=== PATIENT | female | born 1955 | race Caucasian/White ===

== ENCOUNTER 2017-06-25 09:00 | Outpatient (CLI) | payer BC | END 2017-06-25 09:01 | disposition home or self-care (01) | LOC: BICMAMMO 09:00 | PROVIDERS: ATTEND Family Medicine | DX: N63.20 Unspecified lump in the left breast, unspecified quadrant (principal); Z80.3 Family history of malignant neoplasm of breast | CPT/HCPCS: 77066; G0279 ==

== ENCOUNTER 2018-08-31 07:56 | Outpatient (CLI) | payer BC ==
--- NOTE | 2018-08-31 08:41 | MMO ---
Bilateral MAMMO Bilat Screen [facility]. CLINICAL HISTORY: Patient is 63 years old and is seen for screening. The patient has the following family history of breast cancer: maternal aunt and paternal grandmother. The patient has no personal history of cancer. VIEWS: The views performed were: bilateral craniocaudal with tomosynthesis and bilateral mediolateral oblique with tomosynthesis. FILMS COMPARED: The present examination has been compared to prior imaging studies performed at [facility] on 10/14/2010, at [facility] on 02/17/2013, 05/29/2014, 06/24/2016 and 06/25/2017, and at [facility] on 06/27/2007. MAMMOGRAM FINDINGS: The breasts are almost entirely fat. There are stable oval masses seen in both breasts. There are no suspicious masses, suspicious calcifications, or new areas of architectural distortion. IMPRESSION: THERE IS NO MAMMOGRAPHIC EVIDENCE OF MALIGNANCY. A ROUTINE FOLLOW-UP MAMMOGRAM IN 1 YEAR IS RECOMMENDED. THE RESULTS OF THIS EXAM WERE SENT TO THE PATIENT. ACR BI-RADS Category 2 - Benign finding MAMMOGRAPHY NOTE: 1. A negative mammogram report should not delay a biopsy if a dominant of clinically suspicious mass is present. 2. Approximately 10% to 15% of breast cancers are not detected by mammography. 3. Adenosis and dense breasts may obscure an underlying neoplasm.
--- NOTE | 2018-08-31 14:17 | BD ---
DEXA SCAN: INDICATION: Osteoporosis screening. COMPARISON: None. FINDINGS: Lumbar Spine: BMD (g/cm2) L1 1.126 T-Score: 1.2 Z-Score: 2.6 L2 1.158 T-Score: 1.2 Z-Score: 2.7 L3 1.187 T-Score: 0.9 Z-Score: 2.5 L4 1.228 T-Score: 1.5 Z-Score: 3.2 L1-L4 1.179 T-Score: 1.2 Z-Score: 2.8 Femoral Neck: 0.901 T-Score: 0.5 Z-Score: 1.8 Total Femur: 1.104 T-Score: 1.3 Z-Score: 2.4 Impression: Based on WHO criteria, the patient's bone mineral density is considered normal. The patient has a lo w risk for fracture. POS: [facility]
== END 2018-08-31 07:57 | disposition home or self-care (01) ==
LOC: BICMAMMO 07:56
PROVIDERS: ATTEND Family Medicine
DX: Z12.31 Encounter for screening mammogram for malignant neoplasm of breast (principal); Z13.820 Encounter for screening for osteoporosis; E89.2 Postprocedural hypoparathyroidism; Z80.3 Family history of malignant neoplasm of breast
CPT/HCPCS: 77063; 77067; 77080

== ENCOUNTER 2019-10-04 12:05 | Outpatient (CLI) | payer BC ==
--- NOTE | 2019-10-04 13:02 | MMO ---
Bilateral MAMMO Bilat Screen [facility]. CLINICAL HISTORY: Patient is 64 years old and is seen for screening. The patient has the following family history of breast cancer: maternal aunt and paternal grandmother. The patient has no personal history of cancer. VIEWS: The views performed were: bilateral craniocaudal with tomosynthesis and bilateral mediolateral oblique with tomosynthesis. FILMS COMPARED: The present examination has been compared to prior imaging studies performed at [facility] on 06/24/2016, 06/25/2017 and 08/31/2018. This study has been interpreted with the assistance of computer-aided detection. MAMMOGRAM FINDINGS: There are scattered fibroglandular densities. There is a stable oval mass with circumscribed margins seen in the right breast. There are no suspicious masses, suspicious calcifications, or new areas of architectural distortion. IMPRESSION: THERE IS NO MAMMOGRAPHIC EVIDENCE OF MALIGNANCY. A ROUTINE FOLLOW-UP MAMMOGRAM IN 1 YEAR IS RECOMMENDED. THE RESULTS OF THIS EXAM WERE SENT TO THE PATIENT. ACR BI-RADS Category 2 - Benign finding MAMMOGRAPHY NOTE: 1. A negative mammogram report should not delay a biopsy if a dominant of clinically suspicious mass is present. 2. Approximately 10% to 15% of breast cancers are not detected by mammography. 3. Adenosis and dense breasts may obscure an underlying neoplasm. Reported by: LELO TREVIÑO MD Electonically Signed: [id number]
== END 2019-10-04 12:06 | disposition home or self-care (01) ==
LOC: BICMAMMO 12:05
PROVIDERS: ATTEND Family Medicine
DX: Z12.31 Encounter for screening mammogram for malignant neoplasm of breast (principal); Z80.3 Family history of malignant neoplasm of breast
CPT/HCPCS: 77063; 77067

== ENCOUNTER 2020-05-02 06:57 | Outpatient (CLI) | payer BC ==
[2020-05-02 18:02] LABS: #Eosinphils 0.1 10x3/uL (0.0-0.5); #Monocytes 0.6 10x3/uL (0.0-1.1); #Neutrophils 3.5 10x3/uL (1.5-8.4); %Basophils 0.4 % (0.0-2.0); %Eosinophils 1.4 % (0.0-6.0); %Lymphocytes 39.2 % (18.0-47.0); %Monocytes 8.9 % (0.0-10.0); %Neutrophils 49.8 % (40.0-75.0); Hemoglobin 12.8 g/dL (12.0-16.0); Mean Corpuscular HGB CONC 33.2 G/DL (32.0-36.0); Mean Corpuscular Hemoglobin 31.1 PG (27.0-33.0); Mean Corpuscular Volume 93.4 fl (80.0-100.0); Mean Platelet Volume 9.8 fl (7.4-10.4); Platelet Count 291 10x3/uL (130-400); RBC Distribution Width 12.9 % (11.5-14.5); Red Blood Cell (RBC) Count 4.12 10x6/uL (3.90-5.20)
[2020-05-02 18:36] LABS: ALT (SGPT) 35 U/L (8-55); AST (SGOT) 29 U/L (5-34); Albumin 4.5 g/dL (3.4-4.8); Alkaline Phosphatase 135 U/L (40-110); Anion Gap 16 mmol/L (10-20); BUN (Urea Nitrogen) 15 mg/dL (9.8-20.1); Bilirubin, Total 0.3 mg/dL (0.2-1.2); Calc. Creatinine Clearance 0 mL/min (70-130); Calcium 6.7 mg/dL (7.8-10.44); Carbon Dioxide 29 mmol/L (23-31); Chloride 100 mmol/L (98-107); Globulin 3.1 g/dL (2.4-3.5); Glucose 88 mg/dL (80-115); Potassium 4.2 mmol/L (3.5-5.1); Protein, Total 7.6 g/dL (6.0-8.3); Sodium 141 mmol/L (136-145)
[2020-05-02 21:22] LABS: Hemoglobin A1c 5.6 % (4.0-6.0)
[2020-05-03 03:15] LABS: SARS-CoV-2 MS2 Positive; SARS-CoV-2 N Gene Negative; SARS-CoV-2 S Gene Negative; SARS-CoV-2 by NAA Not Detected (NotDetected); SARS-CoV-2 orf1ab Negative
== END 2020-05-02 06:58 | disposition home or self-care (01) ==
LOC: LABBT 06:57
PROVIDERS: ATTEND Specialist
DX: Z01.818 Encounter for other preprocedural examination (principal); K57.30 Diverticulosis of large intestine without perforation or abscess without bleeding; R10.32 Left lower quadrant pain; N32.1 Vesicointestinal fistula; Z20.828 Contact with and (suspected) exposure to other viral communicable diseases
CPT/HCPCS: 80053; 83036; 85025; 87635; 93005; 93010; U0003

== ENCOUNTER 2020-05-02 15:30 | Inpatient (IN) | payer BC ==
[2020-05-06 11:37] VITALS: BMI 27.3
--- NOTE | 2020-05-06 13:34 | HP ---
HISTORY OF PRESENT ILLNESS: Martina Mullins is a 64-year-old female, presents with chronic lower abdominal pain, left lower quadrant suprapubic. This has been going on for several months. She has been treated with oral antibiotics as an outpatient for diverticulitis in the past, but this pain persists. She has seen Dr. Pro in 2016, having had a cystoscopy. He recently saw her 4 days off antibiotics. Urine culture was negative by her report. The patient was told she may have a bladder tumor, he did not know, and she is concerned about this. The patient saw Dr. Lala, had 02/29/2020 CT scan showing diffuse diverticulosis, tiny air bubble in anterior bladder, sigmoid colon associated with the bladder without definitive fistula findings. The patient denies pneumaturia or fecal material in her urine. The patient has been treated with Augmentin and dicyclomine. In 2010, in [place], she had a pelvic sling for incontinence, which did not help her much. She has seen Dr. Lala and colonoscopy performed, revealed diverticulosis and benign polyps removed, colonoscopy 08/12/2018 PAST MEDICAL HISTORY: 1. GERD. 2. Arthritis. 3. Diverticulosis. 4. History of diverticulitis. MEDICATIONS: 1. Calcium. 2. Estradiol. 3. Levothyroxine. 4. Probiotic. ALLERGIES: CODEINE, GI UPSET, NO RASH. SULFA PAST SURGICAL HISTORY: Appendectomy, colonoscopy , colonoscopy prior to that 2009, tonsillectomy, septoplasty, cholecystectomy, hysterectomy, mesh sling bladder for incontinence without relief, thyroidectomy, benign disease, multiple nodules. REVIEW OF SYSTEMS: Noncontributory. FAMILY HISTORY: Noncontributory. 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 Dr. Lala is her cyber crime investigator. PHYSICAL EXAMINATION: VITAL SIGNS: Weight 167 pounds, height 65 inches, 27 BMI, blood pressure 131/78, heart rate 97, temperature 97.2 degrees. HEAD, EYES, EARS, NOSE, AND THROAT: Unremarkable. LUNGS: Clear to auscultation. CARDIAC: Regular rate and rhythm. No murmur or gallop. ABDOMEN: Soft. No hernias. Mild tenderness, left lower quadrant suprapubic. No peritoneal signs. EXTREMITIES: No ankle edema. Palpable pulses. No lymphadenopathy in neck, axilla, or groins. ASSESSMENT AND PLAN: Diverticulitis with suspected fistula. We would recommend bowel prep, general anesthesia, TAP block, laparoscopic sigmoid colon resection, probably discharged home with a Ley, with followup cystogram prior to removal. Risks of infection, bleeding, visceral injury, ureteral injury discussed. Questions answered. We will plan this at a time when the patient is able to take off work. She will be hospitalized 1 to 3 days postoperatively. Job ID: [id number]
[2020-05-07] MEDS ORDERED: Gabapentin 300 MG CAP ONE (08:51)
[2020-05-07] MEDS ORDERED: Acetaminophen 500 MG TAB ONE ×2 (08:51→18:13)
[2020-05-07] MEDS ORDERED: Ketorolac Tromethamine 30 MG/ML VIAL ONE ×3 (08:51→23:10)
[2020-05-07] MEDS ORDERED: Meropenem 2 GM, Admixture Fee 1 EACH in Sodium Chloride 0.9% 100 ML IVPB SCH (09:15)
[2020-05-07] MEDS ORDERED: Fentanyl 100 MCG/2 ML VIAL ONE ×3 (09:34→18:26)
[2020-05-07] MEDS ORDERED: Midazolam HCl 2 mg/2 ml Vial ONE (09:34)
[2020-05-07] MEDS ORDERED: PHENYLEPHRINE-NS 100 MCG/ML 10 ML SYRINGE ONE (10:49)
[2020-05-07] MEDS ORDERED: PROPOFOL 200 MG/20 ML VIAL ONE (10:49)
[2020-05-07] MEDS ORDERED: Ondansetron PF 4 MG/2 ML Vial ONE (10:49)
[2020-05-07] MEDS ORDERED: Dexamethasone 20 MG/5 ML VIAL ONE (10:49)
[2020-05-07] MEDS ORDERED: Rocuronium Bromide 10 MG/ML (10ML VIAL) ONE (10:49)
[2020-05-07] MEDS ORDERED: Lidocaine 1% PF 5 ML VIAL ONE (10:49)
[2020-05-07] MEDS ORDERED: Glycopyrrolate 0.2 MG/ML 5 ML SYRINGE ONE (10:49)
[2020-05-07] MEDS ORDERED: Bupivacaine HCl 0.5%/Epinephrine 1:200,000/PF 30 ml Vial ONE (10:49)
[2020-05-07] MEDS ORDERED: Fentanyl 250 MCG/5 ML VIAL ONE (13:11)
[2020-05-07] MEDS ORDERED: Lidocaine 1% w/Epinephrine 1:100K 20 ML VIAL ONE (13:13)
[2020-05-07] MEDS ORDERED: Bupivacaine 0.25% HCL 30 ML VIAL ONE (13:13)
[2020-05-07] MEDS ORDERED: hydrALAZINE 20 MG/ML VIAL SLOW IVP PRN (17:02)
[2020-05-07] MEDS ORDERED: Morphine 4 MG/ML VIAL SLOW IVP PRN (17:02)
[2020-05-07] MEDS ORDERED: Morphine 2 MG/ML VIAL SLOW IVP PRN (17:02)
[2020-05-07] MEDS ORDERED: Acetaminophen 500 MG TAB PO PRN (17:05)
[2020-05-07] MEDS ORDERED: traMADol HCl 50 MG TAB PO PRN (17:06)
[2020-05-07] MEDS ORDERED: Acetaminophen 500 MG TAB PO SCH (17:15)
--- NOTE | 2020-05-07 17:40 | OP ---
DATE OF PROCEDURE: 05/07/2020 PREOPERATIVE DIAGNOSES: Colovesical fistula, sigmoid diverticulitis. POSTOPERATIVE DIAGNOSES: Sigmoid diverticulitis. No evidence of fistula. Sigmoid colon was not adherent to the bladder. PROCEDURES PERFORMED: Laparoscopic mobilization of splenic flexure, laparoscopic sigmoidectomy with 33 mm EEA stapler, checked under water, no leak. ESTIMATED BLOOD LOSS: 123 mL. ANESTHESIA: General anesthesia, TAP block. DESCRIPTION OF PROCEDURE: The patient was taken to the operating room, where under general anesthesia in the dorsal lithotomy position, Ley catheter was placed and abdomen was prepared with ChloraPrep and draped in routine fashion. Buttocks, perineum, and vaginal area prepared with Betadine and draped in the routine fashion. Infraumbilical incision made, pneumoperitoneum to 15 mmHg obtained with a Veress needle, replaced with a 5 port. Right upper quadrant, left upper quadrant, and left lower quadrant incisions made and 5 ports placed. Right lower quadrant incision made and a 12 port placed. Splenic flexure, distal transverse colon mobilized, taken down the gastrocolic ligament adjacent to the transverse colon, splenic flexure mobilized. Left colon mobilized. Mediolateral dissection carried out for the sigmoid colon resection, identifying the FLORENCIA and the left ureter, keeping it free of harm, dividing the FLORENCIA with two white load fires. Once this was cleared and the left ureter kept free of harm, the mesentery dissected free down to the sacral hollow, identifying the rectosigmoid, dissected free up to the peritoneal reflection, which was mobilized. The rectosigmoid mobilized, dividing adjacent fatty tissue with the LigaSure. Rectosigmoid identified and then a blue load stapler x2 fired at the lower sigmoid colon. As noted above, there was no evidence of a colovesical fistula and the sigmoid colon was not adherent to the bladder. The colon was then measured and marked where it would reach into the pelvis. I then made incision suprapubic vertical through the midline fascia after placing a 5 port, grasping the colon to ines it, where planned division for the colorectal anastomosis. This was brought out through an David wound protector, protecting the wound, dividing the colon, palpating the indurated area, indicative of past diverticulitis. Colon divided and a pursestring suture of 2-0 Prolene placed and a 33 mm EEA anvil lubricated, placed within and pursestring suture tied around the post. It was then dropped back into the abdominal cavity. Our gloves and gowns were changed and David wound protector clamped and pneumoperitoneum re-established. It was noted that the anvil would reach into the rectum without tension. The rectum was probed with the dilators to a 33 mm EEA dilator and then a 33 mm stapler placed and advanced into the rectal stump, advancing the post through the stapler out the staple line and then mating the stapler and in torque fire range, the stapler was approximated and anastomosis fired, loosened, intact donuts removed, anastomosis checked under water with air insufflation in the rectum and there was no leak. There seemed to be a slight amount of tension. Thus, mesentery taken down under laparoscopic visualization, freeing a few more centimeters of colon, noting a tension-free anastomosis. Good hemostasis noted. Irrigant and pneumoperitoneum evacuated. All instruments removed and the suprapubic fascia approximated with #1 PDS. All wounds irrigated and all skin incisions were approximated with 4-0 Monocryl and [place] glue applied. The patient tolerated the procedure well. Job ID: [id number]
[2020-05-07] MEDS: Ketorolac Tromethamine 30 MG/ML VIAL IVP SCH ×2 (18:05→23:14)
[2020-05-07] MEDS: Lactated Ringer's 1,000 ML IV SCH (18:05)
[2020-05-07] MEDS ORDERED: Promethazine HCl 25 MG/ML VIAL ONE (18:13)
[2020-05-07] MEDS: Famotidine/PF 20 mg/2ml Vial SLOW IVP SCH (21:14)
[2020-05-07] MEDS: Enoxaparin Sodium 40 MG/0.4 ML SYRINGE SC SCH (21:14)
[2020-05-07] MEDS: Famotidine 20 MG TAB PO SCH (21:59)
[2020-05-07] MEDS ORDERED: Morphine 4 MG/ML VIAL ONE (22:02)
[2020-05-08] MEDS ORDERED: Morphine 4 MG/ML VIAL ONE (01:07)
[2020-05-08] MEDS: Ketorolac Tromethamine 30 MG/ML VIAL IVP SCH (05:50)
[2020-05-08] MEDS: Levothyroxine Sodium 112 MCG TAB PO SCH (05:53)
[2020-05-08] MEDS: Famotidine 20 MG TAB PO SCH ×2 (07:55→21:17)
[2020-05-08] MEDS: Lactinex Tablet PO SCH (07:56)
[2020-05-08] MEDS ORDERED: Ibuprofen 600 MG TAB PO PRN (08:50)
[2020-05-08] MEDS ORDERED: Ketorolac Tromethamine 30 MG/ML VIAL IVP PRN (08:50)
[2020-05-08] MEDS: Famotidine/PF 20 mg/2ml Vial SLOW IVP SCH (08:50)
[2020-05-08] MEDS ORDERED: Calcium Carbonate 600 MG + Vit D TAB PO SCH ×2 (09:00→19:00)
[2020-05-08 10:47] LABS: #Basophils 0.1 thou/uL (0.0-0.2); #Lymphocytes 1.1 thou/uL (1.20-3.40); #Monocytes 0.6 thou/uL (0.11-0.59); #Neutrophils 10.8 thou/uL (1.40-6.50); %Basophils 0.4 % (0.0-1.0); %Eosinophils 0.1 % (0.0-10.0); %Lymphocytes 8.5 % (21.0-51.0); %Monocytes 5.1 % (0.0-10.0); %Neutrophils 85.9 % (42.0-75.0); Hemoglobin 10.9 g/dL (12.0-16.0); Mean Corpuscular Hemoglobin 31.7 pg (27.0-31.0); Mean Corpuscular Volume 93.1 fL (78.0-98.0); Platelet Count 233 thou/uL (130-400); RBC Distribution Width 11.5 % (11.5-14.5); Red Blood Cell (RBC) Count 3.43 mill/uL (4.20-5.40); White Blood Cell (WBC) Count 12.6 thou/uL (4.8-10.8)
[2020-05-08 11:06] LABS: Anion Gap 15 mmol/L (10-20); BUN (Urea Nitrogen) 11 mg/dL (9.8-20.1); Calc. Creatinine Clearance 81 mL/min (70-130); Carbon Dioxide 25 mmol/L (23-31); Chloride 103 mmol/L (98-107); Glucose 175 mg/dL (80-115); Potassium 3.9 mmol/L (3.5-5.1); Sodium 139 mmol/L (136-145)
[2020-05-08 11:20] LABS: Calcium 5.6 mg/dL (7.8-10.44)
[2020-05-08] MEDS ORDERED: Calcium Gluc 4.6 MEQ/10 ML (100 MG/ML) SLOW IVP SCH (12:15)
[2020-05-08] MEDS: Lactated Ringer's 1,000 ML IV SCH (12:21)
[2020-05-08] MEDS: traMADol HCl 50 MG TAB PO PRN ×2 (15:04→21:21)
--- NOTE | 2020-05-08 18:45 | PRG ---
DATE OF SERVICE: 05/08/2020 SUBJECTIVE: Ms. Mullins is doing well today. She has spent the night in PACU due to bed unavailability. She has been moved to the pediatric floor today. She is grateful for that. The patient states she is having minimal pain, controlled with oral analgesics, Ultram. OBJECTIVE: VITAL SIGNS: Temperature 99 degrees, pulse 87, blood pressure 125/59. She is tolerating her diet. LUNGS: Clear to auscultation. CARDIAC: Regular rate and rhythm without murmur or gallop. ABDOMEN: Soft, nontender. Bowel sounds present. She has passed flatus. She has passed liquid stool. LABORATORY DATA: White count 12, hemoglobin 10.9. Basic metabolic profile normal. Calcium 5.6. Pathology pending. ASSESSMENT AND PLAN: 1. The patient is doing well all together. She has been saline locked. She is voiding spontaneously. She is ambulating. Her pain is well controlled. The patient will be discharged home in the morning. Diet and activity as tolerated. No lifting over 30 pounds for 6 weeks. The patient did not have a colovesical fistula as thought preoperatively, there was no communication of the colon to the bladder. At this point, she still has some burning pain from her lower abdominal incision. Hopefully, her preoperative pain will be resolved. Overall, she is doing well. 2. Chronic hypocalcemia secondary to hypoparathyroidism. This is a chronic problem. She has been evaluated by Endocrinology. She takes calcium supplements for this and we will continue that. Job ID: [id number]
[2020-05-08] MEDS: Enoxaparin Sodium 40 MG/0.4 ML SYRINGE SC SCH (21:16)
[2020-05-08] MEDS: Calcium Carbonate 600 MG + Vit D TAB PO SCH (21:16)
[2020-05-09] MEDS: traMADol HCl 50 MG TAB PO PRN (00:10)
[2020-05-09] MEDS: Ondansetron PF 4 MG/2 ML Vial IVP PRN ×2 (01:07→09:44)
[2020-05-09] MEDS: Levothyroxine Sodium 112 MCG TAB PO SCH (05:28)
[2020-05-09 08:01] VITALS: BP 118/56; TEMP 97.8
[2020-05-09] MEDS: Lactinex Tablet PO SCH (09:39)
[2020-05-09] MEDS: Famotidine 20 MG TAB PO SCH (09:39)
[2020-05-09] MEDS: Calcium Carbonate 600 MG + Vit D TAB PO SCH (09:39)
[2020-05-09] MEDS ORDERED: Sodium Chloride 0.9% 10 ML ONE (09:42)
--- NOTE | 2020-05-09 11:57 | DIS ---
DATE OF ADMISSION: 05/07/2020 DATE OF DISCHARGE: 05/09/2020 DISCHARGE DIAGNOSES: Diverticulitis, suspect colovesical fistula (CAT scan revealed a small air bubble) and the patient had some dysuria and burning pain in pelvis with multiple treatments for diverticulitis. CAT scan revealing inflammatory changes, although intraoperatively during the colon resection, no connection to the bladder noted and fistula not present, but changes of diverticulitis noted. PROCEDURES IN THIS HOSPITALIZATION: Laparoscopic sigmoid colon resection, splenic flexure mobilization, and anastomosis. HISTORY AND HOSPITAL COURSE: A 64-year-old female presenting to my office with history of diverticulitis and possible colovesical fistula, had been seen by Dr. Pro, had a cystoscopy about 3 to 4 years prior. We tried to arrange a preoperative cystoscopy, but that was not possible with the patient and it was not felt to be absolutely necessary. The patient had constant burning pain in her pelvis and refractory to medical therapy. She underwent a bowel prep, undergoing laparoscopic sigmoid colon resection, splenic flexure mobilization, and postoperatively she did well and she tolerated her diet. She has been discharged home at this time with Tylenol, Advil [id number], and Ultram as needed. She will resume her home medications; calcium, estradiol, levothyroxine, and probiotics. No lifting over 30 pounds for 6 weeks. Diet as tolerated. Shower and bathe as needed. Follow up in my office in 3 to 4 weeks. Job ID: [id number]
== END 2020-05-09 10:30 | disposition home or self-care (01) | DRG 330 ==
LOC: SURG A 05-07 08:40 → 3SE 05-08 08:47
PROVIDERS: ADMIT Specialist; ATTEND Specialist
PROC: 0DBN4ZZ Excision of Sigmoid Colon, Percutaneous Endoscopic Approach (ICD-10-PCS; principal; 2020-05-07)
DX: K57.32 Diverticulitis of large intestine without perforation or abscess without bleeding (principal); N32.1 Vesicointestinal fistula; F32.9 Major depressive disorder, single episode, unspecified; K21.9 Gastro-esophageal reflux disease without esophagitis; M19.90 Unspecified osteoarthritis, unspecified site; E03.9 Hypothyroidism, unspecified; E83.51 Hypocalcemia; Z88.5 Allergy status to narcotic agent; Z88.2 Allergy status to sulfonamides; Z79.899 Other long term (current) drug therapy; Z90.49 Acquired absence of other specified parts of digestive tract; Z90.710 Acquired absence of both cervix and uterus
CPT/HCPCS: 36415; 36416; 80048; 85025; 88307; J1100; J1650; J1885; J2001; J2250; J2270; J2405; J2550; J2704; J3010; S0020; S0028

== ENCOUNTER 2020-05-10 16:48 | Inpatient (IN) | payer BC ==
[~2020-05-10 16:48] MED LIST: Dexamethasone 20 MG/5 ML VIAL ONE; PHENYLEPHRINE-NS 100 MCG/ML 10 ML SYRINGE ONE; PROPOFOL 200 MG/20 ML VIAL ONE; Rocuronium Bromide 10 MG/ML (10ML VIAL) ONE; Succinylcholine 200 MG/10 ml SYRINGE FS ONE
[2020-05-10] MEDS ORDERED: Piperacillin/Tazobactam 4.5 GM VIAL ONE (17:02)
[2020-05-10] MEDS ORDERED: Acetaminophen 500 MG TAB ONE (17:02)
[2020-05-10] MEDS ORDERED: Ondansetron PF 4 MG/2 ML Vial ONE (17:08)
[2020-05-10] MEDS ORDERED: Morphine 4 MG/ML VIAL ONE (17:09)
[2020-05-10 17:17] LABS: Hemoglobin 12.9 g/dL (12.0-16.0); Mean Corpuscular HGB CONC 32.8 g/dL (32.0-36.0); Mean Corpuscular Hemoglobin 30.7 pg (27.0-31.0); Mean Corpuscular Volume 93.7 fL (78.0-98.0); Mean Platelet Volume 7.3 fL (7.4-10.4); Platelet Count 278 thou/uL (130-400); RBC Distribution Width 11.8 % (11.5-14.5); Red Blood Cell (RBC) Count 4.19 mill/uL (4.20-5.40); White Blood Cell (WBC) Count 9.5 thou/uL (4.8-10.8)
[2020-05-10 17:22] LABS: INR-International Normal Ratio 1.3; PTT 29.1 sec (22.9-36.1); Prothrombin Time 16.3 sec (12.0-14.7)
[2020-05-10] MEDS ORDERED: Vancomycin 1 GM/200 ML BAG ONE (17:25)
--- NOTE | 2020-05-10 17:30 | RAD ---
EXAM: CHEST ONE VIEW HISTORY: History of surgery 3 days ago. COMPARISON: None FINDINGS: A large amount of intraperitoneal free gas is seen beneath the hemidiaphragms which is more than expe cted for postoperative findings. There is also subcutaneous emphysema lateral right abdomen which extends along the right chest and is seen in the right axillary region. This exam is obtained in a sh allow depth inspiration which accentuates the cardiac silhouette and bronchovascular markings. There is increased density seen in the retrocardiac region left lung base which may represent either atelectasis or pneumonia or possibly aspiration pneumonitis. Mild volume loss is seen at the right lung base. The osseous structures are intact. IMPRESSION: 1. Large amount of free intraperitoneal gas beneath the hemidiaphragms which is more than expected fo r normal postoperative findings. 2. Subcutaneous emphysema along the right chest and lateral right abdomen. 3. Parenchymal opacity retrocardiac region medial left lung base which could be related to atelectasi s, pneumonia, or aspiration pneumonitis. 4. Above findings discussed Dr. Chan in the emergency department on 05/10/2020 at 1727 hours.
[2020-05-10 17:37] LABS: ALT (SGPT) 40 U/L (8-55); AST (SGOT) 46 U/L (5-34); Albumin 3.6 g/dL (3.4-4.8); Alkaline Phosphatase 131 U/L (40-110); Anion Gap 15 mmol/L (10-20); BUN (Urea Nitrogen) 5 mg/dL (9.8-20.1); Bilirubin, Total 1.4 mg/dL (0.2-1.2); Calc. Creatinine Clearance 0 mL/min (70-130); Calcium 6.5 mg/dL (7.8-10.44); Carbon Dioxide 30 mmol/L (23-31); Chloride 95 mmol/L (98-107); Globulin 3.7 g/dL (2.4-3.5); Glucose 138 mg/dL (80-115); Lipase 26 U/L (8-78); Potassium 3.1 mmol/L (3.5-5.1); Protein, Total 7.3 g/dL (6.0-8.3); Sodium 137 mmol/L (136-145)
[2020-05-10 17:42] LABS: Band 23 % (5-11); Eosinophils 1 % (0-10); Lymphocytes 10 % (21-51); MDiff Complete? YES; Monocytes 3 % (0-10); Neutrophil 62 % (42-75); Platelet Morphology Comment Appears Adequate; RBC Morphology Normal
[2020-05-10] MEDS ORDERED: Fentanyl 100 MCG/2 ML VIAL ONE ×2 (18:40→19:12)
--- NOTE | 2020-05-10 18:42 | CT ---
CT ABDOMEN AND PELVIS WITH IV CONTRAST 05/10/2020 CLINICAL INFORMATION: Lower abdominal cramping. History of recent colon surgery. COMPARISON: 04/12/2020 Technique: Multiple contiguous axial CT images are obtained through the abdomen and pelvis with IV contrast. Cor onal reformatted images are provided. FINDINGS: Lower Chest: There has been interval development of small bilateral pleural effusions. Bibasilar area s of consolidation are seen which is likely related to passive atelectasis as opposed to pneumonia; although, pneumonia would be difficult to entirely exclude. Vessels: Abdominal aorta is normal in caliber. Abdomen: Portal vein:Patent Gallbladder: Surgically absent Liver: within normal limits. Spleen: within normal limits. Pancreas: within normal limits. Adrenals: within normal limits. Kidneys: Left renal cyst again seen. Right kidney has a normal CT appearance aside from punctate subc entimeter too small to characterize hypodense lesion. Bowel: Postoperative changes are seen in the region of the rectosigmoid junction. There is colonic wa ll thickening within the colon just proximal to the area of the anastomosis. There is contrast seen adjacent to the anastomosis with inflammatory stranding as well as a large amount of free intraperito abiel gas in the abdomen and small amount of free fluid compatible with a a leak at the anastomotic site. There is mild wall thickening involving loops of small bowel in the left aspect of the abdomen which could be reactive in origin and related to enteritis. Appendix: Not visualized. Surgical clips are seen in the right lower quadrant which may be related to prior appendectomy. Peritoneum: Free fluid within the abdomen as well as large amount of free intraperitoneal gas as stat ed above. There are inflammatory changes seen in the lower pelvis with associated fluid and contrast. Mesentery and Retroperitoneum: No enlarged mesenteric or retroperitoneal lymph nodes. Abdominal Wall: Subcutaneous emphysema about the abdomen greater on the right and extending into the visualized chest and right breast subcutaneous soft tissues. Pelvis: Reproductive Organs: Evidence of hysterectomy. Bladder: Focus of gas is seen in the urinary bladder. This could be related to instrumentation. Fistu lous communication with the bowel cannot be excluded. Bones: No suspicious lytic or sclerotic osseous lesions. IMPRESSION: 1. Findings suggestive of an anastomotic leak involving the rectosigmoid junction with large amount f ree peritoneal gas, free fluid as well as contrast extravasation. 2. Thickening involving the colon just proximal to the level of the anastomosis which could be relate d to inflammatory changes and possibly reactive. There are also thick-walled loops of small bowel in the left aspect of the abdomen with adjacent fluid and stranding. This may also be reactive and re lated to enteritis. 3. Focus of gas in urinary bladder. This may be related to recent instrumentation, but fistulous comm unication with bowel cannot be excluded. 4. Small bilateral pleural effusions with bibasilar consolidation. Consolidation is felt to most like ly be related to passive atelectasis; although, developing pneumonia would be difficult to exclude in either lung base. 5. Small amount of pneumomediastinum in the posterior lower mediastinum likely due to free intraperit [place] gas in the abdomen dissecting into the mediastinum. 6. Additional findings as above. 7. Above findings discussed with Dr. Chan in the emergency department 05/10/2020 at 1831 hours
[2020-05-10] MEDS ORDERED: Midazolam HCl 2 mg/2 ml Vial ONE (19:17)
[2020-05-10] MEDS ORDERED: Ketamine 50 MG/ML (10ML VIAL) ONE (19:18)
[2020-05-10 19:19] LABS: SARS-CoV-2 NAA Rapid Test Not Detected (NotDetected)
[2020-05-10] MEDS ORDERED: Dextrose 5% in Water 1,000 ML IV PRN (19:46)
[2020-05-10] MEDS ORDERED: Dextrose 50% Abboject 50 ML SYRINGE SLOW IVP PRN (19:46)
--- NOTE | 2020-05-10 19:46 | HP ---
HISTORY: Ms. Mullins is a 64-year-old woman who is postoperative day #3 status post laparoscopic mobilization of splenic flexure, laparoscopic sigmoidectomy with 33 mm end-to-end colorectal anastomosis. The patient was discharged on postoperative day #2 and returned to the emergency department today with insidious onset, now severe 10/10 generalized abdominal pain. She admits to some nausea, but no emesis. She reports some malaise, anorexia, and fever associated with chills. She endorses scant urinary output today. PAST MEDICAL HISTORY: Pertinent for chronic diverticulosis coli and diverticulitis. She also has a past history of gastroesophageal reflux disease, surgical hypothyroidism, and degenerative arthritic disease. PAST SURGICAL HISTORY: Pertinent for multiple colonoscopies, cystoscopy, cholecystectomy, appendectomy, pelvic mesh sling for bladder incontinence as well as total thyroidectomy. 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 She denies any cigarette smoking, ethanol, or illicit drug abuse. FAMILY HISTORY: Noncontributory for this patient's age. PREHOSPITALIZATION MEDICATIONS: Includes; 1. Tramadol 50 mg p.o. q.6 hours p.r.n. 2. Levothyroxine 112 mcg p.o. daily. 3. Acetaminophen 1000 mg p.o. q.6 hours p.r.n. pain, alternated with ibuprofen 600 mg p.o. q.6 hours p.r.n. pain. 4. She also takes calcium carbonate/vitamin D3 at 1500 mg/400 units p.o. b.i.d. ALLERGIES: TO SULFA DRUGS AND CODEINE. REVIEW OF SYSTEMS: Ten-point review of systems essentially unremarkable except as stated in past medical history and chief complaint. PHYSICAL EXAMINATION: GENERAL: This reveals a 64-year-old, normally developed woman, who is otherwise coherent and interactive and appears stated age. The patient is alert and oriented x3. She appears to be in acute distress secondary to severe abdominal pain. INITIAL VITAL SIGNS: Included blood pressure 139/86, pulse was 133, respiratory rate 26, temperature 103.1 degrees Fahrenheit, oxygen saturation 90% on room air. HEENT: Reveals normocephalic and atraumatic. Pupils are equal, round, reactive to light and accommodation. Extraocular muscles are intact bilaterally. She has no scleral icterus present. She has no jugular venous distention noted. HEART: Reveals regular rate with sinus tachycardia. No murmurs or gallops auscultated. LUNGS: Reveal scattered rhonchi. Breathing regular and nonlabored. ABDOMEN: Soft, moderately distended and severely tender to palpation in all 4 quadrants. Has positive rebound. Otherwise incisions remain intact and well approximated. NEUROLOGIC: Reveals no focal deficits present. LABORATORY FINDINGS: Today include a CBC with 9500 white blood cells, hemoglobin and hematocrit are 12.9 and 39.3 respectively. Platelet count is 278,000. Differential counts as follows; 62% segmented neutrophils, 23 bands, 10 lymphocytes, 3 monocytes, 1 eosinophil and 1 basophil. PTT and INR normal at 29.1 seconds and 1.3 respectively. Metabolic profile; sodium 137, potassium is 3.1, chloride is 95, bicarb is 30, BUN is 5, creatinine is 0.84, glucose is 138, lactic acid is 2.9, total bilirubin is 1.4, AST and ALT are 46 and 40 respectively. Serum lipase is 26. Troponin I is 0.015. BNP is 92.0. I have personally reviewed the radiographic studies including a chest CT scan, which is remarkable for large free air under both hemidiaphragms. No significant intrathoracic pathology is evident of acute nature. CT scan of the abdomen and pelvis is remarkable for extensive pneumoperitoneum as well as contrast extravasation at the colorectal anastomosis to suggest anastomotic disruption. IMPRESSION: 1. Postop day #3 status post laparoscopic sigmoidectomy with primary colorectal anastomosis. 2. Acute peritonitis secondary to colorectal anastomotic disruption. 3. Acute septic shock. 4. Lactic acidosis secondary to acute septic shock. PLAN: 1. Broad-spectrum antibiotic therapy and fluid resuscitation. 2. The patient will be taken to the operating room urgently for exploratory laparotomy and possible end-colostomy. Above findings and plan discussed with the patient in the presence of her nurse. I have advised the patient of the risks and benefits of the proposed surgery to include, but not limited to bleeding, infection, injury to bowel or surrounding structures. The patient indicates understanding of information provided. I have answered her questions. She has granted consent for this admission and surgical intervention. Job ID: [id number]
[2020-05-10] MEDS ORDERED: diphenhydrAMINE 25 MG CAP PO PRN (19:51)
[2020-05-10] MEDS ORDERED: diphenhydrAMINE 50 MG/ML VIAL IM PRN (19:51)
[2020-05-10] MEDS ORDERED: Promethazine HCl 25 MG/ML VIAL IM PRN (19:51)
[2020-05-10] MEDS ORDERED: diphenhydrAMINE 50 MG/ML VIAL IVP PRN (19:51)
[2020-05-10] MEDS ORDERED: HYDROmorphone 10 mg/100 ml CADD IVPB PRN (19:51)
[2020-05-10] MEDS ORDERED: Naloxone HCl 0.4 mg/ml Vial IV PRN (19:51)
[2020-05-10] MEDS ORDERED: Communication Order-Pharmacy FS SCH (20:00)
[2020-05-10] MEDS ORDERED: Fentanyl 250 MCG/5 ML VIAL ONE (20:58)
[2020-05-10 22:52] LABS: Actual Bicarbonate (HCO3a) 22.8 mEq/L (22-28); Base Excess (BEa) -3.4 mEq/L (-2.0 to +3.0); CO2 Tension 45.5 mmHg (35.0-45.0); Calcium, Ionized (arterial) 0.76 mmol/L (1.12-1.30); Carboxyhemoglobin (COHb) 0.6 gm% (0.0-3.0); Hemoglobin (Hb) 12.8 g/dL (12.0-16.0); O2 Tension (PaO2), arterial 112.7 mmHg (> 80.0); Potassium - ABG Lab 3.34 mmol/L (3.70-5.30); pH, Arterial 7.32 (7.35-7.45)
[2020-05-10 22:56] LABS: ALV-art Gradient 186.925 mmHg (0-20); Puncture Site Arterial Line
[2020-05-10] MEDS ORDERED: Propofol 1,000 MG/100 ML VIAL IV PRN (23:00)
[2020-05-10] MEDS ORDERED: Lorazepam 2 MG/ML VIAL SLOW IVP PRN (23:00)
[2020-05-10] MEDS ORDERED: fentaNYL Citrate/PF 2,000 MCG in Sodium Chloride 0.9% 60 ML IV SCH (23:00)
[2020-05-10] MEDS ORDERED: Propofol BOLUS 1,000 MG/100 ML VIAL IV PRN (23:00)
[2020-05-10] MEDS ORDERED: Fentanyl BOLUS 250 ML IVPB PRN (23:00)
[2020-05-10] MEDS ORDERED: DISCONTINUE PREVIOUS NARCOTIC PAIN MEDICATIONS AND BENZODIAZEPINES FS SCH (23:00)
[2020-05-10] MEDS ORDERED: Morphine 2 MG/ML VIAL SLOW IVP PRN (23:00)
[2020-05-10] MEDS: Sodium Chloride 0.9% 1,000 ML IV SCH (23:11)
[2020-05-10] MEDS: NS 0.9% w/ 20 MEQ KCL 1,000 ML IV SCH ×2 (23:12→23:38)
[2020-05-10] MEDS: Famotidine/PF 20 mg/2ml Vial SLOW IVP SCH (23:33)
[2020-05-10] MEDS: Ketorolac Tromethamine 30 MG/ML VIAL IVP SCH (23:33)
[2020-05-10] MEDS: Piperacillin/Tazobactam 3.375 GM in Sodium Chloride 0.9% 100 ML IVPB SCH (23:34)
--- NOTE | 2020-05-10 23:47 | RAD ---
EXAM: CHEST ONE VIEW HISTORY: Intubated. Dobbhoff feeding tube placement. COMPARISON: 04/30/2020 FINDINGS: Endotracheal tube is now noted in place with tip overlying the T3 vertebral body. Nasogastric tube an d Dobbhoff feeding tubes are noted in place. Tip of these tubes are not imaged. Subcutaneous emphysema is again seen overlying the right chest. There is bibasilar atelectasis with blunting of ea ch lateral costophrenic angle suggesting associated small bilateral pleural effusions. No other interval change. IMPRESSION: 1. Endotracheal tube, nasogastric tube, and Dobbhoff feeding tubes in place. 2. Small bilateral pleural effusions and associated atelectasis. 3. Previously seen large amount of free intraperitoneal gas beneath the hemidiaphragms is not percept ible on this exam. 4. Subcutaneous emphysema overlying right chest.
--- NOTE | 2020-05-11 00:07 | RAD ---
EXAM: XR Abdomen 1 View/KUB PROVIDED CLINICAL HISTORY: Evaluate positioning of Dobbhoff feeding tube. COMPARISON: None FINDINGS: Dobbhoff feeding tube is noted in place. Tip of the Dobbhoff feeding tube overlies the left upper charline drant and likely overlies the region of the ligament of Treitz. Nasogastric tube is noted in place with tip overlying the expected location of the body of the stomach. Midline skin clips are seen. Byron gical clips are seen scattered within the upper abdomen and pelvis. Residual contrast is seen within the descending colon. Subcutaneous emphysema seen overlying the right lateral abdomen. Drainag e catheter overlies the pelvis. IMPRESSION: Postoperative changes of the abdomen. Dobbhoff feeding tube is noted in place with tip overlying the expected location of ligament of Treitz. Nasogastric tube is noted in place with tip overlying the expected location of the body of the stomach.
[2020-05-11] MEDS ORDERED: Sodium Chloride 0.9% 500 ML IV SCH ×2 (01:45→06:30)
[2020-05-11] MEDS: NS 0.9% w/ 20 MEQ KCL 1,000 ML IV SCH ×3 (02:34→11:16)
--- NOTE | 2020-05-11 03:09 | OP ---
DATE OF PROCEDURE: 05/10/2020 PREOPERATIVE DIAGNOSES: 1. Postoperative day #3, status post laparoscopic sigmoidectomy with primary colorectal anastomosis. 2. Anastomotic leak with peritonitis. POSTOPERATIVE DIAGNOSES: 1. Postoperative day #3, status post laparoscopic sigmoidectomy with primary colorectal anastomosis. 2. Anastomotic leak with peritonitis. 3. Near complete disruption of the colorectal anastomosis with extensive fecal peritonitis. OPERATIONS PERFORMED: 1. Exploratory laparotomy. 2. Segmental colectomy with end colostomy. 3. Abdominal washout. 4. Placement of feeding nasojejunal tube. ANESTHESIA: General endotracheal. ESTIMATED BLOOD LOSS: 100 mL. FLUIDS GIVEN: 2000 mL crystalloids. SPONGE AND INSTRUMENT COUNTS: Verified as correct x2. COMPLICATIONS: None apparent at time of operation. INDICATIONS FOR OPERATION: A 64-year-old woman postop day #3, status post laparoscopic sigmoidectomy with end-to-end colorectal anastomosis. The patient was discharged home yesterday and returned to the emergency department today with 10/10 generalized abdominal pain associated with fever, temperature 103, and profound leukocytosis as well as sepsis syndrome. Clinical and radiographic examinations were consistent with large pneumoperitoneum with extensive amount of free fluid in addition to contrast extravasation at the level of the colorectal anastomosis. The patient was brought to the operating room for exploration. Findings are consistent with markedly inflamed thick-walled distal colon and near complete anastomotic disruption. Decision was made therefore to resect the anastomosis and place end colostomy. DESCRIPTION OF OPERATION: Informed consent was obtained from the patient. She was brought to operating room and placed in supine position. Following general anesthesia, Ley catheter was inserted and placed to bedside drain. Nasogastric tube inserted and placed to wall suction. The abdomen was sterilely prepped and draped in usual fashion. A midline incision was made using 10 scalpel. Incision was carried through subcutaneous tissues, maintaining hemostasis using cautery. Fascia was incised in the midline along the line of the incision exposing the peritoneum beneath, which was grasped x2 with hemostats. Peritoneal cavity was sharply entered using Metzenbaum scissors. Incision was then extended superiorly and inferiorly. Peritoneal cavity was entered. Large amount of liquid stool was evacuated from the peritoneal cavity. Abdomen was irrigated in all 4 quadrants. Small bowel was run from ligament of Treitz down to terminal ileum. No pathology identified. The large intestine was then inspected from the cecum through the ascending, transverse, descending colon down to the level of the colorectal anastomosis. The anastomosis was near completely disrupted and markedly thick walled and decision was made to resect this and proceed with an end colostomy. To achieve this, Contour stapler was introduced and I created a rent through the mesentery of the descending colon approximately 6 inches from the anastomosis. The stapler was fired here. The specimen was passed off the operative field for formal transmission to Pathology. Abdominal cavity was then copiously irrigated in all 4 quadrants until it was clear. I placed a #19 Uziel drain in the deep pelvis and allowing this to exit the abdominal cavity through a separate stab incision. The drain was secured to anterior abdominal wall using 2-0 silk suture. At this juncture, a feeding nasojejunal tube was inserted by Anesthesia, tip of which was palpated by myself within the gastric lumen. Manipulated tip of this catheter into proximal small bowel without resistance. A core incision was then made in the left lower quadrant in area chosen for placement of the colostomy. A transverse incision was made at the fascia and a tonsil clamp was introduced here into the peritoneal cavity through this defect, which was dilated to 3 fingerbreadths. [place] forceps introduced into the peritoneal cavity, grasping the staple line of the descending colon which was pulled through and secured within the peritoneal cavity using 3-0 silk suture at 3 points. At this juncture, all sponges and instruments were reported as correct x2. I placed a sheet of Seprafilm in the deep pelvis and then returned the small bowel to normal anatomic location. A 2nd sheet of Seprafilm placed over the small bowel. Omentum was drawn over remainder of the viscera. Fascia was then approximated in the midline using a running stitch of #1 single stranded PDS. Subcutaneous tissues were pulse lavaged with 3 L of sterile saline. Deep subcutaneous tissues were approximated using interrupted sutures of 3-0 Vicryl. Skin incision was then closed using dede. Sterile dressings were applied. To complete the colostomy, the staple line was excised and colostomy is perfected with interrupted sutures of 3-0 Vicryl. Colostomy appliance was placed. The patient tolerated the operation without any apparent complication and was returned to the intensive care unit in critical, but stable condition. Job ID: [id number] [facility]
[2020-05-11 04:28] LABS: #Monocytes 0.3 thou/uL (0.11-0.59); #Neutrophils 9.4 thou/uL (1.40-6.50); %Basophils 0.1 % (0.0-1.0); %Eosinophils 0.1 % (0.0-10.0); %Lymphocytes 9.6 % (21.0-51.0); %Monocytes 2.6 % (0.0-10.0); %Neutrophils 87.7 % (42.0-75.0); Hemoglobin 10.8 g/dL (12.0-16.0); Mean Corpuscular Hemoglobin 32.3 pg (27.0-31.0); Mean Platelet Volume 7.6 fL (7.4-10.4); Platelet Count 236 thou/uL (130-400); RBC Distribution Width 11.7 % (11.5-14.5); Red Blood Cell (RBC) Count 3.34 mill/uL (4.20-5.40); White Blood Cell (WBC) Count 10.7 thou/uL (4.8-10.8)
[2020-05-11] MEDS ORDERED: Hydrocortisone Sod Succ/PF 100 mg/2 ml Vial IVP SCH (04:45)
[2020-05-11 04:50] LABS: Phosphorus 3.5 mg/dL (2.3-4.7)
[2020-05-11] MEDS: Piperacillin/Tazobactam 3.375 GM in Sodium Chloride 0.9% 100 ML IVPB SCH ×4 (05:00→23:09)
[2020-05-11 05:01] LABS: ALT (SGPT) 25 U/L (8-55); AST (SGOT) 28 U/L (5-34); Albumin 2.2 g/dL (3.4-4.8); Alkaline Phosphatase 77 U/L (40-110); Anion Gap 12 mmol/L (10-20); BUN (Urea Nitrogen) 5 mg/dL (9.8-20.1); Calc. Creatinine Clearance 120 mL/min (70-130); Calcium 4.9 mg/dL (7.8-10.44); Carbon Dioxide 23 mmol/L (23-31); Chloride 103 mmol/L (98-107); Globulin 2.6 g/dL (2.4-3.5); Glucose 155 mg/dL (80-115); Magnesium 1.4 mg/dL (1.6-2.6); Potassium 3.1 mmol/L (3.5-5.1); Protein, Total 4.8 g/dL (6.0-8.3); Sodium 135 mmol/L (136-145)
[2020-05-11] MEDS: Ketorolac Tromethamine 30 MG/ML VIAL IVP SCH ×4 (05:02→23:08)
[2020-05-11] MEDS: Ondansetron PF 4 MG/2 ML Vial IVP PRN ×3 (05:18→23:56)
[2020-05-11] MEDS: Sodium Chloride 0.9% 1,000 ML IV SCH ×3 (05:23→23:08)
[2020-05-11] MEDS ORDERED: Potassium Phosphate 30 MMOL in Sodium Chloride 0.9% 250 ML 250 ML IVPB SCH (06:30)
[2020-05-11] MEDS ORDERED: Potassium Phosphate 30 MMOL, Magnesium Sulfate 4 GM in Sodium Chloride 0.9% 250 ML 250 ML IVPB SCH (07:15)
[2020-05-11] MEDS: Enoxaparin Sodium 40 MG/0.4 ML SYRINGE SC SCH (10:01)
[2020-05-11] MEDS: Famotidine/PF 20 mg/2ml Vial SLOW IVP SCH ×2 (10:01→21:45)
--- NOTE | 2020-05-11 16:26 | PRG ---
DATE OF SERVICE: 05/11/2020 SUBJECTIVE: The patient was seen this morning during rounds. She is intubated with mild sedation. She arouses easily and follows commands. She is asking for the tube to be removed. On re-evaluation by Dr. Fuentes this morning, she was extubated. She was clear, awake, and alert with no signs of acute distress. OBJECTIVE: VITAL SIGNS: Temperature 98.2, pulse 75, respirations 14, oxygen saturation 100% on the ventilator, and blood pressure 121/70. GENERAL: Well-appearing elderly female, sitting up in bed, intubated and sedated with no signs of acute distress. PULMONARY: Equal chest rise and fall. Clear breath sounds bilaterally. No signs of acute respiratory distress. CARDIAC: Regular rate and rhythm. GI: Abdomen is soft, nontender, nondistended. Colostomy with no output. Tissue was well perfused. EXTREMITIES: 2+ pulses in all extremities. Gross motor and sensation are intact. No significant swelling noted. NEURO: GCS is 11t. LABORATORY FINDINGS: White count 10.7, hemoglobin 10.8, hematocrit 31.8, and platelets 236. Sodium 134, potassium 3.1, chloride 105, bicarb 23, BUN 5, creatinine 0.6, glucose 155. Lactic acid 1.0, magnesium 1.4, cortisol 26.7, ionized calcium is 0.76. DIAGNOSTIC FINDINGS: There are no new diagnostic findings to discuss. ASSESSMENT: 1. Postop day #1, status post exploratory laparotomy, segmental colectomy with end colostomy, abdominal washout, and NJ-tube placement, due to peritonitis and anastomotic leak, status post sigmoidectomy by Dr. Hancock on May 07. 2. History of diverticulosis. 3. Acute hypomagnesemia, hypocalcemia, and hypokalemia. PLAN: The patient was intubated today. We will keep her n.p.o. NG-tube to suction. Trickle Dobbhoff feeds, do not advance. The patient can have ice chips. Discontinue fentanyl and propofol drips. 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 Continue Zosyn. Continue Ley. Up out of bed and working with Physical Therapy. This patient was seen and evaluated by Dr. Fuentes and myself this morning during rounds. Job ID: [id number]
--- NOTE | 2020-05-12 02:09 | PRG ---
DATE OF SERVICE: 05/11/2020 SUBJECTIVE: The patient remains in the critical care unit, resting comfortably. The patient was extubated today. The patient has had some mildly low urinary output all day and was given a 500 mL bolus earlier today. The patient is on a Dilaudid PLASTER TENDER pump which is controlling her pain. The patient was placed on Lovenox for VTE prophylaxis today. Vital signs are stable and the patient is afebrile. PLAN: Continue supportive care and pain regimen with PLASTER TENDER Dilaudid pump. Continue trickle tube feeds. Continue to monitor urinary output. We will give the patient a normal saline 500 mL bolus as her blood pressure is mildly soft and output is on the low end. We will repeat labs in the morning. Physical and occupational therapy. Job ID: [id number]
[2020-05-12] MEDS ORDERED: Sodium Chloride 0.9% 500 ML IV SCH (02:15)
[2020-05-12 04:46] LABS: Anion Gap 14 mmol/L (10-20); BUN (Urea Nitrogen) 10 mg/dL (9.8-20.1); Calc. Creatinine Clearance 113 mL/min (70-130); Calcium 5.8 mg/dL (7.8-10.44); Carbon Dioxide 20 mmol/L (23-31); Chloride 109 mmol/L (98-107); Glucose 133 mg/dL (80-115); Magnesium 2.4 mg/dL (1.6-2.6); Phosphorus 3.3 mg/dL (2.3-4.7); Potassium 3.5 mmol/L (3.5-5.1); Sodium 139 mmol/L (136-145)
[2020-05-12 05:52] LABS: #Monocytes 0.4 thou/uL (0.11-0.59); #Neutrophils 8.8 thou/uL (1.40-6.50); %Eosinophils 0.3 % (0.0-10.0); %Lymphocytes 9.8 % (21.0-51.0); %Neutrophils 85.9 % (42.0-75.0); Hemoglobin 9.6 g/dL (12.0-16.0); Mean Corpuscular HGB CONC 33.4 g/dL (32.0-36.0); Mean Corpuscular Hemoglobin 32.4 pg (27.0-31.0); Mean Corpuscular Volume 97.1 fL (78.0-98.0); Mean Platelet Volume 7.6 fL (7.4-10.4); Platelet Count 235 thou/uL (130-400); RBC Distribution Width 11.9 % (11.5-14.5); Red Blood Cell (RBC) Count 2.96 mill/uL (4.20-5.40); White Blood Cell (WBC) Count 10.2 thou/uL (4.8-10.8)
[2020-05-12] MEDS: Ketorolac Tromethamine 30 MG/ML VIAL IVP SCH ×4 (06:08→23:53)
[2020-05-12] MEDS: Piperacillin/Tazobactam 3.375 GM in Sodium Chloride 0.9% 100 ML IVPB SCH ×4 (06:11→23:54)
[2020-05-12] MEDS: Ondansetron PF 4 MG/2 ML Vial IVP PRN (06:11)
[2020-05-12] MEDS: Sodium Chloride 0.9% 1,000 ML IV SCH ×3 (06:12→23:53)
[2020-05-12] MEDS ORDERED: Calcium Chloride 1 GM/10 ML Abboject SYRINGE IVP SCH (06:30)
[2020-05-12] MEDS ORDERED: Potassium Phosphate 15 MMOL in Sodium Chloride 0.9% 250 ML 250 ML IVPB SCH (07:30)
[2020-05-12] MEDS: Famotidine/PF 20 mg/2ml Vial SLOW IVP SCH ×2 (08:34→20:14)
[2020-05-12] MEDS: Enoxaparin Sodium 40 MG/0.4 ML SYRINGE SC SCH (08:34)
[2020-05-12] MEDS ORDERED: traMADol HCl 50 MG TAB PO PRN (10:36)
[2020-05-12] MEDS ORDERED: traMADol HCl 50 MG TAB PO SCH (10:45)
[2020-05-12] MEDS ORDERED: Lactated Ringer's 500 ML IV SCH (12:45)
--- NOTE | 2020-05-12 14:41 | PRG ---
DATE OF SERVICE: SUBJECTIVE: Ms. Mullins is a 64-year-old woman, who is postoperative day #1, status post exploratory laparotomy and resection of disrupted colorectal anastomosis, abdominal washout for fecal peritonitis, and end colostomy. The patient is awake and alert, this morning reporting adequate pain control. 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 Otherwise, she reports adequate pain control. Urinary output is adequate for this patient's age and weight. OBJECTIVE: VITAL SIGNS: This morning include blood pressure 115/70, pulse is 80, respiratory rate is 14. Maximum temperature last 24 hours is 98.5 degrees Fahrenheit, oxygen saturation is 96% on 2 L by nasal cannula oxygen. HEENT: Pupils equal, round, reactive to light and accommodation. NECK: She has no jugular venous distention noted. HEART: Reveals regular rate and rhythm. LUNGS: Clear to auscultation bilaterally. Her breathing is regular and nonlabored. ABDOMEN: Soft and nondistended. Incision is intact, clean, dry. Nolan-Wong drain returned 60 mL since yesterday. Colostomy is viable with no output of stool or gas at the moment. NEUROLOGIC: Reveals no focal deficits present. LABORATORY FINDINGS: Include a CBC with 10,200 white blood cells, hemoglobin and hematocrit 9.6 and 28.7 respectively. Platelet count is 235,000. Metabolic profile; sodium 139, potassium 3.5, chloride is 109, bicarb is 20, BUN is 10, creatinine 0.64, glucose 133, magnesium is 2.4, phosphorus is 3.3. IMPRESSION: 1. Postoperative day #1 status post exploratory laparotomy, resection of disrupted colorectal anastomosis, abdominal washout, and end-colostomy. 2. Acute hypokalemia. PLAN: 1. Correct abnormal electrolytes. 2. We will discontinue the Dilaudid HYDRAULIC JACK OPERATOR and try tramadol and monitor the patient for resolution of the nausea. 3. Increase activity per Physical and Occupational therapy. 4. The patient is certainly hemodynamically stable for transfer to general surgical floor. Job ID: [id number]
[2020-05-12] MEDS: traMADol HCl 50 MG TAB PO SCH ×2 (14:56→20:14)
--- NOTE | 2020-05-13 01:39 | PRG ---
DATE OF SERVICE: 05/12/2020 SUBJECTIVE: Patient was seen during evening rounds, awake, alert, in no distress. Patient is postop day #1 status post exploratory laparotomy and resection of disrupted colorectal anastomosis and abdominal washout with end-colostomy. Patient reported to the nurse that it felt like her bandage was tight. Patient denies any nausea or vomiting. She is tolerating ice chips at this time. Patient is also tolerating tube feeds at 20 mL an hour. Patient continues to receive maintenance IV fluids at 120 an hour. Patient's pain is controlled and only reporting some soreness in her abdomen. Patient's NG tube was irrigated and working appropriately. Patient's abdomen is soft, nondistended, mild tenderness with palpation, no peritoneal signs. Bandage is clean, dry, and intact. LALITO drain in place with serosanguineous output. Colostomy is viable with no output of stool or gas at this time. PLAN: Continue supportive care and pain regimen. We will discontinue Dilaudid BAGGING SALVAGER and try tramadol. Increase activity per Physical and Occupational Therapy. Job ID: [id number]
[2020-05-13] MEDS: traMADol HCl 50 MG TAB PO SCH ×6 (03:34→21:13)
[2020-05-13] MEDS ORDERED: Lactated Ringer's 500 ML IV SCH ×2 (04:30→05:15)
[2020-05-13] MEDS: Lactated Ringer's 1,000 ML IV SCH ×3 (04:38→21:13)
[2020-05-13] MEDS: Piperacillin/Tazobactam 3.375 GM in Sodium Chloride 0.9% 100 ML IVPB SCH ×2 (05:22→12:40)
[2020-05-13 05:29] LABS: #Basophils 0.1 thou/uL (0.0-0.2); #Eosinphils 0.4 thou/uL (0.0-0.7); #Lymphocytes 1.9 thou/uL (1.20-3.40); #Monocytes 0.5 thou/uL (0.11-0.59); #Neutrophils 6.1 thou/uL (1.40-6.50); %Monocytes 5.6 % (0.0-10.0); %Neutrophils 67.4 % (42.0-75.0); Hemoglobin 8.4 g/dL (12.0-16.0); Mean Corpuscular HGB CONC 33.7 g/dL (32.0-36.0); Mean Corpuscular Hemoglobin 31.8 pg (27.0-31.0); Mean Corpuscular Volume 94.3 fL (78.0-98.0); Mean Platelet Volume 7.7 fL (7.4-10.4); Platelet Count 298 thou/uL (130-400); RBC Distribution Width 11.9 % (11.5-14.5); Red Blood Cell (RBC) Count 2.63 mill/uL (4.20-5.40)
[2020-05-13 05:39] LABS: Anion Gap 14 mmol/L (10-20); BUN (Urea Nitrogen) 12 mg/dL (9.8-20.1); Calc. Creatinine Clearance 108 mL/min (70-130); Carbon Dioxide 21 mmol/L (23-31); Chloride 112 mmol/L (98-107); Glucose 91 mg/dL (80-115); Magnesium 1.8 mg/dL (1.6-2.6); Phosphorus 2.7 mg/dL (2.3-4.7); Potassium 3.6 mmol/L (3.5-5.1); Sodium 143 mmol/L (136-145)
[2020-05-13 05:50] LABS: Calcium 5.9 mg/dL (7.8-10.44)
[2020-05-13] MEDS ORDERED: Calcium Gluconate 4.6 MEQ in Sodium Chloride 0.9% 100 ML IVPB SCH (06:44)
[2020-05-13] MEDS ORDERED: Potassium Phosphate 15 MMOL in Sodium Chloride 0.9% 250 ML 250 ML IVPB SCH (06:45)
[2020-05-13] MEDS ORDERED: Magnesium 2 GM/50 ML 2 GM in Premix Bag 1 BAG IVPB SCH (07:00)
[2020-05-13] MEDS ORDERED: Fentanyl 100 MCG/2 ML VIAL SLOW IVP SCH (07:15)
[2020-05-13] MEDS ORDERED: Potassium Phosphate 15 MMOL, Magnesium Sulfate 2 GM in Sodium Chloride 0.9% 250 ML 250 ML IVPB SCH (08:00)
[2020-05-13] MEDS: Famotidine/PF 20 mg/2ml Vial SLOW IVP SCH ×2 (08:36→21:13)
[2020-05-13] MEDS: Enoxaparin Sodium 40 MG/0.4 ML SYRINGE SC SCH (08:37)
[2020-05-13] MEDS ORDERED: Morphine 4 MG/ML VIAL SLOW IVP PRN ×2 (08:55→11:17)
[2020-05-13] MEDS ORDERED: Calcium Chloride 13.6 MEQ in Sodium Chloride 0.9% 100 ML IVPB SCH (09:00)
--- NOTE | 2020-05-13 12:19 | PRG ---
DATE OF SERVICE: 05/13/2020 Ms. Mullins underwent laparoscopic sigmoid colon resection and 33 mm EEA anastomosis, 05/07/2020. She was discharged home, 05/09/2020, tolerated diet, having liquid bowel movements. She presented to the emergency room on 05/10/2020 with abdominal pain and increased pneumoperitoneum more than expected at this stage. She was tachycardic. Abdomen and pelvis CAT scan was obtained revealing pneumoperitoneum, more abundant than expected in this postoperative state, and rectal contrast reveals colorectal anastomotic leak. The patient was given intravenous fluids and antibiotics and taken to the operating room with findings of significant leak requiring closure of rectal pouch and colostomy, abdominal washout, placement of duodenal tube. A Uziel drain was placed. The rectal stump was closed with a Contour stapler. The patient complains of upper abdominal pain this morning. She states she feels full, though not nauseated. Her colostomy has started to put out copious amounts of stool and flatus. Gastric drainage in last 24 hours was 570 mL. Right lower quadrant LALITO drain 230 mL. Urine output 635 mL. The patient has not been up, out of bed since her surgery. White count is 9, hemoglobin 8.4. Differential unremarkable. Sodium 143, potassium 3.6, chloride 112, carbon dioxide 21, BUN and creatinine 12 and 0.67, calcium 5.9. ASSESSMENT AND PLAN: 1. Colorectal anastomotic leak, status post Carter pouch and colostomy. Her drain remains in place. She has an NG tube. We will hold her duodenal tube feedings because of her upper abdominal fullness. Hopefully, the fact that her colostomy has begun functioning, putting out stool and flatus will release some of her upper abdominal discomfort. Her vital signs are normal. White count is normalized. We would continue intravenous antibiotics. For some reason she has been thought to be on bedrest over the weekend, although there are no orders for such. Physical Therapy, however, has been getting her up and out of bed when they visit once a day. We will get her up in a chair and get her out of bed more than once a day, have Physical Therapy work with her. She has Telfa thomas in her midline wound. Colostomy appears to be healthy. 2. Hypocalcemia. This is chronic. This is from iatrogenic surgical in the past. She takes calcium supplements for this. We will begin to treat her parenterally until she takes oral calcium which she does at home. Job ID: [id number]
[2020-05-13] MEDS: Ketorolac Tromethamine 30 MG/ML VIAL IVP SCH ×2 (12:40→17:21)
[2020-05-13] MEDS: Calcium Gluc 4.6 MEQ/10 ML (100 MG/ML) SLOW IVP SCH ×2 (12:52→17:21)
[2020-05-13] MEDS: Ondansetron PF 4 MG/2 ML Vial IVP PRN (15:22)
[2020-05-13] MEDS: Piperacillin/Tazobactam 4.5 GM in Sodium Chloride 0.9% 100 ML IVPB SCH (17:22)
[2020-05-13 19:08] LABS: Hemoglobin 11.4 g/dL (12.0-16.0); Mean Corpuscular HGB CONC 33.9 g/dL (32.0-36.0); Mean Corpuscular Hemoglobin 31.8 pg (27.0-31.0); Mean Corpuscular Volume 93.9 fL (78.0-98.0); Mean Platelet Volume 6.8 fL (7.4-10.4); Platelet Count 348 thou/uL (130-400); RBC Distribution Width 11.9 % (11.5-14.5); Red Blood Cell (RBC) Count 3.58 mill/uL (4.20-5.40); White Blood Cell (WBC) Count 3.8 thou/uL (4.8-10.8)
[2020-05-14] MEDS: Ketorolac Tromethamine 30 MG/ML VIAL IVP SCH ×5 (00:07→23:57)
[2020-05-14] MEDS: Piperacillin/Tazobactam 4.5 GM in Sodium Chloride 0.9% 100 ML IVPB SCH ×5 (00:07→23:57)
[2020-05-14] MEDS: Calcium Gluc 4.6 MEQ/10 ML (100 MG/ML) SLOW IVP SCH ×2 (00:08→05:36)
[2020-05-14 01:55] LABS: Bacteria/HPF None Seen HPF (None Seen); Bilirubin 1+ (Negative); Blood, Urine Trace (Negative); Clarity Clear (Clear); Glucose, Urine (Dipstick) Normal (Negative); Ketone, Urine 80 mg/dL (Negative); Leukocyte Negative Leu/uL (Negative); Nitrite Negative (Negative); Protein, Urine (Dipstick) 70 mg/dL (Neg-Trace); RBC/HPF 0-3 HPF (0-3); Specific Gravity, Urine 1.041 (1.002-1.036); Squamous Epithelial None Seen HPF (0-3); Urobilinogen Normal mg/dL (Less than 2)
[2020-05-14 02:00] LABS: Urine Culture Reflex Yes Yes
[2020-05-14] MEDS: traMADol HCl 50 MG TAB PO SCH ×4 (03:59→21:23)
[2020-05-14 05:41] LABS: Phosphorus 4.5 mg/dL (2.3-4.7)
[2020-05-14 05:42] LABS: ALT (SGPT) 18 U/L (8-55); AST (SGOT) 19 U/L (5-34); Albumin 2.1 g/dL (3.4-4.8); Alkaline Phosphatase 85 U/L (40-110); Anion Gap 12 mmol/L (10-20); BUN (Urea Nitrogen) 9 mg/dL (9.8-20.1); Bilirubin, Total 1.4 mg/dL (0.2-1.2); Calc. Creatinine Clearance 122 mL/min (70-130); Calcium 7.1 mg/dL (7.8-10.44); Carbon Dioxide 22 mmol/L (23-31); Chloride 107 mmol/L (98-107); Globulin 2.4 g/dL (2.4-3.5); Glucose 75 mg/dL (80-115); Magnesium 1.8 mg/dL (1.6-2.6); Potassium 3.4 mmol/L (3.5-5.1); Protein, Total 4.5 g/dL (6.0-8.3); Sodium 138 mmol/L (136-145)
[2020-05-14] MEDS: Lactated Ringer's 1,000 ML IV SCH (06:37)
[2020-05-14 07:21] LABS: Hemoglobin 11.1 g/dL (12.0-16.0); Mean Corpuscular HGB CONC 32.6 g/dL (32.0-36.0); Mean Corpuscular Hemoglobin 30.7 pg (27.0-31.0); Mean Corpuscular Volume 94.2 fL (78.0-98.0); Mean Platelet Volume 6.7 fL (7.4-10.4); Platelet Count 352 thou/uL (130-400); RBC Distribution Width 11.9 % (11.5-14.5); Red Blood Cell (RBC) Count 3.61 mill/uL (4.20-5.40); White Blood Cell (WBC) Count 8.9 thou/uL (4.8-10.8)
[2020-05-14 07:53] LABS: Band 58 % (5-11); Lymphocytes 13 % (21-51); MDiff Complete? YES; Metamyelocyte 17 % (0-0); Monocytes 3 % (0-10); Neutrophil 9 % (42-75); Platelet Morphology Comment Appears Adequate; Polychromasia SLIGHT = 2-3 cells (100X) (0-2/hpf); Vacuoles SLIGHT
[2020-05-14] MEDS ORDERED: Potassium Phosphate 30 MMOL, Magnesium Sulfate 3 GM in Sodium Chloride 0.9% 250 ML 250 ML IVPB SCH (09:00)
[2020-05-14] MEDS ORDERED: traMADol HCl 50 MG TAB PO PRN (09:04)
[2020-05-14] MEDS ORDERED: Lactated Ringer's 1,000 ML IV SCH (09:04)
--- NOTE | 2020-05-14 09:18 | RAD ---
CHEST 1 VIEW: Date: 05/14/2200 HISTORY: Postop tachycardia. COMPARISON: 05/10/2020. FINDINGS: Endotracheal tube has been removed. NG tube and Dobbhoff tubes remain in place. Poor inspiration with bilateral pleural effusions. No evidence for significant residual free air in the abdomen. IMPRESSION: Poor inspiration with bilateral pleural effusions. Continue short-term follow-up. No evidence for pne umothorax or significant residual free intraperitoneal air. POS: RRE
[2020-05-14] MEDS: Calcium Carbonate 600 MG + Vit D TAB PO SCH ×2 (10:26→20:43)
[2020-05-14] MEDS: Famotidine/PF 20 mg/2ml Vial SLOW IVP SCH (10:27)
[2020-05-14] MEDS: Enoxaparin Sodium 40 MG/0.4 ML SYRINGE SC SCH (10:27)
--- NOTE | 2020-05-14 12:50 | PRG ---
DATE OF SERVICE: 05/14/2020 SUBJECTIVE: Ms. Mullins is doing better today. Her heart rate has been in the 120s. EKG reveals sinus tachycardia. Her heart rate is improved to the low 100s to the 90s. Temperature 97.3 degrees, blood pressure 133/83. This morning, her hemoglobin is 11.1, white count 8.9. Potassium 3.4, sodium 138, BUN and creatinine 9 and 0.59. Her calcium is better at 7.1, up from 5.9 yesterday. NG tube output is 330 over 24 hours. Urine output has been 1575 for 24 hours. The drain is putting out 230 mL of brownish fluid. The patient's colostomy has stool and gas output. The patient is not experiencing nausea or vomiting. She has an NG tube and a Dobbhoff in place. OBJECTIVE: LUNGS: Clear to auscultation. CARDIAC: Regular rate and rhythm without murmur or gallop. ABDOMEN: Soft. Bowel sounds present. Colostomy healthy with stool and flatus output. LABORATORY DATA: Mild edema. Drain character as noted. ASSESSMENT AND PLAN: Status post colorectal anastomotic leak. Her sepsis is resolving. We have increased her Zosyn from 3.375 to 4.5 g IV q.6 hours. Her renal function remains normal. I have removed her NG tube and Dobbhoff and will slowly advance her diet. We will diminish her IV fluids to allow her to mobilize fluids. Her Ley catheter has been removed early this morning. She is voiding without problems. Overall, the patient is doing well. Her mobility is improving, in fact when I walked in the room, she is standing in the bathroom of her own accord, mobilizing to urinate. Continue DVT prophylaxis. We will KVO her IV fluids. We will initiate oral analgesics. Telfa thomas in place in her wound. We will remove those in the morning. We will begin discharge planning for home health help her with colostomy care. Job ID: [id number]
[2020-05-14] MEDS: Acetaminophen 500 MG TAB PO PRN (14:17)
[2020-05-14] MEDS: Ondansetron PF 4 MG/2 ML Vial IVP PRN (18:08)
--- NOTE | 2020-05-14 18:49 | EKG ---
Test Reason : Blood Pressure : / mmHG Vent. Rate : 105 BPM Atrial Rate : 105 BPM P-R Int : 116 ms QRS Dur : 082 ms QT Int : 350 ms P-R-T Axes : 027 -18 160 degrees QTc Int : 462 ms Sinus tachycardia Low voltage QRS Nonspecific T wave abnormality Abnormal ECG When compared with ECG of 10-MAY-2020 17:01, (Unconfirmed) T wave inversion now evident in Anterior leads Confirmed by KASHMIR PATEL, . SMeeta ([id number]) on 05/14/2020 6:49:31 PM Referred By: ANNALISA Confirmed By:DR. Vaishali MARLOW MD
[2020-05-15] MEDS: traMADol HCl 50 MG TAB PO SCH ×4 (04:34→21:21)
[2020-05-15] MEDS: Piperacillin/Tazobactam 4.5 GM in Sodium Chloride 0.9% 100 ML IVPB SCH ×4 (05:23→23:08)
[2020-05-15] MEDS: Levothyroxine Sodium 112 MCG TAB PO SCH (05:23)
[2020-05-15] MEDS: Ketorolac Tromethamine 30 MG/ML VIAL IVP SCH ×2 (05:24→12:07)
[2020-05-15 06:38] LABS: Hemoglobin 11.5 g/dL (12.0-16.0); Mean Corpuscular HGB CONC 32.9 g/dL (32.0-36.0); Mean Corpuscular Hemoglobin 31.8 pg (27.0-31.0); Mean Corpuscular Volume 96.6 fL (78.0-98.0); Mean Platelet Volume 7.7 fL (7.4-10.4); Platelet Count 339 thou/uL (130-400); RBC Distribution Width 12.3 % (11.5-14.5); Red Blood Cell (RBC) Count 3.61 mill/uL (4.20-5.40); White Blood Cell (WBC) Count 7.8 thou/uL (4.8-10.8)
[2020-05-15 06:54] LABS: MDiff Complete? YES
[2020-05-15 06:55] LABS: Band 65 % (5-11); Eosinophils 1 % (0-10); Lymphocytes 16 % (21-51); Metamyelocyte 1 % (0-0); Monocytes 5 % (0-10); Neutrophil 12 % (42-75)
[2020-05-15 07:15] LABS: BUN (Urea Nitrogen) 16 mg/dL (9.8-20.1); Calc. Creatinine Clearance 87 mL/min (70-130); Calcium 7.4 mg/dL (7.8-10.44); Carbon Dioxide 19 mmol/L (23-31); Chloride 106 mmol/L (98-107); Glucose 103 mg/dL (80-115); Potassium 4.2 mmol/L (3.5-5.1); Sodium 139 mmol/L (136-145)
[2020-05-15 07:49] LABS: Anion Gap 18 mmol/L (10-20)
[2020-05-15] MEDS: Enoxaparin Sodium 40 MG/0.4 ML SYRINGE SC SCH (08:21)
[2020-05-15] MEDS: Calcium Carbonate 600 MG + Vit D TAB PO SCH ×2 (08:21→20:33)
[2020-05-15] MEDS: Ondansetron PF 4 MG/2 ML Vial IVP PRN (09:35)
[2020-05-15] MEDS ORDERED: Ketorolac Tromethamine 30 MG/ML VIAL IVP PRN (15:13)
--- NOTE | 2020-05-15 15:24 | PRG ---
DATE OF SERVICE: 05/15/2020 SUBJECTIVE: Ms. Mullins is doing well today. She is complaining of some nausea when she gets up. Her colostomy is putting out some stool and flatus, although not copious amounts. OBJECTIVE: VITAL SIGNS: 98 degrees, 91, and 118/79. LUNGS: Clear to auscultation. CARDIAC: Regular rate and rhythm without murmur or gallop. ABDOMEN: Soft. Telfa thomas removed between dede. New dressing applied. Colostomy is healthy. Drainage from her LALITO drain right lower quadrant is 365 over the last 24 hours and more serous. LABORATORY DATA: White count of 7.8, hemoglobin 11.5. Basic metabolic profile is normal. Calcium today is 7.4. ASSESSMENT AND PLAN: The patient is doing well. We would plan to advance her diet to regular tomorrow. Hopefully, she will feel better and be ready for discharge to rehab. If she is feeling well, we could convert her to oral antibiotics. Her pain is becoming less. The patient has hypocalcemia secondary to thyroid surgery and is on calcium carbonate replacement and her calcium levels look good today. Job ID: [id number]
[2020-05-16] MEDS: traMADol HCl 50 MG TAB PO SCH ×4 (04:24→21:03)
[2020-05-16] MEDS: Ondansetron PF 4 MG/2 ML Vial IVP PRN (05:15)
[2020-05-16] MEDS: Piperacillin/Tazobactam 4.5 GM in Sodium Chloride 0.9% 100 ML IVPB SCH ×4 (05:15→23:09)
[2020-05-16] MEDS: Levothyroxine Sodium 112 MCG TAB PO SCH (05:15)
[2020-05-16] MEDS: Calcium Carbonate 600 MG + Vit D TAB PO SCH ×2 (07:58→21:02)
[2020-05-16] MEDS: Enoxaparin Sodium 40 MG/0.4 ML SYRINGE SC SCH (07:58)
--- NOTE | 2020-05-16 12:29 | PRG ---
DATE OF SERVICE: 05/16/2020 SUBJECTIVE: Mel Mullins today is doing well. She has still an emesis basin at her side. She states she gets nauseated when she walks around and gets up out of bed. Her colostomy has had some flatus, but not much stool. She currently is not nauseated and her pain is well controlled. OBJECTIVE: LUNGS: Clear to auscultation. CARDIAC: Regular rate and rhythm without murmur or gallop. ABDOMEN: Relatively flat and not perceivably distended. No significant tympany. Colostomy is healthy. Midline wound looks healthy. Telfa thomas removed yesterday. VITAL SIGNS: Temperature 97.6 degrees, pulse 99, blood pressure 128/78. EXTREMITIES: Unremarkable. LABORATORY DATA: White count 7 and hemoglobin 11.5 yesterday. Basic metabolic profile normal yesterday. No labs today. ASSESSMENT AND PLAN: 1. Colorectal anastomotic leak, status post takedown of anastomosis and colostomy and Carter's pouch. Her Nolan-Wong drain output is decreasing. I stripped the tubing. It is more dilute, clears, slightly brownish fluid. It appears to be clearing up. I will leave the drain in today, probably we will be able to remove it in the next day or two. The patient has an ileus and not yet tolerating her diet, although full liquids are ordered. She is not consuming much. Continue to monitor at this time. We would not send her to rehab at this time until her gastrointestinal function is better. 2. Iatrogenic hypocalcemia, chronic. Calcium yesterday was normal. Continue calcium replacement orally or parenterally later if needed. We will recheck her labs in the morning. 3. Deconditioning. She has a rehab bed available. We will hold rehab transfer until better gastrointestinal function and diet tolerance. Continue Zosyn IV. Job ID: [id number]
[2020-05-17] MEDS: traMADol HCl 50 MG TAB PO SCH ×4 (03:50→22:37)
[2020-05-17] MEDS: Levothyroxine Sodium 112 MCG TAB PO SCH (05:25)
[2020-05-17] MEDS: Piperacillin/Tazobactam 4.5 GM in Sodium Chloride 0.9% 100 ML IVPB SCH ×3 (05:25→17:04)
[2020-05-17 06:13] LABS: Anion Gap 19 mmol/L (10-20); BUN (Urea Nitrogen) 31 mg/dL (9.8-20.1); Calc. Creatinine Clearance 25 mL/min (70-130); Calcium 7.1 mg/dL (7.8-10.44); Carbon Dioxide 20 mmol/L (23-31); Chloride 101 mmol/L (98-107); Glucose 96 mg/dL (80-115); Potassium 3.6 mmol/L (3.5-5.1); Sodium 136 mmol/L (136-145)
[2020-05-17] MEDS: Enoxaparin Sodium 40 MG/0.4 ML SYRINGE SC SCH (09:41)
[2020-05-17] MEDS: Calcium Carbonate 600 MG + Vit D TAB PO SCH (09:41)
[2020-05-17] MEDS: Ondansetron PF 4 MG/2 ML Vial IVP PRN ×3 (09:41→23:10)
[2020-05-17] MEDS ORDERED: Sodium Chloride 0.45% 1,000 ML IV SCH (15:00)
[2020-05-17] MEDS ORDERED: Dextrose 5% in Water 1,000 ML IV PRN (15:38)
[2020-05-17] MEDS ORDERED: Dextrose 50% Abboject 50 ML SYRINGE SLOW IVP PRN (15:38)
--- NOTE | 2020-05-17 15:51 | PRG ---
DATE OF SERVICE: 05/17/2020 SUBJECTIVE: Mel Mullins still feels nauseated when she gets up. She still has not had any significant colostomy output. She is not eating much. OBJECTIVE: VITAL SIGNS: Temperature 97.5, pulse 98, 138/74. LUNGS: Clear to auscultation. CARDIAC: Regular rate and rhythm without murmur or gallop. ABDOMEN: Soft, slightly tympanitic, slightly distended. Colostomy healthy, not much in the bag. EXTREMITIES: Unremarkable. LALITO drain output is minimal. LABORATORY DATA: This morning, her white count is 7, hemoglobin 11.5. Her sodium is 136, potassium 3.6, CO2 of 20, BUN 31, creatinine 2.83 which is a marked increase. ASSESSMENT/PLAN: 1. Acute kidney injury, dehydration. IV fluid bolus, IV fluid rehydration. 2. Malnutrition. Start TPN. 3. Ileus. Check abdominal x-rays, give her sips and chips and liquids as tolerated. Initiate TPN. Check magnesium and phosphorus. 4. Iatrogenic chronic hypocalcemia secondary to past thyroid surgery. Continue calcium replacement. Job ID: [id number]
--- NOTE | 2020-05-17 16:44 | RAD ---
RADIOGRAPH CHEST 1 VIEW: DATE: 05/17/2020 TIME: 4:25 PM HISTORY: 64-year-old female status post central line placement COMPARISON: 05/14/2020 FINDINGS: Doppler feeding tube and esophagogastric tube have both been removed. There is a new left subclavian central venous catheter with distal tip overlying right atrium. No pne umothorax identified. By basilar consolidations probably representing atelectasis, with bilateral pleural effusions. Improv ed aeration of left lower lobe compared to prior. No pulmonary edema.. IMPRESSION: Left subclavian central venous catheter placement without evidence of pneumothorax.
--- NOTE | 2020-05-17 16:46 | RAD ---
Radiograph abdomen 2 views: 05/17/2020 4:31 PM HISTORY: 64-year-old female with postoperative ileus. COMPARISON: 05/10/2020 FINDINGS: Dobbhoff feeding tube and esophagogastric tube have both been removed. Left paramedian vertical array of skin dede remain. Left-sided colostomy is now visualized. No excessive gastric distention. Air-fluid level in moderately filled stomach. No differential air-fluid levels. Difficult to evaluate small intestine because lack of small bowel gas. Small amount of gas in nondilated colon. IMPRESSION: Nonspecific bowel gas pattern. Small bowel difficult to evaluate because of lack of small bowel gas.
[2020-05-17] MEDS: Sodium Chloride 0.45% 1,000 ML IV SCH (16:48)
[2020-05-17] MEDS ORDERED: POTASSIUM ACETATE IV SCH (22:00)
[2020-05-17] MEDS ORDERED: FAT EMULSION IV SCH (22:00)
[2020-05-17] MEDS ORDERED: CALCIUM GLUCONATE IV SCH (22:00)
[2020-05-17] MEDS ORDERED: [UNRECOGNIZED DRUG - OTHER] IV SCH (22:00)
[2020-05-17] MEDS ORDERED: Promethazine HCl 25 MG/ML VIAL SLOW IVP PRN (22:12)
[2020-05-17] MEDS: CALCIUM GLUCONATE IV SCH (23:02)
[2020-05-17] MEDS: POTASSIUM ACETATE IV SCH (23:02)
[2020-05-17] MEDS: FAT EMULSION IV SCH (23:02)
[2020-05-17] MEDS: [UNRECOGNIZED DRUG - OTHER] IV SCH (23:02)
[2020-05-17] MEDS: Promethazine HCl 12.5 MG in Sodium Chloride 0.9% 50 ML IVPB PRN (23:30)
[2020-05-18] MEDS: Piperacillin/Tazobactam 4.5 GM in Sodium Chloride 0.9% 100 ML IVPB SCH ×3 (01:44→13:16)
[2020-05-18] MEDS: Sodium Chloride 0.45% 1,000 ML IV SCH ×2 (02:08→10:23)
[2020-05-18 05:56] LABS: Phosphorus 5.5 mg/dL (2.3-4.7)
[2020-05-18] MEDS: traMADol HCl 50 MG TAB PO SCH ×4 (06:24→21:26)
[2020-05-18] MEDS: Levothyroxine Sodium 112 MCG TAB PO SCH (06:25)
[2020-05-18] MEDS: Ondansetron PF 4 MG/2 ML Vial IVP PRN ×2 (06:32→23:18)
[2020-05-18 06:51] LABS: Anion Gap 22 mmol/L (10-20); BUN (Urea Nitrogen) 40 mg/dL (9.8-20.1); Calc. Creatinine Clearance 19 mL/min (70-130); Calcium 7.9 mg/dL (7.8-10.44); Carbon Dioxide 17 mmol/L (23-31); Chloride 101 mmol/L (98-107); Glucose 114 mg/dL (80-115); Magnesium 2.8 mg/dL (1.6-2.6); Potassium 3.8 mmol/L (3.5-5.1); Sodium 136 mmol/L (136-145)
[2020-05-18] MEDS: Promethazine HCl 12.5 MG in Sodium Chloride 0.9% 50 ML IVPB PRN (07:31)
[2020-05-18 08:34] LABS: Hemoglobin 10.7 g/dL (12.0-16.0); Mean Corpuscular HGB CONC 29.6 g/dL (32.0-36.0); Mean Corpuscular Hemoglobin 28.3 pg (27.0-31.0); Mean Corpuscular Volume 95.5 fL (78.0-98.0); RBC Distribution Width 12.7 % (11.5-14.5); Red Blood Cell (RBC) Count 3.78 mill/uL (4.20-5.40)
[2020-05-18 09:10] LABS: Band 34 % (5-11); Eosinophils 1 % (0-10); Lymphocytes 13 % (21-51); MDiff Complete? YES; Mean Platelet Volume 7.2 fL (7.4-10.4); Metamyelocyte 2 % (0-0); Monocytes 22 % (0-10); Neutrophil 26 % (42-75); Platelet Count 297 thou/uL (130-400); Platelet Morphology Comment Appears Increased; Polychromasia SLIGHT = 2-3 cells (100X) (0-2/hpf); Reactive Lymphocytes 2 % (0-10); Vacuoles SLIGHT; White Blood Cell (WBC) Count 11.1 thou/uL (4.8-10.8)
[2020-05-18] MEDS: Enoxaparin Sodium 40 MG/0.4 ML SYRINGE SC SCH (10:13)
[2020-05-18] MEDS ORDERED: Sodium Bicarbonate 150 MEQ in Dextrose 5% in Water 1,000 ML IV SCH ×2 (13:00→19:21)
[2020-05-18] MEDS ORDERED: Piperacillin/Tazobactam 3.375 GM in Sodium Chloride 0.9% 100 ML IVPB SCH ×2 (13:15→18:00)
[2020-05-18] MEDS ORDERED: Iopamidol 370 76% 50 ML VIAL FS ONE (13:39)
--- NOTE | 2020-05-18 13:58 | CT ---
CT OF THE ABDOMEN AND PELVIS WITHOUT IV CONTRAST INDICATION: Severe abdominal pain status post partial colon resection with exploratory laparotomy and washout COMPARISON: Prior exam dated May 10, 2020 FINDINGS: The lack of IV contrast limits evaluation of the solid organs of the abdomen and pelvis. ABDOMEN: Lung bases: There are moderate bilateral pleural effusions with bibasilar airspace opacities suspicio us for atelectasis. Liver: No focal lesion. Gallbladder: Surgically absent Pancreas: Normal. Adrenal glands: Normal. Spleen: Normal. Kidneys and ureters: There is a 4.3 cm cyst involving the superior pole of the left kidney. The right kidney is unremarkable appearing. No hydronephrosis is evident. Vasculature: Normal. Lymph nodes:No lymphadenopathy. Free fluid in abdomen:There is scattered free fluid and free air within the abdomen that appears less pronounced than on the prior exam. PELVIS: Small and large bowel: There is been interval establishment of the left lower quadrant and colostomy. There is a long Bray's pouch. Appendix:Not definitely seen Bladder: Normal. Rectal and perirectal soft tissues:Normal. Reproductive structures: Surgically absent Free fluid in pelvis: There is scattered free fluid within the lower pelvis and abdomen. Lymphadenopathy pelvis: No lymphadenopathy is evident. Osseous structures: No acute osseous abnormality. No destructive osteolytic or osteoblastic lesion i s identified. There is scattered degenerative and osteoarthritic changes. Soft tissues:There is anasarca with soft tissue gas involving the body wall. The extent of the subcut aneous emphysema appears slightly improved from the prior exam. Anasarca has worsened. IMPRESSION: 1. Improvement in the extent of free air in the abdomen. There is scattered free fluid and locules of free air still present within the abdomen that still may be postsurgical in nature from the patient's exploratory laparotomy and left lower quadrant colostomy. 2. Worsening anasarca and bilateral pleural effusions with bibasilar atelectasis. Slightly less promi nent subcutaneous emphysema of the body wall 3. Left renal cyst
[2020-05-18 15:13] LABS: Bilirubin Negative (Negative); Blood, Urine 3+ (Negative); Clarity Turbid (Clear); Glucose, Urine (Dipstick) 70 mg/dL (Negative); Ketone, Urine Trace mg/dL (Negative); Leukocyte Negative Leu/uL (Negative); Nitrite Negative (Negative); Protein, Urine (Dipstick) 100 mg/dL (Neg-Trace); Urobilinogen Normal mg/dL (Less than 2)
[2020-05-18 15:22] LABS: Bacteria/HPF 1+ HPF (None Seen); RBC/HPF 21-50 HPF (0-3)
[2020-05-18 15:24] LABS: Urine Culture Reflex No No
[2020-05-18 15:27] LABS: Creatinine, Urine 49.31 mg/dL (47-110)
--- NOTE | 2020-05-18 19:29 | PRG ---
DATE OF SERVICE: 05/18/2020 SUBJECTIVE: Ms. Mullins is postoperative day #8 from exploratory laparotomy, Carter procedure, and abdominal washout for leaking anastomosis following prior sigmoid colectomy. Her sigmoid colectomy had been performed on May 07, she is therefore postoperative day #11 following that. Yesterday, a central line was placed and TPN was initiated. She has been slow to resume bowel function. Today, early in the day, I noticed that her creatinine had gone up from 2.8 yesterday to 3.8 today. She had been given additional IV fluid yesterday with a liter of LR and increased IV fluid rate. Her renal function deteriorated despite this. She also vomited some last night, but has not vomited since. Nurse tells me that her ostomy has been functioning, but it has been relatively low volume. Ms. Mullins denies any significant discomfort. Her nurse tells me that subjectively she looks much worse than she did 3 or 4 days ago. This is my first time to see Ms. Mullins. She has been draining a large volume of serous fluid from her midline abdominal wound. I ordered a CT scan this morning and obtain a Nephrology consult. Dr. Muse has seen the patient, although a consult has not been dictated. The CT scan showed significant bilateral pleural effusion. There is also free fluid within the abdomen. There was air within the subcutaneous tissue along the right side of her abdominal wall, but this was present at the time of her surgery 8 days ago. The patient's primary findings were that she has worsening anasarca and bilateral pleural effusions and atelectasis. There was no evidence of hydronephrosis to account for her renal failure. OBJECTIVE: VITAL SIGNS: Temperature is 98.2, pulse 93, blood pressure 178/78. GENERAL: She is resting in bed, appears comfortable. I am told that she is not getting out of bed very much and apparently refused physical therapy today. LUNGS: Clear to auscultation anteriorly. CARDIAC: Regular rate and rhythm. ABDOMEN: Nontender. Her midline incision appears to be healing appropriately, although there is a large volume of serous fluid draining from the incision. Bowel sounds are present, but hypoactive. EXTREMITIES: She has obvious edema involving all 4 extremities. LABORATORY DATA: As mentioned, her creatinine is elevated at 3.8. Sodium, potassium, chloride are all normal. Her CO2 is low at 17 and it has gone down from yesterday when it was 20. Her CBC shows a white blood cell count has gone up from 7.8 on May 15 to 11.1 today. She had 65% bandemia on the . She has 34% bandemia today. ASSESSMENT: The patient is not doing well following her 2 recent surgeries. She has new onset renal failure. It is noted that she was on Toradol for a period of time, although this has been discontinued. I await the input of Nephrology in regard to her renal function, which is certainly related to her anasarca. For now, she has been made n.p.o. except for ice chips. Her TPN will be continued. She remains on IV antibiotics with Zosyn. I anticipate she will need some diuresis in spite of her worsening renal function. Job ID: [id number]
--- NOTE | 2020-05-18 20:20 | CON ---
DATE OF CONSULTATION: 05/18/2020 SERVICE: Nephrology. REASON FOR CONSULTATION: Acute renal failure. REQUESTING PHYSICIAN: Dr. Peña. HISTORY OF PRESENT ILLNESS: A 64-year-old female with known history of diverticulosis and recurrent diverticulitis, who recently had laparoscopic sigmoidectomy with end-to-end colorectal anastomosis on May 07, was re-admitted on May 10 due to worsening abdominal pain. Further evaluation revealed features of anastomosis breakdown and peritonitis and was subsequently taken to OR for exploratory laparotomy and end colostomy creation. Postoperatively, the patient has been doing well but was found to have post obstructive ileus as well as abdominal pain requiring analgesic. Renal function has been stable since admission up until May 15 with creatinine of 0.83. However, on May 17, the patient was found to have creatinine of 2.83. The patient has had poor oral intake as well as nausea, vomiting. She also was started on Ketoralac on May 13, and this was continued up to May 15 when it was stopped. There is no history of fever or shortness of breath or hematemesis or hematochezia. Nephrology consult was requested due to worsening renal function as creatinine earlier today was 3.86. The patient also reported generalized swelling. It was also reported that urine output has been decreasing in the last 2-3 days. PAST MEDICAL HISTORY: 1. Diverticulosis. 2. Recurrent diverticulitis. 3. Gastroesophageal reflux disease. 4. Hypothyroidism. 5. Degenerative joint disease. PAST SURGICAL HISTORY: 1. Colonoscopies. 2. Cholecystectomy. 3. Appendectomy. 4. Pelvic mesh sling for bladder incontinence. 5. Total thyroidectomy. 6. Prior cystoscopy. FAMILY HISTORY: Reviewed, but noncontributory. SOCIAL HISTORY: The patient lives with family. Denied smoking, alcohol, or recreational drug use. MEDICATIONS: Prior to hospital, medications are as follows; 1. Tramadol 50 mg p.r.n. for pain. 2. Levothyroxine 112 mcg p.o. daily. 3. Acetaminophen p.r.n. 4. Calcium carbonate with vitamin D daily. ALLERGIES: SULFA DRUGS AND CODEINE. REVIEW OF SYSTEMS: 12-point review of system performed was negative other than pertinent positives and negatives included in the history of present illness. PHYSICAL EXAMINATION: VITAL SIGNS: Temperature 97.7, pulse 92, respiratory rate 18, SpO2 of 94% on room air, blood pressure is 171/83. GENERAL: Obese female, in no obvious distress. Acutely ill looking. Afebrile and anicteric. HEENT: Normocephalic, atraumatic. Oral mucosa is moist. NECK: Supple with no JVD. CARDIOVASCULAR: Regular rhythm and rate with normal heart sounds 1 and 2. RESPIRATORY: Fair air entry bilaterally with few transmitted breath sounds. No obvious crackle or rhonchi or use of accessory muscles. GI: Full, soft with diffuse tenderness. Left lower quadrant colostomy noted. Bowel sound is hypoactive. EXTREMITIES: Moderate edema of the extremities noted. SKIN: Grossly normal looking with no obvious rash or erythema. [employer]: Conscious and alert and oriented x3 with appropriate mental status. Cranial nerves 2 through 12 are grossly intact. The patient moves all extremities but weakly. DIAGNOSTIC DATA: CBC earlier today showed WBC count of 11.1, hemoglobin of 10.7, platelet of 297. Review of medical records showed the patient had hemoglobin of 12.9 on presentation and has dropped down to a angella of 8.4 before trending up to 10.7 earlier today. Chemistry earlier today showed sodium 136, potassium 3.8, chloride 101, CO2 17, BUN 40, creatinine 3.86, glucose 114, calcium 7.9, magnesium 2.8. Review of medical record showed that on presentation, the patient had CO2 of 30 and has gone down to angella of 17 earlier today. Creatinine on presentation also was 0.84 and has trended down to a angella of 0.59 on May 14 before going up to 2.83 on May 17 and to a peak of 3.86 earlier today. Chest x-ray performed on May 17 showed nonspecific bowel gas pattern with small bowel difficult to evaluate because of lack of small bowel gas. Air-fluid level and moderately-filled stomach also noted. ASSESSMENT: 1. Acute renal failure: Most likely due to hemodynamic factors related to volume depletion due to poor oral intake as well as NSAID use. 2. Metabolic acidosis. 3. Anasarca: Most likely due to hypoalbuminemia. 4. Anemia of acute illness. 5. Peritonitis, on antibiotics. 6. Hypertension: Control is suboptimal. PLAN: 1. We will substitute normal saline with sodium bicarbonate infusion, given metabolic acidosis. 2. We will also start the patient on albumin with a view to expanding intravascular space. Due to anasarca, we will also start the patient on diuretic therapy. We will also get a Ley catheter inserted for strict and accurate intake and output. The patient also is on TPN. We will also get repeat renal function test as well as urinalysis and urine electrolytes. We will avoid all nephrotoxic agents. 3. All medications should be renally dosed given significantly dropped renal function. 4. We will start amlodipine due to hypertension. 5. Further treatment to follow depending on hospital course. Many thanks for involving us in the care of this patient. We will follow along with you. Job ID: [id number]
[2020-05-18 21:13] LABS: Albumin Less than 1.0 g/dL (3.4-4.8); Anion Gap 15 mmol/L (10-20); BUN (Urea Nitrogen) 49 mg/dL (9.8-20.1); BUN/Creatinine Ratio 11.78; Calc. Creatinine Clearance 17 mL/min (70-130); Calcium 6.9 mg/dL (7.8-10.44); Carbon Dioxide 22 mmol/L (23-31); Chloride 104 mmol/L (98-107); Glucose 150 mg/dL (80-115); Phosphorus 5.8 mg/dL (2.3-4.7); Potassium 4.1 mmol/L (3.5-5.1); Sodium 137 mmol/L (136-145)
[2020-05-18] MEDS: Albumin 25% 25 GM/100 ML BOT IVPB SCH ×2 (21:25→22:24)
[2020-05-18] MEDS: Furosemide 100 MG/10 ML VIAL SLOW IVP SCH ×2 (21:25→22:24)
[2020-05-18] MEDS: Piperacillin/Tazobactam 2.25 GM in Sodium Chloride 0.9% 100 ML IVPB SCH ×2 (21:26→22:25)
[2020-05-18 22:05] LABS: Actual Bicarbonate (HCO3a) 20.4 mEq/L (22-28); Base Excess (BEa) -4.1 mEq/L (-2.0 to +3.0); CO2 Tension 35.1 mmHg (35.0-45.0); Carboxyhemoglobin (COHb) 0.5 gm% (0.0-3.0); Hemoglobin (Hb) 11.4 g/dL (12.0-16.0); Potassium - ABG Lab 3.38 mmol/L (3.70-5.30); pH, Arterial 7.38 (7.35-7.45)
[2020-05-18 22:11] LABS: ALV-art Gradient 142.805 mmHg (0-20); Puncture Site LRA
[2020-05-18] MEDS ORDERED: Amlodipine 5 MG TAB PO SCH (22:30)
[2020-05-18] MEDS: FAT EMULSION IV SCH (22:33)
[2020-05-18] MEDS: [UNRECOGNIZED DRUG - OTHER] IV SCH (22:33)
[2020-05-18] MEDS: POTASSIUM ACETATE IV SCH (22:33)
[2020-05-18] MEDS: CALCIUM GLUCONATE IV SCH (22:33)
[2020-05-18 22:38] LABS: Hemoglobin 12.4 g/dL (12.0-16.0); Mean Corpuscular HGB CONC 33.1 g/dL (32.0-36.0); Mean Corpuscular Hemoglobin 31.3 pg (27.0-31.0); Mean Corpuscular Volume 94.6 fL (78.0-98.0); Mean Platelet Volume 7.4 fL (7.4-10.4); Platelet Count 287 thou/uL (130-400); RBC Distribution Width 12.7 % (11.5-14.5); Red Blood Cell (RBC) Count 3.97 mill/uL (4.20-5.40); White Blood Cell (WBC) Count 12.3 thou/uL (4.8-10.8)
[2020-05-18 22:40] LABS: INR-International Normal Ratio 1.2; PTT 32.1 sec (22.9-36.1); Prothrombin Time 15.3 sec (12.0-14.7)
[2020-05-18 22:50] LABS: Anion Gap 19 mmol/L (10-20); BUN (Urea Nitrogen) 52 mg/dL (9.8-20.1); Calc. Creatinine Clearance 17 mL/min (70-130); Calcium 9.8 mg/dL (7.8-10.44); Carbon Dioxide 23 mmol/L (23-31); Chloride 97 mmol/L (98-107); Glucose 133 mg/dL (80-115); Potassium 3.5 mmol/L (3.5-5.1); Sodium 135 mmol/L (136-145)
[2020-05-18 22:51] LABS: Band 27 % (5-11); Lymphocytes 8 % (21-51); MDiff Complete? YES; Metamyelocyte 1 % (0-0); Monocytes 28 % (0-10); Neutrophil 36 % (42-75); Platelet Morphology Comment Appears Adequate; RBC Morphology Normal
--- NOTE | 2020-05-18 23:22 | CT ---
CT BRAIN NONCONTRAST: DATE: 05/18/2020 11:10 PM HISTORY: 64-year-old female with altered mental status. COMPARISON: None FINDINGS: There are multiple, faint, patchy, moderately low attenuation lesions in the bilateral occipital lobe s of small and moderate sizes, involving cortical gupta matter and subcortical and deep white matter. There is no evidence of acute intra-axial or extra-axial hemorrhage. There is no midline shif t or any other mass effect. There is no extra-axial fluid collection. There is no evidence of obstructive hydrocephalus. Calvarium is intact. IMPRESSION: Multiple patchy regions of moderate sized bilateral occipital lobe brain parenchymal edema: These are probably subacute or acute infarctions in the bilateral posterior cerebral artery territories. The other possibility is PRES (posterior reversible edema syndrome).
[2020-05-18] MEDS ORDERED: Pantoprazole 40 MG VIAL IVP SCH (23:30)
[2020-05-18] MEDS ORDERED: Sodium Chloride 0.9% (PF) 10 ML VIAL FS PRN (23:30)
[2020-05-19 00:02] LABS: Band 61 % (5-11); Hypochromia SLIGHT = 6-15 cells (100X) (0-5/hpf); Lymphocytes 17 % (21-51); MDiff Complete? YES; Mean Corpuscular HGB CONC 32.8 g/dL (32.0-36.0); Mean Corpuscular Hemoglobin 30.9 pg (27.0-31.0); Mean Corpuscular Volume 94.2 fL (78.0-98.0); Metamyelocyte 4 % (0-0); Monocytes 8 % (0-10); Neutrophil 10 % (42-75); Platelet Count 353 thou/uL (130-400); Platelet Morphology Comment Appears Adequate; RBC Distribution Width 12.5 % (11.5-14.5); Red Blood Cell (RBC) Count 3.25 mill/uL (4.20-5.40); White Blood Cell (WBC) Count 17.6 thou/uL (4.8-10.8)
[2020-05-19 00:04] LABS: ALT (SGPT) 14 U/L (8-55); AST (SGOT) 32 U/L (5-34); Albumin 2.1 g/dL (3.4-4.8); Alkaline Phosphatase 131 U/L (40-110); Anion Gap 18 mmol/L (10-20); BUN (Urea Nitrogen) 51 mg/dL (9.8-20.1); Bilirubin, Total 0.5 mg/dL (0.2-1.2); Calc. Creatinine Clearance 16 mL/min (70-130); Calcium 10.8 mg/dL (7.8-10.44); Carbon Dioxide 23 mmol/L (23-31); Chloride 97 mmol/L (98-107); Globulin 3.5 g/dL (2.4-3.5); Glucose 146 mg/dL (80-115); Potassium 3.4 mmol/L (3.5-5.1); Protein, Total 5.6 g/dL (6.0-8.3); Sodium 135 mmol/L (136-145)
--- NOTE | 2020-05-19 00:18 | PDOC.HHP ---
Hospitalist HPI - History of Present Illness Consult for seizure and medical management History of Present Illness: Ms. Mel Mullins is a 64-year-old female patient with a history of chronic diverticular disease, GERD, hypothyroidism and degenerative arthritic disease who was readmitted on 05/10/2020 on account of severe abdominal pain. She was first admitted on 05/07/2020 and discharged on 05/09/2020 when she was managed for diverticulitis by laparoscopic sigmoid colon resection and splenic flexure mobilization with anastomosis. A day after discharge she returned complaining of worsening abdominal pain leading to a diagnosis of acute peritonitis secondary to colorectal anastomotic disruption with septic shock. She was sent back to the operating room and had exploratory laparotomy, segmenta l colectomy with end colostomy with abdominal washout. Today is postop day 9. She is covered on antibiotics of Zosyn During her admission she developed AMANDA for which nephrology was consulted. She otherwise seemed to have been doing generally well until this evening when she had a spell of altered mental status with right-sided eye deviation concerning for seizure or stroke. She was transferred to CCU for close monitoring and hospitalist team was consulted. At the time of my evaluation Patient was in bed in the ICU. She looks uncomfortable however she denies any chest pain shortness of breath abdominal pain extremity pain. She also denies any headache. She seems confused and slow to answering questions. She notes that she is unable to see. While she has been on admission, a central line was placed yesterday to initiate TPN on account of malnutrition. Surgery notes note that her mental status worsened earlier in the day. CT scan of the head at the time was concerning for press however no action appears to have been taken. She is currently on TPN running at 96 and normal saline at 50/h. CT scan today showed bilateral pleural effusion with free abdominal fluid. She received Lasix prior to my evaluation. At the time of my evaluation her BP was 186 however had reduced to systolic of 160s on subsequent repeat. Pulse was ranging between 97 and 103, saturation 100% on 2 L nasal cannula. She was afebrile with temperature of 98.2 and respiratory rate was 11. Labs showed sodium of 135, creatinine 4.255 GFR of 11. WBC was 12.3, hemoglobin 12.4, platelets 287. Hospitalist ROS - Review of Systems ROS unobtainable: due to mental status - Medication Medications: Active Medications Generic Name Dose Route Start Last Admin Trade Name Freq PRN Reason Stop Dose Admin Acetaminophen 1,000 mg 05/14/20 09:04 05/14/20 14:17 Acetaminophen 500 Mg Tab PO 1,000 mg Q6H PRN Administration Moderate to Severe Pain (6-10) Albumin Human 25 gm 05/18/20 22:00 05/18/20 22:24 Albumin 25% 25 Gm/100 Ml Bot IVPB 05/19/20 22:01 25 gm Q8HR ALEKSANDER Administration Furosemide 80 mg 05/18/20 21:00 05/18/20 22:24 Furosemide 100 Mg/10 Ml Vial SLOW IVP 80 mg BID ALEKSANDER Administration Calcium Chloride 13.6 meq/ 60 mls @ 240 mls/hr 05/17/20 21:00 05/18/20 22:24 Sodium Chloride IVPB 60 mls TID ALEKSANDER Administration Fat Emulsion Intravenous 250 2,314.4321 mls @ 96.435 mls/hr 05/17/20 22:00 05/18/20 22:33 ml/ Potassium Acetate 40 meq/ IV 05/19/20 13:59 2,314.4321 mls Calcium Gluconate 10 meq/ INF ALEKSANDER Administration Magnesium Sulfate 10 meq/ Multivitamins 10 ml/ Insulin Human Regular 23 units/ Chromium/Copper/Manganese/Zinc 10 ml/ Amino Acids/ Electrolytes Promethazine HCl 12.5 mg/ 50.5 mls @ 202 mls/hr 05/17/20 23:20 05/18/20 07:31 Sodium Chloride IVPB 50.5 mls Q3H PRN Administration Nausea/Vomiting Piperacillin Sod/Tazobactam 100 mls @ 200 mls/hr 05/18/20 22:00 05/18/20 22:25 Sod 2.25 gm/ Sodium Chloride IVPB 100 mls Q8HR ALEKSANDER Administration Levothyroxine Sodium 112 mcg 05/15/20 06:00 05/18/20 06:25 Levothyroxine Sodium 112 Mcg Tab PO Not Given 0600 ALEKSANDER Morphine Sulfate 4 mg 05/13/20 11:17 05/13/20 21:13 Morphine 4 Mg/Ml Vial SLOW IVP 4 mg Q2H PRN Administration Breakthrough Pain Ondansetron HCl 4 mg 05/10/20 19:46 05/18/20 23:18 Ondansetron Pf 4 Mg/2 Ml Vial IVP 4 mg Q6H PRN Administration Nausea Tramadol HCl 100 mg 05/13/20 10:00 05/18/20 21:26 Tramadol Hcl 50 Mg Tab PO Not Given 0400,1000,1600,2200 [facility] Hospitalist History - Past Medical History Other Medical History: GERD, hypothyroidism, degenerative arthritic disease. - Past Surgical History Other Surgical History: Cholecystectomy, appendectomy, pelvic mesh sling for bladder incontinence, thyroidectomy. - Family History Family History: reports: no pertinent history - Social History Smoking Status: Never smoker Drugs: reports: none Living Situation: With Family - Exam General - other findings: Awake, slightly confused. Mild distress ENT: normocephalic atraumatic, no oropharyngeal lesions Heart: RRR, no murmur, no gallops, no rubs Respiratory: CTAB, no wheezes, no rales, no ronchi Gastrointestinal: soft, non-tender, non-distended, normal bowel sounds Gastrointestinal - other findings: Colostomy bag in place. No sign of infection obstruction Extremities: no cyanosis, no clubbing, no edema Neurological - other findings: Unable to see, no facial droop, slightly dysarthric, Psychiatric: A&O x 3 (She is otherwise generally slow to respond.) Hospitalist Results - Labs Result Diagrams: 05/19/20 02:02 05/18/20 23:34 Lab results: WBC 17.6 thou/uL (4.8-10.8) H 05/18/20 23:34 Hgb 10.0 g/dL (12.0-16.0) L 05/18/20 23:34 Hct 30.6 % (36.0-47.0) L 05/18/20 23:34 MCV 94.2 fL (78.0-98.0) 05/18/20 23:34 Plt Count 353 thou/uL (130-400) 05/18/20 23:34 Neutrophils % 67.4 % (42.0-75.0) 05/13/20 05:02 Band Neuts % (Manual) 61 % (5-11) H 05/18/20 23:34 ABG pH 7.38 (7.35-7.45) 05/18/20 22:03 ABG pCO2 35.1 mmHg (35.0-45.0) 05/18/20 22:03 ABG pO2 70.0 mmHg (> 80.0) 05/18/20 22:03 Sodium 135 mmol/L (136-145) L 05/18/20 21:44 Potassium 3.5 mmol/L (3.5-5.1) 05/18/20 21:44 Chloride 97 mmol/L (98-107) L 05/18/20 21:44 Carbon Dioxide 23 mmol/L (23-31) 05/18/20 21:44 BUN 52 mg/dL (9.8-20.1) H 05/18/20 21:44 Creatinine 4.25 mg/dL (0.6-1.1) H 05/18/20 21:44 Glucose 133 mg/dL (80-115) H 05/18/20 21:44 Lactic Acid 1.0 mmol/L (0.5-2.2) 05/10/20 23:24 Calcium 9.8 mg/dL (7.8-10.44) 05/18/20 21:44 Total Bilirubin 1.4 mg/dL (0.2-1.2) H 05/14/20 05:11 AST 19 U/L (5-34) 05/14/20 05:11 ALT 18 U/L (8-55) 05/14/20 05:11 Alkaline Phosphatase 85 U/L (40-110) 05/14/20 05:11 Troponin I 0.015 ng/mL (< 0.028) 05/10/20 17:06 B-Natriuretic Peptide 92.0 pg/mL (0-100) 05/10/20 17:06 Serum Total Protein 4.5 g/dL (6.0-8.3) L 05/14/20 05:11 Albumin Less than 1.0 g/dL (3.4-4.8) L 05/18/20 20:52 Lipase 26 U/L (8-78) 05/10/20 17:04 Urine Ketones Trace mg/dL (Negative) A 05/18/20 14:45 Urine Blood 3+ (Negative) A 05/18/20 14:45 Urine Nitrite Negative (Negative) 05/18/20 14:45 Ur Leukocyte Esterase Negative Chika/uL (Negative) 05/18/20 14:45 Urine RBC 21-50 HPF (0-3) A 05/18/20 14:45 Urine WBC 4-6 HPF (0-3) A 05/18/20 14:45 Ur Squamous Epith Cells 11-20 HPF (0-3) A 05/18/20 14:45 Urine Bacteria 1+ HPF (None Seen) A 05/18/20 14:45 Hospitalist H&P A/P - Plan Plan: This is a 64-year-old female patient with a history of hypothyroidism, chronic diverticular disease and GERD who was readmitted on account of complications of diverticulitis status post resection. She subsequently had peritoneal explorati on and colostomy and has been on antibiotic coverage with Zosyn. She developed altered mental status this evening concerning for seizures/stroke/press syndrome and subsequently started having upper GI bleed. Acute encephalopathy Concerns for stroke/seizures/breast Also pressure was noted earlier in the day on CT Repeat CT head ordered without contrast. Blood pressures in the 150s 160s status post monitor closely. Patient is actively having upper GI bleedwe will hold aspirin We will continue monitoring and CCU. Pres syndrome Noted on earlier CT Also concerns for seizurewe will start levetiracetam at renal dosing Appreciate neuro input in a.m. Upper GI bleeding When patient was sent down for CT scan she had one episode of emesis which was coffee-ground We will DC Lovenox, hold aspirin H&H every 4 Dr. Peña was contactedasked to put in NG tube Start IV Protonix Monitor BP and pulse. S/p colectomy and anastomosis Currently stable Surgery following. Peritonitis secondary to diverticulitis Currently covered on Zosynwe will continue. Hypothyroidism Continue home levothyroxine Pelvic mesh sling for bladder incontinence CODE STATUSto discuss with family. VT prophylaxisSCD
--- NOTE | 2020-05-19 01:26 | PDOC.BPN ---
- Brief Progress Note Encounter Date: 05/19/20 After placement of NG tubeit drained 700 mils of coffee-ground fluid
[2020-05-19 02:14] LABS: Hemoglobin 8.6 g/dL (12.0-16.0)
[2020-05-19] MEDS: traMADol HCl 50 MG TAB PO SCH ×4 (04:10→21:35)
[2020-05-19 04:23] LABS: Hemoglobin 8.2 g/dL (12.0-16.0); Mean Corpuscular HGB CONC 32.9 g/dL (32.0-36.0); Mean Corpuscular Volume 94.2 fL (78.0-98.0); Mean Platelet Volume 7.2 fL (7.4-10.4); Platelet Count 252 thou/uL (130-400); RBC Distribution Width 12.7 % (11.5-14.5); Red Blood Cell (RBC) Count 2.64 mill/uL (4.20-5.40); White Blood Cell (WBC) Count 14.4 thou/uL (4.8-10.8)
[2020-05-19 04:36] LABS: ALT (SGPT) 11 U/L (8-55); AST (SGOT) 22 U/L (5-34); Albumin 2.1 g/dL (3.4-4.8); Alkaline Phosphatase 91 U/L (40-110); Anion Gap 17 mmol/L (10-20); BUN (Urea Nitrogen) 57 mg/dL (9.8-20.1); Bilirubin, Total 0.6 mg/dL (0.2-1.2); Calc. Creatinine Clearance 17 mL/min (70-130); Calcium 9.9 mg/dL (7.8-10.44); Carbon Dioxide 24 mmol/L (23-31); Chloride 98 mmol/L (98-107); Globulin 2.7 g/dL (2.4-3.5); Glucose 141 mg/dL (80-115); Magnesium 3.1 mg/dL (1.6-2.6); Potassium 3.8 mmol/L (3.5-5.1); Protein, Total 4.8 g/dL (6.0-8.3); Sodium 135 mmol/L (136-145)
[2020-05-19] MEDS: Piperacillin/Tazobactam 2.25 GM in Sodium Chloride 0.9% 100 ML IVPB SCH ×2 (05:03→13:54)
[2020-05-19] MEDS: Levothyroxine Sodium 112 MCG TAB PO SCH (05:03)
[2020-05-19] MEDS: Albumin 25% 25 GM/100 ML BOT IVPB SCH ×3 (05:03→21:54)
[2020-05-19 05:07] LABS: Band 74 % (5-11); Hypochromia SLIGHT = 6-15 cells (100X) (0-5/hpf); Lymphocytes 9 % (21-51); MDiff Complete? YES; Metamyelocyte 2 % (0-0); Monocytes 4 % (0-10); Neutrophil 9 % (42-75); Platelet Morphology Comment Appears Adequate; Reactive Lymphocytes 2 % (0-10)
[2020-05-19] MEDS: Pantoprazole 40 MG VIAL IVP SCH ×2 (08:08→20:38)
[2020-05-19] MEDS: Furosemide 100 MG/10 ML VIAL SLOW IVP SCH (08:08)
[2020-05-19 08:51] LABS: Hemoglobin 8.3 g/dL (12.0-16.0)
[2020-05-19] MEDS ORDERED: Enoxaparin Sodium 30 MG/0.3 ML SYRINGE SC SCH (09:00)
[2020-05-19] MEDS: Ondansetron PF 4 MG/2 ML Vial IVP PRN (09:55)
[2020-05-19] MEDS: Morphine 2 MG/ML VIAL SLOW IVP PRN ×3 (10:00→20:30)
--- NOTE | 2020-05-19 11:09 | MRI ---
Exam: Brain MRI without contrast HISTORY: Altered mental status. Evaluate for stroke. COMPARISON: None FINDINGS: Limited evaluation due to motion degradation on multiple sequences. Calvarial marrow signal intensity: Appropriate T1 signal Gradient echo sequence: There is signal loss involving the left frontal sulci suggesting small compon ent of subarachnoid blood. Brain parenchyma: Multifocal cortical and subcortical white matter T2 and FLAIR hyperintensity. Assoc iated sulcal effacement involving bilateral occipital lobes. No significant sulcal effacement involving the left and right frontal and parietal lobes. Restricted diffusion: Central arterial flow voids are maintained. Absent restricted diffusion Sinuses: Adequate aeration of the paranasal sinuses and mastoid air cells. IMPRESSION: 1. Multifocal cortical and subcortical T2 and FLAIR hyperintensities without associated restricted di ffusion. There is mild sulcal effacement involving the left and right occipital lobes. Postcontrast imaging would be beneficial for further characterization. Based on images provided, differential cons iderations includes PRES, ADEM, encephalitis or possible hypoglycemia. 2. Small focus of subarachnoid hemorrhage in the left frontal sulci, near the vertex. 3. Limited evaluation due to motion degradation.
[2020-05-19] MEDS ORDERED: Dexamethasone 4 mg/ml Vial SLOW IVP SCH (13:00)
--- NOTE | 2020-05-19 13:00 | PDOC.NEPPN ---
- Subjective Encounter Date: 05/19/20 Subjective: Seen in follow up for AMANDA. Developed seizure and mental status change and was admitted to the ICU. Now has decreased vision in addition to confusion. Also now has GI bleeding. - Objective Vital Signs & Weight: Vital Signs (12 hours) Temp 05/19/20 12:00 98.3 F 05/19/20 08:00 98.1 F 05/19/20 04:00 97.8 F Weight Admit Weight 174 lb 13.225 oz Weight 174 lb 13.225 oz Most Recent Monitor Data Heart Rate from ECG 93 NIBP 151/76 NIBP BP-Mean 101 Respiration from ECG 13 SpO2 99 I&O: 05/18/20 05/19/20 05/20/20 06:59 06:59 06:59 Intake Total 3900 3898 240 Output Total 80 1715 460 Balance 3820 2183 -220 Result Diagrams: 05/19/20 08:37 05/19/20 04:00 Additional Labs: Accuchecks 05/19/20 05/18/20 05/18/20 09:32 21:39 18:00 POC Glucose 140 H 126 H 159 H Nephrology ROS - Medication Medications: Active Medications Generic Name Dose Route Start Last Admin Trade Name Freq PRN Reason Stop Dose Admin Acetaminophen 1,000 mg 05/14/20 09:04 05/14/20 14:17 Acetaminophen 500 Mg Tab PO 1,000 mg Q6H PRN Administration Moderate to Severe Pain (6-10) Albumin Human 25 gm 05/18/20 22:00 05/19/20 05:03 Albumin 25% 25 Gm/100 Ml Bot IVPB 05/19/20 22:01 25 gm Q8HR ALEKSANDER Administration Furosemide 80 mg 05/18/20 21:00 05/19/20 08:08 Furosemide 100 Mg/10 Ml Vial SLOW IVP 80 mg BID ALEKSANDER Administration Calcium Chloride 13.6 meq/ 60 mls @ 240 mls/hr 05/17/20 21:00 05/19/20 11:48 Sodium Chloride IVPB 60 mls TID ALEKSANDER Administration Fat Emulsion Intravenous 250 2,314.4321 mls @ 96.435 mls/hr 05/17/20 22:00 05/18/20 22:33 ml/ Potassium Acetate 40 meq/ IV 05/19/20 13:59 2,314.4321 mls Calcium Gluconate 10 meq/ INF ALEKSANDER Administration Magnesium Sulfate 10 meq/ Multivitamins 10 ml/ Insulin Human Regular 23 units/ Chromium/Copper/Manganese/Zinc 10 ml/ Amino Acids/ Electrolytes Promethazine HCl 12.5 mg/ 50.5 mls @ 202 mls/hr 05/17/20 23:20 05/18/20 07:31 Sodium Chloride IVPB 50.5 mls Q3H PRN Administration Nausea/Vomiting Piperacillin Sod/Tazobactam 100 mls @ 200 mls/hr 05/18/20 22:00 05/19/20 05:03 Sod 2.25 gm/ Sodium Chloride IVPB 100 mls Q8HR ALEKSANDER Administration Sodium Bicarbonate 150 meq/ 1,150 mls @ 50 mls/hr 05/18/20 19:21 05/19/20 12:01 Dextrose/Water IV 1,150 mls INF ALEKSANDER Administration Levothyroxine Sodium 112 mcg 05/15/20 06:00 05/19/20 05:03 Levothyroxine Sodium 112 Mcg Tab PO Not Given 0600 [facility] Morphine Sulfate 4 mg 05/13/20 11:17 05/13/20 21:13 Morphine 4 Mg/Ml Vial SLOW IVP 4 mg Q2H PRN Administration Breakthrough Pain Morphine Sulfate 2 mg 05/17/20 15:57 05/19/20 10:00 Morphine 2 Mg/Ml Vial SLOW IVP 2 mg Q2H PRN Administration Pain Ondansetron HCl 4 mg 05/10/20 19:46 05/19/20 09:55 Ondansetron Pf 4 Mg/2 Ml Vial IVP 4 mg Q6H PRN Administration Nausea Pantoprazole Sodium 40 mg 05/19/20 09:00 05/19/20 08:08 Pantoprazole 40 Mg Vial IVP 40 mg Q12HR ALEKSANDER Administration Tramadol HCl 100 mg 05/13/20 10:00 05/19/20 11:52 Tramadol Hcl 50 Mg Tab PO Not Given 0400,1000,1600,2200 [facility] - Exam General - other findings: sleepy. fatigued Eye: anicteric sclera ENT: normocephalic atraumatic ENT - other findings: NG tube noted Neck: symmetric, no JVD Respiratory - other findings: fair air entry with some ttransmitted sound Cardiovascular: RRR Gastrointestinal: non-distended Gastrointestinal - other findings: surgical wound and colostomy noted Extremities - other findings: edema of the extremities noted Neurological: vision deficit Neurological - other findings: sleepy. obeying simple command. some receptive aphasia. moves all limbs. PSYCH: oriented to person Nephrology Results - Labs Result Diagrams: 05/19/20 08:37 05/19/20 04:00 Lab results: WBC 14.4 thou/uL (4.8-10.8) H 05/19/20 04:00 Hgb 8.3 g/dL (12.0-16.0) L 05/19/20 08:37 Hct 24.6 % (36.0-47.0) L 05/19/20 08:37 MCV 94.2 fL (78.0-98.0) 05/19/20 04:00 Plt Count 252 thou/uL (130-400) 05/19/20 04:00 Neutrophils % 67.4 % (42.0-75.0) 05/13/20 05:02 Band Neuts % (Manual) 74 % (5-11) H 05/19/20 04:00 ABG pH 7.38 (7.35-7.45) 05/18/20 22:03 ABG pCO2 35.1 mmHg (35.0-45.0) 05/18/20 22:03 ABG pO2 70.0 mmHg (> 80.0) 05/18/20 22:03 Sodium 135 mmol/L (136-145) L 05/19/20 04:00 Potassium 3.8 mmol/L (3.5-5.1) 05/19/20 04:00 Chloride 98 mmol/L (98-107) 05/19/20 04:00 Carbon Dioxide 24 mmol/L (23-31) 05/19/20 04:00 BUN 57 mg/dL (9.8-20.1) H 05/19/20 04:00 Creatinine 4.36 mg/dL (0.6-1.1) H 05/19/20 04:00 Glucose 141 mg/dL (80-115) H 05/19/20 04:00 Lactic Acid 1.0 mmol/L (0.5-2.2) 05/10/20 23:24 Calcium 9.9 mg/dL (7.8-10.44) 05/19/20 04:00 Total Bilirubin 0.6 mg/dL (0.2-1.2) 05/19/20 04:00 AST 22 U/L (5-34) 05/19/20 04:00 ALT 11 U/L (8-55) 05/19/20 04:00 Alkaline Phosphatase 91 U/L (40-110) 05/19/20 04:00 Troponin I 0.015 ng/mL (< 0.028) 05/10/20 17:06 B-Natriuretic Peptide 92.0 pg/mL (0-100) 05/10/20 17:06 Serum Total Protein 4.8 g/dL (6.0-8.3) L 05/19/20 04:00 Albumin 2.1 g/dL (3.4-4.8) L 05/19/20 04:00 Lipase 26 U/L (8-78) 05/10/20 17:04 Urine Ketones Trace mg/dL (Negative) A 05/18/20 14:45 Urine Blood 3+ (Negative) A 05/18/20 14:45 Urine Nitrite Negative (Negative) 05/18/20 14:45 Ur Leukocyte Esterase Negative Chika/uL (Negative) 05/18/20 14:45 Urine RBC 21-50 HPF (0-3) A 05/18/20 14:45 Urine WBC 4-6 HPF (0-3) A 05/18/20 14:45 Ur Squamous Epith Cells 11-20 HPF (0-3) A 05/18/20 14:45 Urine Bacteria 1+ HPF (None Seen) A 05/18/20 14:45 Sodium 135 mmol/L (136-145) L 05/19/20 04:00 Potassium 3.8 mmol/L (3.5-5.1) 05/19/20 04:00 Chloride 98 mmol/L (98-107) 05/19/20 04:00 Carbon Dioxide 24 mmol/L (23-31) 05/19/20 04:00 Anion Gap 17 mmol/L (10-20) 05/19/20 04:00 BUN 57 mg/dL (9.8-20.1) H 05/19/20 04:00 Creatinine 4.36 mg/dL (0.6-1.1) H 05/19/20 04:00 Glucose 141 mg/dL (80-115) H 05/19/20 04:00 Calcium 9.9 mg/dL (7.8-10.44) 05/19/20 04:00 Phosphorus 6.0 mg/dL (2.3-4.7) H 05/19/20 04:00 Magnesium 3.1 mg/dL (1.6-2.6) H 05/19/20 04:00 Albumin 2.1 g/dL (3.4-4.8) L 05/19/20 04:00 Nephrology AP PN - Plan ASSESSMENT: Acute renal failure: Most likely due to hemodynamic factors related to volume depletion due to poor oral intake as well as NSAID use. Metabolic acidosis. Anasarca: Most likely due to hypoalbuminemia. Severe hypoalbuminemia PCM Anemia of acute blood loss: Upper GI bleeding. ? NSAID induced gastritis. Peritonitis, on antibiotics. Hypertension: Control is suboptimal. Acute encephalopathy: Most likely due to PRES. Acute CVA is a concern. Seizure: cause or effect of PRES Presumed PRES. Multifactorial in etiology. HTN, AMANDA, Severe hypoalbuminemia Acute visual loss. PLAN Start IV labetalol to get BP less than 140 Continue albumin. DC diuretiic due to NG decompression andlikely volume contraction Continue alkali therapy Monitor intake and output as well as renal function Will get repeat CBC and CMP. GI bleeding management as per primary attending. Renally dose all medication. Avoid nephrotoxic agents.
[2020-05-19] MEDS ORDERED: [UNRECOGNIZED DRUG - OTHER] IV SCH (14:00)
[2020-05-19] MEDS ORDERED: SODIUM CHLORIDE IV SCH (14:00)
[2020-05-19] MEDS ORDERED: FAT EMULSION IV SCH (14:00)
[2020-05-19] MEDS ORDERED: SODIUM ACETATE IV SCH (14:00)
--- NOTE | 2020-05-19 14:09 | OP ---
DATE OF PROCEDURE: 05/17/2020 PREOPERATIVE DIAGNOSES: Ileus post anastomotic colorectal leak with Carter's procedure performed, acute kidney injury in need of IV access and TPN, and malnutrition. POSTOPERATIVE DIAGNOSES: Ileus post anastomotic colorectal leak with Carter's procedure performed, acute kidney injury in need of IV access and TPN, and malnutrition. PROCEDURE PERFORMED: Left subclavian vein triple-lumen catheter. ANESTHESIA: 1% Xylocaine. DESCRIPTION OF PROCEDURE: With the patient at bedside, left paraclavicular area was prepared with ChloraPrep and draped in routine fashion. Infraclavicular approach used to cannulate the left subclavian vein, threading the J-wire, removing the trocar catheter. Seldinger technique used to place a triple-lumen catheter, secured with 3-0 silk suture. Each port aspirated blood, flushed with saline solution after J-wire removed. The patient tolerated the procedure well. Job ID: [id number]
--- NOTE | 2020-05-19 15:38 | PRG ---
DATE OF SERVICE: 05/19/2020 SUBJECTIVE: Ms. Mullins is seen in the intensive care unit. She is resting comfortably, but has a nasogastric tube in place. She had vomited yesterday and a nasogastric tube was placed. There was blood per vomitus. At that time, pantoprazole was ordered as apparently she was not on acid suppression at that time. She had been moved to the ICU following a Code Green called yesterday shortly after I had seen the patient. She had an episode where her vision was fixed and her eyes were nonreactive and she was unable to communicate at all. This slowly seemed to improve, but she still seemed altered even after it improved and she is clearly still altered at this time. She is unable to really communicate in a meaningful fashion. She does not seem to have the ability to fixate her gaze on items around her willingly. She denies any pain. Her renal failure was addressed by Dr. Muse yesterday. Her creatinine had dropped from a high of 4.42 yesterday down to 4.36 today. She does have reasonable urine output here in the ICU currently. She is currently receiving TPN. She has also been started on fluconazole, linezolid, and meropenem by Dr. Freeman. The piperacillin she was on previously has been discontinued. PHYSICAL EXAMINATION: VITAL SIGNS: She remains afebrile with temperature of 98.3. Her heart rate is in the mid 90s and regular. Blood pressure is 151/76. Oxygen saturation on room air is 99%. LUNGS: Clear to auscultation. ABDOMEN: Soft with normoactive bowel sounds. Dressing is intact over midline. She has good ostomy output. Her urine is clear. LABORATORY DATA: Her CBC shows a white blood cell count of 14.4, down from 17.6 last night after her code event. Her hemoglobin is 8.2, down from 10 at the time of her incident. Chemistry reveals essentially normal electrolytes. BUN is 57 and creatinine is 4.36. Blood sugars remain appropriately controlled at about 140. Phosphorus and magnesium are both elevated. Her albumin is low at 2.1. Her prealbumin is less than 5.0. Her TSH is 7.8. ASSESSMENT: The patient who is status post surgery for feculent peritonitis following anastomotic breakdown after a sigmoid colectomy. She is postoperative day #12 from her sigmoid colectomy and #9 from her laparotomy and washout with Carter's procedure. Her two primary problems currently appear to be her renal failure which is stable and her neurologic dysfunction which is significantly changed from the only time that I saw her previously yesterday afternoon. MRI of the brain was performed, which showed nothing specific. It is possible that she had a seizure event or stroke or that she has some form of ongoing encephalopathy. For right now, the care appears to primarily be supportive with use of TPN, IV antibiotics, and continued support. Job ID: [id number]
--- NOTE | 2020-05-19 15:50 | PDOC.HOSPP ---
- Subjective Encounter Date: 05/19/20 Encounter Time: 10:30 Subjective: pt up in bed confused - Objective Vital Signs & Weight: Vital Signs (12 hours) Temp Pulse Ox 05/19/20 12:00 98.3 F 05/19/20 08:00 98.1 F 97 05/19/20 04:00 97.8 F Weight Admit Weight 174 lb 13.225 oz Weight 174 lb 13.225 oz Most Recent Monitor Data Heart Rate from ECG 97 NIBP 166/91 NIBP BP-Mean 116 Respiration from ECG 16 SpO2 95 I&O: 05/18/20 05/19/20 05/20/20 06:59 06:59 06:59 Intake Total 3900 3898 340 Output Total 80 0275 620 Balance 3820 2183 280 Result Diagrams: 05/19/20 08:37 05/19/20 04:00 Additional Labs: Accuchecks 05/19/20 05/18/20 05/18/20 09:32 21:39 18:00 POC Glucose 140 H 126 H 159 H Hospitalist ROS - Review of Systems Other: pt unable to obtain - Medication Medications: Active Medications Generic Name Dose Route Start Last Admin Trade Name Freq PRN Reason Stop Dose Admin Acetaminophen 1,000 mg 05/14/20 09:04 05/14/20 14:17 Acetaminophen 500 Mg Tab PO 1,000 mg Q6H PRN Administration Moderate to Severe Pain (6-10) Albumin Human 25 gm 05/18/20 22:00 05/19/20 13:56 Albumin 25% 25 Gm/100 Ml Bot IVPB 05/19/20 22:01 25 gm Q8HR ALEKSANDER Administration Furosemide 80 mg 05/18/20 21:00 05/19/20 08:08 Furosemide 100 Mg/10 Ml Vial SLOW IVP 80 mg BID ALEKSANDER Administration Calcium Chloride 13.6 meq/ 60 mls @ 240 mls/hr 05/17/20 21:00 05/19/20 11:48 Sodium Chloride IVPB 60 mls TID ALEKSANDER Administration Promethazine HCl 12.5 mg/ 50.5 mls @ 202 mls/hr 05/17/20 23:20 05/18/20 07:31 Sodium Chloride IVPB 50.5 mls Q3H PRN Administration Nausea/Vomiting Sodium Bicarbonate 150 meq/ 1,150 mls @ 50 mls/hr 05/18/20 19:21 05/19/20 1 2:01 Dextrose/Water IV 1,150 mls INF ALEKSANDER Administration Fat Emulsion Intravenous 250 2,380.3087 mls @ 99.18 mls/hr 05/19/20 14:00 05/19/20 13:56 ml/ Sodium Acetate 50 meq/ IV 2,380.3087 mls Sodium Chloride 50 meq/ INF ALEKSANDER Administration Potassium Acetate 40 meq/ Potassium Chloride 40 meq/ Calcium Gluconate 15 meq/ Chromium/Copper/Manganese/Zinc 10 ml/ Multivitamins 10 ml/ Insulin Human Regular 20 units / Amino Acids/Dextrose Levothyroxine Sodium 112 mcg 05/15/20 06:00 05/19/20 05:03 Levothyroxine Sodium 112 Mcg Tab PO Not Given 0600 [facility] Morphine Sulfate 4 mg 05/13/20 11:17 05/13/20 21:13 Morphine 4 Mg/Ml Vial SLOW IVP 4 mg Q2H PRN Administration Breakthrough Pain Morphine Sulfate 2 mg 05/17/20 15:57 05/19/20 10:00 Morphine 2 Mg/Ml Vial SLOW IVP 2 mg Q2H PRN Administration Pain Ondansetron HCl 4 mg 05/10/20 19:46 05/19/20 09:55 Ondansetron Pf 4 Mg/2 Ml Vial IVP 4 mg Q6H PRN Administration Nausea Pantoprazole Sodium 40 mg 05/19/20 09:00 05/19/20 08:08 Pantoprazole 40 Mg Vial IVP 40 mg Q12HR ALEKSANDER Administration Tramadol HCl 100 mg 05/13/20 10:00 05/19/20 11:52 Tramadol Hcl 50 Mg Tab PO Not Given 0400,1000,1600,2200 [facility] - Exam Heart: negative: RRR, no murmur, no gallops, no rubs, normal peripheral pulses, irregular, diminshed peripheral pulses, murmur present, II/IV, III/IV Respiratory: negative: CTAB, no wheezes, no rales, no ronchi, normal chest expan rand, no tachypnea, normal percussion, rales, rhonchi, tachypneic, wheezes Gastrointestinal: negative: soft, non-tender, non-distended, normal bowel sounds, no palpable masses, no hepatomegaly, no splenomegaly, no bruit, no guarding, no rigidity, tender to palpation, distended, diminished bowl sounds, voluntary guarding Gastrointestinal - other findings: colostomy Extremities: negative: no cyanosis, no clubbing, no edema, 1+ LE edema, 2+ LE edema, clubbing Neurological - other findings: pt unable to track, upper and lower ext weakness Hosp A/P (1) Acute metabolic encephalopathy Code(s): G93.41 - METABOLIC ENCEPHALOPATHY Status: Acute (2) Seizure Code(s): R56.9 - UNSPECIFIED CONVULSIONS Status: Acute (3) PRES (posterior reversible encephalopathy syndrome) Code(s): I67.83 - POSTERIOR REVERSIBLE ENCEPHALOPATHY SYNDROME Status: Acute (4) AMANDA (acute kidney injury) Code(s): N17.9 - ACUTE KIDNEY FAILURE, UNSPECIFIED Status: Acute (5) Malnourished Code(s): E46 - UNSPECIFIED PROTEIN-CALORIE MALNUTRITION Status: Acute - Plan will increase keppra to 500mg daily per her renal clearance. We will get MRI brain. Neurology called case was discussed. We will also consult infectious disease possible infectious etiology. Patient currently on TPN. We will also consult GI Castillo NG output appears dark. PPI started. We will get a gastric occult. SCDs for DVT prophylaxis.
--- NOTE | 2020-05-19 15:59 | CON ---
DATE OF CONSULTATION: 05/19/2020 CONSULTING PHYSICIAN: Hospitalist Services. IMPRESSION: 1. 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 2. Acute renal failure. 3. Gastrointestinal bleed. 4. Secondary seizure reported. 5. Recent admission for septic shock. PLAN: 1. Continue supportive measures of the cardiovascular status as necessary. Note the patient is not a candidate for aspirin or other anticoagulation given her GI bleed. 2. Small subarachnoid hemorrhages of little clinical consequence. HISTORY OF PRESENT ILLNESS: Ms. Mullins is a 64-year-old woman with a history of recurrent problems with abdominal pain and diverticulitis. She developed acute peritonitis secondary to colorectal anastomosis disruption, which resulted in secondary septic shock. She has been taken to the operating room for exploratory laparotomy and segmental colectomy. Today, she is postop around 11 days at this point. She is on broad spectrum antibiotics. She apparently had a change that was suspicious for a seizure with eye deviation. She has since been started on a low dose of Keppra. CT of the brain showed bilateral hypointensities in the occipital lobes. MRI of the brain showed more diffuse white matter changes in both occipital, parietal, and some frontal lobe regions and tiny area of subarachnoid hemorrhage noted anteriorly. The patient is without complaints of pain at this point. The nurses report that she is only limitedly oriented at best and follows commands to some degree, albeit quite slowly. PAST MEDICAL HISTORY: Otherwise, negative. SOCIAL HISTORY: Unremarkable. FAMILY HISTORY: Noncontributory. ALLERGIES: SULFA AND CODEINE. REVIEW OF SYSTEMS: Not obtainable due to her current cognitive state. PHYSICAL EXAMINATION: VITAL SIGNS: Pulse 92, respirations of 14, saturation is 99%, and blood pressure 163/83. HEENT: Pupils are equal. Conjunctivae clear. Oropharynx clear. NECK: Supple. ABDOMEN: Soft, nontender to palpation. EXTREMITIES: There is some peripheral edema in both feet. SKIN: Clear. NEUROLOGIC: She is awake and would follow some simple commands. Her speech seems to be clear and fluent. There is no facial asymmetry. She had difficulty counting fingers in front of her. She had equal tailor's aide strength. No abnormal movements were seen. Sensation was grossly intact. Plantar responses were upgoing bilaterally. SUMMARY: This elderly lady who has had some neurologic change with evidence of bilateral areas of what appeared to be a watershed pattern of ischemia that may have occurred a few days ago. She has had a secondary seizure and is covered with Keppra. She is not a candidate for antiplatelet therapy or anticoagulation due to her GI bleed, seems to be continue supportive measures. Job ID: [id number]
--- NOTE | 2020-05-19 16:19 | CON ---
DATE OF CONSULTATION: 05/19/2020 HISTORY OF PRESENT ILLNESS: Ms. Mullins is a 64-year-old female, who underwent a laparoscopic sigmoidectomy on May 07, 2020, and then was subsequently readmitted on May 10, 2020 for severe abdominal pain and was discovered to have an anastomotic disruption with extensive acute fecal peritonitis. This required her to be taken back to the operating room for an exploratory laparoscopy, washout, and revision. She has remained admitted to the hospital following her emergent operation and is 9 days into her hospital stay. Per report, last night she began to have altered mental status and rightward deviation of her eyes. The patient's nurse informed me that she is currently oriented to self, location, and year; however, at times she is unable to state the correct year when asked. She is reported to be somewhat confused but follows commands and is able to move all extremities. She is reported to have pupils that are equal, round, and reactive to light, though sluggish. She demonstrates decreased visual acuity and is unable to follow a finger for evaluation of extraocular movements. A noncontrast CT of the brain was completed yesterday, which demonstrated multifocal bilateral occipital hypodensities. An MRI of the brain without contrast was completed today, which demonstrates T2 and FLAIR hyperintensities in the bilateral occipital lobes. MRI with contrast was unable to be performed given the patient's impaired renal function. Case was discussed and imaging was reviewed with Dr. Cantor. The patient's imaging of the brain is consistent with posterior reversible encephalopathy syndrome (PRES). This is reversible and her neurologic status should improve with time. Treatment involves supportive care with antiepileptics for seizure management and Decadron for treatment of vasogenic edema. The patient has already been started on Keppra, and a Neurology consult has been placed. I have started the patient on Decadron 4 mg q.6 hours. She is already on Protonix twice daily. No surgical intervention is necessary from a neurosurgical standpoint. Again, our team is optimistic that her mental status and vision changes will improve with time as her PRES resolves. Please call for any questions or concerns. Job ID: [id number] [id number]
--- NOTE | 2020-05-19 16:23 | CON ---
DATE OF CONSULTATION: 05/19/2020 REASON FOR CONSULTATION: Peritonitis, seizures, and altered mental state. HISTORY OF PRESENT ILLNESS: A 64-year-old who has a history of diverticulosis and had an elective resection of diseased sigmoid with reanastomosis on May 07. The surgical report was reviewed and this was a laparoscopic procedure using a stapler without leak noted when checked under water. Unfortunately, just the next or the day after she was discharged, developed worsening pain, had to be readmitted in an emergency basis. Dr. Fuentes performed exploratory laparotomy and segmental colectomy with end-colostomy, abdominal washout, and placement of a nasojejunal tube. The patient had been transferred to the floor, and then on May 18, she had to be transferred to the ICU. She developed ileus and some abdominal pain and worsening renal function with a creatinine up to 2.83. She had some nausea, vomiting, and was given ketorolac on May 13, and then on the evening of the transfer to the ICU, she developed altered mental state and seizure activity. She denied any headaches. She appeared confused and had vision impairment. Triple-lumen catheter was placed in the left subclavian location to initiate TPN. A CT of the head was concerning for posterior reversible encephalopathy syndrome. The patient had a repeat abdomen and pelvis CT on May 18 and this was a noncontrast study. Lung bases with bilateral pleural effusions and some airspace opacities. Liver was okay. Gallbladder was absent. Pancreas normal. Spleen normal. Right kidney did not have any hydronephrosis. There was scattered free fluid and free air in the abdomen, less pronounced than previously. The colostomy was noted and a long Carter pouch. Bladder normal. So, overall, there was improvement in the findings compared with the previous CT. Currently, Ms. Mullins is not intubated. She has an NG tube though, and she is awake. Her daughter is by the bedside. Ms. Mullins is, I would say, drowsy and obtunded. She opened her eyes and was able to count fingers and she recognized her daughter, could not tell me what hospital she was in. Denied any headaches. No nausea or chest pain. No abdominal pain. She has a Ley catheter, which was inserted over the past 24 hours. PAST MEDICAL HISTORY: Includes hypothyroidism, DJD, diverticulosis, appendectomy, cholecystectomy, hysterectomy, previous segmental resection with reanastomosis just a few weeks ago. SOCIAL HISTORY: She lives in [place] by herself. Never smoker. Retired. ALLERGIES: CODEINE, SULFA DRUGS. FAMILY HISTORY: Noncontributory. CURRENT MEDICATIONS: 1. TPN. 2. Decadron. 3. Zosyn. PRN MEDICATIONS: 1. Keppra. 2. Furosemide. 3. Insulin. 4. Promethazine. 5. Tramadol. VITAL SIGNS: VITAL SIGNS: She has been afebrile for the past many days. The patient has been quite hypertensive previously intermittently. She was hypotensive at times as well. O2 saturations have been consistently above 96% with nasal cannula recently started at 3 L/minute rate. SKIN: Shows the left-sided subclavian triple-lumen catheter and she has a colostomy and she has a Ley catheter. The patient has no lymphadenopathy. No other skin lesions. The extremities are well perfused. HEENT: The pupils are reactive about 2 mm and briskly reactive. The eye movements are a little bit sluggish, but appear to be conjugate. No nystagmus noted. She was able to count fingers. She is a bit slow in following commands, as she opened her mouth kind of penitentiary, mouth was somewhat dry with a little bit of exudate over her tongue. Numerous teeth in place with moderate decay. NECK: Supple. No jugular vein distention. LUNGS: Symmetric air entry without wheezing. HEART: S1, S2. Regular rate without murmurs. ABDOMEN: Moderately distended. Bowel sounds are decreased. Colostomy is full of liquid brown stool. The ostomy itself appears healthy and pink. Bladder is not full. EXTREMITIES: She is able to move extremities. Plantar responses are upgoing, I think mostly from withdrawal, not truly a Babinski reaction. Pulses 1+ in dorsalis pedis. She is obtunded or drowsy and ability to interact is kind of waxes and wanes. LABORATORY AND DIAGNOSTIC DATA: The latest labs show white cell count 14.4, hemoglobin 8.2 with a marked bandemia 74%. Creatinine was normal, now is up to 4.36. Urinalysis was 21 to 50 two days ago. SARS-CoV-2 was negative PCR. The brain CT was done on the and it showed patchy regions of moderate-sized occipital lobe brain parenchymal edema. An MRI was completed as well on the , which showed motion degradation in multiple sequences, multifocal cortical/subcortical T2 and FLAIR hyperintensities without restricted diffusion. ASSESSMENT: 1. Diverticulosis with elective resection of disease segment and primary anastomosis. 2. Postop leak with diffuse peritonitis. 3. Further resection through exploratory laparotomy and then colostomy establishment. 4. Postop acute renal failure, hypertensive event, and then what appears to be posterior reversible encephalopathy syndrome with seizures, altered mental state, and vision impairment, and typical findings on MRI. 5. Severe bandemia. DISCUSSION: The patient will have her broad-spectrum coverage even further widened to include Claritza species and MRSA in addition to switching her to meropenem for better ESBL coverage. The patients with PRES are usually able to recover most of the function loss during the episode, although some will remain with some residual deficit. The pathophysiology usually involves oscillations in blood pressure, usually with hypertensive events, alternating with hypotension associated with sepsis and other factors. In her case that is the more likely scenario. The differential diagnosis would include venous sinus thrombosis, subarachnoidal hemorrhage, and encephalitis. Those are less likely. Apparently, there is no firm evidence to support the use of corticosteroids in this syndrome. Job ID: [id number] [facility]
[2020-05-19 16:54] LABS: Actual Bicarbonate (HCO3a) 24.6 mEq/L (22-28); Base Excess (BEa) -0.2 mEq/L (-2.0 to +3.0); CO2 Tension 40.9 mmHg (35.0-45.0); Calcium, Ionized (arterial) 1.44 mmol/L (1.12-1.30); Carboxyhemoglobin (COHb) 0.1 gm% (0.0-3.0); Hemoglobin (Hb) 9.2 g/dL (12.0-16.0); O2 Tension (PaO2), arterial 62.1 mmHg (> 80.0); Potassium - ABG Lab 3.59 mmol/L (3.70-5.30)
[2020-05-19 17:35] LABS: Hemoglobin 8.4 g/dL (12.0-16.0); Mean Corpuscular HGB CONC 33.5 g/dL (32.0-36.0); Mean Corpuscular Hemoglobin 31.1 pg (27.0-31.0); Mean Corpuscular Volume 92.8 fL (78.0-98.0); Mean Platelet Volume 7.7 fL (7.4-10.4); Platelet Count 234 thou/uL (130-400); RBC Distribution Width 12.6 % (11.5-14.5); Red Blood Cell (RBC) Count 2.71 mill/uL (4.20-5.40); White Blood Cell (WBC) Count 20.2 thou/uL (4.8-10.8)
[2020-05-19 17:40] LABS: Puncture Site RRA
[2020-05-19] MEDS: Dexamethasone 4 mg/ml Vial SLOW IVP SCH ×2 (17:52→23:01)
[2020-05-19] MEDS: Labetalol HCl 100 MG/20 ML VIAL SLOW IVP PRN (17:52)
[2020-05-19 17:57] LABS: ALT (SGPT) 10 U/L (8-55); AST (SGOT) 23 U/L (5-34); Alkaline Phosphatase 92 U/L (40-110); Anion Gap 19 mmol/L (10-20); BUN (Urea Nitrogen) 64 mg/dL (9.8-20.1); Bilirubin, Total 0.7 mg/dL (0.2-1.2); Calc. Creatinine Clearance 15 mL/min (70-130); Calcium 10.9 mg/dL (7.8-10.44); Carbon Dioxide 24 mmol/L (23-31); Chloride 97 mmol/L (98-107); Globulin 2.6 g/dL (2.4-3.5); Glucose 178 mg/dL (80-115); Potassium 3.9 mmol/L (3.5-5.1); Protein, Total 5.6 g/dL (6.0-8.3); Sodium 136 mmol/L (136-145)
--- NOTE | 2020-05-19 18:40 | CON ---
DATE OF CONSULTATION: 05/19/2020 HISTORY OF PRESENT ILLNESS: Ms. Mullins is a 64-year-old female who had elective surgery for a colovesicular fistula related to diverticular disease on the of this month and then returned with peritonitis and suspected leak on the and had repeat surgery on the with segmental colectomy, abdominal washout, NG tube placement, and ostomy creation for fecal peritonitis. She was started on TPN on the through the . Yesterday, she had a repeat CAT scan of her abdomen and pelvis which showed anasarca and bilateral pleural effusions. Creatinine had been decreasing. Last night, she had seizure-like activity and Internal Medicine was consulted. She had right-sided eye deviation and change in mental status. She was transferred to the ICU, had a CAT scan. She had an episode of coffee-ground emesis. An NG tube was placed with about 600 mL of coffee-ground material. She was started on IV Protonix q.12 hours at that time. Her Lovenox was held. Her aspirin was held. She had also been receiving Toradol before that for several days and that was held. I have been asked to see her today for the GI bleed. MRI was just completed at 8 this morning. This shows a small focus of subarachnoid hemorrhage in the left frontal sulci near the vertex. The study was very limited secondary to mobility. Talking to the patient, she is not really responsive, although her eyes were open. On talking to the nurse, she has kind of been this way since she came to the ICU. She apparently has had no transfusion. She has had a drop in hemoglobin from 10 to 11 on admission to 8.3 today, it was 10 yesterday. PAST MEDICAL HISTORY: As per review of the chart, hypothyroidism, reflux, degenerative arthritic disease. PAST SURGICAL HISTORY: Cholecystectomy, appendectomy, pelvic mesh sling for bladder incontinence, thyroidectomy, recent surgery for a colovesicular fistula, recent repeat surgery for leak and washout. FAMILY HISTORY: Unobtainable. SOCIAL HISTORY: Record reports she is not a smoker or drinker. She lives with family. REVIEW OF SYSTEMS: Unable to be obtained. MEDICATIONS: 1. Tylenol. 2. Albumin. 3. Calcium. 4. TPN. 5. Lasix 80 b.i.d. 6. Insulin sliding scale. 7. Levetiracetam started. 8. Synthroid. 9. P.r.n. morphine. 10. Protonix 40 IV q.12. 11. Zosyn. 12. Promethazine p.r.n. 13. Bicarb p.r.n. 14. Ultram. Recent medications include: 1. Toradol, which has been held. 2. Lovenox and aspirin, which have been held. PHYSICAL EXAMINATION: GENERAL: She is in the ICU bed. She is stable, but is not really talkative or responsive. VITAL SIGNS: Temperature is 98, pulse 94, blood pressure 151/71. NG tube had a coffee-ground return about 600 mL. Colostomy 220 mL of brown liquid, Ley 450. She has NG tube in place. There is a dark coffee-ground material in the NG tube suction canister. LUNGS: Clear. HEART: Regular rate and rhythm without clicks or murmurs. ABDOMEN: Soft and nontender. Colostomy bag with brown pendleton stool. EXTREMITIES: Reveal no clubbing, cyanosis, edema. LABORATORY STUDIES: White count 14.4, down from 17 yesterday; hemoglobin 8.6 this morning, 10 yesterday; 74% bands, 9% neutrophils. INR is 1.2 on the . PH 7.3 on the . Sodium 135, potassium 3.8, BUN and creatinine 57 and 4.36. Creatinine has been worsening since the , glucose 141, calcium 9.9, phosphorus 6, , albumin 2.1. Prealbumin less than 5. TSH 7.3. Cortisol was 26 on the . ASSESSMENT: A 64-year-old female who had a complicated diverticulitis with colovesicular fistula repaired on the , subsequent anastomotic leak with diverting colostomy washout, starting antibiotics. 1. Course complicated by development of renal failure, which may be have been related to infections, antibiotics and IV NSAID pain medicines, all which have stopped. 2. Now, patient has had seizure-like activity and altered mental status, had an MRI with possible subarachnoid bleeding. 3. Patient, when she was brought to the ICU yesterday and was being worked up for her altered mental status, had an episode of coffee-ground emesis. NG tube reveals coffee-grounds in the stomach, although she has brown stool in her ostomy bag. There has been a drop in hemoglobin, but no hemodynamic instability. Baseline hemoglobin earlier today she was 13 or 14. After her surgery on 05/08, it was 10.9, it has been between 10 and 11 until yesterday when it was 8.6 and today it is 8.3. RECOMMENDATIONS: 1. IV PPI q.12. Hold NSAIDs. I agree with albumin and TPN. 2. If the patient shows overt signs of hemorrhage causing hemorrhagic shock, would intervene endoscopically otherwise with acute neurologic changes at this time and no signs of acute hemorrhage, will hold off. Job ID: [id number]
[2020-05-19] MEDS ORDERED: niCARdipine 25 MG in Sodium Chloride 0.9% 250 ML 240 ML IVPB SCH (20:00)
[2020-05-19] MEDS ORDERED: niCARdipine 40MG In NaCl 40 MG/200 ML BAG IVPB SCH (20:30)
[2020-05-19] MEDS ORDERED: niCARdipine 50 MG in Sodium Chloride 0.9% 250 ML 230 ML IV SCH (20:30)
[2020-05-19 20:36] LABS: Actual Bicarbonate (HCO3a) 22.8 mEq/L (22-28); Base Excess (BEa) -3.4 mEq/L (-2.0 to +3.0); CO2 Tension 46.8 mmHg (35.0-45.0); Calcium, Ionized (arterial) 1.43 mmol/L (1.12-1.30); Carboxyhemoglobin (COHb) 0.3 gm% (0.0-3.0); Hemoglobin (Hb) 9.5 g/dL (12.0-16.0); Potassium - ABG Lab 4.09 mmol/L (3.70-5.30); pH, Arterial 7.31 (7.35-7.45)
[2020-05-19 20:48] LABS: O2 Tension (PaO2), arterial 54.2 mmHg (> 80.0); Puncture Site LRA
[2020-05-19] MEDS: Linezolid 600 MG in Premix Bag 1 BAG IVPB SCH (20:48)
--- NOTE | 2020-05-19 20:55 | CON ---
DATE OF CONSULTATION: 05/19/2020 HISTORY OF PRESENT ILLNESS: Susanna is a 64-year-old female, who has been in the hospital since 05/10. She had surgery for colovesical fistula due to diverticular disease on the and then presented with peritonitis secondary to a suspected leak three days later on the . On the , she had a segmental colectomy, abdominal washout, and ostomy creation. She has been started on TPN. Repeat CT scanning is showing bilateral effusions as expected. Apparently, because of some seizure-like activity, she was moved to the critical care unit. She also had some emesis. She had CT and MRI showing a small focus subarachnoid hemorrhage. I was consulted to assist because of her presence in the Critical Care Unit, although she is certainly having no respiratory issues at this time. PAST MEDICAL HISTORY: Remarkable for hypothyroidism, reflux, degenerative arthritis, cholecystectomy, appendectomy, bladder suspension in the past, thyroidectomy. FAMILY HISTORY: Unknown. REVIEW OF SYSTEMS: Not accurately obtainable. PHYSICAL EXAMINATION: GENERAL: She is in no distress. She knew she is in the hospital. NECK: Supple. LUNGS: Clear. HEART: Regular rhythm. S1, S2 are normal. ABDOMEN: Soft and nontender. EXTREMITIES: Without clubbing, cyanosis, or edema. She has been moderately hypertensive throughout the day. LABORATORY DATA: White count 20.2, hemoglobin 8.4, platelets 234. Sodium 136, potassium 3.9, chloride 97, bicarb 24, BUN 64, creatinine 4.79, which is an increase from 4.42 yesterday. IMPRESSION: 1. Peritonitis, status post washout. 2. Acute on chronic kidney disease. 3. Hypertension. 4. Neurological changes with MRI imaging suggestive of posterior reversible encephalopathy. 5. Small subarachnoid hemorrhage. PLAN: Continue supportive care with blood pressure control. Cardene will be added with a goal to keep her blood pressure in the 150 to 160 range. We will follow the other physicians caring for her. Critical care time 35 min excluding procedure. Job ID: [id number] MTDD
--- NOTE | 2020-05-19 21:02 | RAD ---
RADIOGRAPH CHEST 1 VIEW: DATE: 05/19/2020 TIME: 8:49 PM HISTORY: 64-year-old female with dyspnea COMPARISON: 05/17/2020 FINDINGS: New esophageal catheter coursing inferior to the left hemidiaphragm, with side port in expected locat ion of gastric cardia. Bilateral pleural effusions and dense opacification of bilateral lung bases. These appear worse . New finding of diffuse haziness radiating outward from the perihilar regions. Left subclavian central venous catheter remains. No pneumothorax. IMPRESSION: 1) interval placement of esophagogastric tube into the stomach. 2) interval development of what may represent pulmonary interstitial edema. 3) bilateral pleural effusions and underlying dense opacification of the lung bases, appear worse
[2020-05-19] MEDS ORDERED: Propofol 1,000 MG/100 ML VIAL IV ONE (21:16)
[2020-05-19] MEDS: Propofol 1,000 MG/100 ML VIAL IV PRN (21:20)
[2020-05-19] MEDS ORDERED: DISCONTINUE PREVIOUS NARCOTIC PAIN MEDICATIONS AND BENZODIAZEPINES FS SCH (21:45)
[2020-05-19] MEDS ORDERED: Benzocaine 20% Spray 60 ML CAN PO SCH (21:45)
[2020-05-19] MEDS ORDERED: Lorazepam 2 MG/ML VIAL SLOW IVP PRN (21:45)
[2020-05-19] MEDS ORDERED: Fentanyl BOLUS 250 ML IVPB PRN (21:45)
[2020-05-19] MEDS ORDERED: Propofol BOLUS 1,000 MG/100 ML VIAL IV PRN (21:45)
[2020-05-19 22:21] LABS: Actual Bicarbonate (HCO3a) 23.5 mEq/L (22-28); Base Excess (BEa) 0.2 mEq/L (-2.0 to +3.0); Calcium, Ionized (arterial) 1.31 mmol/L (1.12-1.30); Carboxyhemoglobin (COHb) 0.3 gm% (0.0-3.0); Hemoglobin (Hb) 7.5 g/dL (12.0-16.0); O2 Tension (PaO2), arterial 62.7 mmHg (> 80.0); Potassium - ABG Lab 3.77 mmol/L (3.70-5.30); pH, Arterial 7.48 (7.35-7.45)
[2020-05-19 22:24] LABS: Puncture Site LRA
--- NOTE | 2020-05-19 22:37 | RAD ---
RADIOGRAPH CHEST 1 VIEW: DATE: 05/19/2020 TIME: 9:33 PM HISTORY: 64-year-old female status post intubation for respiratory failure COMPARISON: 05/19/2020 8:49 PM FINDINGS: New endotracheal tube at mid thoracic trachea. Esophagogastric tube and left subclavian central venous catheter remain. No interval change in significant bilateral pleural effusions, dense opacification of bilateral lower lung zones, and diffuse interstitial infiltrates throughout the rest of the lungs. No pneumothorax. IMPRESSION: Status post intubation with endotracheal tube into the mid thoracic trachea.
[2020-05-19] MEDS: Meropenem 500 MG in Sodium Chloride 0.9% 100 ML IVPB SCH (22:46)
[2020-05-20] MEDS: traMADol HCl 50 MG TAB PO SCH ×4 (01:28→22:04)
[2020-05-20] MEDS: Levothyroxine Sodium 112 MCG TAB PO SCH (01:29)
[2020-05-20 05:33] LABS: Anion Gap 17 mmol/L (10-20); BUN (Urea Nitrogen) 70 mg/dL (9.8-20.1); Calc. Creatinine Clearance 14 mL/min (70-130); Calcium 10.1 mg/dL (7.8-10.44); Carbon Dioxide 24 mmol/L (23-31); Chloride 96 mmol/L (98-107); Glucose 128 mg/dL (80-115); Potassium 4.4 mmol/L (3.5-5.1); Sodium 133 mmol/L (136-145)
[2020-05-20 06:00] LABS: Band 47 % (5-11); Hemoglobin 7.5 g/dL (12.0-16.0); Lymphocytes 13 % (21-51); MDiff Complete? YES; Mean Corpuscular HGB CONC 33.7 g/dL (32.0-36.0); Mean Corpuscular Hemoglobin 31.2 pg (27.0-31.0); Mean Corpuscular Volume 92.6 fL (78.0-98.0); Metamyelocyte 1 % (0-0); Monocytes 5 % (0-10); Neutrophil 34 % (42-75); Platelet Count 226 thou/uL (130-400); Platelet Morphology Comment Appears Adequate; RBC Distribution Width 12.6 % (11.5-14.5); Red Blood Cell (RBC) Count 2.41 mill/uL (4.20-5.40); White Blood Cell (WBC) Count 17.9 thou/uL (4.8-10.8)
[2020-05-20] MEDS: Dexamethasone 4 mg/ml Vial SLOW IVP SCH ×3 (06:15→18:12)
--- NOTE | 2020-05-20 07:01 | OP ---
DATE OF PROCEDURE: 05/19/2020 Contacted for ongoing confusion and respiratory distress. Chest radiograph showed finding suggestive of very large bilateral effusions, which were most likely reactive to the peritonitis. She also has radiographic evidence of pulmonary edema. Blood gas showed decreasing ability to compensate with a rise in her CO2 and a decrease in her pH. Her blood gas showed a pH of 7.31, CO2 of 46, and pO2 of 54 on 50%. I recommended intubation. Bronchoscope was brought to the bedside. Bronchoscope was introduced through her mouth with a bite block, passed down through her cords to a point above the main ariel. The endotracheal tube was advanced and secured at 24 cm. Ambu bag ventilation was begun. She was sedated with propofol. She was on a Cardene drip for hypertension, this was discontinued as the propofol will likely control her blood pressure. She was reexamined. Has equal breath sounds. Heart, regular rhythm. Abdomen is showing serous drainage out through her incision that is soaking her bed clothes. I do not feel she will tolerate any more aggressive volume resuscitation. Her TPN will be held for now and glucoses will be checked frequently tonight. Her IV fluids will be decreased to TKO. In my opinion it is highly likely she will develop renal failure with this. Decisions regarding TPN can be addressed in the morning. Her bicarb drip will be held as well for now. Job ID: [id number]
[2020-05-20] MEDS ORDERED: Sodium Bicarbonate 75 MEQ in Sodium Chloride 0.45% 1,000 ML IV SCH (08:00)
--- NOTE | 2020-05-20 08:08 | RAD ---
XR Chest 1 View Portable History: Ventilated patient Comparison: Radiograph prior day Findings: Endotracheal tube tip at the clavicular level. Left subclavian approach central venous cath eter tip projects over the right atrium. Large effusions. Extensive scattered lung opacities. No acute osseous abnormality. Right distal clavicular osteolysis. Enteric tube tip below diaphragm although out of field of view. Impression: Similar examination of the chest.
[2020-05-20] MEDS: levETIRAcetam in NS 500 MG in Premix Bag 1 BAG IVPB SCH (08:40)
[2020-05-20] MEDS: Linezolid 600 MG in Premix Bag 1 BAG IVPB SCH ×2 (08:41→22:04)
[2020-05-20] MEDS: Pantoprazole 40 MG VIAL IVP SCH ×2 (08:41→23:01)
[2020-05-20] MEDS: fentaNYL Citrate/PF 2,000 MCG in Sodium Chloride 0.9% 60 ML IV SCH (08:53)
[2020-05-20 09:04] LABS: Actual Bicarbonate (HCO3a) 23.6 mEq/L (22-28); Base Excess (BEa) 0.2 mEq/L (-2.0 to +3.0); CO2 Tension 33.3 mmHg (35.0-45.0); Carboxyhemoglobin (COHb) 0.2 gm% (0.0-3.0); Hemoglobin (Hb) 8.5 g/dL (12.0-16.0); O2 Tension (PaO2), arterial 76.6 mmHg (> 80.0); Potassium - ABG Lab 4.28 mmol/L (3.70-5.30); pH, Arterial 7.47 (7.35-7.45)
[2020-05-20 09:05] LABS: ALV-art Gradient 309.575 mmHg (0-20); Puncture Site LRA
[2020-05-20] MEDS ORDERED: Heparin 10,000 UNITS/ 10 ML VIAL ONE (09:20)
[2020-05-20] MEDS: Meropenem 500 MG in Sodium Chloride 0.9% 100 ML IVPB SCH ×2 (10:13→23:06)
[2020-05-20] MEDS: Fluconazole In NaCl,Iso-Osm 200 MG in Premix Bag 1 BAG IVPB SCH (10:40)
--- NOTE | 2020-05-20 11:08 | PRG ---
DATE OF SERVICE: 05/20/2020 SUBJECTIVE: Ms. Mullins is intubated now. She was intubated for fluid overload, respiratory failure last night. Her NG tube has had minimal coffee-ground output to none, and she has had brown output through her ostomy yesterday 2623 and 1317, gastric output 240, urine output 1057. MEDICATIONS: Reviewed. OBJECTIVE: VITAL SIGNS: Temperature is 98, respirations 16, heart rate 74, blood pressure 130/82. ABDOMEN: She grimaces when palpating the abdomen. Ostomy bag has brown-pendleton stool. Bowel sounds are quiescent. LABORATORY: White count 17,000, hemoglobin 7.5, platelet count 226, 47% bands, 74% yesterday, 61% the day before that, platelets 226. INR was 1.2 on the . PH 7.47 today, pO2 of 76, bicarb 23. Sodium 133, potassium 4.4, BUN and creatinine are 70 and 5, glucose 128. ASSESSMENT: 1. Fecal peritonitis with persistent bandemia, and rigid abdomen, and we will defer to General Surgery on their plans to washout. 2. Renal failure. 3. Fluid overload. 4. Patient when she was admitted to the ICU yesterday had coffee-grounds in her NG tube 600 mL. She has had minimal output since then. She was not on any ulcer prophylaxis prior to admission to ICU, had been on some NSAIDs for pain control, those have been stopped. I see no evidence of acute bleeding at this time. 5. Neurologic changes 24 hours ago on the floor with MRI imaging suggestive of posterior reversible encephalopathy. RECOMMENDATIONS: Continue IV PPI q.12 hours. At this time, we will sign off. If there are signs of acute GI bleeding, please do not hesitate to re-consult. Job ID: [id number]
--- NOTE | 2020-05-20 12:42 | PRG ---
DATE OF SERVICE: 05/20/2020 Mel Mullins is sedated for mechanical ventilation ,blood pressure 120/64, respiratory rates in the teens. Lungs are clear anteriorly. Heart regular rhythm. Abdomen is soft. She is still oozing serous fluid from her incision. LABORATORY DATA: White count is 17.9, hemoglobin is 7.5, platelets 226. BUN 70, creatinine 5. pH 7.47, CO2 33, PO2 76. IMPRESSION: Respiratory failure associated with volume overload after peritonitis. Intake and outputs positive 1306. Urine output is down to 5 to 10 mL/h. It seems likely that she will require dialysis sooner rather than later. Critical care time 30 min. Job ID: [id number] MTDD
[2020-05-20] MEDS: Propofol 1,000 MG/100 ML VIAL IV PRN (12:56)
--- NOTE | 2020-05-20 14:31 | PRG ---
DATE OF SERVICE: 05/20/2020 SUBJECTIVE: Ms. Mullins is in ICU. She is on the ventilator. 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 Over the weekend, developed acute renal failure secondary to seizure activity, seen by Dr. Ramirez, Dr. Cantor, and CALLIE Levi. GI saw her for hematemesis. Dr. Hare has seen her from Critical Care. Dr. Muse has seen her from Nephrology standpoint. Her creatinine markedly increased. She had a CAT scan of the abdomen and pelvis without IV contrast revealing absence of hydronephrosis or ureteral problems. It is felt that she has hemodynamically-mediated acute renal failure. Dr. Muse has asked me to place a hemodialysis catheter temporarily today. The patient's daughter is present and consents and we will plan that. She is on the ventilator. Ventilator initiated yesterday morning, 05/19. She is on Keppra for seizure prophylaxis. The patient is currently sedated. OBJECTIVE: VITAL SIGNS: Heart rate 64, blood pressure 117/67, respiratory rate 16. Her colostomy is healthy with some stool output in the bag. Her ALLITO drain has been removed. Urine output today is good 1057 over 24 hours last. LUNGS: Clear. CARDIAC: Regular rate and rhythm. ABDOMEN: Soft. Colostomy healthy. Stool in the bag. SKIN: Overall, skin is edematous. Anasarca. DIAGNOSTIC STUDIES: X-ray, pleural effusions. ASSESSMENT AND PLAN: 1. Acute renal failure, dialysis intervention by Dr. Muse, Nephrology consult. 2. Malnutrition. Continue total parenteral nutrition. 3. Respiratory failure. 4. Status post colostomy leakage with colostomy. She is afebrile. There is no evidence of ongoing infection, although white count yesterday was 20, today is 17.9. She did have a bandemia. Dr. Freeman has seen her and she is on meropenem. 5. Neurological event with seizure disorder per Neurology. Job ID: [id number]
--- NOTE | 2020-05-20 15:17 | EKG ---
Test Reason : STAT Blood Pressure : / mmHG Vent. Rate : 114 BPM Atrial Rate : 114 BPM P-R Int : 104 ms QRS Dur : 082 ms QT Int : 472 ms P-R-T Axes : 000 -05 033 degrees QTc Int : 650 ms Sinus tachycardia with short DC Low voltage QRS Inferior infarct , age undetermined Prolonged QT Abnormal ECG When compared with ECG of 14-MAY-2020 08:50, No significant change was found Confirmed by KASHMIR PATEL, . SMeeta ([id number]) on 05/20/2020 3:16:59 PM Referred By: JHOAN Confirmed By:DR. Vaishali MARLOW MD
--- NOTE | 2020-05-20 15:23 | PDOC.NEPPN ---
- Subjective Encounter Date: 05/20/20 Subjective: Developed worsening hypoxia and was intubated last night. Still grossly edematous. Urine output is down . - Objective Vital Signs & Weight: Vital Signs (12 hours) Temp Pulse Resp BP Pulse Ox 05/20/20 14:47 61 123/67 05/20/20 14:00 16 05/20/20 12:00 97.8 F 16 05/20/20 11:34 65 120/64 05/20/20 10:00 16 05/20/20 08:53 74 147/87 H 05/20/20 08:00 98.2 F 16 98 05/20/20 06:00 16 05/20/20 04:00 16 96 Weight Admit Weight 174 lb 13.225 oz Weight 174 lb 13.225 oz Most Recent Monitor Data Heart Rate from ECG 62 NIBP 119/65 NIBP BP-Mean 83 Respiration from ECG 16 SpO2 97 I&O: 05/19/20 05/20/20 05/21/20 06:59 06:59 06:59 Intake Total 3898 2623.4 600 Output Total 1715 1317 142 Balance 2183 1306.4 458 Result Diagrams: 05/20/20 15:25 05/20/20 04:15 Additional Labs: Accuchecks 05/20/20 05/20/20 05/20/20 13:11 08:39 00:20 POC Glucose 150 H 110 H 116 H 05/19/20 19:29 POC Glucose 162 H Nephrology ROS - Medication Medications: Active Medications Generic Name Dose Route Start Last Admin Trade Name Freq PRN Reason Stop Dose Admin Acetaminophen 1,000 mg 05/14/20 09:04 05/14/20 14:17 Acetaminophen 500 Mg Tab PO 1,000 mg Q6H PRN Administration Moderate to Severe Pain (6-10) Dexamethasone 4 mg 05/19/20 18:00 05/20/20 12:56 Dexamethasone 4 Mg/Ml Vial SLOW IVP 4 mg Q6HR ALEKSANDER Administration Promethazine HCl 12.5 mg/ 50.5 mls @ 202 mls/hr 05/17/20 23:20 05/18/20 07:31 Sodium Chloride IVPB 50.5 mls Q3H PRN Administration Nausea/Vomiting Levetiracetam 500 mg/ Device 100 mls @ 200 mls/hr 05/20/20 09:00 05/20/20 08:40 IVPB 100 mls DAILY ALEKSANDER Administration Meropenem 500 mg/ Sodium 100 mls @ 200 mls/hr 05/19/20 21:00 05/20/20 10:13 Chloride IVPB 100 mls Q12HR ALEKSANDER Administration Fluconazole/Sodium Chloride 100 mls @ 100 mls/hr 05/20/20 09:00 05/20/20 10:40 200 mg/ Device IVPB 100 mls DAILY ALEKSANDER Administration Linezolid 600 mg/ Device 300 mls @ 150 mls/hr 05/19/20 21:00 05/20/20 08:41 IVPB 300 mls Q12HR ALEKSANDER Administration Fentanyl Citrate 2,000 mcg/ 100 mls @ 0 mls/hr 05/19/20 21:45 05/20/20 08:53 Sodium Chloride IV 06/18/20 21:45 100 mls INF ALEKSANDER Administration Protocol Per Protocol Labetalol HCl 10 mg 05/19/20 17:02 05/19/20 17:52 Labetalol Hcl 100 Mg/20 Ml Vial SLOW IVP 10 mg Q4H PRN Administration Blood Pressure. SBP above 140 Levothyroxine Sodium 112 mcg 05/15/20 06:00 05/20/20 01:29 Levothyroxine Sodium 112 Mcg Tab PO Not Given 06 ALEKSANDER Lorazepam 2 mg 05/19/20 21:45 05/20/20 00:45 Lorazepam 2 Mg/Ml Vial SLOW IVP 06/18/20 21:45 2 mg Q1H PRN Administration Breakthrough agitation Morphine Sulfate 4 mg 05/13/20 11:17 05/13/20 21:13 Morphine 4 Mg/Ml Vial SLOW IVP 4 mg Q2H PRN Administration Breakthrough Pain Morphine Sulfate 2 mg 05/17/20 15:57 05/19/20 20:30 Morphine 2 Mg/Ml Vial SLOW IVP 2 mg Q2H PRN Administration Pain Ondansetron HCl 4 mg 05/10/20 19:46 05/19/20 09:55 Ondansetron Pf 4 Mg/2 Ml Vial IVP 4 mg Q6H PRN Administration Nausea Pantoprazole Sodium 40 mg 05/19/20 09:00 05/20/20 08:41 Pantoprazole 40 Mg Vial IVP 40 mg Q12HR ALEKSANDER Administration Propofol 1,000 mg 05/19/20 21:45 05/20/20 12:56 Propofol 1,000 Mg/100 Ml Vial IV 06/18/20 21:45 1,000 mg INF PRN Administration TO ACHIEVE GOAL RASS Protocol Tramadol HCl 100 mg 05/13/20 10:00 05/20/20 10:50 Tramadol Hcl 50 Mg Tab PO Not Given 0400,1000,1600,2200 ALEKSANDER - Exam General - other findings: sedated Eye: anicteric sclera ENT: normocephalic atraumatic ENT - other findings: ET tube in place Neck: symmetric Respiratory - other findings: ventilator transmitted sound noted Cardiovascular: RRR Gastrointestinal - other findings: full. Left lower quadrant colostomy noted Extremities - other findings: generalised edema of the trunk and extremities noted Neurological - other findings: sedated. Nephrology Results - Labs Result Diagrams: 05/20/20 15:25 05/20/20 04:15 Lab results: WBC 17.9 thou/uL (4.8-10.8) H 05/20/20 04:15 Hgb 7.5 g/dL (12.0-16.0) L 05/20/20 04:15 Hct 22.3 % (36.0-47.0) L 05/20/20 04:15 MCV 92.6 fL (78.0-98.0) 05/20/20 04:15 Plt Count 226 thou/uL (130-400) 05/20/20 04:15 Neutrophils % 67.4 % (42.0-75.0) 05/13/20 05:02 Band Neuts % (Manual) 47 % (5-11) H 05/20/20 04:15 ABG pH 7.47 (7.35-7.45) H 05/20/20 09:02 ABG pCO2 33.3 mmHg (35.0-45.0) L 05/20/20 09:02 ABG pO2 76.6 mmHg (> 80.0) 05/20/20 09:02 Sodium 133 mmol/L (136-145) L 05/20/20 04:15 Potassium 4.4 mmol/L (3.5-5.1) 05/20/20 04:15 Chloride 96 mmol/L (98-107) L 05/20/20 04:15 Carbon Dioxide 24 mmol/L (23-31) 05/20/20 04:15 BUN 70 mg/dL (9.8-20.1) H 05/20/20 04:15 Creatinine 5.00 mg/dL (0.6-1.1) H 05/20/20 04:15 Glucose 128 mg/dL (80-115) H 05/20/20 04:15 Lactic Acid 1.0 mmol/L (0.5-2.2) 05/10/20 23:24 Calcium 10.1 mg/dL (7.8-10.44) 05/20/20 04:15 Total Bilirubin 0.7 mg/dL (0.2-1.2) 05/19/20 17:19 AST 23 U/L (5-34) 05/19/20 17:19 ALT 10 U/L (8-55) 05/19/20 17:19 Alkaline Phosphatase 92 U/L (40-110) 05/19/20 17:19 Troponin I 0.015 ng/mL (< 0.028) 05/10/20 17:06 B-Natriuretic Peptide 92.0 pg/mL (0-100) 05/10/20 17:06 Serum Total Protein 5.6 g/dL (6.0-8.3) L 05/19/20 17:19 Albumin 2.8 g/dL (3.4-4.8) L 05/20/20 04:15 Lipase 26 U/L (8-78) 05/10/20 17:04 Urine Ketones Trace mg/dL (Negative) A 05/18/20 14:45 Urine Blood 3+ (Negative) A 05/18/20 14:45 Urine Nitrite Negative (Negative) 05/18/20 14:45 Ur Leukocyte Esterase Negative [place]/uL (Negative) 05/18/20 14:45 Urine RBC 21-50 HPF (0-3) A 05/18/20 14:45 Urine WBC 4-6 HPF (0-3) A 05/18/20 14:45 Ur Squamous Epith Cells 11-20 HPF (0-3) A 05/18/20 14:45 Urine Bacteria 1+ HPF (None Seen) A 05/18/20 14:45 Sodium 133 mmol/L (136-145) L 05/20/20 04:15 Potassium 4.4 mmol/L (3.5-5.1) 05/20/20 04:15 Chloride 96 mmol/L (98-107) L 05/20/20 04:15 Carbon Dioxide 24 mmol/L (23-31) 05/20/20 04:15 Anion Gap 17 mmol/L (10-20) 05/20/20 04:15 BUN 70 mg/dL (9.8-20.1) H 05/20/20 04:15 Creatinine 5.00 mg/dL (0.6-1.1) H 05/20/20 04:15 Glucose 128 mg/dL (80-115) H 05/20/20 04:15 Calcium 10.1 mg/dL (7.8-10.44) 05/20/20 04:15 Phosphorus 6.0 mg/dL (2.3-4.7) H 05/19/20 04:00 Magnesium 3.1 mg/dL (1.6-2.6) H 05/19/20 04:00 Albumin 2.8 g/dL (3.4-4.8) L 05/20/20 04:15 Nephrology AP PN - Plan ASSESSMENT: Acute renal failure: Most likely due to hemodynamic factors related to volume depletion due to poor oral intake as well as NSAID use. Metabolic acidosis. Anasarca: Most likely due to hypoalbuminemia. Severe hypoalbuminemia PCM Anemia of acute blood loss: Upper GI bleeding. ? NSAID induced gastritis. Peritonitis, on antibiotics. Hypertension: Control is suboptimal. Acute encephalopathy: Most likely due to PRES. Acute CVA is a concern. Seizure: cause or effect of PRES Presumed PRES. Multifactorial in etiology. HTN, AMANDA, Severe hypoalbuminemia Acute visual loss. PLAN Will Get temporaray dialysis catheter and proceed with initiating dialysis to effectively manage fluid overload. BUN/creat are trending up with diuretic with no sisgnificant change in edema Continue cardene infusion to get adequate BP control. Monitor intake and output as well as renal function Will get repeat CBC and CMP. Renally dose all medication. Avoid nephrotoxic agents. Care plan discussed with patient's daughter rene also signed consent for dialysis.
[2020-05-20 15:43] LABS: Hemoglobin 7.3 g/dL (12.0-16.0); Mean Corpuscular HGB CONC 34.4 g/dL (32.0-36.0); Mean Corpuscular Hemoglobin 31.4 pg (27.0-31.0); Mean Corpuscular Volume 91.2 fL (78.0-98.0); Mean Platelet Volume 7.8 fL (7.4-10.4); Platelet Count 207 thou/uL (130-400); RBC Distribution Width 12.6 % (11.5-14.5); Red Blood Cell (RBC) Count 2.33 mill/uL (4.20-5.40); White Blood Cell (WBC) Count 18.5 thou/uL (4.8-10.8)
[2020-05-20 16:11] LABS: Band 27 % (5-11); Lymphocytes 14 % (21-51); MDiff Complete? YES; Metamyelocyte 4 % (0-0); Monocytes 2 % (0-10); Neutrophil 53 % (42-75); Platelet Morphology Comment Appears Adequate; Polychromasia SLIGHT = 2-3 cells (100X) (0-2/hpf)
[2020-05-20 16:22] LABS: HBSAg Index 0.77 S/CO (0-0.99); Hep B Surf Ag Non-Reactive S/CO (NonReactive)
--- NOTE | 2020-05-20 18:06 | PRG ---
DATE OF SERVICE: 05/20/2020 SUBJECTIVE: Susanna was intubated. She has been dialyzed. Now, she has a catheter in the right groin. OBJECTIVE: VITAL SIGNS: Afebrile. BP 111/63, heart rate 64, respiratory rate 16, O2 saturation 98. HEENT: Orotracheal intubation. Her pupils are constricted. LUNGS: With symmetric breath sounds at left base. HEART: S1 and S2, regular rate. ABDOMEN: Diminished bowel sounds. She has a colostomy. LABORATORY DATA: Sodium 133, creatinine peaked at 5, and potassium 4.4. Albumin 2.8. Liver profile normal. White cell count at 18.5, hemoglobin 7.3. Bands are down from 74% to 27%. Two sets of blood cultures, no growth at 5 days. Chest x-ray, endotracheal tube with tip at clavicular level, large effusions, extensive scattered lung opacities. ASSESSMENT: 1. Diverticulosis. Elective resection, primary anastomosis. 2. Postop leak with diffuse peritonitis. Exploratory laparotomy with colostomy establishment. 3. Postop acute renal failure, hypertensive event, and then what appears to be posterior reversible encephalopathy syndrome with seizures, altered mental state, vision impairment, typical findings on MRI. 4. Severe bandemia. PLAN: The patient on broad coverage, to be continued supportive measures. She had coffee-grounds in her NG tube, but that has stopped, on PPI for that. Job ID: [id number]
[2020-05-20] MEDS ORDERED: SODIUM ACETATE IV SCH (22:00)
[2020-05-20] MEDS ORDERED: CALCIUM GLUCONATE IV SCH (22:00)
[2020-05-20] MEDS ORDERED: [UNRECOGNIZED DRUG - OTHER] IV SCH (22:00)
[2020-05-20] MEDS ORDERED: SODIUM CHLORIDE IV SCH (22:00)
[2020-05-20] MEDS: SODIUM CHLORIDE IV SCH ×2 (23:07→23:38)
[2020-05-20] MEDS: CALCIUM GLUCONATE IV SCH ×2 (23:07→23:38)
[2020-05-20] MEDS: SODIUM ACETATE IV SCH ×2 (23:07→23:38)
[2020-05-20] MEDS: [UNRECOGNIZED DRUG - OTHER] IV SCH ×2 (23:07→23:38)
[2020-05-21] MEDS: Dexamethasone 4 mg/ml Vial SLOW IVP SCH ×5 (01:49→23:28)
[2020-05-21] MEDS: HumaLOG 300 UNITS/3 ML VIAL SC PRN ×4 (02:04→21:32)
[2020-05-21] MEDS: Propofol 1,000 MG/100 ML VIAL IV PRN ×3 (04:38→21:04)
[2020-05-21 05:23] LABS: Band 25 % (5-11); Hemoglobin 7.5 g/dL (12.0-16.0); Hypochromia SLIGHT = 6-15 cells (100X) (0-5/hpf); Lymphocytes 17 % (21-51); MDiff Complete? YES; Mean Corpuscular HGB CONC 33.9 g/dL (32.0-36.0); Mean Corpuscular Hemoglobin 30.8 pg (27.0-31.0); Mean Corpuscular Volume 90.9 fL (78.0-98.0); Mean Platelet Volume 8.4 fL (7.4-10.4); Metamyelocyte 1 % (0-0); Monocytes 8 % (0-10); Neutrophil 49 % (42-75); Platelet Count 213 thou/uL (130-400); Platelet Morphology Comment Appears Adequate; RBC Distribution Width 12.5 % (11.5-14.5); Red Blood Cell (RBC) Count 2.43 mill/uL (4.20-5.40); White Blood Cell (WBC) Count 16.9 thou/uL (4.8-10.8)
[2020-05-21 05:39] LABS: Phosphorus 5.1 mg/dL (2.3-4.7)
[2020-05-21] MEDS: Levothyroxine Sodium 112 MCG TAB PO SCH (05:47)
[2020-05-21 05:50] LABS: Anion Gap 20 mmol/L (10-20); BUN (Urea Nitrogen) 66 mg/dL (9.8-20.1); Calc. Creatinine Clearance 16 mL/min (70-130); Calcium 8.5 mg/dL (7.8-10.44); Carbon Dioxide 23 mmol/L (23-31); Chloride 94 mmol/L (98-107); Glucose 278 mg/dL (80-115); Magnesium 2.8 mg/dL (1.6-2.6); Potassium 3.9 mmol/L (3.5-5.1); Sodium 133 mmol/L (136-145)
[2020-05-21] MEDS ORDERED: Albumin 25% 25 GM/100 ML BOT IVPB SCH (06:30)
--- NOTE | 2020-05-21 07:45 | OP ---
DATE OF PROCEDURE: 05/20/2020 PREOPERATIVE DIAGNOSES: Acute renal failure, in need of dialysis. POSTOPERATIVE DIAGNOSIS: Acute renal failure, in need of dialysis. PROCEDURE PERFORMED: Right femoral vein Trialysis catheter. ANESTHESIA: 1% Xylocaine. DESCRIPTION OF PROCEDURE: With the patient at bedside with her on the ventilator, right groin was clipped of hair, prepared with ChloraPrep and draped in routine fashion. Local anesthetic was infiltrated in the skin and subcutaneous tissue about the operative site. Femoral vein cannulated with a trocar catheter, threading the J-wire, removing the trocar catheter. Placed a medium smaller dilator over the J-wire into the femoral vein, removed distal port of the Trialysis catheter placed with J-wire in the femoral vein. Catheter was secured with 2 sutures of 3-0 silk. J-wire was removed. Each port was filled with blood, flushed with heparinized saline solution. The patient tolerated the procedure well. Job ID: [id number]
--- NOTE | 2020-05-21 08:00 | RAD ---
XR Chest 1 View Portable History: Ventilated patient Comparison: Radiograph prior day Findings: Endotracheal tube tip at the clavicular level. Enteric tube tip below diaphragm although ou t of field of view. Left subclavian approach central venous catheter tip projects over the right atrium. Large pleural effusions and compressive atelectasis. Pulmonary venous congestion and mild edema. Impression: Similar examination of the chest without improved lung aeration.
[2020-05-21 08:36] LABS: Actual Bicarbonate (HCO3a) 22.4 mEq/L (22-28); Base Excess (BEa) -0.5 mEq/L (-2.0 to +3.0); CO2 Tension 29.4 mmHg (35.0-45.0); Calcium, Ionized (arterial) 1.13 mmol/L (1.12-1.30); Carboxyhemoglobin (COHb) 0.3 gm% (0.0-3.0); Hemoglobin (Hb) 7.3 g/dL (12.0-16.0); O2 Tension (PaO2), arterial 122.8 mmHg (> 80.0); Potassium - ABG Lab 3.63 mmol/L (3.70-5.30)
[2020-05-21 08:38] LABS: Puncture Site LRA
[2020-05-21] MEDS ORDERED: Heparin 10,000 UNITS/ 10 ML VIAL ONE (09:19)
[2020-05-21] MEDS: Linezolid 600 MG in Premix Bag 1 BAG IVPB SCH ×2 (09:32→20:57)
[2020-05-21] MEDS: Pantoprazole 40 MG VIAL IVP SCH ×2 (09:32→21:01)
[2020-05-21] MEDS: Meropenem 500 MG in Sodium Chloride 0.9% 100 ML IVPB SCH ×2 (09:32→21:00)
[2020-05-21] MEDS: Fluconazole In NaCl,Iso-Osm 200 MG in Premix Bag 1 BAG IVPB SCH (09:32)
[2020-05-21] MEDS: levETIRAcetam in NS 500 MG in Premix Bag 1 BAG IVPB SCH (09:53)
[2020-05-21 11:10] LABS: Analyzer IN Cardio OR; Base Excess (BEa) -3.4 mEq/L (-2.0 to +3.0); CO2 Tension 26.4 mmHg (35.0-45.0); Calcium, Ionized (arterial) 0.77 mmol/L (1.12-1.30); Carboxyhemoglobin (COHb) 0.3 gm% (0.0-3.0); Hemoglobin (Hb) 11.7 g/dL (12.0-16.0); O2 Tension (PaO2), arterial 108.6 mmHg (> 80.0); Potassium - ABG Lab 2.94 mmol/L (3.70-5.30); pH, Arterial 7.47 (7.35-7.45)
--- NOTE | 2020-05-21 11:51 | PDOC.NEPPN ---
- Subjective Encounter Date: 05/21/20 Subjective: Seen for ARF and anasarca. intubated and ventilated. - Objective Vital Signs & Weight: Vital Signs (12 hours) Temp Pulse Resp BP Pulse Ox 05/21/20 10:28 56 L 112/63 05/21/20 09:59 12 05/21/20 08:24 54 L 112/62 05/21/20 08:00 97.8 F 16 98 05/21/20 06:00 16 05/21/20 05:00 98.0 F 05/21/20 03:58 16 05/21/20 02:47 81 121/66 05/21/20 02:00 16 05/21/20 00:00 16 05/20/20 23:55 58 L 122/62 Weight Admit Weight 174 lb 13.225 oz Weight 174 lb 13.225 oz Most Recent Monitor Data Heart Rate from ECG 55 NIBP 109/64 NIBP BP-Mean 79 Respiration from ECG 12 SpO2 100 I&O: 05/20/20 05/21/20 05/22/20 06:59 06:59 06:59 Intake Total 2623.4 1839.7 600 Output Total 1317 271 134 Balance 1306.4 1568.7 466 Result Diagrams: 05/21/20 04:51 05/21/20 04:51 Additional Labs: Accuchecks 05/21/20 05/21/20 05/21/20 09:12 04:44 01:46 POC Glucose 219 H 273 H 194 H 05/20/20 05/20/20 05/20/20 22:35 16:11 13:11 POC Glucose 136 H 148 H 150 H Nephrology ROS - Medication Medications: Active Medications Generic Name Dose Route Start Last Admin Trade Name Freq PRN Reason Stop Dose Admin Acetaminophen 1,000 mg 05/14/20 09:04 05/14/20 14:17 Acetaminophen 500 Mg Tab PO 1,000 mg Q6H PRN Administration Moderate to Severe Pain (6-10) Dexamethasone 4 mg 05/19/20 18:00 05/21/20 05:47 Dexamethasone 4 Mg/Ml Vial SLOW IVP 4 mg Q6HR ALEKSANDER Administration Promethazine HCl 12.5 mg/ 50.5 mls @ 202 mls/hr 05/17/20 23:20 05/18/20 07:31 Sodium Chloride IVPB 50.5 mls Q3H PRN Administration Nausea/Vomiting Levetiracetam 500 mg/ Device 100 mls @ 200 mls/hr 05/20/20 09:00 05/21/20 09:53 IVPB 100 mls DAILY ALEKSANDER Administration Meropenem 500 mg/ Sodium 100 mls @ 200 mls/hr 05/19/20 21:00 05/21/20 09:32 Chloride IVPB 100 mls Q12HR ALEKSANDER Administration Fluconazole/Sodium Chloride 100 mls @ 100 mls/hr 05/20/20 09:00 05/21/20 09:32 200 mg/ Device IVPB 100 mls DAILY ALEKSANDER Administration Linezolid 600 mg/ Device 300 mls @ 150 mls/hr 05/19/20 21:00 05/21/20 09:32 IVPB 300 mls Q12HR ALEKSANDER Administration Fentanyl Citrate 2,000 mcg/ 100 mls @ 0 mls/hr 05/19/20 21:45 05/20/20 08:53 Sodium Chloride IV 06/18/20 21:45 100 mls INF ALEKSANDER Administration Protocol Per Protocol Sodium Acetate 90 meq/ Sodium 2,110.9121 mls @ 87.996 mls/hr 05/20/20 22:00 05/20/20 23:38 Chloride 90 meq/ Calcium IV 2,110.9121 mls Gluconate 10 meq/ Magnesium 2200 ALEKSANDER Administration Sulfate 10 meq/ Multivitamins 10 ml/ Chromium/Copper/ Manganese/Zinc 9 ml/ Insulin Human Regular 21 units/ Amino Acids/Dextrose Insulin Human Lispro 0 units 05/17/20 15:38 05/21/20 05:15 Humalog 300 Units/3 Ml Vial SC 4 unit .MILD SLIDING SCALE PRN Administration Mild Correctional Scale Labetalol HCl 10 mg 05/19/20 17:02 05/19/20 17:52 Labetalol Hcl 100 Mg/20 Ml Vial SLOW IVP 10 mg Q4H PRN Administration Blood Pressure. SBP above 140 Levothyroxine Sodium 112 mcg 05/15/20 06:00 05/21/20 05:47 Levothyroxine Sodium 112 Mcg Tab PO 112 mcg 0600 ALEKSANDER Administration Lorazepam 2 mg 05/19/20 21:45 05/20/20 00:45 Lorazepam 2 Mg/Ml Vial SLOW IVP 06/18/20 21:45 2 mg Q1H PRN Administration Breakthrough agitation Ondansetron HCl 4 mg 05/10/20 19:46 05/19/20 09:55 Ondansetron Pf 4 Mg/2 Ml Vial IVP 4 mg Q6H PRN Administration Nausea Pantoprazole Sodium 40 mg 05/19/20 09:00 05/21/20 09:32 Pantoprazole 40 Mg Vial IVP 40 mg Q12HR ALEKSANDER Administration Propofol 1,000 mg 05/19/20 21:45 05/21/20 04:38 Propofol 1,000 Mg/100 Ml Vial IV 06/18/20 21:45 1,000 mg INF PRN Administration TO ACHIEVE GOAL RASS Protocol - Exam General - other findings: sedated ENT: normocephalic atraumatic ENT - other findings: Et tube in place Respiratory - other findings: ventilator transmitted sound noted Cardiovascular: RRR Gastrointestinal: soft, non-distended Gastrointestinal - other findings: Colostomy noted Extremities - other findings: edema of the extremities noted Neurological - other findings: sedated Nephrology Results - Labs Result Diagrams: 05/21/20 04:51 05/21/20 04:51 Lab results: WBC 16.9 thou/uL (4.8-10.8) H 05/21/20 04:51 Hgb 7.5 g/dL (12.0-16.0) L 05/21/20 04:51 Hct 22.1 % (36.0-47.0) L 05/21/20 04:51 MCV 90.9 fL (78.0-98.0) 05/21/20 04:51 Plt Count 213 thou/uL (130-400) 05/21/20 04:51 Neutrophils % 67.4 % (42.0-75.0) 05/13/20 05:02 Band Neuts % (Manual) 25 % (5-11) H 05/21/20 04:51 ABG pH 7.50 (7.35-7.45) H 05/21/20 08:30 ABG pCO2 29.4 mmHg (35.0-45.0) L 05/21/20 08:30 ABG pO2 122.8 mmHg (> 80.0) H 05/21/20 08:30 Sodium 133 mmol/L (136-145) L 05/21/20 04:51 Potassium 3.9 mmol/L (3.5-5.1) 05/21/20 04:51 Chloride 94 mmol/L (98-107) L 05/21/20 04:51 Carbon Dioxide 23 mmol/L (23-31) 05/21/20 04:51 BUN 66 mg/dL (9.8-20.1) H 05/21/20 04:51 Creatinine 4.41 mg/dL (0.6-1.1) H 05/21/20 04:51 Glucose 278 mg/dL (80-115) H 05/21/20 04:51 Lactic Acid 1.0 mmol/L (0.5-2.2) 05/10/20 23:24 Calcium 8.5 mg/dL (7.8-10.44) 05/21/20 04:51 Total Bilirubin 0.7 mg/dL (0.2-1.2) 05/19/20 17:19 AST 23 U/L (5-34) 05/19/20 17:19 ALT 10 U/L (8-55) 05/19/20 17:19 Alkaline Phosphatase 92 U/L (40-110) 05/19/20 17:19 Troponin I 0.015 ng/mL (< 0.028) 05/10/20 17:06 B-Natriuretic Peptide 92.0 pg/mL (0-100) 05/10/20 17:06 Serum Total Protein 5.6 g/dL (6.0-8.3) L 05/19/20 17:19 Albumin 2.8 g/dL (3.4-4.8) L 05/20/20 04:15 Lipase 26 U/L (8-78) 05/10/20 17:04 Urine Ketones Trace mg/dL (Negative) A 05/18/20 14:45 Urine Blood 3+ (Negative) A 05/18/20 14:45 Urine Nitrite Negative (Negative) 05/18/20 14:45 Ur Leukocyte Esterase Negative Chika/uL (Negative) 05/18/20 14:45 Urine RBC 21-50 HPF (0-3) A 05/18/20 14:45 Urine WBC 4-6 HPF (0-3) A 05/18/20 14:45 Ur Squamous Epith Cells 11-20 HPF (0-3) A 05/18/20 14:45 Urine Bacteria 1+ HPF (None Seen) A 05/18/20 14:45 Sodium 133 mmol/L (136-145) L 05/21/20 04:51 Potassium 3.9 mmol/L (3.5-5.1) 05/21/20 04:51 Chloride 94 mmol/L (98-107) L 05/21/20 04:51 Carbon Dioxide 23 mmol/L (23-31) 05/21/20 04:51 Anion Gap 20 mmol/L (10-20) 05/21/20 04:51 BUN 66 mg/dL (9.8-20.1) H 05/21/20 04:51 Creatinine 4.41 mg/dL (0.6-1.1) H 05/21/20 04:51 Glucose 278 mg/dL (80-115) H 05/21/20 04:51 Calcium 8.5 mg/dL (7.8-10.44) 05/21/20 04:51 Phosphorus 5.1 mg/dL (2.3-4.7) H 05/21/20 04:51 Magnesium 2.8 mg/dL (1.6-2.6) H 05/21/20 04:51 Albumin 2.8 g/dL (3.4-4.8) L 05/20/20 04:15 Nephrology AP PN - Plan ASSESSMENT: Acute renal failure: Most likely due to hemodynamic factors related to volume depletion due to poor oral intake as well as NSAID use. Now on HD Metabolic acidosis. Anasarca: Most likely due to hypoalbuminemia. Severe hypoalbuminemia PCM Anemia of acute blood loss: Upper GI bleeding. ? NSAID induced gastritis. Peritonitis, on antibiotics. Hypertension: Acute encephalopathy: Most likely due to PRES. Acute CVA is a concern. Seizure: cause or effect of PRES Presumed PRES. Multifactorial in etiology. HTN, AMANDA, Severe hypoalbuminemia Acute visual loss. PLAN Will give 50 grams of albumin to facilitate UF during HD. Will dilayze patient for 3 hours today. See EMR for order Monitor intake and output as well as renal function Renally dose all medication. Avoid nephrotoxic agents.
[2020-05-21 12:14] LABS: Puncture Site Arterial Line
[2020-05-21] MEDS: fentaNYL Citrate/PF 2,000 MCG in Sodium Chloride 0.9% 60 ML IV SCH (14:40)
--- NOTE | 2020-05-21 16:37 | PDOC.HOSPP ---
- Subjective Encounter Date: 05/21/20 Encounter Time: 13:00 Subjective: is getting HD, on mild sedation and vent - Objective Vital Signs & Weight: Vital Signs (12 hours) Temp Pulse Resp BP Pulse Ox 05/21/20 16:00 97.8 F 12 05/21/20 14:48 58 L 104/64 05/21/20 14:00 12 05/21/20 12:00 97.5 F L 12 05/21/20 10:28 56 L 112/63 05/21/20 09:59 12 05/21/20 08:24 54 L 112/62 05/21/20 08:00 97.8 F 16 98 05/21/20 06:00 16 05/21/20 05:00 98.0 F Weight Admit Weight 174 lb 13.225 oz Weight 174 lb 13.225 oz Most Recent Monitor Data Heart Rate from ECG 63 NIBP 113/59 NIBP BP-Mean 77 Respiration from ECG 6 SpO2 100 I&O: 05/20/20 05/21/20 05/22/20 06:59 06:59 06:59 Intake Total 2623.4 1839.7 600 Output Total 1317 271 161 Balance 1306.4 1568.7 439 Result Diagrams: 05/21/20 04:51 05/21/20 04:51 Additional Labs: Accuchecks 05/21/20 05/21/20 05/21/20 16:08 11:58 09:12 POC Glucose 194 H 161 H 219 H 05/21/20 05/21/20 05/20/20 04:44 01:46 22:35 POC Glucose 273 H 194 H 136 H Hospitalist ROS - Medication Medications: Active Medications Generic Name Dose Route Start Last Admin Trade Name Freq PRN Reason Stop Dose Admin Acetaminophen 1,000 mg 05/14/20 09:04 05/14/20 14:17 Acetaminophen 500 Mg Tab PO 1,000 mg Q6H PRN Administration Moderate to Severe Pain (6-10) Dexamethasone 4 mg 05/19/20 18:00 05/21/20 12:31 Dexamethasone 4 Mg/Ml Vial SLOW IVP 4 mg Q6HR ALEKSANDER Administration Promethazine HCl 12.5 mg/ 50.5 mls @ 202 mls/hr 05/17/20 23:20 05/18/20 07:31 Sodium Chloride IVPB 50.5 mls Q3H PRN Administration Nausea/Vomiting Levetiracetam 500 mg/ Device 100 mls @ 200 mls/hr 05/20/20 09:00 05/21/20 09:53 IVPB 100 mls DAILY ALEKSANDER Administration Meropenem 500 mg/ Sodium 100 mls @ 200 mls/hr 05/19/20 21:00 05/21/20 09:32 Chloride IVPB 100 mls Q12HR ALEKSANDER Administration Fluconazole/Sodium Chloride 100 mls @ 100 mls/hr 05/20/20 09:00 05/21/20 09:32 200 mg/ Device IVPB 100 mls DAILY ALEKSANDER Administration Linezolid 600 mg/ Device 300 mls @ 150 mls/hr 05/19/20 21:00 05/21/20 09:32 IVPB 300 mls Q12HR ALEKSANDER Administration Fentanyl Citrate 2,000 mcg/ 100 mls @ 0 mls/hr 05/19/20 21:45 05/21/20 14:40 Sodium Chloride IV 06/18/20 21:45 100 mls INF ALEKSANDER Administration Protocol Per Protocol Sodium Acetate 90 meq/ Sodium 2,110.9121 mls @ 87.996 mls/hr 05/20/20 22:00 05/20/20 23:38 Chloride 90 meq/ Calcium IV 2,110.9121 mls Gluconate 10 meq/ Magnesium 2200 ALEKSANDER Administration Sulfate 10 meq/ Multivitamins 10 ml/ Chromium/Copper/ Manganese/Zinc 9 ml/ Insulin Human Regular 21 units/ Amino Acids/Dextrose Insulin Human Lispro 0 units 05/17/20 15:38 05/21/20 16:20 Humalog 300 Units/3 Ml Vial SC 2 unit .MILD SLIDING SCALE PRN Administration Mild Correctional Scale Labetalol HCl 10 mg 05/19/20 17:02 05/19/20 17:52 Labetalol Hcl 100 Mg/20 Ml Vial SLOW IVP 10 mg Q4H PRN Administration Blood Pressure. SBP above 140 Levothyroxine Sodium 112 mcg 05/15/20 06:00 05/21/20 05:47 Levothyroxine Sodium 112 Mcg Tab PO 112 mcg 0600 ALEKSANDER Administration Lorazepam 2 mg 05/19/20 21:45 05/20/20 00:45 Lorazepam 2 Mg/Ml Vial SLOW IVP 06/18/20 21:45 2 mg Q1H PRN Administration Breakthrough agitation Ondansetron HCl 4 mg 05/10/20 19:46 05/19/20 09:55 Ondansetron Pf 4 Mg/2 Ml Vial IVP 4 mg Q6H PRN Administration Nausea Pantoprazole Sodium 40 mg 05/19/20 09:00 05/21/20 09:32 Pantoprazole 40 Mg Vial IVP 40 mg Q12HR ALEKSANDER Administration Propofol 1,000 mg 05/19/20 21:45 05/21/20 12:31 Propofol 1,000 Mg/100 Ml Vial IV 06/18/20 21:45 1,000 mg INF PRN Administration TO ACHIEVE GOAL RASS Protocol - Exam General Appearance: ill appearing Eye: PERRL, anicteric sclera ENT: no oropharyngeal lesions, moist mucosa Neck: supple, JVD Heart: RRR, no murmur Respiratory: no wheezes, rales, rhonchi Gastrointestinal: soft, normal bowel sounds Gastrointestinal - other findings: colostomy has brown liq stool Extremities: no cyanosis, 2+ LE edema Neurological: cranial nerve grossly intact, no focal deficits Hosp A/P (1) Acute respiratory failure with hypoxia Code(s): J96.01 - ACUTE RESPIRATORY FAILURE WITH HYPOXIA Status: Acute (2) Peritonitis (acute) generalized Code(s): K65.0 - GENERALIZED (ACUTE) PERITONITIS Status: Acute (3) AMANDA (acute kidney injury) Code(s): N17.9 - ACUTE KIDNEY FAILURE, UNSPECIFIED Status: Acute (4) S/P colectomy Status: Acute (5) Anasarca Code(s): R60.1 - GENERALIZED EDEMA Status: Acute (6) Severe protein-calorie malnutrition Code(s): E43 - UNSPECIFIED SEVERE PROTEIN-CALORIE MALNUTRITION Status: Acute (7) On total parenteral nutrition (TPN) Code(s): Z78.9 - OTHER SPECIFIED HEALTH STATUS Status: Acute (8) Hypothyroidism Code(s): E03.9 - HYPOTHYROIDISM, UNSPECIFIED Status: Chronic Qualifiers: Hypothyroidism type: acquired Qualified Code(s): E03.9 - Hypothyroidism, unspecified (9) Postoperative anemia due to acute blood loss Code(s): D62 - ACUTE POSTHEMORRHAGIC ANEMIA Status: Acute (10) Acute metabolic encephalopathy Code(s): G93.41 - METABOLIC ENCEPHALOPATHY Status: Acute (11) PRES (posterior reversible encephalopathy syndrome) Code(s): I67.83 - POSTERIOR REVERSIBLE ENCEPHALOPATHY SYNDROME Status: Suspected (12) Seizure Code(s): R56.9 - UNSPECIFIED CONVULSIONS Status: Acute - Plan is on zyvox, merrem, diflucan, keppra, synthroid, decadron, TPN has been initiated on HD anasarca/vol overload and low alb, will need fluid removal as tolerated with HD is s/p sigmoid colectomy with colorectal anastamosis done on 05/07, subsequently developed peritonitis due to anastomotic leak and had segmental colectomy with end colostomy/wash out done on 05/10. got intubated on 05/19 prognosis guarded
--- NOTE | 2020-05-21 18:02 | PRG ---
DATE OF SERVICE: 05/21/2020 SUBJECTIVE: Martina Mullins remains mechanically ventilated. She is dialyzed again today. OBJECTIVE: VITAL SIGNS: She is afebrile. Respiratory rate is 12, FiO2 is 45%, blood pressure 113/59. LUNGS: Clear anteriorly. HEART: Regular rate and rhythm. ABDOMEN: Soft. DIAGNOSTIC DATA: Chest x-ray is unchanged. Intake and output; positive 1568, not counting fluid taken off during dialysis, which was 800 mL yesterday, 2500 mL today. Weight is still being reported as 174 pounds. White count 16.9, hemoglobin 7.5, and platelets 213. Electrolytes are unchanged. BUN 66, creatinine 4.4. She is essentially anuric now. IMPRESSION: Renal failure associated with peritonitis. PLAN: Continue ventilatory support, daily dialysis. CRITICAL CARE TIME: 30 minutes. Job ID: [id number]
[2020-05-21] MEDS: Albumin 25% 25 GM/100 ML BOT IVPB SCH ×2 (18:24→23:28)
[2020-05-21] MEDS: SODIUM CHLORIDE IV SCH (22:36)
[2020-05-21] MEDS: SODIUM ACETATE IV SCH (22:36)
[2020-05-21] MEDS: CALCIUM GLUCONATE IV SCH (22:36)
[2020-05-21] MEDS: [UNRECOGNIZED DRUG - OTHER] IV SCH (22:36)
[2020-05-22] MEDS: HumaLOG 300 UNITS/3 ML VIAL SC PRN ×4 (02:30→17:12)
[2020-05-22] MEDS: Propofol 1,000 MG/100 ML VIAL IV PRN ×4 (02:35→22:10)
[2020-05-22 05:39] LABS: Anion Gap 15 mmol/L (10-20); BUN (Urea Nitrogen) 60 mg/dL (9.8-20.1); Calc. Creatinine Clearance 22 mL/min (70-130); Calcium 7.5 mg/dL (7.8-10.44); Carbon Dioxide 25 mmol/L (23-31); Chloride 95 mmol/L (98-107); Glucose 226 mg/dL (80-115); Magnesium 2.3 mg/dL (1.6-2.6); Phosphorus 3.8 mg/dL (2.3-4.7); Potassium 3.9 mmol/L (3.5-5.1); Sodium 131 mmol/L (136-145)
--- NOTE | 2020-05-22 05:48 | PRG ---
DATE OF SERVICE: 05/21/2020 SUBJECTIVE: Mel Mullins is on the ventilator, ICU. She does bite on her tube . She does have spontaneous movement of her extremities per nurse. She is sedated on the ventilator. OBJECTIVE: VITAL SIGNS: Blood pressure 127/64, , heart rate 60. Urine output has decreased to just over 200 for 24 hours. Colostomy stool output minimal. Gastric drainage 10 mL for 24 hours. LUNGS: Clear to auscultation. Congestion on her chest x-ray. CARDIAC: Regular rate and rhythm. ABDOMEN: Soft. Midline wound looks good. Old LALITO site right lower quadrant has some purulent drainage. EXTREMITIES: Edematous. ASSESSMENT/PLAN: 1. Acute renal failure. Continue dialysis through a temporary catheter. 2. Malnutrition. Continue TPN and hopefully can change her to tube feeding soon. 3. Respiratory failure. Continue ventilator. 4. Neurological compromise with PRES syndrome, posterior reversible encephalopathy syndrome. Antiepileptics for seizure activity. Job ID: [id number]
[2020-05-22 06:11] LABS: Band 35 % (5-11); Hemoglobin 7.2 g/dL (12.0-16.0); Lymphocytes 4 % (21-51); MDiff Complete? YES; Mean Corpuscular HGB CONC 33.6 g/dL (32.0-36.0); Mean Corpuscular Hemoglobin 31.1 pg (27.0-31.0); Mean Corpuscular Volume 92.6 fL (78.0-98.0); Mean Platelet Volume 8.6 fL (7.4-10.4); Metamyelocyte 5 % (0-0); Monocytes 7 % (0-10); Neutrophil 49 % (42-75); Platelet Count 201 thou/uL (130-400); Platelet Morphology Comment Appears Adequate; RBC Distribution Width 12.6 % (11.5-14.5); White Blood Cell (WBC) Count 13.2 thou/uL (4.8-10.8)
[2020-05-22] MEDS: Levothyroxine Sodium 112 MCG TAB PO SCH (06:26)
[2020-05-22] MEDS: Dexamethasone 4 mg/ml Vial SLOW IVP SCH ×4 (06:26→23:52)
[2020-05-22 07:54] LABS: Actual Bicarbonate (HCO3a) 24.3 mEq/L (22-28); Base Excess (BEa) -0.7 mEq/L (-2.0 to +3.0); CO2 Tension 41.6 mmHg (35.0-45.0); Calcium, Ionized (arterial) 1.08 mmol/L (1.12-1.30); Carboxyhemoglobin (COHb) 0.2 gm% (0.0-3.0); Hemoglobin (Hb) 8.7 g/dL (12.0-16.0); O2 Tension (PaO2), arterial 84.4 mmHg (> 80.0); Potassium - ABG Lab 3.78 mmol/L (3.70-5.30); pH, Arterial 7.38 (7.35-7.45)
[2020-05-22 08:05] LABS: Puncture Site LRA
[2020-05-22] MEDS: Pantoprazole 40 MG VIAL IVP SCH ×2 (08:06→20:04)
[2020-05-22] MEDS: levETIRAcetam in NS 500 MG in Premix Bag 1 BAG IVPB SCH (08:06)
[2020-05-22] MEDS: Linezolid 600 MG in Premix Bag 1 BAG IVPB SCH ×2 (08:06→20:03)
[2020-05-22] MEDS: Fluconazole In NaCl,Iso-Osm 200 MG in Premix Bag 1 BAG IVPB SCH (08:42)
[2020-05-22] MEDS: Meropenem 500 MG in Sodium Chloride 0.9% 100 ML IVPB SCH ×2 (08:42→20:04)
[2020-05-22] MEDS: fentaNYL Citrate/PF 2,000 MCG in Sodium Chloride 0.9% 60 ML IV SCH (09:01)
--- NOTE | 2020-05-22 09:27 | PDOC.NEPPN ---
- Subjective Encounter Date: 05/22/20 Subjective: Still intubated. Still grossly edematous. - Objective Vital Signs & Weight: Vital Signs (12 hours) Temp Pulse Resp BP 05/22/20 07:30 65 121/69 05/22/20 07:00 97.6 F 05/22/20 06:00 94.3 F L 12 05/22/20 04:00 94.3 F L 12 05/22/20 02:00 12 05/22/20 00:00 97.6 F 12 05/21/20 22:00 13 Weight Admit Weight 174 lb 13.225 oz Weight 174 lb 13.225 oz Most Recent Monitor Data Heart Rate from ECG 93 NIBP 175/91 NIBP BP-Mean 119 Respiration from ECG 12 SpO2 99 I&O: 05/21/20 05/22/20 05/23/20 06:59 06:59 06:59 Intake Total 1839.7 3917.7 Output Total 271 276 40 Balance 1568.7 3641.7 -40 Result Diagrams: 05/22/20 04:50 05/22/20 04:50 Additional Labs: Accuchecks 05/22/20 05/22/20 05/21/20 04:54 00:40 21:30 POC Glucose 209 H 244 H 210 H 05/21/20 05/21/20 16:08 11:58 POC Glucose 194 H 161 H Nephrology ROS - Medication Medications: Active Medications Generic Name Dose Route Start Last Admin Trade Name Freq PRN Reason Stop Dose Admin Acetaminophen 1,000 mg 05/14/20 09:04 05/14/20 14:17 Acetaminophen 500 Mg Tab PO 1,000 mg Q6H PRN Administration Moderate to Severe Pain (6-10) Dexamethasone 4 mg 05/19/20 18:00 05/22/20 06:26 Dexamethasone 4 Mg/Ml Vial SLOW IVP 4 mg Q6HR ALEKSANDER Administration Promethazine HCl 12.5 mg/ 50.5 mls @ 202 mls/hr 05/17/20 23:20 05/18/20 07:31 Sodium Chloride IVPB 50.5 mls Q3H PRN Administration Nausea/Vomiting Levetiracetam 500 mg/ Device 100 mls @ 200 mls/hr 05/20/20 09:00 05/22/20 08:06 IVPB 100 mls DAILY ALEKSANDER Administration Meropenem 500 mg/ Sodium 100 mls @ 200 mls/hr 05/19/20 21:00 05/22/20 08:42 Chloride IVPB 100 mls Q12HR ALEKSANDER Administration Fluconazole/Sodium Chloride 100 mls @ 100 mls/hr 05/20/20 09:00 05/22/20 08:42 200 mg/ Device IVPB 100 mls DAILY ALEKSANDER Administration Linezolid 600 mg/ Device 300 mls @ 150 mls/hr 05/19/20 21:00 05/22/20 08:06 IVPB 300 mls Q12HR ALEKSANDER Administration Fentanyl Citrate 2,000 mcg/ 100 mls @ 0 mls/hr 05/19/20 21:45 05/22/20 09:01 Sodium Chloride IV 06/18/20 21:45 100 mls INF ALEKSANDER Administration Protocol Per Protocol Sodium Acetate 90 meq/ Sodium 2,110.9121 mls @ 87.996 mls/hr 05/20/20 22:00 05/21/20 22:36 Chloride 90 meq/ Calcium IV 2,110.9121 mls Gluconate 10 meq/ Magnesium 2200 ALEKSANDER Administration Sulfate 10 meq/ Multivitamins 10 ml/ Chromium/Copper/ Manganese/Zinc 9 ml/ Insulin Human Regular 21 units/ Amino Acids/Dextrose Insulin Human Lispro 0 units 05/17/20 15:38 05/22/20 08:32 Humalog 300 Units/3 Ml Vial SC 2 unit .MILD SLIDING SCALE PRN Administration Mild Correctional Scale Labetalol HCl 10 mg 05/19/20 17:02 05/19/20 17:52 Labetalol Hcl 100 Mg/20 Ml Vial SLOW IVP 10 mg Q4H PRN Administration Blood Pressure. SBP above 140 Levothyroxine Sodium 112 mcg 05/15/20 06:00 05/22/20 06:26 Levothyroxine Sodium 112 Mcg Tab PO 112 mcg 0600 ALEKSANDER Administration Lorazepam 2 mg 05/19/20 21:45 05/20/20 00:45 Lorazepam 2 Mg/Ml Vial SLOW IVP 06/18/20 21:45 2 mg Q1H PRN Administration Breakthrough agitation Ondansetron HCl 4 mg 05/10/20 19:46 05/19/20 09:55 Ondansetron Pf 4 Mg/2 Ml Vial IVP 4 mg Q6H PRN Administration Nausea Pantoprazole Sodium 40 mg 05/19/20 09:00 05/22/20 08:06 Pantoprazole 40 Mg Vial IVP 40 mg Q12HR ALEKSANDER Administration Propofol 1,000 mg 05/19/20 21:45 05/22/20 08:06 Propofol 1,000 Mg/100 Ml Vial IV 06/18/20 21:45 1,000 mg INF PRN Administration TO ACHIEVE GOAL RASS Protocol - Exam General - other findings: sedated ENT - other findings: ET rube in place Respiratory - other findings: ventilator transmitted sound noted Cardiovascular: RRR Gastrointestinal - other findings: colostomy noted. Extremities - other findings: edema of the extremities noted lowe more than upper limbs Neurological - other findings: sedated Nephrology Results - Labs Result Diagrams: 05/22/20 04:50 05/22/20 04:50 Lab results: WBC 13.2 thou/uL (4.8-10.8) H 05/22/20 04:50 Hgb 7.2 g/dL (12.0-16.0) L 05/22/20 04:50 Hct 21.3 % (36.0-47.0) L 05/22/20 04:50 MCV 92.6 fL (78.0-98.0) 05/22/20 04:50 Plt Count 201 thou/uL (130-400) 05/22/20 04:50 Neutrophils % 67.4 % (42.0-75.0) 05/13/20 05:02 Band Neuts % (Manual) 35 % (5-11) H 05/22/20 04:50 ABG pH 7.38 (7.35-7.45) 05/22/20 07:35 ABG pCO2 41.6 mmHg (35.0-45.0) 05/22/20 07:35 ABG pO2 84.4 mmHg (> 80.0) H 05/22/20 07:35 Sodium 131 mmol/L (136-145) L 05/22/20 04:50 Potassium 3.9 mmol/L (3.5-5.1) 05/22/20 04:50 Chloride 95 mmol/L (98-107) L 05/22/20 04:50 Carbon Dioxide 25 mmol/L (23-31) 05/22/20 04:50 BUN 60 mg/dL (9.8-20.1) H 05/22/20 04:50 Creatinine 3.34 mg/dL (0.6-1.1) H 05/22/20 04:50 Glucose 226 mg/dL (80-115) H 05/22/20 04:50 Lactic Acid 1.0 mmol/L (0.5-2.2) 05/10/20 23:24 Calcium 7.5 mg/dL (7.8-10.44) L 05/22/20 04:50 Total Bilirubin 0.7 mg/dL (0.2-1.2) 05/19/20 17:19 AST 23 U/L (5-34) 05/19/20 17:19 ALT 10 U/L (8-55) 05/19/20 17:19 Alkaline Phosphatase 92 U/L (40-110) 05/19/20 17:19 Troponin I 0.015 ng/mL (< 0.028) 05/10/20 17:06 B-Natriuretic Peptide 92.0 pg/mL (0-100) 05/10/20 17:06 Serum Total Protein 5.6 g/dL (6.0-8.3) L 05/19/20 17:19 Albumin 3.2 g/dL (3.4-4.8) L 05/22/20 04:50 Lipase 26 U/L (8-78) 05/10/20 17:04 Urine Ketones Trace mg/dL (Negative) A 05/18/20 14:45 Urine Blood 3+ (Negative) A 05/18/20 14:45 Urine Nitrite Negative (Negative) 05/18/20 14:45 Ur Leukocyte Esterase Negative Chika/uL (Negative) 05/18/20 14:45 Urine RBC 21-50 HPF (0-3) A 05/18/20 14:45 Urine WBC 4-6 HPF (0-3) A 05/18/20 14:45 Ur Squamous Epith Cells 11-20 HPF (0-3) A 05/18/20 14:45 Urine Bacteria 1+ HPF (None Seen) A 05/18/20 14:45 Sodium 131 mmol/L (136-145) L 05/22/20 04:50 Potassium 3.9 mmol/L (3.5-5.1) 05/22/20 04:50 Chloride 95 mmol/L (98-107) L 05/22/20 04:50 Carbon Dioxide 25 mmol/L (23-31) 05/22/20 04:50 Anion Gap 15 mmol/L (10-20) 05/22/20 04:50 BUN 60 mg/dL (9.8-20.1) H 05/22/20 04:50 Creatinine 3.34 mg/dL (0.6-1.1) H 05/22/20 04:50 Glucose 226 mg/dL (80-115) H 05/22/20 04:50 Calcium 7.5 mg/dL (7.8-10.44) L 05/22/20 04:50 Phosphorus 3.8 mg/dL (2.3-4.7) 05/22/20 04:50 Magnesium 2.3 mg/dL (1.6-2.6) 05/22/20 04:50 Albumin 3.2 g/dL (3.4-4.8) L 05/22/20 04:50 Nephrology AP PN - Plan ASSESSMENT: Acute renal failure: Most likely due to hemodynamic factors related to volume depletion due to poor oral intake as well as NSAID use. Now on HD Metabolic acidosis. Anasarca: Most likely due to hypoalbuminemia. Severe hypoalbuminemia PCM Anemia of acute blood loss: Upper GI bleeding. ? NSAID induced gastritis. Peritonitis, on antibiotics. Hypertension: Hyponatremia Acute encephalopathy: Most likely due to PRES. Acute CVA is a concern. Seizure: cause or effect of PRES Presumed PRES. Multifactorial in etiology. HTN, AMANDA, Severe hypoalbuminemia Acute visual loss. PLAN. Will dilayze patient for 4 hours with UF as tolerated. Will give albumin for intradialytic hypotension Monitor intake and output as well as renal function Renally dose all medication. Avoid nephrotoxic agents.
[2020-05-22] MEDS: Albumin 25% 25 GM/100 ML BOT IVPB PRN ×2 (10:21→11:30)
--- NOTE | 2020-05-22 10:22 | PDOC.HOSPP ---
- Subjective Encounter Date: 05/20/20 Encounter Time: 10:30 Subjective: pt intubated - Objective Vital Signs & Weight: Vital Signs (12 hours) Temp Pulse Resp BP 05/22/20 08:00 16 05/22/20 07:30 65 121/69 05/22/20 07:00 97.6 F 05/22/20 06:00 94.3 F L 12 05/22/20 04:00 94.3 F L 12 05/22/20 02:00 12 05/22/20 00:00 97.6 F 12 Weight Admit Weight 174 lb 13.225 oz Weight 174 lb 13.225 oz Most Recent Monitor Data Heart Rate from ECG 93 NIBP 175/91 NIBP BP-Mean 119 Respiration from ECG 12 SpO2 99 I&O: 05/21/20 05/22/20 05/23/20 06:59 06:59 06:59 Intake Total 1839.7 3917.7 Output Total 271 276 40 Balance 1568.7 3641.7 -40 Result Diagrams: 05/22/20 04:50 05/22/20 04:50 Additional Labs: Accuchecks 05/22/20 05/22/20 05/21/20 04:54 00:40 21:30 POC Glucose 209 H 244 H 210 H 05/21/20 05/21/20 16:08 11:58 POC Glucose 194 H 161 H Hospitalist ROS - Review of Systems Other: intubated - Medication Medications: Active Medications Generic Name Dose Route Start Last Admin Trade Name Freq PRN Reason Stop Dose Admin Acetaminophen 1,000 mg 05/14/20 09:04 05/14/20 14:17 Acetaminophen 500 Mg Tab PO 1,000 mg Q6H PRN Administration Moderate to Severe Pain (6-10) Dexamethasone 4 mg 05/19/20 18:00 05/22/20 06:26 Dexamethasone 4 Mg/Ml Vial SLOW IVP 4 mg Q6HR ALEKSANDER Administration Promethazine HCl 12.5 mg/ 50.5 mls @ 202 mls/hr 05/17/20 23:20 05/18/20 07:31 Sodium Chloride IVPB 50.5 mls Q3H PRN Administration Nausea/Vomiting Levetiracetam 500 mg/ Device 100 mls @ 200 mls/hr 05/20/20 09:00 05/22/20 08:06 IVPB 100 mls DAILY ALEKSANDER Administration Meropenem 500 mg/ Sodium 100 mls @ 200 mls/hr 05/19/20 21:00 05/22/20 08:42 Chloride IVPB 100 mls Q12HR ALEKSANDER Administration Fluconazole/Sodium Chloride 100 mls @ 100 mls/hr 05/20/20 09:00 05/22/20 08:42 200 mg/ Device IVPB 100 mls DAILY ALEKSANDER Administration Linezolid 600 mg/ Device 300 mls @ 150 mls/hr 05/19/20 21:00 05/22/20 08:06 IVPB 300 mls Q12HR ALEKSANDER Administration Fentanyl Citrate 2,000 mcg/ 100 mls @ 0 mls/hr 05/19/20 21:45 05/22/20 09:01 Sodium Chloride IV 06/18/20 21:45 100 mls INF ALEKSANDER Administration Protocol Per Protocol Sodium Acetate 90 meq/ Sodium 2,110.9121 mls @ 87.996 mls/hr 05/20/20 22:00 05/21/20 22:36 Chloride 90 meq/ Calcium IV 2,110.9121 mls Gluconate 10 meq/ Magnesium 2200 ALEKSANDER Administration Sulfate 10 meq/ Multivitamins 10 ml/ Chromium/Copper/ Manganese/Zinc 9 ml/ Insulin Human Regular 21 units/ Amino Acids/Dextrose Insulin Human Lispro 0 units 05/17/20 15:38 05/22/20 08:32 Humalog 300 Units/3 Ml Vial SC 2 unit .MILD SLIDING SCALE PRN Administration Mild Correctional Scale Labetalol HCl 10 mg 05/19/20 17:02 05/19/20 17:52 Labetalol Hcl 100 Mg/20 Ml Vial SLOW IVP 10 mg Q4H PRN Administration Blood Pressure. SBP above 140 Levothyroxine Sodium 112 mcg 05/15/20 06:00 05/22/20 06:26 Levothyroxine Sodium 112 Mcg Tab PO 112 mcg 0600 ALEKSANDER Administration Lorazepam 2 mg 05/19/20 21:45 05/20/20 00:45 Lorazepam 2 Mg/Ml Vial SLOW IVP 06/18/20 21:45 2 mg Q1H PRN Administration Breakthrough agitation Ondansetron HCl 4 mg 05/10/20 19:46 05/19/20 09:55 Ondansetron Pf 4 Mg/2 Ml Vial IVP 4 mg Q6H PRN Administration Nausea Pantoprazole Sodium 40 mg 05/19/20 09:00 05/22/20 08:06 Pantoprazole 40 Mg Vial IVP 40 mg Q12HR ALEKSANDER Administration Propofol 1,000 mg 05/19/20 21:45 05/22/20 08:06 Propofol 1,000 Mg/100 Ml Vial IV 06/18/20 21:45 1,000 mg INF PRN Administration TO ACHIEVE GOAL RASS Protocol - Exam Heart: negative: RRR, no murmur, no gallops, no rubs, normal peripheral pulses, irregular, diminshed peripheral pulses, murmur present, II/IV, III/IV Respiratory: negative: CTAB, no wheezes, no rales, no ronchi, normal chest expansion, no tachypnea, normal percussion, rales, rhonchi, tachypneic, wheezes Gastrointestinal: negative: soft, non-tender, non-distended, normal bowel sounds, no palpable masses, no hepatomegaly, no splenomegaly, no bruit, no guarding, no rigidity, tender to palpation, distended, diminished bowl sounds, voluntary guarding Extremities: 1+ LE edema Hosp A/P (1) Acute metabolic encephalopathy Code(s): G93.41 - METABOLIC ENCEPHALOPATHY Status: Acute (2) Seizure Code(s): R56.9 - UNSPECIFIED CONVULSIONS Status: Acute (3) PRES (posterior reversible encephalopathy syndrome) Code(s): I67.83 - POSTERIOR REVERSIBLE ENCEPHALOPATHY SYNDROME Status: Suspected (4) AMANDA (acute kidney injury) Code(s): N17.9 - ACUTE KIDNEY FAILURE, UNSPECIFIED Status: Acute (5) Malnourished Code(s): E46 - UNSPECIFIED PROTEIN-CALORIE MALNUTRITION Status: Acute (6) Acute respiratory failure with hypoxia Code(s): J96.01 - ACUTE RESPIRATORY FAILURE WITH HYPOXIA Status: Acute (7) On total parenteral nutrition (TPN) Code(s): Z78.9 - OTHER SPECIFIED HEALTH STATUS Status: Acute (8) Peritonitis (acute) generalized Code(s): K65.0 - GENERALIZED (ACUTE) PERITONITIS Status: Acute - Plan will increase keppra to 500mg daily per her renal clearance. We will get MRI brain. Neurology called case was discussed. We will also consult infectious disease possible infectious etiology. Patient currently on TPN. We will also consult GI Castillo NG output appears dark. PPI started. We will get a gastric occult. SCDs for DVT prophylaxis. 05/20 pt was intubated last night. will continue current tx. spoke with neurosurgery will put pt on steroids. Tried to get pt's blood pressure down given PRES. will continue to monitor. Daughter at bedside updated.
[2020-05-22] MEDS ORDERED: Norepinephrine 16 MG in Dextrose 5% in Water 234 ML IVPB PRN (10:47)
--- NOTE | 2020-05-22 10:49 | RAD ---
PORTABLE CHEST: INDICATION: CCU followup on ventilator. COMPARISON: 05/21/2020. FINDINGS: Bilateral effusions with bibasilar atelectasis and/or infiltrates. Borderline cardiomegaly with mild vascular engorgement. No significant interval change. POS: AGW
--- NOTE | 2020-05-22 14:52 | PRG ---
DATE OF SERVICE: 05/22/2020 SUBJECTIVE: Ms. Mullins today is doing better, although still on the ventilator with diffuse edema and anasarca. Tolerating dialysis with albumin administration, goal to remove 5 or 6 L today. She is sedated on the ventilator. OBJECTIVE: VITAL SIGNS: Temperature 99.4 degrees, blood pressure 165/79, and heart rate 112. LUNGS: Clear to auscultation. No wheezing. CARDIAC: Regular rate and rhythm. ABDOMEN: Soft. Scant stool and some flatus in her colostomy bag. Colostomy is healthy. Midline wound looks good. EXTREMITIES: Edematous. Gastric drainage 150 mL for 24 hours, colostomy output 40 mL recorded in 24 hours prior to this, and urine output 160 mL for 24 hours. ASSESSMENT AND PLAN: 1. Oliguric renal failure. Initially nonoliguric. Continue dialysis due to fluid overload. 2. Status post colon resection with anastomotic leak and subsequent Carter's procedure and colostomy. Noncontrast CAT scan did not reveal any evidence of hydronephrosis or problems. Currently undergoing dialysis for ARF, followed by Dr. Muse, temporary dialysis catheter, groin. 3. Neurological compromise with posterior reversible encephalopathy syndrome. Continue supportive care. 4. Gastrointestinal bleed, now on proton pump inhibitors. Hemoglobin stable at 7.2, 7.3 day before yesterday, 7.5 yesterday; platelet count stable; and white count 13.2. PLAN: 1. We will initiate tube feeding trial, Nephro per NG tube 20 per hour. Consult Dietary for goal rate and nutritional assessment. Hopefully, over the next few days, we can convert her from parenteral to enteral nutrition. 2. Ultrasound of the leg to rule out DVT. 3. Echocardiogram to rule out patent foramen ovale that may have resulted in left to right PE. Job ID: [id number]
--- NOTE | 2020-05-22 15:02 | PRG ---
DATE OF SERVICE: 05/22/2020 SUBJECTIVE: Ms. Mullins remains sedated for ventilation. She is afebrile. OBJECTIVE: VITAL SIGNS: Heart rate is 112, respiratory rates in the teens, FiO2 is at 45%, blood pressure 165/79. GENERAL: She is being dialyzed when I evaluated her this morning. It is like 4800 mL was dialyzed off with little levophed support. LUNGS: Unchanged. HEART: Unchanged. ABDOMEN: Unchanged. LABORATORY DATA: White count 13.2, hemoglobin 7.2, platelets 201,000. Creatinine is 3.34, potassium 3.9. IMPRESSION: Renal failure with peritonitis, respiratory failure secondary to volume overload. I will reorder this. We will continue with critical care. CRITICAL CARE TIME: 30 minutes. Job ID: [id number] MTDD
--- NOTE | 2020-05-22 15:07 | PDOC.HOSPP ---
- Subjective Encounter Date: 05/22/20 Encounter Time: 13:00 Subjective: is getting hemodialysis wakes up during weaning trials per staff - Objective Vital Signs & Weight: Vital Signs (12 hours) Temp Pulse Resp BP Pulse Ox 05/22/20 14:00 99.4 F 12 05/22/20 12:00 12 05/22/20 11:02 104 H 166/86 H 05/22/20 10:49 98.0 F 05/22/20 10:00 14 05/22/20 08:00 16 100 05/22/20 07:30 65 121/69 05/22/20 07:00 97.6 F 05/22/20 06:00 94.3 F L 12 05/22/20 04:00 94.3 F L 12 Weight Admit Weight 174 lb 13.225 oz Weight 174 lb 13.225 oz Most Recent Monitor Data Heart Rate from ECG 112 NIBP 165/79 NIBP BP-Mean 107 Respiration from ECG 14 SpO2 99 I&O: 05/21/20 05/22/20 05/23/20 06:59 06:59 06:59 Intake Total 1839.7 3917.7 450 Output Total 271 276 40 Balance 1568.7 3641.7 410 Result Diagrams: 05/22/20 04:50 05/22/20 04:50 Additional Labs: Accuchecks 05/22/20 05/22/20 05/21/20 04:54 00:40 21:30 POC Glucose 209 H 244 H 210 H 05/21/20 16:08 POC Glucose 194 H Hospitalist ROS - Medication Medications: Active Medications Generic Name Dose Route Start Last Admin Trade Name Freq PRN Reason Stop Dose Admin Acetaminophen 1,000 mg 05/14/20 09:04 05/14/20 14:17 Acetaminophen 500 Mg Tab PO 1,000 mg Q6H PRN Administration Moderate to Severe Pain (6-10) Dexamethasone 4 mg 05/19/20 18:00 05/22/20 14:20 Dexamethasone 4 Mg/Ml Vial SLOW IVP 4 mg Q6HR ALEKSANDER Administration Promethazine HCl 12.5 mg/ 50.5 mls @ 202 mls/hr 05/17/20 23:20 05/18/20 07:31 Sodium Chloride IVPB 50.5 mls Q3H PRN Administration Nausea/Vomiting Levetiracetam 500 mg/ Device 100 mls @ 200 mls/hr 05/20/20 09:00 05/22/20 08:06 IVPB 100 mls DAILY ALEKSANDER Administration Meropenem 500 mg/ Sodium 100 mls @ 200 mls/hr 05/19/20 21:00 05/22/20 08:42 Chloride IVPB 100 mls Q12HR ALEKSANDER Administration Fluconazole/Sodium Chloride 100 mls @ 100 mls/hr 05/20/20 09:00 05/22/20 08:42 200 mg/ Device IVPB 100 mls DAILY ALEKSANDER Administration Linezolid 600 mg/ Device 300 mls @ 150 mls/hr 05/19/20 21:00 05/22/20 08:06 IVPB 300 mls Q12HR ALEKSANDER Administration Fentanyl Citrate 2,000 mcg/ 100 mls @ 0 mls/hr 05/19/20 21:45 05/22/20 09:01 Sodium Chloride IV 06/18/20 21:45 100 mls INF ALEKSANDER Administration Protocol Per Protocol Sodium Acetate 90 meq/ Sodium 2,110.9121 mls @ 87.996 mls/hr 05/20/20 22:00 05/21/20 22:36 Chloride 90 meq/ Calcium IV 2,110.9121 mls Gluconate 10 meq/ Magnesium 2200 ALEKSANDER Administration Sulfate 10 meq/ Multivitamins 10 ml/ Chromium/Copper/ Manganese/Zinc 9 ml/ Insulin Human Regular 21 units/ Amino Acids/Dextrose Insulin Human Lispro 0 units 05/17/20 15:38 05/22/20 08:32 Humalog 300 Units/3 Ml Vial SC 2 unit .MILD SLIDING SCALE PRN Administration Mild Correctional Scale Labetalol HCl 10 mg 05/19/20 17:02 05/19/20 17:52 Labetalol Hcl 100 Mg/20 Ml Vial SLOW IVP 10 mg Q4H PRN Administration Blood Pressure. SBP above 140 Levothyroxine Sodium 112 mcg 05/15/20 06:00 05/22/20 06:26 Levothyroxine Sodium 112 Mcg Tab PO 112 mcg 0600 ALEKSANDER Administration Lorazepam 2 mg 05/19/20 21:45 05/20/20 00:45 Lorazepam 2 Mg/Ml Vial SLOW IVP 06/18/20 21:45 2 mg Q1H PRN Administration Breakthrough agitation Ondansetron HCl 4 mg 05/10/20 19:46 05/19/20 09:55 Ondansetron Pf 4 Mg/2 Ml Vial IVP 4 mg Q6H PRN Administration Nausea Pantoprazole Sodium 40 mg 05/19/20 09:00 05/22/20 08:06 Pantoprazole 40 Mg Vial IVP 40 mg Q12HR ALEKSANDER Administration Propofol 1,000 mg 05/19/20 21:45 05/22/20 14:21 Propofol 1,000 Mg/100 Ml Vial IV 06/18/20 21:45 1,000 mg INF PRN Administration TO ACHIEVE GOAL RASS Protocol - Exam General Appearance: ill appearing Eye: PERRL, anicteric sclera ENT: no oropharyngeal lesions, moist mucosa Neck: supple, no JVD Heart: RRR, no murmur Respiratory: no wheezes, rales, rhonchi Gastrointestinal: soft, normal bowel sounds Gastrointestinal - other findings: colostomy has liq stools Extremities: no cyanosis, 2+ LE edema Neurological: cranial nerve grossly intact, no focal deficits Hosp A/P (1) Acute respiratory failure with hypoxia Code(s): J96.01 - ACUTE RESPIRATORY FAILURE WITH HYPOXIA Status: Acute (2) Peritonitis (acute) generalized Code(s): K65.0 - GENERALIZED (ACUTE) PERITONITIS Status: Acute (3) AMANDA (acute kidney injury) Code(s): N17.9 - ACUTE KIDNEY FAILURE, UNSPECIFIED Status: Acute (4) S/P colectomy Status: Acute (5) Anasarca Code(s): R60.1 - GENERALIZED EDEMA Status: Acute (6) Severe protein-calorie malnutrition Code(s): E43 - UNSPECIFIED SEVERE PROTEIN-CALORIE MALNUTRITION Status: Acute (7) On total parenteral nutrition (TPN) Code(s): Z78.9 - OTHER SPECIFIED HEALTH STATUS Status: Acute (8) Hypothyroidism Code(s): E03.9 - HYPOTHYROIDISM, UNSPECIFIED Status: Chronic Qualifiers: Hypothyroidism type: acquired Qualified Code(s): E03.9 - Hypothyroidism, unspecified (9) Postoperative anemia due to acute blood loss Code(s): D62 - ACUTE POSTHEMORRHAGIC ANEMIA Status: Acute (10) Acute metabolic encephalopathy Code(s): G93.41 - METABOLIC ENCEPHALOPATHY Status: Acute (11) PRES (posterior reversible encephalopathy syndrome) Code(s): I67.83 - POSTERIOR REVERSIBLE ENCEPHALOPATHY SYNDROME Status: Suspected (12) Seizure Code(s): R56.9 - UNSPECIFIED CONVULSIONS Status: Acute - Plan is on zyvox, merrem, diflucan, keppra, synthroid, decadron, TPN, tube feeding to be initiated today to see if she tolerates has been initiated on HD, had back to back HD with max fluid removal as tolerated today, sbp around 90's now anasarca/vol overload and low alb, will need fluid removal as tolerated with HD is s/p sigmoid colectomy with colorectal anastamosis done on 05/07, subsequently developed peritonitis due to anastomotic leak and had segmental colectomy with end colostomy/wash out done on 05/10. got intubated on 05/19 prognosis guarded
--- NOTE | 2020-05-22 16:55 | ULT ---
Venous duplex sonogram right lower extremity HISTORY: Right leg pain and edema. FINDINGS: Good color and spectral Doppler flow and compression seen to involve the mid to distal port ion of the femoral vein, popliteal vein, and posterior tibial vein. Some electronic interference is noted on the images. The common femoral vein and greater saphenous junction and the proximal portion of the femoral vein w ere unable to be evaluated due to a central venous catheter and overlying dressing. IMPRESSION : No DVT evident. Limited exam. Central vessels not well evaluated. If ongoing symptoms warrant, contrast enhanced CT c ould be used to evaluate for clot.
[2020-05-22] MEDS: Heparin 5,000 UNITS/ML VIAL SC SCH (20:04)
[2020-05-22] MEDS: [UNRECOGNIZED DRUG - OTHER] IV SCH (21:30)
[2020-05-22] MEDS: SODIUM CHLORIDE IV SCH (21:30)
[2020-05-22] MEDS: CALCIUM GLUCONATE IV SCH (21:30)
[2020-05-22] MEDS: SODIUM ACETATE IV SCH (21:30)
[2020-05-22] MEDS ORDERED: Sterile Water 0 ML ONE (22:09)
[2020-05-23] MEDS: HumaLOG 300 UNITS/3 ML VIAL SC PRN ×3 (00:25→20:27)
[2020-05-23] MEDS: fentaNYL Citrate/PF 2,000 MCG in Sodium Chloride 0.9% 60 ML IV SCH ×2 (01:37→21:25)
[2020-05-23] MEDS: Propofol 1,000 MG/100 ML VIAL IV PRN ×3 (03:15→16:40)
[2020-05-23 04:51] LABS: Anion Gap 14 mmol/L (10-20); BUN (Urea Nitrogen) 42 mg/dL (9.8-20.1); Calc. Creatinine Clearance 30 mL/min (70-130); Calcium 7.9 mg/dL (7.8-10.44); Carbon Dioxide 28 mmol/L (23-31); Chloride 94 mmol/L (98-107); Glucose 158 mg/dL (80-115); Potassium 3.6 mmol/L (3.5-5.1); Sodium 132 mmol/L (136-145)
[2020-05-23 05:01] LABS: Band 21 % (5-11); Hemoglobin 8.5 g/dL (12.0-16.0); Hypochromia SLIGHT = 6-15 cells (100X) (0-5/hpf); Lymphocytes 10 % (21-51); MDiff Complete? YES; Mean Corpuscular HGB CONC 33.1 g/dL (32.0-36.0); Mean Corpuscular Hemoglobin 30.6 pg (27.0-31.0); Mean Corpuscular Volume 92.6 fL (78.0-98.0); Mean Platelet Volume 8.4 fL (7.4-10.4); Metamyelocyte 5 % (0-0); Monocytes 11 % (0-10); Neutrophil 53 % (42-75); Platelet Count 349 thou/uL (130-400); Platelet Morphology Comment Appears Adequate; RBC Distribution Width 12.9 % (11.5-14.5); Red Blood Cell (RBC) Count 2.77 mill/uL (4.20-5.40); White Blood Cell (WBC) Count 25.6 thou/uL (4.8-10.8)
[2020-05-23] MEDS: Levothyroxine Sodium 112 MCG TAB PO SCH (05:41)
[2020-05-23] MEDS: Dexamethasone 4 mg/ml Vial SLOW IVP SCH ×3 (05:41→19:10)
--- NOTE | 2020-05-23 07:57 | PDOC.NEPPN ---
- Subjective Encounter Date: 05/23/20 Subjective: Still intubated and grossly edematous. - Objective Vital Signs & Weight: Vital Signs (12 hours) Temp Pulse Resp BP Pulse Ox 05/23/20 07:33 80 131/72 05/23/20 06:00 12 05/23/20 04:00 97.8 F 12 05/23/20 02:00 16 05/23/20 00:00 97.7 F 14 05/22/20 22:00 12 05/22/20 20:00 97.8 F 14 96 Weight Admit Weight 174 lb 13.225 oz Weight 174 lb 13.225 oz Most Recent Monitor Data Heart Rate from ECG 91 NIBP 175/100 NIBP BP-Mean 125 Respiration from ECG 15 SpO2 99 I&O: 05/22/20 05/23/20 05/24/20 06:59 06:59 06:59 Intake Total 3917.7 4349.8 Output Total 276 215 Balance 3641.7 4134.8 Result Diagrams: 05/23/20 03:20 05/23/20 03:20 Additional Labs: Accuchecks 05/23/20 05/23/20 05/23/20 07:45 04:23 00:24 POC Glucose 154 H 172 H 181 H 05/22/20 05/22/20 20:21 17:11 POC Glucose 133 H 157 H Nephrology ROS - Medication Medications: Active Medications Generic Name Dose Route Start Last Admin Trade Name Freq PRN Reason Stop Dose Admin Acetaminophen 1,000 mg 05/14/20 09:04 05/14/20 14:17 Acetaminophen 500 Mg Tab PO 1,000 mg Q6H PRN Administration Moderate to Severe Pain (6-10) Dexamethasone 4 mg 05/19/20 18:00 05/23/20 05:41 Dexamethasone 4 Mg/Ml Vial SLOW IVP 4 mg Q6HR ALEKSANDER Administration Heparin Sodium (Porcine) 5,000 units 05/22/20 21:00 05/22/20 20:04 Heparin 5,000 Units/Ml Vial SC 5,000 units BID ALEKSANDER Administration Promethazine HCl 12.5 mg/ 50.5 mls @ 202 mls/hr 05/17/20 23:20 05/18/20 07:31 Sodium Chloride IVPB 50.5 mls Q3H PRN Administration Nausea/Vomiting Levetiracetam 500 mg/ Device 100 mls @ 200 mls/hr 05/20/20 09:00 05/22/20 08:06 IVPB 100 mls DAILY ALEKSANDER Administration Meropenem 500 mg/ Sodium 100 mls @ 200 mls/hr 05/19/20 21:00 05/22/20 20:04 Chloride IVPB 100 mls Q12HR ALEKSANDER Administration Fluconazole/Sodium Chloride 100 mls @ 100 mls/hr 05/20/20 09:00 05/22/20 08:42 200 mg/ Device IVPB 100 mls DAILY ALEKSANDER Administration Linezolid 600 mg/ Device 300 mls @ 150 mls/hr 05/19/20 21:00 05/22/20 20:03 IVPB 300 mls Q12HR ALEKSANDER Administration Fentanyl Citrate 2,000 mcg/ 100 mls @ 0 mls/hr 05/19/20 21:45 05/23/20 01:37 Sodium Chloride IV 06/18/20 21:45 100 mls INF ALEKSANDER Administration Protocol Per Protocol Sodium Acetate 90 meq/ Sodium 2,110.9121 mls @ 87.996 mls/hr 05/20/20 22:00 05/22/20 21:30 Chloride 90 meq/ Calcium IV 2,110.9121 mls Gluconate 10 meq/ Magnesium 2200 ALEKSANDER Administration Sulfate 10 meq/ Multivitamins 10 ml/ Chromium/Copper/ Manganese/Zinc 9 ml/ Insulin Human Regular 21 units/ Amino Acids/Dextrose Insulin Human Lispro 0 units 05/17/20 15:38 05/23/20 04:24 Humalog 300 Units/3 Ml Vial SC 2 unit .MILD SLIDING SCALE PRN Administration Mild Correctional Scale Labetalol HCl 10 mg 05/19/20 17:02 05/19/20 17:52 Labetalol Hcl 100 Mg/20 Ml Vial SLOW IVP 10 mg Q4H PRN Administration Blood Pressure. SBP above 140 Levothyroxine Sodium 112 mcg 05/15/20 06:00 05/23/20 05:41 Levothyroxine Sodium 112 Mcg Tab PO 112 mcg 0600 ALEKSANDER Administration Lorazepam 2 mg 05/19/20 21:45 05/20/20 00:45 Lorazepam 2 Mg/Ml Vial SLOW IVP 06/18/20 21:45 2 mg Q1H PRN Administration Breakthrough agitation Ondansetron HCl 4 mg 05/10/20 19:46 05/19/20 09:55 Ondansetron Pf 4 Mg/2 Ml Vial IVP 4 mg Q6H PRN Administration Nausea Pantoprazole Sodium 40 mg 05/19/20 09:00 05/22/20 20:04 Pantoprazole 40 Mg Vial IVP 40 mg Q12HR ALEKSANDER Administration Propofol 1,000 mg 05/19/20 21:45 05/23/20 03:15 Propofol 1,000 Mg/100 Ml Vial IV 06/18/20 21:45 1,000 mg INF PRN Administration TO ACHIEVE GOAL RASS Protocol - Exam General - other findings: sedated ENT: normocephalic atraumatic ENT - other findings: ET tube in place Neck: symmetric, no JVD Respiratory - other findings: ventilator transmitted sound noted Cardiovascular: RRR Gastrointestinal: soft, non-distended Gastrointestinal - other findings: LLQ colostomy noted Extremities - other findings: edema of the extremities noted Neurological - other findings: sedated Nephrology Results - Labs Result Diagrams: 05/23/20 03:20 05/23/20 03:20 Lab results: WBC 25.6 thou/uL (4.8-10.8) H 05/23/20 03:20 Hgb 8.5 g/dL (12.0-16.0) L 05/23/20 03:20 Hct 25.7 % (36.0-47.0) L 05/23/20 03:20 MCV 92.6 fL (78.0-98.0) 05/23/20 03:20 Plt Count 349 thou/uL (130-400) 05/23/20 03:20 Neutrophils % 67.4 % (42.0-75.0) 05/13/20 05:02 Band Neuts % (Manual) 21 % (5-11) H 05/23/20 03:20 ABG pH 7.38 (7.35-7.45) 05/22/20 07:35 ABG pCO2 41.6 mmHg (35.0-45.0) 05/22/20 07:35 ABG pO2 84.4 mmHg (> 80.0) H 05/22/20 07:35 Sodium 132 mmol/L (136-145) L 05/23/20 03:20 Potassium 3.6 mmol/L (3.5-5.1) 05/23/20 03:20 Chloride 94 mmol/L (98-107) L 05/23/20 03:20 Carbon Dioxide 28 mmol/L (23-31) 05/23/20 03:20 BUN 42 mg/dL (9.8-20.1) H 05/23/20 03:20 Creatinine 2.42 mg/dL (0.6-1.1) H 05/23/20 03:20 Glucose 158 mg/dL (80-115) H 05/23/20 03:20 Lactic Acid 1.0 mmol/L (0.5-2.2) 05/10/20 23:24 Calcium 7.9 mg/dL (7.8-10.44) 05/23/20 03:20 Total Bilirubin 0.7 mg/dL (0.2-1.2) 05/19/20 17:19 AST 23 U/L (5-34) 05/19/20 17:19 ALT 10 U/L (8-55) 05/19/20 17:19 Alkaline Phosphatase 92 U/L (40-110) 05/19/20 17:19 Troponin I 0.015 ng/mL (< 0.028) 05/10/20 17:06 B-Natriuretic Peptide 92.0 pg/mL (0-100) 05/10/20 17:06 Serum Total Protein 5.6 g/dL (6.0-8.3) L 05/19/20 17:19 Albumin 3.2 g/dL (3.4-4.8) L 05/22/20 04:50 Lipase 26 U/L (8-78) 05/10/20 17:04 Urine Ketones Trace mg/dL (Negative) A 05/18/20 14:45 Urine Blood 3+ (Negative) A 05/18/20 14:45 Urine Nitrite Negative (Negative) 05/18/20 14:45 Ur Leukocyte Esterase Negative Chika/uL (Negative) 05/18/20 14:45 Urine RBC 21-50 HPF (0-3) A 05/18/20 14:45 Urine WBC 4-6 HPF (0-3) A 05/18/20 14:45 Ur Squamous Epith Cells 11-20 HPF (0-3) A 05/18/20 14:45 Urine Bacteria 1+ HPF (None Seen) A 05/18/20 14:45 Sodium 132 mmol/L (136-145) L 05/23/20 03:20 Potassium 3.6 mmol/L (3.5-5.1) 05/23/20 03:20 Chloride 94 mmol/L (98-107) L 05/23/20 03:20 Carbon Dioxide 28 mmol/L (23-31) 05/23/20 03:20 Anion Gap 14 mmol/L (10-20) 05/23/20 03:20 BUN 42 mg/dL (9.8-20.1) H 05/23/20 03:20 Creatinine 2.42 mg/dL (0.6-1.1) H 05/23/20 03:20 Glucose 158 mg/dL (80-115) H 05/23/20 03:20 Calcium 7.9 mg/dL (7.8-10.44) 05/23/20 03:20 Phosphorus 3.8 mg/dL (2.3-4.7) 05/22/20 04:50 Magnesium 2.3 mg/dL (1.6-2.6) 05/22/20 04:50 Albumin 3.2 g/dL (3.4-4.8) L 05/22/20 04:50 Nephrology AP PN - Plan ASSESSMENT: Acute renal failure: Most likely due to hemodynamic factors related to volume depletion due to poor oral intake as well as NSAID use. Now on HD Metabolic acidosis. Anasarca: Most likely due to hypoalbuminemia.and AMANDA Severe hypoalbuminemia PCM Anemia of acute blood loss: Upper GI bleeding. ? NSAID induced gastritis. Peritonitis, on antibiotics. Hypertension: Control is siboptimal Hyponatremia Acute encephalopathy: Most likely due to PRES. Acute CVA is a concern. Seizure: cause or effect of PRES Presumed PRES. Multifactorial in etiology. HTN, AMANDA, Severe hypoalbuminemia Acute visual loss. PLAN. Will dilayze patient for 4 hours with UF as tolerated. Start amlodipine 5 mg daily Monitor intake and output as well as renal function Renally dose all medication. Avoid nephrotoxic agents.
[2020-05-23 08:17] LABS: Actual Bicarbonate (HCO3a) 24.9 mEq/L (22-28); Base Excess (BEa) 0.6 mEq/L (-2.0 to +3.0); CO2 Tension 38.8 mmHg (35.0-45.0); Calcium, Ionized (arterial) 1.06 mmol/L (1.12-1.30); Carboxyhemoglobin (COHb) 0.3 gm% (0.0-3.0); Potassium - ABG Lab 3.56 mmol/L (3.70-5.30); pH, Arterial 7.43 (7.35-7.45)
--- NOTE | 2020-05-23 08:24 | RAD ---
Portable frontal chest radiograph: 05/23/2020 COMPARISON: 05/22/2020 HISTORY: Ventilated patient FINDINGS: There is a stable endotracheal tube and left subclavian vascular catheter. No discrete pneu mothorax is noted. Dense bibasilar pleural and parenchymal opacity persists, left greater than right. IMPRESSION: Stable appearance of the chest as detailed above.
[2020-05-23] MEDS: levETIRAcetam in NS 500 MG in Premix Bag 1 BAG IVPB SCH (08:26)
[2020-05-23] MEDS: Heparin 5,000 UNITS/ML VIAL SC SCH ×2 (08:35→20:26)
[2020-05-23] MEDS: Pantoprazole 40 MG VIAL IVP SCH ×2 (08:35→20:26)
[2020-05-23 09:07] LABS: Puncture Site LRA
[2020-05-23] MEDS: Linezolid 600 MG in Premix Bag 1 BAG IVPB SCH ×2 (09:52→20:26)
[2020-05-23] MEDS: Meropenem 500 MG in Sodium Chloride 0.9% 100 ML IVPB SCH ×2 (09:52→20:26)
--- NOTE | 2020-05-23 10:54 | PDOC.GSPN ---
Surgery Progress Note: Subj - Subjective Narrative: Intubated, dialysis today Surgery Progress Note: Obj - Vital signs Vital signs: Vital Signs - Most Recent Temp Pulse Resp BP Pulse Ox 98.1 F 80 15 131/72 96 05/23/20 08:00 05/23/20 07:33 05/23/20 10:00 05/23/20 07:33 05/22/20 20:00 - Physical Exam General: no distress Respiratory: coarse breath sounds Abdomen: soft Wound: healing well, ostomy/colostomy (stool and air in bag) Surgery Progress Note: Results - Labs Result Diagrams: 05/23/20 03:20 05/23/20 03:20 Lab results: Laboratory Results - last 12 hr 05/19/20 05/22/20 05/22/20 02:02 08:31 12:39 WBC RBC Hgb Hct MCV MCH MCHC RDW Plt Count MPV Neutrophils % (Manual) Band Neuts % (Manual) Lymphocytes % (Manual) Monocytes % (Manual) Metamyelocytes % (Man) Hypochromia Plt Morphology Comment Specimen Type Puncture Site Bicarbonate Actual ABG pH ABG pCO2 ABG pO2 ABG O2 Sat (Measured) ABG O2 Content ABG Base Excess ABG Hematocrit ABG Hemoglobin ABG Oxyhemoglobin ABG Carboxyhemoglobin ABG Methemoglobin ABG Deoxyhemoglobin Garo Test A-a O2 Gradient Ionized Calcium Mode of Support % Minute Volume Mechanical Rate Inspired O2 Tidal Volume Pressure Support PEEP or CPAP Sodium Potassium Chloride Carbon Dioxide Anion Gap BUN Creatinine Estimated GFR (MDRD) Glucose POC Glucose 183 H 138 H Calcium Crossmatch See Detail 05/23/20 05/23/20 05/23/20 00:24 03:20 03:20 WBC 25.6 H RBC 2.77 L Hgb 8.5 L Hct 25.7 L MCV 92.6 MCH 30.6 MCHC 33.1 RDW 12.9 Plt Count 349 MPV 8.4 Neutrophils % (Manual) 53 Band Neuts % (Manual) 21 H Lymphocytes % (Manual) 10 L Monocytes % (Manual) 11 H Metamyelocytes % (Man) 5 H Hypochromia SLIGHT = 6-15 cells Plt Morphology Comment Appears Adequate Specimen Type Puncture Site Bicarbonate Actual ABG pH ABG pCO2 ABG pO2 ABG O2 Sat (Measured) ABG O2 Content ABG Base Excess ABG Hematocrit ABG Hemoglobin ABG Oxyhemoglobin ABG Carboxyhemoglobin ABG Methemoglobin ABG Deoxyhemoglobin Garo Test A-a O2 Gradient Ionized Calcium Mode of Support % Minute Volume Mechanical Rate Inspired O2 Tidal Volume Pressure Support PEEP or CPAP Sodium 132 L Potassium 3.6 Chloride 94 L Carbon Dioxide 28 Anion Gap 14 BUN 42 H Creatinine 2.42 H Estimated GFR (MDRD) 20 Glucose 158 H POC Glucose 181 H Calcium 7.9 Crossmatch 05/23/20 05/23/20 05/23/20 04:23 07:45 08:10 WBC RBC Hgb Hct MCV MCH MCHC RDW Plt Count MPV Neutrophils % (Manual) Band Neuts % (Manual) Lymphocytes % (Manual) Monocytes % (Manual) Metamyelocytes % (Man) Hypochromia Plt Morphology Comment Specimen Type ARTERIAL Puncture Site LRA Bicarbonate Actual 24.9 ABG pH 7.43 ABG pCO2 38.8 ABG pO2 86.0 H ABG O2 Sat (Measured) 96.4 ABG O2 Content 13.6 L ABG Base Excess 0.6 ABG Hematocrit 29.0 L ABG Hemoglobin 10.0 L ABG Oxyhemoglobin 95.8 ABG Carboxyhemoglobin 0.3 ABG Methemoglobin 0.30 ABG Deoxyhemoglobin 3.6 H Garo Test POSITIVE A-a O2 Gradient 186.350 H Ionized Calcium 1.06 L Mode of Support SIMV % Minute Volume 7.2 Mechanical Rate 12 Inspired O2 45 Tidal Volume 500 Pressure Support 10 PEEP or CPAP 8.0 Sodium 128 L Potassium 3.56 L Chloride 94 L Carbon Dioxide Anion Gap BUN Creatinine Estimated GFR (MDRD) Glucose POC Glucose 172 H 154 H Calcium Crossmatch Surgery Progress Note: A/P - Problem (1) Peritonitis (acute) generalized Current Visit: Yes Code(s): K65.0 - GENERALIZED (ACUTE) PERITONITIS Status: Acute - Plan Plan: s/p abdominal washout -restart TF later today -dialysis later today
[2020-05-23] MEDS ORDERED: Heparin 10,000 UNITS/ 10 ML VIAL ONE (12:03)
[2020-05-23] MEDS: Fluconazole In NaCl,Iso-Osm 200 MG in Premix Bag 1 BAG IVPB SCH (12:46)
--- NOTE | 2020-05-23 15:25 | PDOC.HOSPP ---
- Subjective Encounter Date: 05/23/20 Encounter Time: 10:10 Subjective: is on vent, sedated - Objective Vital Signs & Weight: Vital Signs (12 hours) Temp Pulse Resp BP Pulse Ox 05/23/20 14:38 97 166/101 H 05/23/20 14:00 16 05/23/20 12:00 18 05/23/20 11:07 108 H 155/113 H 05/23/20 10:00 15 05/23/20 08:00 98.1 F 13 100 05/23/20 07:33 80 131/72 05/23/20 06:00 12 05/23/20 04:00 97.8 F 12 Weight Admit Weight 174 lb 13.225 oz Weight 174 lb 13.225 oz Most Recent Monitor Data Heart Rate from ECG 103 NIBP 157/115 NIBP BP-Mean 129 Respiration from ECG 15 SpO2 98 I&O: 05/22/20 05/23/20 05/24/20 06:59 06:59 06:59 Intake Total 3917.7 4349.8 660 Output Total 276 215 100 Balance 3641.7 4134.8 560 Result Diagrams: 05/23/20 03:20 05/23/20 03:20 Additional Labs: Accuchecks 05/23/20 05/23/20 05/23/20 12:48 07:45 04:23 POC Glucose 166 H 154 H 172 H 05/23/20 05/22/20 05/22/20 00:24 20:21 17:11 POC Glucose 181 H 133 H 157 H 05/22/20 05/22/20 12:39 08:31 POC Glucose 138 H 183 H Hospitalist ROS - Medication Medications: Active Medications Generic Name Dose Route Start Last Admin Trade Name Freq PRN Reason Stop Dose Admin Acetaminophen 1,000 mg 05/14/20 09:04 05/14/20 14:17 Acetaminophen 500 Mg Tab PO 1,000 mg Q6H PRN Administration Moderate to Severe Pain (6-10) Dexamethasone 4 mg 05/19/20 18:00 05/23/20 12:46 Dexamethasone 4 Mg/Ml Vial SLOW IVP 4 mg Q6HR ALEKSANDER Administration Heparin Sodium (Porcine) 5,000 units 05/22/20 21:00 05/23/20 08:35 Heparin 5,000 Units/Ml Vial SC 5,000 units BID ALEKSANDER Administration Promethazine HCl 12.5 mg/ 50.5 mls @ 202 mls/hr 05/17/20 23:20 05/18/20 07:31 Sodium Chloride IVPB 50.5 mls Q3H PRN Administration Nausea/Vomiting Levetiracetam 500 mg/ Device 100 mls @ 200 mls/hr 05/20/20 09:00 05/23/20 08:26 IVPB 100 mls DAILY ALEKSANDER Administration Meropenem 500 mg/ Sodium 100 mls @ 200 mls/hr 05/19/20 21:00 05/23/20 09:52 Chloride IVPB 100 mls Q12HR ALEKSANDER Administration Fluconazole/Sodium Chloride 100 mls @ 100 mls/hr 05/20/20 09:00 05/23/20 12:46 200 mg/ Device IVPB 100 mls DAILY ALEKSANDER Administration Linezolid 600 mg/ Device 300 mls @ 150 mls/hr 05/19/20 21:00 05/23/20 09:52 IVPB 300 mls Q12HR ALEKSANDER Administration Fentanyl Citrate 2,000 mcg/ 100 mls @ 0 mls/hr 05/19/20 21:45 05/23/20 01:37 Sodium Chloride IV 06/18/20 21:45 100 mls INF ALEKSANDER Administration Protocol Per Protocol Sodium Acetate 90 meq/ Sodium 2,110.9121 mls @ 87.996 mls/hr 05/20/20 22:00 05/22/20 21:30 Chloride 90 meq/ Calcium IV 2,110.9121 mls Gluconate 10 meq/ Magnesium 2200 ALEKSANDER Administration Sulfate 10 meq/ Multivitamins 10 ml/ Chromium/Copper/ Manganese/Zinc 9 ml/ Insulin Human Regular 21 units/ Amino Acids/Dextrose Insulin Human Lispro 0 units 05/17/20 15:38 05/23/20 04:24 Humalog 300 Units/3 Ml Vial SC 2 unit .MILD SLIDING SCALE PRN Administration Mild Correctional Scale Labetalol HCl 10 mg 05/19/20 17:02 05/19/20 17:52 Labetalol Hcl 100 Mg/20 Ml Vial SLOW IVP 10 mg Q4H PRN Administration Blood Pressure. SBP above 140 Levothyroxine Sodium 112 mcg 05/15/20 06:00 05/23/20 05:41 Levothyroxine Sodium 112 Mcg Tab PO 112 mcg 0600 ALEKSANDER Administration Lorazepam 2 mg 05/19/20 21:45 05/20/20 00:45 Lorazepam 2 Mg/Ml Vial SLOW IVP 06/18/20 21:45 2 mg Q1H PRN Administration Breakthrough agitation Ondansetron HCl 4 mg 05/10/20 19:46 05/19/20 09:55 Ondansetron Pf 4 Mg/2 Ml Vial IVP 4 mg Q6H PRN Administration Nausea Pantoprazole Sodium 40 mg 05/19/20 09:00 05/23/20 08:35 Pantoprazole 40 Mg Vial IVP 40 mg Q12HR ALEKSANDER Administration Propofol 1,000 mg 05/19/20 21:45 05/23/20 09:52 Propofol 1,000 Mg/100 Ml Vial IV 06/18/20 21:45 1,000 mg INF PRN Administration TO ACHIEVE GOAL RASS Protocol - Exam Eye: PERRL, anicteric sclera ENT: no oropharyngeal lesions, moist mucosa Neck: supple, no JVD Heart: RRR, no murmur Respiratory: no wheezes, no rales Gastrointestinal: soft, non-tender, normal bowel sounds Gastrointestinal - other findings: colostomy has liq brown stool Extremities: no cyanosis, 2+ LE edema Neurological: cranial nerve grossly intact, no focal deficits Hosp A/P (1) Acute respiratory failure with hypoxia Code(s): J96.01 - ACUTE RESPIRATORY FAILURE WITH HYPOXIA Status: Acute (2) Peritonitis (acute) generalized Code(s): K65.0 - GENERALIZED (ACUTE) PERITONITIS Status: Acute (3) AMANDA (acute kidney injury) Code(s): N17.9 - ACUTE KIDNEY FAILURE, UNSPECIFIED Status: Acute (4) S/P colectomy Status: Acute (5) Anasarca Code(s): R60.1 - GENERALIZED EDEMA Status: Acute (6) Severe protein-calorie malnutrition Code(s): E43 - UNSPECIFIED SEVERE PROTEIN-CALORIE MALNUTRITION Status: Acute (7) On total parenteral nutrition (TPN) Code(s): Z78.9 - OTHER SPECIFIED HEALTH STATUS Status: Acute (8) Hypothyroidism Code(s): E03.9 - HYPOTHYROIDISM, UNSPECIFIED Status: Chronic Qualifiers: Hypothyroidism type: acquired Qualified Code(s): E03.9 - Hypothyroidism, unspecified (9) Postoperative anemia due to acute blood loss Code(s): D62 - ACUTE POSTHEMORRHAGIC ANEMIA Status: Acute (10) Acute metabolic encephalopathy Code(s): G93.41 - METABOLIC ENCEPHALOPATHY Status: Acute (11) PRES (posterior reversible encephalopathy syndrome) Code(s): I67.83 - POSTERIOR REVERSIBLE ENCEPHALOPATHY SYNDROME Status: Suspected (12) Seizure Code(s): R56.9 - UNSPECIFIED CONVULSIONS Status: Acute - Plan is on zyvox, merrem, diflucan, keppra, synthroid, decadron, TPN, tube feeding initiated on 05/22 (to increase tube feeding if she is tolerating and to come down on tpn to 50mls/hr) has been initiated on HD, had back to back HD with max fluid removal as tolerated wed and wed. anasarca/vol overload and low alb, continue fluid removal as tolerated with HD, intake is around 4 lts with 2400 coming from tpn itself. is s/p sigmoid colectomy with colorectal anastamosis done on 05/07, subsequently developed peritonitis due to anastomotic leak and had segmental colectomy with end colostomy/wash out done on 05/10. got intubated on 05/19 prognosis guarded
[2020-05-23] MEDS ORDERED: Amlodipine 5 MG TAB PER TUBE SCH (17:15)
--- NOTE | 2020-05-23 17:42 | PRG ---
DATE OF SERVICE: 05/23/2020 OBJECTIVE: Ms. Garcia blood pressure is 158/80 this afternoon, heart rate is 101, respiratory rate per mechanical ventilation. We decreased her ventilatory support today. LUNGS: Remarkable, clear breath sounds anteriorly. HEART: Regular rhythm. ABDOMEN: Soft. EXTREMITIES: Less edema. Intake and output reported as positive 4349. A lot of this is Zyvox. It is leading to 2.5 L of fluid a day. It might be reasonable to discontinue the Zyvox. She had 4800 mL removed with dialysis, according to the records. Chest radiograph from today is improved with still evidence of bilateral pleural effusions and infiltrates. We will decrease ventilatory support. She is extremely weak, so she may not be a candidate for extubation, but we are decreasing ventilatory support a little each day. Her pH today was 7.43, CO2 of 38, PO2 of 86. She has had no purulent drainage from her wounds. Her peritonitis appears to be adequately treated with one washout and antimicrobial therapy. Acute renal failure is the downstream effect of that. Critical care time 35 min. Job ID: [id number] MTDD
[2020-05-23] MEDS: SODIUM ACETATE IV SCH (21:54)
[2020-05-23] MEDS: CALCIUM GLUCONATE IV SCH (21:54)
[2020-05-23] MEDS: [UNRECOGNIZED DRUG - OTHER] IV SCH (21:54)
[2020-05-23] MEDS: SODIUM CHLORIDE IV SCH (21:54)
[2020-05-24] MEDS: Propofol 1,000 MG/100 ML VIAL IV PRN ×4 (00:15→16:42)
[2020-05-24] MEDS: Dexamethasone 4 mg/ml Vial SLOW IVP SCH ×3 (00:15→12:50)
[2020-05-24] MEDS: HumaLOG 300 UNITS/3 ML VIAL SC PRN ×3 (00:52→20:21)
[2020-05-24 05:30] LABS: Albumin 2.8 g/dL (3.4-4.8); Anion Gap 14 mmol/L (10-20); BUN (Urea Nitrogen) 55 mg/dL (9.8-20.1); Calc. Creatinine Clearance 26 mL/min (70-130); Calcium 7.2 mg/dL (7.8-10.44); Carbon Dioxide 25 mmol/L (23-31); Chloride 94 mmol/L (98-107); Glucose 150 mg/dL (80-115); Magnesium 2.1 mg/dL (1.6-2.6); Potassium 3.4 mmol/L (3.5-5.1); Sodium 130 mmol/L (136-145)
[2020-05-24 05:42] LABS: Hemoglobin 7.7 g/dL (12.0-16.0); Mean Corpuscular HGB CONC 33.8 g/dL (32.0-36.0); Mean Corpuscular Hemoglobin 31.4 pg (27.0-31.0); Mean Corpuscular Volume 92.8 fL (78.0-98.0); Mean Platelet Volume 8.4 fL (7.4-10.4); Platelet Count 307 thou/uL (130-400); Red Blood Cell (RBC) Count 2.44 mill/uL (4.20-5.40); White Blood Cell (WBC) Count 24.1 thou/uL (4.8-10.8)
[2020-05-24] MEDS: Levothyroxine Sodium 112 MCG TAB PO SCH (05:43)
[2020-05-24 06:06] LABS: Band 16 % (5-11); Lymphocytes 5 % (21-51); MDiff Complete? YES; Metamyelocyte 2 % (0-0); Monocytes 4 % (0-10); Myelocyte 3 % (0-0); Neutrophil 70 % (42-75)
[2020-05-24 08:51] LABS: Actual Bicarbonate (HCO3a) 23.6 mEq/L (22-28); Analyzer IN Cardio ER; Base Excess (BEa) -0.3 mEq/L (-2.0 to +3.0); CO2 Tension 35.5 mmHg (35.0-45.0); Calcium, Ionized (arterial) 1.01 mmol/L (1.12-1.30); Carboxyhemoglobin (COHb) 0.2 gm% (0.0-3.0); Hemoglobin (Hb) 9.5 g/dL (12.0-16.0); O2 Tension (PaO2), arterial 109.8 mmHg (> 80.0); Potassium - ABG Lab 3.56 mmol/L (3.70-5.30); pH, Arterial 7.44 (7.35-7.45)
[2020-05-24 09:12] LABS: ALV-art Gradient 166.675 mmHg (0-20); Puncture Site LRA
[2020-05-24] MEDS: Amlodipine 5 MG TAB PER TUBE SCH (09:20)
[2020-05-24] MEDS: Heparin 5,000 UNITS/ML VIAL SC SCH ×2 (09:20→20:24)
[2020-05-24] MEDS: levETIRAcetam in NS 500 MG in Premix Bag 1 BAG IVPB SCH (09:20)
[2020-05-24] MEDS: Pantoprazole 40 MG VIAL IVP SCH (09:21)
--- NOTE | 2020-05-24 09:34 | PDOC.NEPPN ---
- Subjective Encounter Date: 05/24/20 Subjective: Still intubated and sedated. Also still grossly edematous. Taking in more than 4 liters of fluid daily. - Objective Vital Signs & Weight: Vital Signs (12 hours) Temp Pulse Resp BP 05/24/20 08:07 102 H 154/96 H 05/24/20 06:00 17 05/24/20 05:00 98.9 F 05/24/20 04:00 13 05/24/20 02:48 81 05/24/20 02:00 13 05/24/20 00:00 98.5 F 13 05/23/20 23:35 100 05/23/20 22:00 13 Weight Admit Weight 174 lb 13.225 oz Weight 210 lb 12.191 oz Most Recent Monitor Data Heart Rate from ECG 97 NIBP 174/84 NIBP BP-Mean 114 Respiration from ECG 14 SpO2 100 I&O: 05/23/20 05/24/20 05/25/20 06:59 06:59 06:59 Intake Total 4349.8 3623 Output Total 215 317 Balance 4134.8 3306 Result Diagrams: 05/24/20 03:50 05/24/20 03:50 Additional Labs: Accuchecks 05/24/20 05/24/20 05/24/20 09:11 03:56 00:49 POC Glucose 134 H 151 H 154 H 05/23/20 05/23/20 05/23/20 19:49 15:55 12:48 POC Glucose 173 H 143 H 166 H Nephrology ROS - Medication Medications: Active Medications Generic Name Dose Route Start Last Admin Trade Name Freq PRN Reason Stop Dose Admin Acetaminophen 1,000 mg 05/14/20 09:04 05/14/20 14:17 Acetaminophen 500 Mg Tab PO 1,000 mg Q6H PRN Administration Moderate to Severe Pain (6-10) Dexamethasone 4 mg 05/19/20 18:00 05/24/20 05:43 Dexamethasone 4 Mg/Ml Vial SLOW IVP 4 mg Q6HR ALEKSANDER Administration Heparin Sodium (Porcine) 5,000 units 05/22/20 21:00 05/23/20 20:26 Heparin 5,000 Units/Ml Vial SC 5,000 units BID ALEKSANDER Administration Promethazine HCl 12.5 mg/ 50.5 mls @ 202 mls/hr 05/17/20 23:20 05/18/20 07:31 Sodium Chloride IVPB 50.5 mls Q3H PRN Administration Nausea/Vomiting Levetiracetam 500 mg/ Device 100 mls @ 200 mls/hr 05/20/20 09:00 05/23/20 08:26 IVPB 100 mls DAILY ALEKSANDER Administration Meropenem 500 mg/ Sodium 100 mls @ 200 mls/hr 05/19/20 21:00 05/23/20 20:26 Chloride IVPB 100 mls Q12HR ALEKSANDER Administration Fluconazole/Sodium Chloride 100 mls @ 100 mls/hr 05/20/20 09:00 05/23/20 12:46 200 mg/ Device IVPB 100 mls DAILY ALEKSANDER Administration Linezolid 600 mg/ Device 300 mls @ 150 mls/hr 05/19/20 21:00 05/23/20 20:26 IVPB 300 mls Q12HR ALEKSANDER Administration Fentanyl Citrate 2,000 mcg/ 100 mls @ 0 mls/hr 05/19/20 21:45 05/23/20 21:25 Sodium Chloride IV 06/18/20 21:45 100 mls INF ALEKSNADER Administration Protocol Per Protocol Sodium Acetate 90 meq/ Sodium 2,110.9121 mls @ 87.996 mls/hr 05/20/20 22:00 05/23/20 21:54 Chloride 90 meq/ Calcium IV 2,110.9121 mls Gluconate 10 meq/ Magnesium 2200 ALEKSANDER Administration Sulfate 10 meq/ Multivitamins 10 ml/ Chromium/Copper/ Manganese/Zinc 9 ml/ Insulin Human Regular 21 units/ Amino Acids/Dextrose Insulin Human Lispro 0 units 05/17/20 15:38 05/24/20 03:58 Humalog 300 Units/3 Ml Vial SC 2 unit .MILD SLIDING SCALE PRN Administration Mild Correctional Scale Labetalol HCl 10 mg 05/19/20 17:02 05/19/20 17:52 Labetalol Hcl 100 Mg/20 Ml Vial SLOW IVP 10 mg Q4H PRN Administration Blood Pressure. SBP above 140 Levothyroxine Sodium 112 mcg 05/15/20 06:00 05/24/20 05:43 Levothyroxine Sodium 112 Mcg Tab PO 112 mcg 0600 ALEKSANDER Administration Lorazepam 2 mg 05/19/20 21:45 05/20/20 00:45 Lorazepam 2 Mg/Ml Vial SLOW IVP 06/18/20 21:45 2 mg Q1H PRN Administration Breakthrough agitation Ondansetron HCl 4 mg 05/10/20 19:46 05/19/20 09:55 Ondansetron Pf 4 Mg/2 Ml Vial IVP 4 mg Q6H PRN Administration Nausea Pantoprazole Sodium 40 mg 05/19/20 09:00 05/23/20 20:26 Pantoprazole 40 Mg Vial IVP 40 mg Q12HR ALEKSANDER Administration Propofol 1,000 mg 05/19/20 21:45 05/24/20 05:43 Propofol 1,000 Mg/100 Ml Vial IV 06/18/20 21:45 1,000 mg INF PRN Administration TO ACHIEVE GOAL RASS Protocol - Exam General - other findings: sedated Eye: anicteric sclera ENT: normocephalic atraumatic ENT - other findings: ET and OG tubes in place Neck: symmetric Respiratory - other findings: ventilator transmitted sound noted Cardiovascular: RRR Gastrointestinal: non-distended Gastrointestinal - other findings: colostomy noted. Extremities - other findings: extremity edema noted Neurological - other findings: sedated Nephrology Results - Labs Result Diagrams: 05/24/20 03:50 05/24/20 03:50 Lab results: WBC 24.1 thou/uL (4.8-10.8) H 05/24/20 03:50 Hgb 7.7 g/dL (12.0-16.0) L 05/24/20 03:50 Hct 22.6 % (36.0-47.0) L 05/24/20 03:50 MCV 92.8 fL (78.0-98.0) 05/24/20 03:50 Plt Count 307 thou/uL (130-400) 05/24/20 03:50 Neutrophils % 67.4 % (42.0-75.0) 05/13/20 05:02 Band Neuts % (Manual) 16 % (5-11) H 05/24/20 03:50 ABG pH 7.44 (7.35-7.45) 05/24/20 08:15 ABG pCO2 35.5 mmHg (35.0-45.0) 05/24/20 08:15 ABG pO2 109.8 mmHg (> 80.0) H 05/24/20 08:15 Sodium 130 mmol/L (136-145) L 05/24/20 03:50 Potassium 3.4 mmol/L (3.5-5.1) L 05/24/20 03:50 Chloride 94 mmol/L (98-107) L 05/24/20 03:50 Carbon Dioxide 25 mmol/L (23-31) 05/24/20 03:50 BUN 55 mg/dL (9.8-20.1) H 05/24/20 03:50 Creatinine 2.75 mg/dL (0.6-1.1) H 05/24/20 03:50 Glucose 150 mg/dL (80-115) H 05/24/20 03:50 Lactic Acid 1.0 mmol/L (0.5-2.2) 05/10/20 23:24 Calcium 7.2 mg/dL (7.8-10.44) L 05/24/20 03:50 Total Bilirubin 0.7 mg/dL (0.2-1.2) 05/19/20 17:19 AST 23 U/L (5-34) 05/19/20 17:19 ALT 10 U/L (8-55) 05/19/20 17:19 Alkaline Phosphatase 92 U/L (40-110) 05/19/20 17:19 Troponin I 0.015 ng/mL (< 0.028) 05/10/20 17:06 B-Natriuretic Peptide 92.0 pg/mL (0-100) 05/10/20 17:06 Serum Total Protein 5.6 g/dL (6.0-8.3) L 05/19/20 17:19 Albumin 2.8 g/dL (3.4-4.8) L 05/24/20 03:50 Lipase 26 U/L (8-78) 05/10/20 17:04 Urine Ketones Trace mg/dL (Negative) A 05/18/20 14:45 Urine Blood 3+ (Negative) A 05/18/20 14:45 Urine Nitrite Negative (Negative) 05/18/20 14:45 Ur Leukocyte Esterase Negative Chika/uL (Negative) 05/18/20 14:45 Urine RBC 21-50 HPF (0-3) A 05/18/20 14:45 Urine WBC 4-6 HPF (0-3) A 05/18/20 14:45 Ur Squamous Epith Cells 11-20 HPF (0-3) A 05/18/20 14:45 Urine Bacteria 1+ HPF (None Seen) A 05/18/20 14:45 Sodium 130 mmol/L (136-145) L 05/24/20 03:50 Potassium 3.4 mmol/L (3.5-5.1) L 05/24/20 03:50 Chloride 94 mmol/L (98-107) L 05/24/20 03:50 Carbon Dioxide 25 mmol/L (23-31) 05/24/20 03:50 Anion Gap 14 mmol/L (10-20) 05/24/20 03:50 BUN 55 mg/dL (9.8-20.1) H 05/24/20 03:50 Creatinine 2.75 mg/dL (0.6-1.1) H 05/24/20 03:50 Glucose 150 mg/dL (80-115) H 05/24/20 03:50 Calcium 7.2 mg/dL (7.8-10.44) L 05/24/20 03:50 Phosphorus 2.0 mg/dL (2.3-4.7) L 05/24/20 03:50 Magnesium 2.1 mg/dL (1.6-2.6) 05/24/20 03:50 Albumin 2.8 g/dL (3.4-4.8) L 05/24/20 03:50 Nephrology AP PN - Plan ASSESSMENT: Acute renal failure: Most likely due to hemodynamic factors related to volume depletion due to poor oral intake as well as NSAID use. Now on HD Metabolic acidosis. Anasarca: Most likely due to hypoalbuminemia.and AMANDA. Still grossly edematous due to large fluid intake. Severe hypoalbuminemia PCM Anemia of acute blood loss: Upper GI bleeding. ? NSAID induced gastritis. Peritonitis, on antibiotics. Hypertension: Control is siboptimal Hyponatremia Acute encephalopathy: Most likely due to PRES. Acute CVA is a concern. Seizure: cause or effect of PRES Presumed PRES. Multifactorial in etiology. HTN, AMANDA, Severe hypoalbuminemia Acute visual loss. PLAN. Will dilayze patient for 4 hours with UF as tolerated. Give 50 grams of albumin to facilitate UF. Recommend reducing fluid intake Monitor BP after HD with a view to increasing amlodipine to 10 mg to get adequate BP control. Monitor intake and output as well as renal function Renally dose all medication. Avoid nephrotoxic agents.
[2020-05-24] MEDS ORDERED: Calcium Chloride 13.6 MEQ in Sodium Chloride 0.9% 100 ML IVPB SCH (10:00)
[2020-05-24] MEDS: Linezolid 600 MG in Premix Bag 1 BAG IVPB SCH (10:07)
[2020-05-24] MEDS: Meropenem 500 MG in Sodium Chloride 0.9% 100 ML IVPB SCH ×2 (10:07→20:21)
--- NOTE | 2020-05-24 10:24 | RAD ---
EXAM: Chest one view: HISTORY: Respiratory insufficiency COMPARISON: 05/23/2020 FINDINGS: Life-support tubes in place and stable. Heart size: Minimally enlarged Lungs: Bilateral pleural effusions with some bilateral vascular congestion, overall stable. No significant new process. IMPRESSION: Overall stable-appearing chest.
--- NOTE | 2020-05-24 10:41 | PRG ---
DATE OF SERVICE: 05/24/2020 SUBJECTIVE: Ms. Mullins is hemodynamically stable, remains on the ventilator. Her NG residuals yesterday remained 300 plus and tube feeds were held. Her abdomen is softer. She does have stool and air in her colostomy bag. Midline wound is healing well. No infection. LABORATORY DATA: White count is 24, hemoglobin 7.7. Creatinine is 2.75, potassium 3.4. ASSESSMENT: 1. Peritonitis, status post abdominal washout and colostomy. 2. Renal failure. 3. Neurologic change. PLAN: Add Reglan. Try tube feeds at lower rate. Job ID: [id number]
--- NOTE | 2020-05-24 10:47 | PRG ---
DATE OF SERVICE: 05/24/2020 SUBJECTIVE: Mel Mullins is a morbidly obese female, status post peritonitis. On the vent. X-ray shows elevated right hemidiaphragm, but otherwise slight cephalization. She is sedated. OBJECTIVE: VITAL SIGNS: Sats 100%, temperature 98, pulse 94, blood pressure 170/89. I's and O's, decreased urine output. CHEST: No wheezing. No crackles. CARDIAC: Normal S1, S2 gallops. ABDOMEN: Soft. LABORATORY DATA: White count 24,000, H and H 7 and 22, platelet count 307, left shift. PO2 is 109, pCO2 , PEEP of 7, 40%. Creatinine 2.75. IMPRESSION: Peritonitis, respiratory failure, renal failure, obesity. PLAN: I am going to start weaning the vent. Nutrition as per Surgery. PT, supportive care. She is on broad-spectrum antibiotics. One-half hour of critical care time. Job ID: [id number]
[2020-05-24] MEDS ORDERED: Heparin 10,000 UNITS/ 10 ML VIAL ONE (12:03)
[2020-05-24] MEDS: Dexamethasone 4 MG TAB PO SCH ×2 (13:07→20:21)
--- NOTE | 2020-05-24 14:52 | PDOC.HOSPP ---
- Subjective Encounter Date: 05/24/20 Encounter Time: 13:00 Subjective: sedated, is on vent - Objective Vital Signs & Weight: Vital Signs (12 hours) Temp Pulse Resp BP Pulse Ox 05/24/20 13:00 97.9 F 05/24/20 12:00 12 05/24/20 11:00 115 H 177/98 H 05/24/20 10:00 98.4 F 13 05/24/20 09:20 94 177/89 H 05/24/20 08:07 102 H 154/96 H 05/24/20 08:00 13 100 05/24/20 06:00 17 05/24/20 05:00 98.9 F 05/24/20 04:00 13 Weight Admit Weight 174 lb 13.225 oz Weight 210 lb 12.191 oz Most Recent Monitor Data Heart Rate from ECG 104 NIBP 175/81 NIBP BP-Mean 112 Respiration from ECG 18 SpO2 100 I&O: 05/23/20 05/24/20 05/25/20 06:59 06:59 06:59 Intake Total 4349.8 3623 660 Output Total 215 317 120 Balance 4134.8 3306 540 Result Diagrams: 05/24/20 03:50 05/24/20 03:50 Additional Labs: Accuchecks 05/24/20 05/24/20 05/24/20 13:00 09:11 03:56 POC Glucose 152 H 134 H 151 H 05/24/20 05/23/20 05/23/20 00:49 19:49 15:55 POC Glucose 154 H 173 H 143 H Hospitalist ROS - Medication Medications: Active Medications Generic Name Dose Route Start Last Admin Trade Name Freq PRN Reason Stop Dose Admin Acetaminophen 1,000 mg 05/14/20 09:04 05/14/20 14:17 Acetaminophen 500 Mg Tab PO 1,000 mg Q6H PRN Administration Moderate to Severe Pain (6-10) Amlodipine Besylate 5 mg 05/24/20 09:00 05/24/20 09:20 Amlodipine 5 Mg Tab PER TUBE 5 mg DAILY ALEKSANDER Administration Dexamethasone 4 mg 05/24/20 13:00 05/24/20 13:07 Dexamethasone 4 Mg Tab PO Not Given Q6H ALEKSANDER Heparin Sodium (Porcine) 5,000 units 05/22/20 21:00 05/24/20 09:20 Heparin 5,000 Units/Ml Vial SC 5,000 units BID ALEKSANDER Administration Promethazine HCl 12.5 mg/ 50.5 mls @ 202 mls/hr 05/17/20 23:20 05/18/20 07:31 Sodium Chloride IVPB 50.5 mls Q3H PRN Administration Nausea/Vomiting Meropenem 500 mg/ Sodium 100 mls @ 200 mls/hr 05/19/20 21:00 05/24/20 10:07 Chloride IVPB 100 mls Q12HR ALEKSANDER Administration Fentanyl Citrate 2,000 mcg/ 100 mls @ 0 mls/hr 05/19/20 21:45 05/23/20 21:25 Sodium Chloride IV 06/18/20 21:45 100 mls INF ALEKSANDER Administration Protocol Per Protocol Sodium Acetate 90 meq/ Sodium 2,110.9121 mls @ 44 mls/hr 05/20/20 22:00 05/23/20 21:54 Chloride 90 meq/ Calcium IV 05/24/20 23:00 2,110.9121 mls Gluconate 10 meq/ Magnesium 2200 ALEKSANDER Administration Sulfate 10 meq/ Multivitamins 10 ml/ Chromium/Copper/ Manganese/Zinc 9 ml/ Insulin Human Regular 21 units/ Amino Acids/Dextrose Insulin Human Lispro 0 units 05/17/20 15:38 05/24/20 03:58 Humalog 300 Units/3 Ml Vial SC 2 unit .MILD SLIDING SCALE PRN Administration Mild Correctional Scale Labetalol HCl 10 mg 05/19/20 17:02 05/19/20 17:52 Labetalol Hcl 100 Mg/20 Ml Vial SLOW IVP 10 mg Q4H PRN Administration Blood Pressure. SBP above 140 Levothyroxine Sodium 112 mcg 05/15/20 06:00 05/24/20 05:43 Levothyroxine Sodium 112 Mcg Tab PO 112 mcg 0600 ALEKSANDER Administration Lorazepam 2 mg 05/19/20 21:45 05/20/20 00:45 Lorazepam 2 Mg/Ml Vial SLOW IVP 06/18/20 21:45 2 mg Q1H PRN Administration Breakthrough agitation Ondansetron HCl 4 mg 05/10/20 19:46 05/19/20 09:55 Ondansetron Pf 4 Mg/2 Ml Vial IVP 4 mg Q6H PRN Administration Nausea Propofol 1,000 mg 05/19/20 21:45 05/24/20 10:38 Propofol 1,000 Mg/100 Ml Vial IV 06/18/20 21:45 1,000 mg INF PRN Administration TO ACHIEVE GOAL RASS Protocol - Exam General Appearance: ill appearing Eye: PERRL, anicteric sclera ENT: no oropharyngeal lesions, moist mucosa Neck: supple, no JVD Heart: RRR, no murmur Respiratory: no wheezes, no rales, rhonchi Gastrointestinal: soft, non-distended, normal bowel sounds Gastrointestinal - other findings: colostomy has stool Extremities: no cyanosis, 2+ LE edema Neurological: cranial nerve grossly intact, no focal deficits Hosp A/P (1) Acute respiratory failure with hypoxia Code(s): J96.01 - ACUTE RESPIRATORY FAILURE WITH HYPOXIA Status: Acute (2) Peritonitis (acute) generalized Code(s): K65.0 - GENERALIZED (ACUTE) PERITONITIS Status: Acute (3) AMANDA (acute kidney injury) Code(s): N17.9 - ACUTE KIDNEY FAILURE, UNSPECIFIED Status: Acute (4) S/P colectomy Status: Acute (5) Anasarca Code(s): R60.1 - GENERALIZED EDEMA Status: Acute (6) Severe protein-calorie malnutrition Code(s): E43 - UNSPECIFIED SEVERE PROTEIN-CALORIE MALNUTRITION Status: Acute (7) On total parenteral nutrition (TPN) Code(s): Z78.9 - OTHER SPECIFIED HEALTH STATUS Status: Acute (8) Hypothyroidism Code(s): E03.9 - HYPOTHYROIDISM, UNSPECIFIED Status: Chronic Qualifiers: Hypothyroidism type: acquired Qualified Code(s): E03.9 - Hypothyroidism, unspecified (9) Postoperative anemia due to acute blood loss Code(s): D62 - ACUTE POSTHEMORRHAGIC ANEMIA Status: Acute (10) Acute metabolic encephalopathy Code(s): G93.41 - METABOLIC ENCEPHALOPATHY Status: Acute (11) PRES (posterior reversible encephalopathy syndrome) Code(s): I67.83 - POSTERIOR REVERSIBLE ENCEPHALOPATHY SYNDROME Status: Suspected (12) Seizure Code(s): R56.9 - UNSPECIFIED CONVULSIONS Status: Acute - Plan is on zyvox, merrem, diflucan, keppra, synthroid, decadron, TPN, tube feeding initiated on 05/22 (to increase tube feeding if she is tolerating and to come down on tpn to 50mls/hr) has been initiated on HD, had back to back HD with max fluid removal as tolerated wed and wed. anasarca/vol overload and low alb, continue fluid removal as tolerated with HD, intake is around 4 lts with 2400 coming from tpn itself. I have switched most of her iv to via ng tube which should help anasarca a bit a long with fluid removal from HD is s/p sigmoid colectomy with colorectal anastamosis done on 05/07, subsequently developed peritonitis due to anastomotic leak and had segmental colectomy with end colostomy/wash out done on 05/10. got intubated on 05/19, weaning per pulm advice prognosis guarded
[2020-05-24] MEDS ORDERED: Albumin 25% 25 GM/100 ML BOT IVPB SCH (16:00)
[2020-05-24] MEDS: Metoclopramide HCl 10 MG/2 ML VIAL IVP SCH ×2 (16:11→20:27)
[2020-05-24] MEDS ORDERED: Fluconazole 100 MG TAB PO SCH (16:15)
[2020-05-24] MEDS: Fluconazole In NaCl,Iso-Osm 200 MG in Premix Bag 1 BAG IVPB SCH (17:11)
[2020-05-24] MEDS: Linezolid 600 MG TAB PO SCH (20:22)
[2020-05-25] MEDS: Propofol 1,000 MG/100 ML VIAL IV PRN ×3 (00:40→14:57)
[2020-05-25] MEDS: Dexamethasone 4 MG TAB PO SCH ×4 (00:40→20:01)
[2020-05-25] MEDS: [UNRECOGNIZED DRUG - OTHER] IV SCH (00:45)
[2020-05-25] MEDS: SODIUM CHLORIDE IV SCH (00:45)
[2020-05-25] MEDS: SODIUM ACETATE IV SCH (00:45)
[2020-05-25] MEDS: CALCIUM GLUCONATE IV SCH (00:45)
[2020-05-25] MEDS: fentaNYL Citrate/PF 2,000 MCG in Sodium Chloride 0.9% 60 ML IV SCH (01:41)
[2020-05-25] MEDS: Labetalol HCl 100 MG/20 ML VIAL SLOW IVP PRN ×2 (02:46→23:22)
[2020-05-25 05:19] LABS: Band 12 % (5-11); Hemoglobin 8.2 g/dL (12.0-16.0); Lymphocytes 10 % (21-51); MDiff Complete? YES; Mean Corpuscular HGB CONC 33.9 g/dL (32.0-36.0); Mean Corpuscular Hemoglobin 31.2 pg (27.0-31.0); Mean Corpuscular Volume 91.9 fL (78.0-98.0); Mean Platelet Volume 8.2 fL (7.4-10.4); Monocytes 5 % (0-10); Neutrophil 73 % (42-75); Platelet Count 396 thou/uL (130-400); RBC Distribution Width 13.2 % (11.5-14.5); Red Blood Cell (RBC) Count 2.65 mill/uL (4.20-5.40); White Blood Cell (WBC) Count 26.6 thou/uL (4.8-10.8)
[2020-05-25 05:21] LABS: Albumin 3.1 g/dL (3.4-4.8); Anion Gap 19 mmol/L (10-20); BUN (Urea Nitrogen) 64 mg/dL (9.8-20.1); Calc. Creatinine Clearance 27 mL/min (70-130); Calcium 7.8 mg/dL (7.8-10.44); Carbon Dioxide 23 mmol/L (23-31); Chloride 94 mmol/L (98-107); Glucose 131 mg/dL (80-115); Phosphorus 2.6 mg/dL (2.3-4.7); Potassium 3.6 mmol/L (3.5-5.1); Sodium 132 mmol/L (136-145)
[2020-05-25] MEDS: Levothyroxine Sodium 112 MCG TAB PO SCH (05:52)
--- NOTE | 2020-05-25 07:44 | PDOC.NEPPN ---
- Subjective Encounter Date: 05/25/20 - Objective Vital Signs & Weight: Vital Signs (12 hours) Temp Pulse Resp BP Pulse Ox 05/25/20 07:35 100 05/25/20 07:00 98.5 F 05/25/20 06:00 11 L 05/25/20 04:00 97.6 F 14 05/25/20 02:46 109 H 169/85 H 05/25/20 02:21 109 H 169/85 H 05/25/20 02:00 12 05/25/20 00:00 97.7 F 15 05/24/20 22:21 106 H 167/85 H 05/24/20 22:00 13 05/24/20 20:00 97.7 F 15 100 Weight Admit Weight 174 lb 13.225 oz Weight 195 lb 8.8 oz Most Recent Monitor Data Heart Rate from ECG 93 NIBP 169/92 NIBP BP-Mean 117 Respiration from ECG 18 SpO2 100 I&O: 05/24/20 05/25/20 05/26/20 06:59 06:59 06:59 Intake Total 3623 3259.3 Output Total 317 500 25 Balance 3306 2759.3 -25 Result Diagrams: 05/25/20 04:12 05/25/20 04:12 Additional Labs: Accuchecks 05/24/20 05/24/20 05/24/20 23:59 20:02 16:15 POC Glucose 123 H 170 H 117 H 05/24/20 05/24/20 13:00 09:11 POC Glucose 152 H 134 H Nephrology ROS - Medication Medications: Active Medications Generic Name Dose Route Start Last Admin Trade Name Shelbie PRN Reason Stop Dose Admin Acetaminophen 1,000 mg 05/14/20 09:04 05/14/20 14:17 Acetaminophen 500 Mg Tab PO 1,000 mg Q6H PRN Administration Moderate to Severe Pain (6-10) Amlodipine Besylate 5 mg 05/24/20 09:00 05/24/20 09:20 Amlodipine 5 Mg Tab PER TUBE 5 mg DAILY ALEKSANDER Administration Dexamethasone 4 mg 05/24/20 13:00 05/25/20 00:40 Dexamethasone 4 Mg Tab PO 4 mg Q6H ALEKSANDER Administration Heparin Sodium (Porcine) 5,000 units 05/22/20 21:00 05/24/20 20:24 Heparin 5,000 Units/Ml Vial SC 5,000 units BID ALEKSANDER Administration Promethazine HCl 12.5 mg/ 50.5 mls @ 202 mls/hr 05/17/20 23:20 05/18/20 07:31 Sodium Chloride IVPB 50.5 mls Q3H PRN Administration Nausea/Vomiting Meropenem 500 mg/ Sodium 100 mls @ 200 mls/hr 05/19/20 21:00 05/24/20 20:21 Chloride IVPB 100 mls Q12HR ALEKSANDER Administration Fentanyl Citrate 2,000 mcg/ 100 mls @ 0 mls/hr 05/19/20 21:45 05/25/20 01:41 Sodium Chloride IV 06/18/20 21:45 100 mls INF ALEKSANDER Administration Protocol Per Protocol Insulin Human Lispro 0 units 05/17/20 15:38 05/24/20 20:21 Humalog 300 Units/3 Ml Vial SC 2 unit .MILD SLIDING SCALE PRN Administration Mild Correctional Scale Labetalol HCl 10 mg 05/19/20 17:02 05/25/20 02:46 Labetalol Hcl 100 Mg/20 Ml Vial SLOW IVP 10 mg Q4H PRN Administration Blood Pressure. SBP above 140 Levothyroxine Sodium 112 mcg 05/15/20 06:00 05/25/20 05:52 Levothyroxine Sodium 112 Mcg Tab PO 112 mcg 0600 ALEKSANDER Administration Linezolid 600 mg 05/24/20 21:00 05/24/20 20:22 Linezolid 600 Mg Tab PO 600 mg Q12HR ALEKSANDER Administration Lorazepam 2 mg 05/19/20 21:45 05/20/20 00:45 Lorazepam 2 Mg/Ml Vial SLOW IVP 06/18/20 21:45 2 mg Q1H PRN Administration Breakthrough agitation Metoclopramide HCl 10 mg 05/24/20 15:00 05/24/20 20:27 Metoclopramide Hcl 10 Mg/2 Ml Vial IVP 10 mg TID ALEKSANDER Administration Ondansetron HCl 4 mg 05/10/20 19:46 05/19/20 09:55 Ondansetron Pf 4 Mg/2 Ml Vial IVP 4 mg Q6H PRN Administration Nausea Pantoprazole Sodium 40 mg 05/24/20 21:00 05/24/20 20:23 Pantoprazole 40 Mg Tab PO 40 mg BID ALEKSANDER Administration Propofol 1,000 mg 05/19/20 21:45 05/25/20 07:05 Propofol 1,000 Mg/100 Ml Vial IV 06/18/20 21:45 1,000 mg INF PRN Administration TO ACHIEVE GOAL RASS Protocol Nephrology Results - Labs Result Diagrams: 05/25/20 04:12 05/25/20 04:12 Lab results: WBC 26.6 thou/uL (4.8-10.8) H 05/25/20 04:12 Hgb 8.2 g/dL (12.0-16.0) L 05/25/20 04:12 Hct 24.3 % (36.0-47.0) L 05/25/20 04:12 MCV 91.9 fL (78.0-98.0) 05/25/20 04:12 Plt Count 396 thou/uL (130-400) 05/25/20 04:12 Neutrophils % 67.4 % (42.0-75.0) 05/13/20 05:02 Band Neuts % (Manual) 12 % (5-11) H 05/25/20 04:12 ABG pH 7.44 (7.35-7.45) 05/24/20 08:15 ABG pCO2 35.5 mmHg (35.0-45.0) 05/24/20 08:15 ABG pO2 109.8 mmHg (> 80.0) H 05/24/20 08:15 Sodium 132 mmol/L (136-145) L 05/25/20 04:12 Potassium 3.6 mmol/L (3.5-5.1) 05/25/20 04:12 Chloride 94 mmol/L (98-107) L 05/25/20 04:12 Carbon Dioxide 23 mmol/L (23-31) 05/25/20 04:12 BUN 64 mg/dL (9.8-20.1) H 05/25/20 04:12 Creatinine 3.02 mg/dL (0.6-1.1) H 05/25/20 04:12 Glucose 131 mg/dL (80-115) H 05/25/20 04:12 Lactic Acid 1.0 mmol/L (0.5-2.2) 05/10/20 23:24 Calcium 7.8 mg/dL (7.8-10.44) 05/25/20 04:12 Total Bilirubin 0.7 mg/dL (0.2-1.2) 05/19/20 17:19 AST 23 U/L (5-34) 05/19/20 17:19 ALT 10 U/L (8-55) 05/19/20 17:19 Alkaline Phosphatase 92 U/L (40-110) 05/19/20 17:19 Troponin I 0.015 ng/mL (< 0.028) 05/10/20 17:06 B-Natriuretic Peptide 92.0 pg/mL (0-100) 05/10/20 17:06 Serum Total Protein 5.6 g/dL (6.0-8.3) L 05/19/20 17:19 Albumin 3.1 g/dL (3.4-4.8) L 05/25/20 04:12 Lipase 26 U/L (8-78) 05/10/20 17:04 Urine Ketones Trace mg/dL (Negative) A 05/18/20 14:45 Urine Blood 3+ (Negative) A 05/18/20 14:45 Urine Nitrite Negative (Negative) 05/18/20 14:45 Ur Leukocyte Esterase Negative Chika/uL (Negative) 05/18/20 14:45 Urine RBC 21-50 HPF (0-3) A 05/18/20 14:45 Urine WBC 4-6 HPF (0-3) A 05/18/20 14:45 Ur Squamous Epith Cells 11-20 HPF (0-3) A 05/18/20 14:45 Urine Bacteria 1+ HPF (None Seen) A 05/18/20 14:45 Sodium 132 mmol/L (136-145) L 05/25/20 04:12 Potassium 3.6 mmol/L (3.5-5.1) 05/25/20 04:12 Chloride 94 mmol/L (98-107) L 05/25/20 04:12 Carbon Dioxide 23 mmol/L (23-31) 05/25/20 04:12 Anion Gap 19 mmol/L (10-20) 05/25/20 04:12 BUN 64 mg/dL (9.8-20.1) H 05/25/20 04:12 Creatinine 3.02 mg/dL (0.6-1.1) H 05/25/20 04:12 Glucose 131 mg/dL (80-115) H 05/25/20 04:12 Calcium 7.8 mg/dL (7.8-10.44) 05/25/20 04:12 Phosphorus 2.6 mg/dL (2.3-4.7) 05/25/20 04:12 Magnesium 2.1 mg/dL (1.6-2.6) 05/24/20 03:50 Albumin 3.1 g/dL (3.4-4.8) L 05/25/20 04:12 Nephrology AP PN - Plan ASSESSMENT: Acute renal failure: Most likely due to hemodynamic factors related to volume depletion due to poor oral intake as well as NSAID use. Now on HD Metabolic acidosis. Anasarca: Most likely due to hypoalbuminemia.and AMANDA. Still grossly edematous due to large fluid intake. Severe hypoalbuminemia PCM Anemia of acute blood loss: Upper GI bleeding. ? NSAID induced gastritis. Peritonitis, on antibiotics. Hypertension: Control is siboptimal Hyponatremia Acute encephalopathy: Most likely due to PRES. Acute CVA is a concern. Seizure: cause or effect of PRES Presumed PRES. Multifactorial in etiology. HTN, AMANDA, Severe hypoalbuminemia Acute visual loss. PLAN. Will dilayze patient for 4 hours with UF as tolerated. Give 50 grams of albumin to facilitate UF. Recommend reducing fluid intake Monitor BP after HD with a view to increasing amlodipine to 10 mg to get roxy quate BP control. Monitor intake and output as well as renal function Renally dose all medication. Avoid nephrotoxic agents.
[2020-05-25] MEDS: Meropenem 500 MG in Sodium Chloride 0.9% 100 ML IVPB SCH ×2 (08:03→20:02)
[2020-05-25] MEDS: Fluconazole 100 MG TAB PO SCH (08:04)
[2020-05-25] MEDS: levETIRAcetam 500 MG TAB PO SCH (08:04)
[2020-05-25] MEDS: Linezolid 600 MG TAB PO SCH ×2 (08:04→20:02)
[2020-05-25] MEDS: Amlodipine 5 MG TAB PER TUBE SCH (08:05)
[2020-05-25] MEDS: Heparin 5,000 UNITS/ML VIAL SC SCH ×2 (08:05→19:59)
[2020-05-25] MEDS: Metoclopramide HCl 10 MG/2 ML VIAL IVP SCH ×3 (08:08→19:59)
--- NOTE | 2020-05-25 08:15 | RAD ---
Chest one view HISTORY: Dyspnea. Intubated. COMPARISON: 05/24/2020. FINDINGS: Cardiac silhouette is magnified by projection. Left margin partially obscured by pleural an d parenchymal opacity that are similar in appearance to the prior study. Subtle parenchymal opacity at the right base is also unchanged. Shallow inspiration accentuates pulmonary markings. Mediastinum is midline. Lines and tubes unchanged in position. No pneumothorax. IMPRESSION : Left pleural fluid, bibasilar infiltrates, and other findings are stable.
[2020-05-25 08:21] LABS: Actual Bicarbonate (HCO3a) 22.3 mEq/L (22-28); Base Excess (BEa) -1.2 mEq/L (-2.0 to +3.0); Calcium, Ionized (arterial) 1.07 mmol/L (1.12-1.30); Carboxyhemoglobin (COHb) 0.2 gm% (0.0-3.0); Hemoglobin (Hb) 10.9 g/dL (12.0-16.0); O2 Tension (PaO2), arterial 84.2 mmHg (> 80.0); pH, Arterial 7.45 (7.35-7.45)
[2020-05-25 08:22] LABS: Puncture Site LRA
[2020-05-25] MEDS: Pantoprazole 40 MG GRANULES PACKET PO SCH ×2 (09:20→20:03)
[2020-05-25] MEDS ORDERED: Albumin 5% 0 ML ONE (10:07)
[2020-05-25] MEDS: Albumin 25% 25 GM/100 ML BOT IVPB SCH (10:11)
--- NOTE | 2020-05-25 11:19 | EKG ---
Test Reason : Blood Pressure : / mmHG Vent. Rate : 131 BPM Atrial Rate : 131 BPM P-R Int : 122 ms QRS Dur : 084 ms QT Int : 318 ms P-R-T Axes : 022 -20 069 degrees QTc Int : 469 ms Sinus tachycardia Low voltage QRS Possible Inferior infarct , age undetermined Abnormal ECG Confirmed by AMADEO PATEL, CECY Greco ([id number]), film and video editor GINA PERKINS ([id number]) on 05/25/2020 11:18:43 AM Referred By: Confirmed By:CECY CHLIDS MD
--- NOTE | 2020-05-25 11:31 | PRG ---
DATE OF SERVICE: 05/25/2020 SUBJECTIVE: Mel Mullins is a 64-year-old female, prolonged hospitalization. She is intubated in the vent, sedated, being dialyzed for chronic renal failure. She is doing somewhat better. She opens eyes. OBJECTIVE: VITAL SIGNS: Sats 98%, pulse 80, respiratory rate of 18, blood pressure 130/80. CHEST: No wheezing. No crackles. CARDIAC: Normal S1, S2. No gallops. ABDOMEN: Soft. IMPRESSION: Multiorgan failure, respiratory failure, severe deconditioning, status post peritonitis. PLAN: I am slowly decreasing the vent trach. She could come off the respirator. She is stronger. She is still on Decadron. We will follow. One-half hour of critical care time. Job ID: [id number]
[2020-05-25] MEDS ORDERED: Heparin 10,000 UNITS/ 10 ML VIAL ONE (12:01)
--- NOTE | 2020-05-25 13:44 | PDOC.NEPPN ---
- Subjective Encounter Date: 05/25/20 Subjective: Still intubated and mechanically ventilated. Still swollen. - Objective Vital Signs & Weight: Vital Signs (12 hours) Temp Pulse Resp BP Pulse Ox 05/25/20 12:00 18 05/25/20 10:39 103 H 156/84 H 05/25/20 10:00 12 05/25/20 08:05 94 160/77 H 05/25/20 08:00 16 05/25/20 07:55 90 160/77 H 05/25/20 07:35 100 05/25/20 07:00 98.5 F 05/25/20 06:00 11 L 05/25/20 04:00 97.6 F 14 05/25/20 02:46 109 H 169/85 H 05/25/20 02:21 109 H 169/85 H 05/25/20 02:00 12 Weight Admit Weight 174 lb 13.225 oz Weight 195 lb 8.8 oz Most Recent Monitor Data Heart Rate from ECG 100 NIBP 157/70 NIBP BP-Mean 99 Respiration from ECG 18 SpO2 99 I&O: 05/24/20 05/25/20 05/26/20 06:59 06:59 06:59 Intake Total 3623 3259.3 240 Output Total 317 500 140 Balance 3306 2759.3 100 Result Diagrams: 05/25/20 04:12 05/25/20 04:12 Additional Labs: Accuchecks 05/25/20 05/24/20 05/24/20 11:57 23:59 20:02 POC Glucose 123 H 123 H 170 H 05/24/20 16:15 POC Glucose 117 H Nephrology ROS - Medication Medications: Active Medications Generic Name Dose Route Start Last Admin Trade Name Freq PRN Reason Stop Dose Admin Acetaminophen 1,000 mg 05/14/20 09:04 05/14/20 14:17 Acetaminophen 500 Mg Tab PO 1,000 mg Q6H PRN Administration Moderate to Severe Pain (6-10) Albumin Human 50 gm 05/25/20 10:15 05/25/20 10:11 Albumin 25% 25 Gm/100 Ml Bot IVPB 05/26/20 10:16 50 gm NOW ALEKSANDER Administration Amlodipine Besylate 5 mg 05/24/20 09:00 05/25/20 08:05 Amlodipine 5 Mg Tab PER TUBE 5 mg DAILY ALEKSANDER Administration Dexamethasone 4 mg 05/24/20 13:00 05/25/20 13:21 Dexamethasone 4 Mg Tab PO 4 mg Q6H ALEKSANDER Administration Fluconazole 200 mg 05/25/20 09:00 05/25/20 08:04 Fluconazole 100 Mg Tab PO 200 mg DAILY ALEKSANDER Administration Heparin Sodium (Porcine) 5,000 units 05/22/20 21:00 05/25/20 08:05 Heparin 5,000 Units/Ml Vial SC 5,000 units BID ALEKSANDER Administration Promethazine HCl 12.5 mg/ 50.5 mls @ 202 mls/hr 05/17/20 23:20 05/18/20 07:31 Sodium Chloride IVPB 50.5 mls Q3H PRN Administration Nausea/Vomiting Meropenem 500 mg/ Sodium 100 mls @ 200 mls/hr 05/19/20 21:00 05/25/20 08:03 Chloride IVPB 100 mls Q12HR ALEKSANDER Administration Fentanyl Citrate 2,000 mcg/ 100 mls @ 0 mls/hr 05/19/20 21:45 05/25/20 01:41 Sodium Chloride IV 06/18/20 21:45 100 mls INF ALEKSANDER Administration Protocol Per Protocol Insulin Human Lispro 0 units 05/17/20 15:38 05/24/20 20:21 Humalog 300 Units/3 Ml Vial SC 2 unit .MILD SLIDING SCALE PRN Administration Mild Correctional Scale Labetalol HCl 10 mg 05/19/20 17:02 05/25/20 02:46 Labetalol Hcl 100 Mg/20 Ml Vial SLOW IVP 10 mg Q4H PRN Administration Blood Pressure. SBP above 140 Levetiracetam 500 mg 05/25/20 09:00 05/25/20 08:04 Levetiracetam 500 Mg Tab PO 500 mg DAILY ALEKSANDER Administration Levothyroxine Sodium 112 mcg 05/15/20 06:00 05/25/20 05:52 Levothyroxine Sodium 112 Mcg Tab PO 112 mcg 0600 ALEKSANDER Administration Linezolid 600 mg 05/24/20 21:00 05/25/20 08:04 Linezolid 600 Mg Tab PO 600 mg Q12HR ALEKSANDER Administration Lorazepam 2 mg 05/19/20 21:45 05/20/20 00:45 Lorazepam 2 Mg/Ml Vial SLOW IVP 06/18/20 21:45 2 mg Q1H PRN Administration Breakthrough agitation Metoclopramide HCl 10 mg 05/24/20 15:00 05/25/20 08:08 Metoclopramide Hcl 10 Mg/2 Ml Vial IVP 10 mg TID ALEKSANDER Administration Ondansetron HCl 4 mg 05/10/20 19:46 05/19/20 09:55 Ondansetron Pf 4 Mg/2 Ml Vial IVP 4 mg Q6H PRN Administration Nausea Pantoprazole Sodium 40 mg 05/25/20 09:00 05/25/20 09:20 Pantoprazole 40 Mg Granules Packet PO 40 mg BID ALEKSANDER Administration Propofol 1,000 mg 05/19/20 21:45 05/25/20 07:05 Propofol 1,000 Mg/100 Ml Vial IV 06/18/20 21:45 1,000 mg INF PRN Administration TO ACHIEVE GOAL RASS Protocol - Exam General - other findings: sedated ENT: normocephalic atraumatic ENT - other findings: ET tube is in place Respiratory - other findings: ventilator transmitted breat sound Cardiovascular: RRR Gastrointestinal: soft, non-distended Gastrointestinal - other findings: colostomy noted Extremities - other findings: edema of the extremities noted Neurological - other findings: sedated. Nephrology Results - Labs Result Diagrams: 05/25/20 04:12 05/25/20 04:12 Lab results: WBC 26.6 thou/uL (4.8-10.8) H 05/25/20 04:12 Hgb 8.2 g/dL (12.0-16.0) L 05/25/20 04:12 Hct 24.3 % (36.0-47.0) L 05/25/20 04:12 MCV 91.9 fL (78.0-98.0) 05/25/20 04:12 Plt Count 396 thou/uL (130-400) 05/25/20 04:12 Neutrophils % 67.4 % (42.0-75.0) 05/13/20 05:02 Band Neuts % (Manual) 12 % (5-11) H 05/25/20 04:12 ABG pH 7.45 (7.35-7.45) 05/25/20 08:11 ABG pCO2 33.0 mmHg (35.0-45.0) L 05/25/20 08:11 ABG pO2 84.2 mmHg (> 80.0) H 05/25/20 08:11 Sodium 132 mmol/L (136-145) L 05/25/20 04:12 Potassium 3.6 mmol/L (3.5-5.1) 05/25/20 04:12 Chloride 94 mmol/L (98-107) L 05/25/20 04:12 Carbon Dioxide 23 mmol/L (23-31) 05/25/20 04:12 BUN 64 mg/dL (9.8-20.1) H 05/25/20 04:12 Creatinine 3.02 mg/dL (0.6-1.1) H 05/25/20 04:12 Glucose 131 mg/dL (80-115) H 05/25/20 04:12 Lactic Acid 1.0 mmol/L (0.5-2.2) 05/10/20 23:24 Calcium 7.8 mg/dL (7.8-10.44) 05/25/20 04:12 Total Bilirubin 0.7 mg/dL (0.2-1.2) 05/19/20 17:19 AST 23 U/L (5-34) 05/19/20 17:19 ALT 10 U/L (8-55) 05/19/20 17:19 Alkaline Phosphatase 92 U/L (40-110) 05/19/20 17:19 Troponin I 0.015 ng/mL (< 0.028) 05/10/20 17:06 B-Natriuretic Peptide 92.0 pg/mL (0-100) 05/10/20 17:06 Serum Total Protein 5.6 g/dL (6.0-8.3) L 05/19/20 17:19 Albumin 3.1 g/dL (3.4-4.8) L 05/25/20 04:12 Lipase 26 U/L (8-78) 05/10/20 17:04 Urine Ketones Trace mg/dL (Negative) A 05/18/20 14:45 Urine Blood 3+ (Negative) A 05/18/20 14:45 Urine Nitrite Negative (Negative) 05/18/20 14:45 Ur Leukocyte Esterase Negative Chika/uL (Negative) 05/18/20 14:45 Urine RBC 21-50 HPF (0-3) A 05/18/20 14:45 Urine WBC 4-6 HPF (0-3) A 05/18/20 14:45 Ur Squamous Epith Cells 11-20 HPF (0-3) A 05/18/20 14:45 Urine Bacteria 1+ HPF (None Seen) A 05/18/20 14:45 Sodium 132 mmol/L (136-145) L 05/25/20 04:12 Potassium 3.6 mmol/L (3.5-5.1) 05/25/20 04:12 Chloride 94 mmol/L (98-107) L 05/25/20 04:12 Carbon Dioxide 23 mmol/L (23-31) 05/25/20 04:12 Anion Gap 19 mmol/L (10-20) 05/25/20 04:12 BUN 64 mg/dL (9.8-20.1) H 05/25/20 04:12 Creatinine 3.02 mg/dL (0.6-1.1) H 05/25/20 04:12 Glucose 131 mg/dL (80-115) H 05/25/20 04:12 Calcium 7.8 mg/dL (7.8-10.44) 05/25/20 04:12 Phosphorus 2.6 mg/dL (2.3-4.7) 05/25/20 04:12 Magnesium 2.1 mg/dL (1.6-2.6) 05/24/20 03:50 Albumin 3.1 g/dL (3.4-4.8) L 05/25/20 04:12 Nephrology AP PN - Plan ASSESSMENT: Acute renal failure: Most likely due to hemodynamic factors related to volume depletion due to poor oral intake as well as NSAID use. Now on HD Metabolic acidosis. Anasarca: Most likely due to hypoalbuminemia.and AMANDA. Still grossly edematous due to large fluid intake. Severe hypoalbuminemia PCM Anemia of acute blood loss: Upper GI bleeding. ? NSAID induced gastritis. Peritonitis, on antibiotics. Hypertension: Control is siboptimal Hyponatremia Acute encephalopathy: Most likely due to PRES. Acute CVA is a concern. Seizure: cause or effect of PRES Presumed PRES. Multifactorial in etiology. HTN, AMANDA, Severe hypoalbuminemia Acute visual loss. PLAN. Will dilayze patient for 4 hours with UF as tolerated. Monitor intake and output as well as renal function Renally dose all medication. Avoid nephrotoxic agents. Patient developed hypotension during HD. Given 50 grams of albumin with improvement Decrease UF. Will hold antihypertensives.
--- NOTE | 2020-05-25 18:35 | PDOC.HOSPP ---
- Subjective Encounter Date: 05/25/20 Encounter Time: 17:30 Subjective: Patient intubated - Objective Vital Signs & Weight: Vital Signs (12 hours) Temp Pulse Resp BP Pulse Ox 05/25/20 18:00 17 05/25/20 16:00 19 05/25/20 14:56 108 H 163/91 H 05/25/20 14:00 21 H 05/25/20 12:00 18 05/25/20 10:39 103 H 156/84 H 05/25/20 10:00 12 05/25/20 08:05 94 160/77 H 05/25/20 08:00 16 05/25/20 07:55 90 160/77 H 05/25/20 07:35 100 05/25/20 07:00 98.5 F Weight Admit Weight 174 lb 13.225 oz Weight 195 lb 8.8 oz Most Recent Monitor Data Heart Rate from ECG 110 NIBP 145/110 NIBP BP-Mean 121 Respiration from ECG 19 SpO2 98 I&O: 05/24/20 05/25/20 05/26/20 06:59 06:59 06:59 Intake Total 3623 3259.3 767 Output Total 317 500 250 Balance 3306 2759.3 517 Result Diagrams: 05/25/20 04:12 05/25/20 04:12 Additional Labs: Accuchecks 05/25/20 05/25/20 05/24/20 15:56 11:57 23:59 POC Glucose 149 H 123 H 123 H 05/24/20 20:02 POC Glucose 170 H Hospitalist ROS - Review of Systems Other: Patient intubated - Medication Medications: Active Medications Generic Name Dose Route Start Last Admin Trade Name Freq PRN Reason Stop Dose Admin Acetaminophen 1,000 mg 05/14/20 09:04 05/14/20 14:17 Acetaminophen 500 Mg Tab PO 1,000 mg Q6H PRN Administration Moderate to Severe Pain (6-10) Albumin Human 50 gm 05/25/20 10:15 05/25/20 10:11 Albumin 25% 25 Gm/100 Ml Bot IVPB 05/26/20 10:16 50 gm NOW ALEKSANDER Administration Amlodipine Besylate 5 mg 05/24/20 09:00 05/25/20 08:05 Amlodipine 5 Mg Tab PER TUBE 5 mg DAILY ALEKSANDER Administration Dexamethasone 4 mg 05/24/20 13:00 05/25/20 13:21 Dexamethasone 4 Mg Tab PO 4 mg Q6H ALEKSANDER Administration Fluconazole 200 mg 05/25/20 09:00 05/25/20 08:04 Fluconazole 100 Mg Tab PO 200 mg DAILY ALEKSANDER Administration Heparin Sodium (Porcine) 5,000 units 05/22/20 21:00 05/25/20 08:05 Heparin 5,000 Units/Ml Vial SC 5,000 units BID ALEKSANDER Administration Promethazine HCl 12.5 mg/ 50.5 mls @ 202 mls/hr 05/17/20 23:20 05/18/20 07:31 Sodium Chloride IVPB 50.5 mls Q3H PRN Administration Nausea/Vomiting Meropenem 500 mg/ Sodium 100 mls @ 200 mls/hr 05/19/20 21:00 05/25/20 08:03 Chloride IVPB 100 mls Q12HR ALEKSANDER Administration Fentanyl Citrate 2,000 mcg/ 100 mls @ 0 mls/hr 05/19/20 21:45 05/25/20 01:41 Sodium Chloride IV 06/18/20 21:45 100 mls INF ALEKSANDER Administration Protocol Per Protocol Insulin Human Lispro 0 units 05/17/20 15:38 05/24/20 20:21 Humalog 300 Units/3 Ml Vial SC 2 unit .MILD SLIDING SCALE PRN Administration Mild Correctional Scale Labetalol HCl 10 mg 05/19/20 17:02 05/25/20 02:46 Labetalol Hcl 100 Mg/20 Ml Vial SLOW IVP 10 mg Q4H PRN Administration Blood Pressure. SBP above 140 Levetiracetam 500 mg 05/25/20 09:00 05/25/20 08:04 Levetiracetam 500 Mg Tab PO 500 mg DAILY ALEKSANDER Administration Levothyroxine Sodium 112 mcg 05/15/20 06:00 05/25/20 05:52 Levothyroxine Sodium 112 Mcg Tab PO 112 mcg 0600 ALEKSANDER Administration Linezolid 600 mg 05/24/20 21:00 05/25/20 08:04 Linezolid 600 Mg Tab PO 600 mg Q12HR ALEKSANDER Administration Lorazepam 2 mg 05/19/20 21:45 05/20/20 00:45 Lorazepam 2 Mg/Ml Vial SLOW IVP 06/18/20 21:45 2 mg Q1H PRN Administration Breakthrough agitation Metoclopramide HCl 10 mg 05/24/20 15:00 05/25/20 14:57 Metoclopramide Hcl 10 Mg/2 Ml Vial IVP 10 mg TID ALEKSANDER Administration Ondansetron HCl 4 mg 05/10/20 19:46 05/19/20 09:55 Ondansetron Pf 4 Mg/2 Ml Vial IVP 4 mg Q6H PRN Administration Nausea Pantoprazole Sodium 40 mg 05/25/20 09:00 05/25/20 09:20 Pantoprazole 40 Mg Granules Packet PO 40 mg BID ALEKSANDER Administration Propofol 1,000 mg 05/19/20 21:45 05/25/20 14:57 Propofol 1,000 Mg/100 Ml Vial IV 06/18/20 21:45 1,000 mg INF PRN Administration TO ACHIEVE GOAL RASS Protocol - Exam Neck: negative: supple, symmetric, no JVD, no thyromegaly, no lymphadenopathy, no carotid bruit, JVD Heart: negative: RRR, no murmur, no gallops, no rubs, normal peripheral pulses, irregular, diminshed peripheral pulses, murmur present, II/IV, III/IV Respiratory: negative: CTAB, no wheezes, no rales, no ronchi, normal chest expansion, no tachypnea, normal percussion, rales, rhonchi, tachypneic, wheezes Hosp A/P (1) Acute metabolic encephalopathy Code(s): G93.41 - METABOLIC ENCEPHALOPATHY Status: Acute (2) Seizure Code(s): R56.9 - UNSPECIFIED CONVULSIONS Status: Acute (3) PRES (posterior reversible encephalopathy syndrome) Code(s): I67.83 - POSTERIOR REVERSIBLE ENCEPHALOPATHY SYNDROME Status: Suspected (4) AMANDA (acute kidney injury) Code(s): N17.9 - ACUTE KIDNEY FAILURE, UNSPECIFIED Status: Acute (5) Malnourished Code(s): E46 - UNSPECIFIED PROTEIN-CALORIE MALNUTRITION Status: Acute (6) Acute respiratory failure with hypoxia Code(s): J96.01 - ACUTE RESPIRATORY FAILURE WITH HYPOXIA Status: Acute (7) On total parenteral nutrition (TPN) Code(s): Z78.9 - OTHER SPECIFIED HEALTH STATUS Status: Acute (8) Peritonitis (acute) generalized Code(s): K65.0 - GENERALIZED (ACUTE) PERITONITIS Status: Acute - Plan will increase keppra to 500mg daily per her renal clearance. We will get MRI brain. Neurology called case was discussed. We will also consult infectious disease possible infectious etiology. Patient currently on TPN. We will also consult GI Castillo NG output appears dark. PPI started. We will get a gastric occult. SCDs for DVT prophylaxis. 05/20 pt was intubated last night. will continue current tx. spoke with neurosurgery will put pt on steroids. Tried to get pt's blood pressure down given PRES. will continue to monitor. Daughter at bedside updated. (1) Acute respiratory failure with hypoxia Code(s): J96.01 - ACUTE RESPIRATORY FAILURE WITH HYPOXIA Status: Acute (2) Peritonitis (acute) generalized Code(s): K65.0 - GENERALIZED (ACUTE) PERITONITIS Status: Acute (3) AMANDA (acute kidney injury) Code(s): N17.9 - ACUTE KIDNEY FAILURE, UNSPECIFIED Status: Acute (4) S/P colectomy Status: Acute (5) Anasarca Code(s): R60.1 - GENERALIZED EDEMA Status: Acute (6) Severe protein-calorie malnutrition Code(s): E43 - UNSPECIFIED SEVERE PROTEIN-CALORIE MALNUTRITION Status: Acute (7) On total parenteral nutrition (TPN) Code(s): Z78.9 - OTHER SPECIFIED HEALTH STATUS Status: Acute (8) Hypothyroidism Code(s): E03.9 - HYPOTHYROIDISM, UNSPECIFIED Status: Chronic Qualifiers: Hypothyroidism type: acquired Qualified Code(s): E03.9 - Hypothyroidism, unspecified (9) Postoperative anemia due to acute blood loss Code(s): D62 - ACUTE POSTHEMORRHAGIC ANEMIA Status: Acute (10) Acute metabolic encephalopathy Code(s): G93.41 - METABOLIC ENCEPHALOPATHY Status: Acute (11) PRES (posterior reversible encephalopathy syndrome) Code(s): I67.83 - POSTERIOR REVERSIBLE ENCEPHALOPATHY SYNDROME Status: Suspected (12) Seizure Code(s): R56.9 - UNSPECIFIED CONVULSIONS Status: Acute - Plan is on zyvox, merrem, diflucan, keppra, synthroid, decadron, TPN, tube feeding initiated on 05/22 (to increase tube feeding if she is tolerating and to come down on tpn to 50mls/hr) has been initiated on HD, had back to back HD with max fluid removal as tolerated wed and wed. anasarca/vol overload and low alb, continue fluid removal as tolerated with HD, intake is around 4 lts with 2400 coming from tpn itself. I have switched most of her iv to via ng tube which should help anasarca a bit along with fluid removal from HD is s/p sigmoid colectomy with colorectal anastamosis done on 05/07, subsequently developed peritonitis due to anastomotic leak and had segmental colectomy with end colostomy/wash out done on 05/10. got intubated on 05/19, weaning per pulm advice prognosis guarded 1/2 per nursing staff patient follows commands once taken off of sedation. Her TPN was discontinued by surgery she is currently on tube feeds. Good output from colostomy. She received albumin with dialysis.
[2020-05-25] MEDS: HumaLOG 300 UNITS/3 ML VIAL SC PRN (19:57)
[2020-05-26] MEDS: Propofol 1,000 MG/100 ML VIAL IV PRN ×2 (00:02→12:57)
[2020-05-26] MEDS: Dexamethasone 4 MG TAB PO SCH ×4 (00:43→20:04)
--- NOTE | 2020-05-26 05:04 | PRG ---
DATE OF SERVICE: 05/25/2020 SUBJECTIVE: Susanna is in C11, intubated. The vital signs with normal temperature, blood pressure 162/91. The patient is restrained, unable to comply with instructions, and attempting to pull the drains and lines. The restraints are located in the upper right and left extremities. The patient has been afebrile for a few days. BP 160/90, heart rate ranging from 94 to 108. O2 saturations are 99, FiO2 of 35. I's and O's have been positive for the past many days, anywhere from 2700 to 4100. She has a colostomy with 50 of output daily. Ley output ranging from 160 to 450. She is getting a lot of fluids, so that explains the positive balance over the past many days. The patient is edematous. Midline abdominal wound is clean and dry, dressed with gauze and tape. She had a right femoral Trialysis catheter and left triple-lumen catheter. OBJECTIVE: LUNGS: Bilateral symmetric breath sounds. HEART: S1 and S2 without murmurs. ABDOMEN: Not distended. Some gas in the colostomy bag. GENERAL: She is sedated at the moment. LABORATORY DATA: Sodium 132. Creatinine 3.02, which is improved from previous. Albumin 3.1, which is also somewhat improved. The last liver profile is from a few days ago and was within normal limits. The white cell count is at 26,000, hemoglobin 8.2. Bands are down to 12%, that is the lowest in few days. Two sets of blood culture from the 18th are no growth for 5 days, and she is currently on meropenem, linezolid, and fluconazole. ASSESSMENT AND DISCUSSION: Diverticulosis, elective resection, primary anastomosis postop leak with diffuse peritonitis, exploratory laparotomy, colostomy establishment. Postoperative acute renal failure, hypertension, and then what appears to be posterior reversible encephalopathy syndrome with seizures, altered mental state, vision impairment with typical findings on MRI. She had severe bandemia and this is steadily improving on broader coverage and we will continue with the same regimen She has marked positive fluid balance and that is going to be a problem for weaning from the ventilator. Job ID: [id number] MTDD
[2020-05-26 05:05] LABS: Albumin 3.8 g/dL (3.4-4.8); Anion Gap 20 mmol/L (10-20); BUN (Urea Nitrogen) 66 mg/dL (9.8-20.1); Calc. Creatinine Clearance 27 mL/min (70-130); Calcium 7.9 mg/dL (7.8-10.44); Carbon Dioxide 24 mmol/L (23-31); Chloride 95 mmol/L (98-107); Glucose 150 mg/dL (80-115); Phosphorus 3.6 mg/dL (2.3-4.7); Potassium 4.2 mmol/L (3.5-5.1); Sodium 135 mmol/L (136-145)
[2020-05-26 05:23] LABS: Band 15 % (5-11); Hemoglobin 7.7 g/dL (12.0-16.0); Lymphocytes 12 % (21-51); MDiff Complete? YES; Mean Corpuscular HGB CONC 33.7 g/dL (32.0-36.0); Mean Corpuscular Hemoglobin 30.8 pg (27.0-31.0); Mean Corpuscular Volume 91.2 fL (78.0-98.0); Mean Platelet Volume 7.9 fL (7.4-10.4); Metamyelocyte 1 % (0-0); Monocytes 2 % (0-10); Myelocyte 3 % (0-0); Neutrophil 67 % (42-75); Nucleated RBC 1 % (0); Platelet Count 397 thou/uL (130-400); RBC Distribution Width 13.8 % (11.5-14.5); White Blood Cell (WBC) Count 18.8 thou/uL (4.8-10.8)
[2020-05-26] MEDS: HumaLOG 300 UNITS/3 ML VIAL SC PRN (05:35)
[2020-05-26] MEDS: Levothyroxine Sodium 112 MCG TAB PO SCH (05:37)
[2020-05-26] MEDS: Meropenem 500 MG in Sodium Chloride 0.9% 100 ML IVPB SCH ×2 (08:10→20:05)
[2020-05-26] MEDS: Linezolid 600 MG TAB PO SCH ×2 (08:12→20:05)
[2020-05-26] MEDS: Metoclopramide HCl 10 MG/2 ML VIAL IVP SCH ×3 (08:12→20:05)
[2020-05-26] MEDS: Fluconazole 100 MG TAB PO SCH (08:12)
[2020-05-26] MEDS: levETIRAcetam 500 MG TAB PO SCH (08:12)
[2020-05-26] MEDS: Heparin 5,000 UNITS/ML VIAL SC SCH ×2 (08:12→20:04)
[2020-05-26] MEDS: Pantoprazole 40 MG GRANULES PACKET PO SCH (08:12)
[2020-05-26 08:23] LABS: Actual Bicarbonate (HCO3a) 23.6 mEq/L (22-28); Base Excess (BEa) 0.1 mEq/L (-2.0 to +3.0); CO2 Tension 33.3 mmHg (35.0-45.0); Calcium, Ionized (arterial) 1.03 mmol/L (1.12-1.30); Carboxyhemoglobin (COHb) 0.4 gm% (0.0-3.0); Hemoglobin (Hb) 8.4 g/dL (12.0-16.0); O2 Tension (PaO2), arterial 83.7 mmHg (> 80.0); pH, Arterial 7.47 (7.35-7.45)
[2020-05-26 08:27] LABS: Puncture Site RRA
[2020-05-26 08:28] LABS: ALV-art Gradient 124.225 mmHg (0-20)
--- NOTE | 2020-05-26 08:59 | RAD ---
Chest one view HISTORY: Dyspnea. Follow-up. COMPARISON: 05/25/2020. FINDINGS: Cardiac silhouette is magnified by projection. Pulmonary vasculature slightly engorged and accentuated by shallow inspiration. Mediastinum is midline. Lines and tubes unchanged in position. Blunting of the costophrenic angles and patchy bibasilar infiltrates are similar in appearance to the prior study. No evidence of pneumothorax. IMPRESSION : No interval change.
--- NOTE | 2020-05-26 10:45 | PRG ---
DATE OF SERVICE: 05/26/2020 Ms. Mullins is stable. She has had significant diuresis over the last few days. She is tolerating tube feeds at goal at 20 mL an hour. On physical examination, she is afebrile, pulse 101, blood pressure is 165/90. Vent settings have been weaned. She is actually making some urine now 540 for the day yesterday, 80 so far today. She has more colostomy output as well. On exam, her abdomen is soft, nondistended. Her midline wound is healing well. There is a small amount of serous drainage on the dressings, but no purulence. White cell count is 18, bands 15, hemoglobin 7.7. Sodium 135, creatinine is 3, and glucose 150. ASSESSMENT: Peritonitis, status post anastomotic leak. She has diverting colostomy now. She is on dialysis. Tube feeds to goal at 20. PLAN: Hopefully, able to be extubated the next few days. Nutrition is all enteral now. Her TPN is off. We will update the family. Job ID: [id number]
--- NOTE | 2020-05-26 11:10 | PRG ---
DATE OF SERVICE: 05/26/2020 SUBJECTIVE: 64-year-old female remains intubated in the vent. She is responsive when the sedation has been decreased, though she did start having episodes of tachypnea when the sedation was turned off. PHYSICAL EXAMINATION: VITAL SIGNS: Pulse is 88, saturations 100%, respirations 30, and blood pressure 160/80. She had rate of 4 right now. CHEST: Decreased breath sounds, bilateral rhonchi. CARDIAC: Normal S1, S2. ABDOMEN: Soft. NEUROLOGIC: Sedated, though very appropriate off sedation. LABORATORY DATA: PO2 is 83, pCO2 is 33, pH 7.47, rate of 6, 35%, PEEP of 5. Creatinine 3, BUN 6. ASSESSMENT: Status post lap, peritonitis, respiratory failure, severe deconditioning, renal failure. We will try minimize sedation. If she remains calm, we can hopefully try and extubate her. PLAN: Continue aggressive PT. One-half hour of critical time. Job ID: [id number]
[2020-05-26] MEDS: Albumin 25% 25 GM/100 ML BOT IVPB SCH (12:41)
[2020-05-26] MEDS ORDERED: Amlodipine 5 MG TAB PER TUBE SCH (13:45)
--- NOTE | 2020-05-26 15:58 | PDOC.HOSPP ---
- Subjective Encounter Date: 05/26/20 Encounter Time: 12:30 Subjective: pt intubated - Objective Vital Signs & Weight: Vital Signs (12 hours) Temp Pulse Resp BP Pulse Ox 05/26/20 14:37 95 05/26/20 14:04 99 169/87 H 05/26/20 14:00 15 05/26/20 12:00 98.5 F 13 05/26/20 11:24 96 163/86 H 05/26/20 10:00 12 05/26/20 08:14 93 171/92 H 05/26/20 08:00 11 L 05/26/20 07:44 100 05/26/20 07:00 97.8 F 05/26/20 05:56 18 Weight Admit Weight 174 lb 13.225 oz Weight 191 lb 9.307 oz Most Recent Monitor Data Heart Rate from ECG 99 NIBP 159/81 NIBP BP-Mean 107 Respiration from ECG 16 SpO2 100 I&O: 05/25/20 05/26/20 05/27/20 06:59 06:59 06:59 Intake Total 3259.3 1315 194 Output Total 500 540 245 Balance 2759.3 775 -51 Result Diagrams: 05/26/20 04:00 05/26/20 04:00 Additional Labs: Accuchecks 05/26/20 05/26/20 05/26/20 12:17 08:01 00:01 POC Glucose 108 H 122 H 136 H 05/25/20 05/25/20 19:51 15:56 POC Glucose 161 H 149 H Hospitalist ROS - Review of Systems Other: intubated - Medication Medications: Active Medications Generic Name Dose Route Start Last Admin Trade Name Freq PRN Reason Stop Dose Admin Acetaminophen 1,000 mg 05/14/20 09:04 05/14/20 14:17 Acetaminophen 500 Mg Tab PO 1,000 mg Q6H PRN Administration Moderate to Severe Pain (6-10) Amlodipine Besylate 5 mg 05/26/20 13:45 05/26/20 14:04 Amlodipine 5 Mg Tab PER TUBE 05/26/20 16:00 5 mg NOW ALEKSANDER Administration Dexamethasone 4 mg 05/24/20 13:00 05/26/20 12:57 Dexamethasone 4 Mg Tab PO 4 mg Q6H ALEKSANDER Administration Fluconazole 200 mg 05/25/20 09:00 05/26/20 08:12 Fluconazole 100 Mg Tab PO 200 mg DAILY ALEKSANDER Administration Heparin Sodium (Porcine) 5,000 units 05/22/20 21:00 05/26/20 08:12 Heparin 5,000 Units/Ml Vial SC 5,000 units BID ALEKSANDER Administration Promethazine HCl 12.5 mg/ 50.5 mls @ 202 mls/hr 05/17/20 23:20 05/18/20 07:31 Sodium Chloride IVPB 50.5 mls Q3H PRN Administration Nausea/Vomiting Meropenem 500 mg/ Sodium 100 mls @ 200 mls/hr 05/19/20 21:00 05/26/20 08:10 Chloride IVPB 100 mls Q12HR ALEKSANDER Administration Fentanyl Citrate 2,000 mcg/ 100 mls @ 0 mls/hr 05/19/20 21:45 05/25/20 01:41 Sodium Chloride IV 06/18/20 21:45 100 mls INF ALEKSANDER Administration Protocol Per Protocol Insulin Human Lispro 0 units 05/17/20 15:38 05/26/20 05:35 Humalog 300 Units/3 Ml Vial SC 2 unit .MILD SLIDING SCALE PRN Administration Mild Correctional Scale Labetalol HCl 10 mg 05/19/20 17:02 05/25/20 23:22 Labetalol Hcl 100 Mg/20 Ml Vial SLOW IVP 10 mg Q4H PRN Administration Blood Pressure. SBP above 140 Levetiracetam 500 mg 05/25/20 09:00 05/26/20 08:12 Levetiracetam 500 Mg Tab PO 500 mg DAILY ALEKSANDER Administration Levothyroxine Sodium 112 mcg 05/15/20 06:00 05/26/20 05:37 Levothyroxine Sodium 112 Mcg Tab PO 112 mcg 0600 ALEKSANDER Administration Linezolid 600 mg 05/24/20 21:00 05/26/20 08:12 Linezolid 600 Mg Tab PO 600 mg Q12HR ALEKSANDER Administration Lorazepam 2 mg 05/19/20 21:45 05/20/20 00:45 Lorazepam 2 Mg/Ml Vial SLOW IVP 06/18/20 21:45 2 mg Q1H PRN Administration Breakthrough agitation Metoclopramide HCl 10 mg 05/24/20 15:00 05/26/20 14:04 Metoclopramide Hcl 10 Mg/2 Ml Vial IVP 10 mg TID ALEKSANDER Administration Ondansetron HCl 4 mg 12/18/20 19:46 05/19/20 09:55 Ondansetron Pf 4 Mg/2 Ml Vial IVP 4 mg Q6H PRN Administration Nausea Pantoprazole Sodium 40 mg 05/25/20 09:00 05/26/20 08:12 Pantoprazole 40 Mg Granules Packet PO 40 mg BID ALEKSANDER Administration Propofol 1,000 mg 05/19/20 21:45 05/26/20 12:57 Propofol 1,000 Mg/100 Ml Vial IV 06/18/20 21:45 1,000 mg INF PRN Administration TO ACHIEVE GOAL RASS Protocol - Exam Neck: negative: supple, symmetric, no JVD, no thyromegaly, no lymphadenopathy, no carotid bruit, JVD Heart: negative: RRR, no murmur, no gallops, no rubs, normal peripheral pulses, irregular, diminshed peripheral pulses, murmur present, II/IV, III/IV Respiratory: negative: CTAB, no wheezes, no rales, no ronchi, normal chest expansion, no tachypnea, normal percussion, rales, rhonchi, tachypneic, wheezes Gastrointestinal: negative: soft, non-tender, non-distended, normal bowel sounds, no palpable masses, no hepatomegaly, no splenomegaly, no bruit, no guarding, no rigidity, tender to palpation, distended, diminished bowl sounds, voluntary guarding Hosp A/P (1) Acute metabolic encephalopathy Code(s): G93.41 - METABOLIC ENCEPHALOPATHY Status: Acute (2) Seizure Code(s): R56.9 - UNSPECIFIED CONVULSIONS Status: Acute (3) PRES (posterior reversible encephalopathy syndrome) Code(s): I67.83 - POSTERIOR REVERSIBLE ENCEPHALOPATHY SYNDROME Status: Suspected (4) AMANDA (acute kidney injury) Code(s): N17.9 - ACUTE KIDNEY FAILURE, UNSPECIFIED Status: Acute (5) Malnourished Code(s): E46 - UNSPECIFIED PROTEIN-CALORIE MALNUTRITION Status: Acute (6) Acute respiratory failure with hypoxia Code(s): J96.01 - ACUTE RESPIRATORY FAILURE WITH HYPOXIA Status: Acute (7) On total parenteral nutrition (TPN) Code(s): Z78.9 - OTHER SPECIFIED HEALTH STATUS Status: Acute (8) Peritonitis (acute) generalized Code(s): K65.0 - GENERALIZED (ACUTE) PERITONITIS Status: Acute - Plan will increase keppra to 500mg daily per her renal clearance. We will get MRI brain. Neurology called case was discussed. We will also consult infectious disease possible infectious etiology. Patient currently on TPN. We will also consult GI Castillo NG output appears dark. PPI started. We will get a gastric occult. SCDs for DVT prophylaxis. 05/20 pt was intubated last night. will continue current tx. spoke with neurosurgery will put pt on steroids. Tried to get pt's blood pressure down given PRES. will continue to monitor. Daughter at bedside updated. (1) Acute respiratory failure with hypoxia Code(s): J96.01 - ACUTE RESPIRATORY FAILURE WITH HYPOXIA Status: Acute (2) Peritonitis (acute) generalized Code(s): K65.0 - GENERALIZED (ACUTE) PERITONITIS Status: Acute (3) AMANDA (acute kidney injury) Code(s): N17.9 - ACUTE KIDNEY FAILURE, UNSPECIFIED Status: Acute (4) S/P colectomy Status: Acute (5) Anasarca Code(s): R60.1 - GENERALIZED EDEMA Status: Acute (6) Severe protein-calorie malnutrition Code(s): E43 - UNSPECIFIED SEVERE PROTEIN-CALORIE MALNUTRITION Status: Acute (7) On total parenteral nutrition (TPN) Code(s): Z78.9 - OTHER SPECIFIED HEALTH STATUS Status: Acute (8) Hypothyroidism Code(s): E03.9 - HYPOTHYROIDISM, UNSPECIFIED Status: Chronic Qualifiers: Hypothyroidism type: acquired Qualified Code(s): E03.9 - Hypothyroidism, unspecified (9) Postoperative anemia due to acute blood loss Code(s): D62 - ACUTE POSTHEMORRHAGIC ANEMIA Status: Acute (10) Acute metabolic encephalopathy Code(s): G93.41 - METABOLIC ENCEPHALOPATHY Status: Acute (11) PRES (posterior reversible encephalopathy syndrome) Code(s): I67.83 - POSTERIOR REVERSIBLE ENCEPHALOPATHY SYNDROME Status: Suspected (12) Seizure Code(s): R56.9 - UNSPECIFIED CONVULSIONS Status: Acute - Plan is on zyvox, merrem, diflucan, keppra, synthroid, decadron, TPN, tube feeding i nitiated on 05/22 (to increase tube feeding if she is tolerating and to come down on tpn to 50mls/hr) has been initiated on HD, had back to back HD with max fluid removal as tolerated wed and wed. anasarca/vol overload and low alb, continue fluid removal as tolerated with HD, intake is around 4 lts with 2400 coming from tpn itself. I have switched most of her iv to via ng tube which should help anasarca a bit along with fluid removal from HD is s/p sigmoid colectomy with colorectal anastamosis done on 05/07, subsequently developed peritonitis due to anastomotic leak and had segmental colectomy with end colostomy/wash out done on 05/10. got intubated on 05/19, weaning per pulm advice prognosis guarded 1/2 per nursing staff patient follows commands once taken off of sedation. Her TPN was discontinued by surgery she is currently on tube feeds. Good output from colostomy. She received albumin with dialysis. 1/3 per nursing staff moving all ext when off sedation. Hopefully extubation s oon. pt is at goal for her tube feeds and low residual. will continue current abx.
--- NOTE | 2020-05-26 16:16 | PDOC.NEPPN ---
- Subjective Encounter Date: 05/26/20 Subjective: Still intubated and mechanically ventilated. Tolerating tube feeding well. No fever. - Objective Vital Signs & Weight: Vital Signs (12 hours) Temp Pulse Resp BP Pulse Ox 05/26/20 14:37 95 05/26/20 14:04 99 169/87 H 05/26/20 14:00 15 05/26/20 12:00 98.5 F 13 05/26/20 11:24 96 163/86 H 05/26/20 10:00 12 05/26/20 08:14 93 171/92 H 05/26/20 08:00 11 L 05/26/20 07:44 100 05/26/20 07:00 97.8 F 05/26/20 05:56 18 Weight Admit Weight 174 lb 13.225 oz Weight 191 lb 9.307 oz Most Recent Monitor Data Heart Rate from ECG 99 NIBP 159/81 NIBP BP-Mean 107 Respiration from ECG 16 SpO2 100 I&O: 05/25/20 05/26/20 05/27/20 06:59 06:59 06:59 Intake Total 3259.3 1315 194 Output Total 500 540 245 Balance 2759.3 775 -51 Result Diagrams: 05/26/20 04:00 05/26/20 04:00 Additional Labs: Accuchecks 05/26/20 05/26/20 05/26/20 15:59 12:17 08:01 POC Glucose 149 H 108 H 122 H 05/26/20 05/25/20 00:01 19:51 POC Glucose 136 H 161 H Nephrology ROS - Medication Medications: Active Medications Generic Name Dose Route Start Last Admin Trade Name Jourdanq PRN Reason Stop Dose Admin Acetaminophen 1,000 mg 05/14/20 09:04 05/14/20 14:17 Acetaminophen 500 Mg Tab PO 1,000 mg Q6H PRN Administration Moderate to Severe Pain (6-10) Dexamethasone 4 mg 05/24/20 13:00 05/26/20 12:57 Dexamethasone 4 Mg Tab PO 4 mg Q6H ALEKSANDER Administration Fluconazole 200 mg 05/25/20 09:00 05/26/20 08:12 Fluconazole 100 Mg Tab PO 200 mg DAILY ALEKSANDER Administration Heparin Sodium (Porcine) 5,000 units 05/22/20 21:00 05/26/20 08:12 Heparin 5,000 Units/Ml Vial SC 5,000 units BID ALEKSANDER Administration Promethazine HCl 12.5 mg/ 50.5 mls @ 202 mls/hr 05/17/20 23:20 05/18/20 07:31 Sodium Chloride IVPB 50.5 mls Q3H PRN Administration Nausea/Vomiting Meropenem 500 mg/ Sodium 100 mls @ 200 mls/hr 05/19/20 21:00 05/26/20 08:10 Chloride IVPB 100 mls Q12HR ALEKSANDER Administration Fentanyl Citrate 2,000 mcg/ 100 mls @ 0 mls/hr 05/19/20 21:45 05/25/20 01:41 Sodium Chloride IV 06/18/20 21:45 100 mls INF ALEKSANDER Administration Protocol Per Protocol Insulin Human Lispro 0 units 05/17/20 15:38 05/26/20 05:35 Humalog 300 Units/3 Ml Vial SC 2 unit .MILD SLIDING SCALE PRN Administration Mild Correctional Scale Labetalol HCl 10 mg 05/19/20 17:02 05/25/20 23:22 Labetalol Hcl 100 Mg/20 Ml Vial SLOW IVP 10 mg Q4H PRN Administration Blood Pressure. SBP above 140 Levetiracetam 500 mg 05/25/20 09:00 05/26/20 08:12 Levetiracetam 500 Mg Tab PO 500 mg DAILY ALEKSANDER Administration Levothyroxine Sodium 112 mcg 05/15/20 06:00 05/26/20 05:37 Levothyroxine Sodium 112 Mcg Tab PO 112 mcg 0600 ALEKSANDER Administration Linezolid 600 mg 05/24/20 21:00 05/26/20 08:12 Linezolid 600 Mg Tab PO 600 mg Q12HR ALEKSANDER Administration Lorazepam 2 mg 05/19/20 21:45 05/20/20 00:45 Lorazepam 2 Mg/Ml Vial SLOW IVP 06/18/20 21:45 2 mg Q1H PRN Administration Breakthrough agitation Metoclopramide HCl 10 mg 05/24/20 15:00 05/26/20 14:04 Metoclopramide Hcl 10 Mg/2 Ml Vial IVP 10 mg TID ALEKSANDER Administration Ondansetron HCl 4 mg 05/10/20 19:46 05/19/20 09:55 Ondansetron Pf 4 Mg/2 Ml Vial IVP 4 mg Q6H PRN Administration Nausea Pantoprazole Sodium 40 mg 05/25/20 09:00 05/26/20 08:12 Pantoprazole 40 Mg Granules Packet PO 40 mg BID ALEKSANDER Administration Propofol 1,000 mg 05/19/20 21:45 05/26/20 12:57 Propofol 1,000 Mg/100 Ml Vial IV 06/18/20 21:45 1,000 mg INF PRN Administration TO ACHIEVE GOAL RASS Protocol - Exam General - other findings: sedated ENT: normocephalic atraumatic ENT - other findings: ET and OG tubes in place. Neck: symmetric Respiratory - other findings: ventilator transmitted sound noted Cardiovascular: RRR Gastrointestinal: soft, non-distended Gastrointestinal - other findings: colostomy noted. Extremities - other findings: edema of the extremities noted Neurological - other findings: sedated. Nephrology Results - Labs Result Diagrams: 05/26/20 04:00 05/26/20 04:00 Lab results: WBC 18.8 thou/uL (4.8-10.8) H 05/26/20 04:00 Hgb 7.7 g/dL (12.0-16.0) L 05/26/20 04:00 Hct 22.8 % (36.0-47.0) L 05/26/20 04:00 MCV 91.2 fL (78.0-98.0) 05/26/20 04:00 Plt Count 397 thou/uL (130-400) 05/26/20 04:00 Neutrophils % 67.4 % (42.0-75.0) 05/13/20 05:02 Band Neuts % (Manual) 15 % (5-11) H 05/26/20 04:00 ABG pH 7.47 (7.35-7.45) H 05/26/20 08:25 ABG pCO2 33.3 mmHg (35.0-45.0) L 05/26/20 08:25 ABG pO2 83.7 mmHg (> 80.0) H 05/26/20 08:25 Sodium 135 mmol/L (136-145) L 05/26/20 04:00 Potassium 4.2 mmol/L (3.5-5.1) 05/26/20 04:00 Chloride 95 mmol/L (98-107) L 05/26/20 04:00 Carbon Dioxide 24 mmol/L (23-31) 05/26/20 04:00 BUN 66 mg/dL (9.8-20.1) H 05/26/20 04:00 Creatinine 3.00 mg/dL (0.6-1.1) H 05/26/20 04:00 Glucose 150 mg/dL (80-115) H 05/26/20 04:00 Lactic Acid 1.0 mmol/L (0.5-2.2) 05/10/20 23:24 Calcium 7.9 mg/dL (7.8-10.44) 05/26/20 04:00 Total Bilirubin 0.7 mg/dL (0.2-1.2) 05/19/20 17:19 AST 23 U/L (5-34) 05/19/20 17:19 ALT 10 U/L (8-55) 05/19/20 17:19 Alkaline Phosphatase 92 U/L (40-110) 05/19/20 17:19 Troponin I 0.015 ng/mL (< 0.028) 05/10/20 17:06 B-Natriuretic Peptide 92.0 pg/mL (0-100) 05/10/20 17:06 Serum Total Protein 5.6 g/dL (6.0-8.3) L 05/19/20 17:19 Albumin 3.8 g/dL (3.4-4.8) 05/26/20 04:00 Lipase 26 U/L (8-78) 05/10/20 17:04 Urine Ketones Trace mg/dL (Negative) A 05/18/20 14:45 Urine Blood 3+ (Negative) A 05/18/20 14:45 Urine Nitrite Negative (Negative) 05/18/20 14:45 Ur Leukocyte Esterase Negative Chika/uL (Negative) 05/18/20 14:45 Urine RBC 21-50 HPF (0-3) A 05/18/20 14:45 Urine WBC 4-6 HPF (0-3) A 05/18/20 14:45 Ur Squamous Epith Cells 11-20 HPF (0-3) A 05/18/20 14:45 Urine Bacteria 1+ HPF (None Seen) A 05/18/20 14:45 Sodium 135 mmol/L (136-145) L 05/26/20 04:00 Potassium 4.2 mmol/L (3.5-5.1) 05/26/20 04:00 Chloride 95 mmol/L (98-107) L 05/26/20 04:00 Carbon Dioxide 24 mmol/L (23-31) 05/26/20 04:00 Anion Gap 20 mmol/L (10-20) 05/26/20 04:00 BUN 66 mg/dL (9.8-20.1) H 05/26/20 04:00 Creatinine 3.00 mg/dL (0.6-1.1) H 05/26/20 04:00 Glucose 150 mg/dL (80-115) H 05/26/20 04:00 Calcium 7.9 mg/dL (7.8-10.44) 05/26/20 04:00 Phosphorus 3.6 mg/dL (2.3-4.7) 05/26/20 04:00 Magnesium 2.1 mg/dL (1.6-2.6) 05/24/20 03:50 Albumin 3.8 g/dL (3.4-4.8) 05/26/20 04:00 Nephrology AP PN - Plan ASSESSMENT: Acute renal failure: Most likely due to hemodynamic factors related to volume depletion due to poor oral intake as well as NSAID use. Now on HD Metabolic acidosis. Anasarca: Most likely due to hypoalbuminemia.and AMANDA. Still grossly edematous due to large fluid intake. Improving with HD/UF Severe hypoalbuminemia PCM Anemia of acute blood loss: Upper GI bleeding. ? NSAID induced gastritis. Peritonitis, on antibiotics. Hypertension: Control is siboptimal Hyponatremia Acute encephalopathy: Most likely due to PRES. Acute CVA is a concern. Seizure: cause or effect of PRES. On antiepileptic Presumed PRES. Multifactorial in etiology. HTN, AMANDA, Severe hypoalbuminemia Acute visual loss. PLAN. No dialysis today. Give a dose of lasix 80 mg X 1. Monitor intake/output and renal function for renal recovery Restart amlodipine to get better BP control. Renally dose all medication. Avoid nephrotoxic agents.
[2020-05-26] MEDS ORDERED: Furosemide 100 MG/10 ML VIAL SLOW IVP SCH (16:30)
[2020-05-27] MEDS: Propofol 1,000 MG/100 ML VIAL IV PRN (00:35)
[2020-05-27] MEDS: Dexamethasone 4 MG TAB PO SCH ×4 (00:35→20:04)
[2020-05-27] MEDS: HumaLOG 300 UNITS/3 ML VIAL SC PRN (00:42)
[2020-05-27] MEDS: Levothyroxine Sodium 112 MCG TAB PO SCH (05:11)
[2020-05-27 05:40] LABS: Anion Gap 23 mmol/L (10-20); BUN (Urea Nitrogen) 91 mg/dL (9.8-20.1); Calc. Creatinine Clearance 20 mL/min (70-130); Calcium 7.6 mg/dL (7.8-10.44); Carbon Dioxide 22 mmol/L (23-31); Chloride 94 mmol/L (98-107); Glucose 132 mg/dL (80-115); Potassium 4.2 mmol/L (3.5-5.1); Sodium 135 mmol/L (136-145)
[2020-05-27 06:22] LABS: Band 22 % (5-11); Hemoglobin 7.2 g/dL (12.0-16.0); Lymphocytes 7 % (21-51); MDiff Complete? YES; Mean Corpuscular HGB CONC 33.9 g/dL (32.0-36.0); Mean Corpuscular Hemoglobin 30.7 pg (27.0-31.0); Mean Corpuscular Volume 90.5 fL (78.0-98.0); Mean Platelet Volume 7.9 fL (7.4-10.4); Monocytes 2 % (0-10); Myelocyte 1 % (0-0); Neutrophil 68 % (42-75); Platelet Count 398 thou/uL (130-400); RBC Distribution Width 13.8 % (11.5-14.5); Red Blood Cell (RBC) Count 2.35 mill/uL (4.20-5.40); White Blood Cell (WBC) Count 25.6 thou/uL (4.8-10.8)
[2020-05-27 08:04] LABS: Actual Bicarbonate (HCO3a) 21.2 mEq/L (22-28); Base Excess (BEa) -2.2 mEq/L (-2.0 to +3.0); CO2 Tension 30.3 mmHg (35.0-45.0); Calcium, Ionized (arterial) 0.98 mmol/L (1.12-1.30); Carboxyhemoglobin (COHb) 0.6 gm% (0.0-3.0); Hemoglobin (Hb) 7.4 g/dL (12.0-16.0); O2 Tension (PaO2), arterial 83.2 mmHg (> 80.0); Potassium - ABG Lab 4.08 mmol/L (3.70-5.30); pH, Arterial 7.46 (7.35-7.45)
[2020-05-27 08:08] LABS: Puncture Site RBA
[2020-05-27 08:09] LABS: ALV-art Gradient 128.475 mmHg (0-20)
--- NOTE | 2020-05-27 08:40 | PDOC.NEPPN ---
- Subjective Encounter Date: 05/27/20 Subjective: Still intubated and mechanically ventilated. Still swollen. - Objective Vital Signs & Weight: Vital Signs (12 hours) Temp Pulse Resp BP Pulse Ox 05/27/20 07:59 12 100 05/27/20 06:00 18 05/27/20 04:54 96 05/27/20 04:00 15 05/27/20 03:00 97.8 F 05/27/20 02:00 14 05/27/20 00:02 96 150/75 H 05/27/20 00:00 12 05/26/20 23:00 98.6 F 05/26/20 22:00 16 Weight Admit Weight 174 lb 13.225 oz Weight 186 lb 8.177 oz Most Recent Monitor Data Heart Rate from ECG 94 NIBP 148/81 NIBP BP-Mean 103 Respiration from ECG 16 SpO2 100 I&O: 05/26/20 05/27/20 05/28/20 06:59 06:59 06:59 Intake Total 1315 1068.1 Output Total 540 1435 50 Balance 775 -366.9 -50 Result Diagrams: 05/27/20 03:30 05/27/20 03:30 Additional Labs: Accuchecks 05/27/20 05/27/20 05/26/20 04:52 00:41 21:42 POC Glucose 138 H 164 H 155 H 05/26/20 05/26/20 15:59 12:17 POC Glucose 149 H 108 H Nephrology ROS - Medication Medications: Active Medications Generic Name Dose Route Start Last Admin Trade Name Freq PRN Reason Stop Dose Admin Acetaminophen 1,000 mg 05/14/20 09:04 05/14/20 14:17 Acetaminophen 500 Mg Tab PO 1,000 mg Q6H PRN Administration Moderate to Severe Pain (6-10) Dexamethasone 4 mg 05/24/20 13:00 05/27/20 00:35 Dexamethasone 4 Mg Tab PO 4 mg Q6H ALEKSANDER Administration Fluconazole 200 mg 05/25/20 09:00 05/26/20 08:12 Fluconazole 100 Mg Tab PO 200 mg DAILY ALEKSANDER Administration Heparin Sodium (Porcine) 5,000 units 05/22/20 21:00 05/26/20 20:04 Heparin 5,000 Units/Ml Vial SC 5,000 units BID ALEKSANDER Administration Promethazine HCl 12.5 mg/ 50.5 mls @ 202 mls/hr 05/17/20 23:20 05/18/20 07:31 Sodium Chloride IVPB 50.5 mls Q3H PRN Administration Nausea/Vomiting Meropenem 500 mg/ Sodium 100 mls @ 200 mls/hr 05/19/20 21:00 05/26/20 20:05 Chloride IVPB 100 mls Q12HR ALEKSANDER Administration Fentanyl Citrate 2,000 mcg/ 100 mls @ 0 mls/hr 05/19/20 21:45 05/25/20 01:41 Sodium Chloride IV 06/18/20 21:45 100 mls INF ALEKSANDER Administration Protocol Per Protocol Insulin Human Lispro 0 units 05/17/20 15:38 05/27/20 00:42 Humalog 300 Units/3 Ml Vial SC 2 unit .MILD SLIDING SCALE PRN Administration Mild Correctional Scale Labetalol HCl 10 mg 05/19/20 17:02 05/25/20 23:22 Labetalol Hcl 100 Mg/20 Ml Vial SLOW IVP 10 mg Q4H PRN Administration Blood Pressure. SBP above 140 Levetiracetam 500 mg 05/25/20 09:00 05/26/20 08:12 Levetiracetam 500 Mg Tab PO 500 mg DAILY ALEKSANDER Administration Levothyroxine Sodium 112 mcg 05/15/20 06:00 05/27/20 05:11 Levothyroxine Sodium 112 Mcg Tab PO 112 mcg 0600 ALEKSANDER Administration Linezolid 600 mg 05/24/20 21:00 05/26/20 20:05 Linezolid 600 Mg Tab PO 600 mg Q12HR ALEKSANDER Administration Lorazepam 2 mg 05/19/20 21:45 05/20/20 00:45 Lorazepam 2 Mg/Ml Vial SLOW IVP 06/18/20 21:45 2 mg Q1H PRN Administration Breakthrough agitation Metoclopramide HCl 10 mg 05/24/20 15:00 05/26/20 20:05 Metoclopramide Hcl 10 Mg/2 Ml Vial IVP 10 mg TID ALEKSANDER Administration Ondansetron HCl 4 mg 05/10/20 19:46 05/19/20 09:55 Ondansetron Pf 4 Mg/2 Ml Vial IVP 4 mg Q6H PRN Administration Nausea Pantoprazole Sodium 40 mg 05/26/20 21:00 05/26/20 20:07 Pantoprazole 40 Mg Tab PO 40 mg BID ALEKSANDER Administration Propofol 1,000 mg 05/19/20 21:45 05/27/20 00:35 Propofol 1,000 Mg/100 Ml Vial IV 06/18/20 21:45 1,000 mg INF PRN Administration TO ACHIEVE GOAL RASS Protocol - Exam General - other findings: sedated. Eye: anicteric sclera ENT: normocephalic atraumatic ENT - other findings: ET tube in place Neck: symmetric Respiratory: no tachypnea Cardiovascular: RRR Gastrointestinal: non-distended Gastrointestinal - other findings: LLQ colostomy and malone catheter noted Extremities - other findings: Edema of the extremities noted Neurological - other findings: sedated Nephrology Results - Labs Result Diagrams: 05/27/20 03:30 05/27/20 03:30 Lab results: WBC 25.6 thou/uL (4.8-10.8) H 05/27/20 03:30 Hgb 7.2 g/dL (12.0-16.0) L 05/27/20 03:30 Hct 21.2 % (36.0-47.0) L 05/27/20 03:30 MCV 90.5 fL (78.0-98.0) 05/27/20 03:30 Plt Count 398 thou/uL (130-400) 05/27/20 03:30 Neutrophils % 67.4 % (42.0-75.0) 05/13/20 05:02 Band Neuts % (Manual) 22 % (5-11) H 05/27/20 03:30 ABG pH 7.46 (7.35-7.45) H 05/27/20 07:35 ABG pCO2 30.3 mmHg (35.0-45.0) L 05/27/20 07:35 ABG pO2 83.2 mmHg (> 80.0) H 05/27/20 07:35 Sodium 135 mmol/L (136-145) L 05/27/20 03:30 Potassium 4.2 mmol/L (3.5-5.1) 05/27/20 03:30 Chloride 94 mmol/L (98-107) L 05/27/20 03:30 Carbon Dioxide 22 mmol/L (23-31) L 05/27/20 03:30 BUN 91 mg/dL (9.8-20.1) H 05/27/20 03:30 Creatinine 3.76 mg/dL (0.6-1.1) H 05/27/20 03:30 Glucose 132 mg/dL (80-115) H 05/27/20 03:30 Lactic Acid 1.0 mmol/L (0.5-2.2) 05/10/20 23:24 Calcium 7.6 mg/dL (7.8-10.44) L 05/27/20 03:30 Total Bilirubin 0.7 mg/dL (0.2-1.2) 05/19/20 17:19 AST 23 U/L (5-34) 05/19/20 17:19 ALT 10 U/L (8-55) 05/19/20 17:19 Alkaline Phosphatase 92 U/L (40-110) 05/19/20 17:19 Troponin I 0.015 ng/mL (< 0.028) 05/10/20 17:06 B-Natriuretic Peptide 92.0 pg/mL (0-100) 05/10/20 17:06 Serum Total Protein 5.6 g/dL (6.0-8.3) L 05/19/20 17:19 Albumin 3.8 g/dL (3.4-4.8) 05/26/20 04:00 Lipase 26 U/L (8-78) 05/10/20 17:04 Urine Ketones Trace mg/dL (Negative) A 05/18/20 14:45 Urine Blood 3+ (Negative) A 05/18/20 14:45 Urine Nitrite Negative (Negative) 05/18/20 14:45 Ur Leukocyte Esterase Negative Chika/uL (Negative) 05/18/20 14:45 Urine RBC 21-50 HPF (0-3) A 05/18/20 14:45 Urine WBC 4-6 HPF (0-3) A 05/18/20 14:45 Ur Squamous Epith Cells 11-20 HPF (0-3) A 05/18/20 14:45 Urine Bacteria 1+ HPF (None Seen) A 05/18/20 14:45 Sodium 135 mmol/L (136-145) L 05/27/20 03:30 Potassium 4.2 mmol/L (3.5-5.1) 05/27/20 03:30 Chloride 94 mmol/L (98-107) L 05/27/20 03:30 Carbon Dioxide 22 mmol/L (23-31) L 05/27/20 03:30 Anion Gap 23 mmol/L (10-20) H 05/27/20 03:30 BUN 91 mg/dL (9.8-20.1) H 05/27/20 03:30 Creatinine 3.76 mg/dL (0.6-1.1) H 05/27/20 03:30 Glucose 132 mg/dL (80-115) H 05/27/20 03:30 Calcium 7.6 mg/dL (7.8-10.44) L 05/27/20 03:30 Phosphorus 3.6 mg/dL (2.3-4.7) 05/26/20 04:00 Magnesium 2.1 mg/dL (1.6-2.6) 05/24/20 03:50 Albumin 3.8 g/dL (3.4-4.8) 05/26/20 04:00 Nephrology AP PN - Plan ASSESSMENT: Acute renal failure: Most likely due to hemodynamic factors related to volume depletion due to poor oral intake as well as NSAID use. Now on HD. There is evidence of renal recovery with patient making about 1500 urine yesterday.How ever BUN and creat is up with held HD. Metabolic acidosis. Anasarca: Most likely due to hypoalbuminemia.and AMANDA. Still grossly edematous due to large fluid intake. Improving with HD/UF Severe hypoalbuminemia PCM Anemia of acute blood loss: Upper GI bleeding. ? NSAID induced gastritis. Peritonitis, on antibiotics. Hypertension: Hyponatremia: Improved. Acute encephalopathy: Most likely due to PRES. Acute CVA is a concern. Seizure: cause or effect of PRES. On antiepileptic Presumed PRES. Multifactorial in etiology. HTN, AMANDA, Severe hypoalbuminemia Acute visual loss. Reasses after extubation. PLAN. Dialysis today with UF as tolerated. Will give albumin for intradialytic hypoten rand. Start lasix 40 mg q8h to help with fluid management. Monitor intake/output and renal function for renal recovery Continue amlodipine to get better BP control.
[2020-05-27] MEDS ORDERED: Albumin 25% 25 GM/100 ML BOT IVPB SCH (09:30)
[2020-05-27] MEDS: Meropenem 500 MG in Sodium Chloride 0.9% 100 ML IVPB SCH ×2 (13:17→21:09)
[2020-05-27] MEDS: Amlodipine 5 MG TAB PER TUBE SCH (13:18)
[2020-05-27] MEDS: levETIRAcetam 500 MG TAB PO SCH (13:18)
[2020-05-27] MEDS: Fluconazole 100 MG TAB PO SCH (13:18)
[2020-05-27] MEDS: Linezolid 600 MG TAB PO SCH ×2 (13:19→20:06)
[2020-05-27] MEDS: Heparin 5,000 UNITS/ML VIAL SC SCH ×2 (13:19→20:06)
[2020-05-27] MEDS: Metoclopramide HCl 10 MG/2 ML VIAL IVP SCH ×3 (13:32→21:09)
--- NOTE | 2020-05-27 15:13 | PDOC.HOSPP ---
- Subjective Encounter Date: 05/27/20 Encounter Time: 09:45 Subjective: Patient up in bed intubated - Objective Vital Signs & Weight: Vital Signs (12 hours) Temp Pulse Resp BP Pulse Ox 05/27/20 14:00 15 05/27/20 13:18 106 H 146/86 H 05/27/20 12:53 106 H 138/84 05/27/20 12:00 96.5 F L 17 05/27/20 11:27 108 H 146/80 H 05/27/20 10:09 116 H 112/77 05/27/20 10:00 21 H 05/27/20 08:00 98.1 F 05/27/20 07:59 12 100 05/27/20 06:00 18 05/27/20 04:54 96 05/27/20 04:00 15 Weight Admit Weight 174 lb 13.225 oz Weight 186 lb 8.177 oz Most Recent Monitor Data Heart Rate from ECG 108 NIBP 141/74 NIBP BP-Mean 96 Respiration from ECG 14 SpO2 100 I&O: 05/26/20 05/27/20 05/28/20 06:59 06:59 06:59 Intake Total 1315 1068.1 67 Output Total 540 1435 190 Balance 775 -366.9 -123 Result Diagrams: 05/27/20 03:30 05/27/20 03:30 Additional Labs: Accuchecks 05/27/20 05/27/20 05/27/20 13:14 08:58 04:52 POC Glucose 139 H 144 H 138 H 05/27/20 05/26/20 05/26/20 00:41 21:42 15:59 POC Glucose 164 H 155 H 149 H 05/25/20 07:51 POC Glucose 136 H Hospitalist ROS - Review of Systems Other: Patient intubated - Medication Medications: Active Medications Generic Name Dose Route Start Last Admin Trade Name Freq PRN Reason Stop Dose Admin Acetaminophen 1,000 mg 05/14/20 09:04 05/14/20 14:17 Acetaminophen 500 Mg Tab PO 1,000 mg Q6H PRN Administration Moderate to Severe Pain (6-10) Amlodipine Besylate 5 mg 05/27/20 09:00 05/27/20 13:18 Amlodipine 5 Mg Tab PER TUBE 5 mg DAILY ALEKSANDER Administration Dexamethasone 4 mg 05/24/20 13:00 05/27/20 13:33 Dexamethasone 4 Mg Tab PO 4 mg Q6H ALEKSANDER Administration Fluconazole 200 mg 05/25/20 09:00 05/27/20 13:18 Fluconazole 100 Mg Tab PO 200 mg DAILY ALEKSANDER Administration Heparin Sodium (Porcine) 5,000 units 05/22/20 21:00 05/27/20 13:19 Heparin 5,000 Units/Ml Vial SC 5,000 units BID ALEKSANDER Administration Promethazine HCl 12.5 mg/ 50.5 mls @ 202 mls/hr 05/17/20 23:20 05/18/20 07:31 Sodium Chloride IVPB 50.5 mls Q3H PRN Administration Nausea/Vomiting Meropenem 500 mg/ Sodium 100 mls @ 200 mls/hr 05/19/20 21:00 05/27/20 13:17 Chloride IVPB 100 mls Q12HR ALEKSANDER Administration Fentanyl Citrate 2,000 mcg/ 100 mls @ 0 mls/hr 05/19/20 21:45 05/25/20 01:41 Sodium Chloride IV 06/18/20 21:45 100 mls INF ALEKSANDER Administration Protocol Per Protocol Insulin Human Lispro 0 units 05/17/20 15:38 05/27/20 00:42 Humalog 300 Units/3 Ml Vial SC 2 unit .MILD SLIDING SCALE PRN Administration Mild Correctional Scale Labetalol HCl 10 mg 05/19/20 17:02 05/25/20 23:22 Labetalol Hcl 100 Mg/20 Ml Vial SLOW IVP 10 mg Q4H PRN Administration Blood Pressure. SBP above 140 Levetiracetam 500 mg 05/25/20 09:00 05/27/20 13:18 Levetiracetam 500 Mg Tab PO 500 mg DAILY ALEKSANDER Administration Levothyroxine Sodium 112 mcg 05/15/20 06:00 05/27/20 05:11 Levothyroxine Sodium 112 Mcg Tab PO 112 mcg 0600 ALEKSANDER Administration Linezolid 600 mg 05/24/20 21:00 05/27/20 13:19 Linezolid 600 Mg Tab PO 600 mg Q12HR ALEKSANDER Administration Lorazepam 2 mg 05/19/20 21:45 05/20/20 00:45 Lorazepam 2 Mg/Ml Vial SLOW IVP 06/18/20 21:45 2 mg Q1H PRN Administration Breakthrough agitation Metoclopramide HCl 10 mg 05/24/20 15:00 05/27/20 13:32 Metoclopramide Hcl 10 Mg/2 Ml Vial IVP Not Given TID ALEKSANDER Ondansetron HCl 4 mg 05/10/20 19:46 05/19/20 09:55 Ondansetron Pf 4 Mg/2 Ml Vial IVP 4 mg Q6H PRN Administration Nausea Pantoprazole Sodium 40 mg 05/26/20 21:00 05/27/20 13:32 Pantoprazole 40 Mg Tab PO 40 mg BID ALEKSANDER Administration Propofol 1,000 mg 05/19/20 21:45 05/27/20 00:35 Propofol 1,000 Mg/100 Ml Vial IV 06/18/20 21:45 1,000 mg INF PRN Administration TO ACHIEVE GOAL RASS Protocol - Exam Heart: negative: RRR, no murmur, no gallops, no rubs, normal peripheral pulses, irregular, diminshed peripheral pulses, murmur present, II/IV, III/IV Respiratory: negative: CTAB, no wheezes, no rales, no ronchi, normal chest expansion, no tachypnea, normal percussion, rales, rhonchi, tachypneic, wheezes Gastrointestinal: negative: soft, non-tender, non-distended, normal bowel sounds, no palpable masses, no hepatomegaly, no splenomegaly, no bruit, no guarding, no rigidity, tender to palpation, distended, diminished bowl sounds, voluntary guarding Extremities: 2+ LE edema Hosp A/P (1) Acute metabolic encephalopathy Code(s): G93.41 - METABOLIC ENCEPHALOPATHY Status: Acute (2) Seizure Code(s): R56.9 - UNSPECIFIED CONVULSIONS Status: Acute (3) PRES (posterior reversible encephalopathy syndrome) Code(s): I67.83 - POSTERIOR REVERSIBLE ENCEPHALOPATHY SYNDROME Status: Susp ected (4) AMANDA (acute kidney injury) Code(s): N17.9 - ACUTE KIDNEY FAILURE, UNSPECIFIED Status: Acute (5) Malnourished Code(s): E46 - UNSPECIFIED PROTEIN-CALORIE MALNUTRITION Status: Acute (6) Acute respiratory failure with hypoxia Code(s): J96.01 - ACUTE RESPIRATORY FAILURE WITH HYPOXIA Status: Acute (7) On total parenteral nutrition (TPN) Code(s): Z78.9 - OTHER SPECIFIED HEALTH STATUS Status: Acute (8) Peritonitis (acute) generalized Code(s): K65.0 - GENERALIZED (ACUTE) PERITONITIS Status: Acute - Plan will increase keppra to 500mg daily per her renal clearance. We will get MRI brain. Neurology called case was discussed. We will also consult infectious disease possible infectious etiology. Patient currently on TPN. We will also consult GI Castillo NG output appears dark. PPI started. We will get a gastric occult. SCDs for DVT prophylaxis. 05/20 pt was intubated last night. will continue current tx. spoke with neurosurgery will put pt on steroids. Tried to get pt's blood pressure down given PRES. will continue to monitor. Daughter at bedside updated. (1) Acute respiratory failure with hypoxia Code(s): J96.01 - ACUTE RESPIRATORY FAILURE WITH HYPOXIA Status: Acute (2) Peritonitis (acute) generalized Code(s): K65.0 - GENERALIZED (ACUTE) PERITONITIS Status: Acute (3) AMANDA (acute kidney injury) Code(s): N17.9 - ACUTE KIDNEY FAILURE, UNSPECIFIED Status: Acute (4) S/P colectomy Status: Acute (5) Anasarca Code(s): R60.1 - GENERALIZED EDEMA Status: Acute (6) Severe protein-calorie malnutrition Code(s): E43 - UNSPECIFIED SEVERE PROTEIN-CALORIE MALNUTRITION Status: Acute (7) On total parenteral nutrition (TPN) Code(s): Z78.9 - OTHER SPECIFIED HEALTH STATUS Status: Acute (8) Hypothyroidism Code(s): E03.9 - HYPOTHYROIDISM, UNSPECIFIED Status: Chronic Qualifiers: Hypothyroidism type: acquired Qualified Code(s): E03.9 - Hypothyroidism, unspecified (9) Postoperative anemia due to acute blood loss Code(s): D62 - ACUTE POSTHEMORRHAGIC ANEMIA Status: Acute (10) Acute metabolic encephalopathy Code(s): G93.41 - METABOLIC ENCEPHALOPATHY Status: Acute (11) PRES (posterior reversible encephalopathy syndrome) Code(s): I67.83 - POSTERIOR REVERSIBLE ENCEPHALOPATHY SYNDROME Status: Suspected (12) Seizure Code(s): R56.9 - UNSPECIFIED CONVULSIONS Status: Acute - Plan is on zyvox, merrem, diflucan, keppra, synthroid, decadron, TPN, tube feeding initiated on 05/22 (to increase tube feeding if she is tolerating and to come down on tpn to 50mls/hr) has been initiated on HD, had back to back HD with max fluid removal as tolerated wed and wed. anasarca/vol overload and low alb, continue fluid removal as tolerated with HD, intake is around 4 lts with 2400 coming from tpn itself. I have switched most of her iv to via ng tube which should help anasarca a bit along with fluid removal from HD is s/p sigmoid colectomy with colorectal anastamosis done on 05/07, subsequently developed peritonitis due to anastomotic leak and had segmental colectomy with end colostomy/wash out done on 05/10. got intubated on 05/19, weaning per pulm advice prognosis guarded 1/2 per nursing staff patient follows commands once taken off of sedation. Her TPN was discontinued by surgery she is currently on tube feeds. Good output from colostomy. She received albumin with dialysis. 1/3 per nursing staff moving all ext when off sedation. Hopefully extubation soon. pt is at goal for her tube feeds and low residual. will continue current abx. 05/27 patient continues to have an elevated white count. We will continue antibiotics. Patient to be extubated when okay with pulmonary. Patient's colostomy site appears to have a dark-tinged output. We will continue to monitor. Continue PPI for now. Patient tolerating her tube feeds
--- NOTE | 2020-05-27 19:17 | PRG ---
DATE OF SERVICE: 05/27/2020 SUBJECTIVE: Ms. Mullins has done reasonably well over the weekend. She had 3 L removed with dialysis today. OBJECTIVE: VITAL SIGNS: Blood pressure 149/81, heart rate is 105, respiratory rate is 10, saturating around 94. Weight is reported at 186 pounds. LUNGS: Clear. HEART: Regular rhythm. ABDOMEN: Soft. LABORATORY DATA: White count 25.6, hemoglobin 7.2, platelets 398. Electrolytes; sodium 135, potassium 4.2, chloride 94, bicarb 22, BUN 91, creatinine 3.76. PH 7.46, CO2 of 30, PO2 of 83. IMPRESSION: Respiratory failure associated with volume overload. No chest x- ray was done today. We will check a chest x-ray in the morning. I am hopeful that we can do a spontaneous breathing trial tomorrow. Hopefully, she will be strong enough to wean from mechanical ventilation. Critical care time 30 min. Job ID: [id number] MTDD
[2020-05-27] MEDS: Furosemide 40 MG/4 ML VIAL SLOW IVP SCH (21:09)
[2020-05-28] MEDS: Dexamethasone 4 MG TAB PO SCH ×4 (01:40→21:28)
[2020-05-28] MEDS: Propofol 1,000 MG/100 ML VIAL IV PRN (02:45)
[2020-05-28 04:23] LABS: Anion Gap 20 mmol/L (10-20); BUN (Urea Nitrogen) 71 mg/dL (9.8-20.1); Calc. Creatinine Clearance 24 mL/min (70-130); Calcium 7.8 mg/dL (7.8-10.44); Carbon Dioxide 26 mmol/L (23-31); Chloride 96 mmol/L (98-107); Glucose 133 mg/dL (80-115); Potassium 3.6 mmol/L (3.5-5.1); Sodium 138 mmol/L (136-145)
[2020-05-28 04:49] LABS: Band 10 % (5-11); Hemoglobin 6.6 g/dL (12.0-16.0); Lymphocytes 5 % (21-51); MDiff Complete? YES; Mean Corpuscular HGB CONC 35.1 g/dL (32.0-36.0); Mean Corpuscular Hemoglobin 31.6 pg (27.0-31.0); Mean Corpuscular Volume 90.1 fL (78.0-98.0); Mean Platelet Volume 7.5 fL (7.4-10.4); Monocytes 3 % (0-10); Neutrophil 82 % (42-75); Platelet Count 334 thou/uL (130-400); White Blood Cell (WBC) Count 26.4 thou/uL (4.8-10.8)
--- NOTE | 2020-05-28 05:23 | PRG ---
DATE OF SERVICE: 05/27/2020 SUBJECTIVE: Ms. Mullins, ICU on the ventilator. She has dialyzed this morning. Awaiting Dr. Hare's evaluation prior to weaning procedures. The patient opens eyes and looks at you although she is sleepy. The sedation has been held. OBJECTIVE: VITAL SIGNS: Heart rate 108, blood pressure 146/80. LUNGS: Clear to auscultation. CARDIAC: Regular rate and rhythm. ABDOMEN: Soft. Colostomy functioning. Goal rate on her enteral feedings. TPN discontinued. Wound in right lower quadrant has some purulent drainage. We will order wound care, do wound care on this daily, NuGauze, wet-to-dry dressings. LABORATORY DATA: White count 25, hemoglobin 7.2, and bands 22%. Sodium 135, chloride 94, BUN 91, creatinine 3.76, and GFR 12. She received Lasix yesterday and her urine output was 1435 overnight. ASSESSMENT AND PLAN: 1. Fluid overload. Continue dialysis efforts to remove fluid. She is still edematous. Diuresis attempt yesterday successful. Continue dialysis for acute renal failure. 2. Posterior reversible encephalopathy syndrome, neurological deficit. Await re-evaluation neurologically when able to effectively, when she is more awake. 3. Respiratory failure, on the ventilator. Weaning per Dr. Hare. 4. Malnutrition. Continue enteral feedings. Job ID: [id number]
[2020-05-28] MEDS: Levothyroxine Sodium 112 MCG TAB PO SCH (05:26)
[2020-05-28] MEDS: Furosemide 40 MG/4 ML VIAL SLOW IVP SCH ×3 (05:26→21:28)
--- NOTE | 2020-05-28 07:43 | RAD ---
Chest one view HISTORY: Dyspnea. Follow-up. COMPARISON: 05/26/2020. FINDINGS: Cardiac silhouette is magnified by projection. Shallow inspiration accentuates pulmonary ma rkings. Mediastinum is midline with left subclavian implanted port. Lines and tubes unchanged in position. Blunting of the costophrenic angles less pronounced. No evidence of pneumothorax. IMPRESSION : Slight interval improvement in appearance of pleural fluid and pulmonary vascular congestion.
[2020-05-28] MEDS: Amlodipine 5 MG TAB PER TUBE SCH (08:41)
[2020-05-28] MEDS: Heparin 5,000 UNITS/ML VIAL SC SCH ×2 (08:42→21:28)
[2020-05-28] MEDS: levETIRAcetam 500 MG TAB PO SCH (08:42)
[2020-05-28] MEDS: Linezolid 600 MG TAB PO SCH ×2 (08:42→22:11)
[2020-05-28] MEDS: Meropenem 500 MG in Sodium Chloride 0.9% 100 ML IVPB SCH ×2 (08:42→21:27)
[2020-05-28] MEDS: Fluconazole 100 MG TAB PO SCH (08:42)
[2020-05-28] MEDS: Metoclopramide HCl 10 MG/2 ML VIAL IVP SCH ×3 (08:52→21:28)
--- NOTE | 2020-05-28 09:15 | PDOC.NEPPN ---
- Subjective Encounter Date: 05/28/20 Subjective: More awake with weaning of sedation. Still swollen. urine output is up with diuretic. - Objective Vital Signs & Weight: Vital Signs (12 hours) Temp Pulse Resp BP 05/28/20 08:41 106 H 160/83 H 05/28/20 06:00 14 05/28/20 04:00 16 05/28/20 03:45 98.4 F 05/28/20 02:00 17 05/28/20 00:00 98.7 F 18 05/27/20 22:00 14 Weight Admit Weight 174 lb 13.225 oz Weight 182 lb 15.739 oz Most Recent Monitor Data Heart Rate from ECG 93 NIBP 125/66 NIBP BP-Mean 85 Respiration from ECG 13 SpO2 100 I&O: 05/27/20 05/28/20 05/29/20 06:59 06:59 06:59 Intake Total 1068.1 1276.9 Output Total 1435 1438 200 Balance -366.9 -161.1 -200 Result Diagrams: 05/28/20 03:30 05/28/20 03:30 Additional Labs: Accuchecks 05/27/20 05/27/20 05/27/20 23:58 19:40 16:47 POC Glucose 134 H 119 H 118 H 05/27/20 05/25/20 13:14 07:51 POC Glucose 139 H 136 H Nephrology ROS - Medication Medications: Active Medications Generic Name Dose Route Start Last Admin Trade Name Freq PRN Reason Stop Dose Admin Acetaminophen 1,000 mg 05/14/20 09:04 05/14/20 14:17 Acetaminophen 500 Mg Tab PO 1,000 mg Q6H PRN Administration Moderate to Severe Pain (6-10) Amlodipine Besylate 5 mg 05/27/20 09:00 05/28/20 08:41 Amlodipine 5 Mg Tab PER TUBE 5 mg DAILY ALEKSANDER Administration Dexamethasone 4 mg 05/24/20 13:00 05/28/20 08:52 Dexamethasone 4 Mg Tab PO 4 mg Q6H ALEKSANDER Administration Fluconazole 200 mg 05/25/20 09:00 05/28/20 08:42 Fluconazole 100 Mg Tab PO 200 mg DAILY ALEKSANDER Administration Furosemide 40 mg 05/27/20 22:00 05/28/20 05:26 Furosemide 40 Mg/4 Ml Vial SLOW IVP 40 mg Q8HR ALEKSANDER Administration Heparin Sodium (Porcine) 5,000 units 05/22/20 21:00 05/28/20 08:42 Heparin 5,000 Units/Ml Vial SC Not Given BID ALEKSANDER Promethazine HCl 12.5 mg/ 50.5 mls @ 202 mls/hr 05/17/20 23:20 05/18/20 07:31 Sodium Chloride IVPB 50.5 mls Q3H PRN Administration Nausea/Vomiting Meropenem 500 mg/ Sodium 100 mls @ 200 mls/hr 05/19/20 21:00 05/28/20 08:42 Chloride IVPB 100 mls Q12HR ALEKSANDER Administration Fentanyl Citrate 2,000 mcg/ 100 mls @ 0 mls/hr 05/19/20 21:45 05/25/20 01:41 Sodium Chloride IV 06/18/20 21:45 100 mls INF ALEKSANDER Administration Protocol Per Protocol Insulin Human Lispro 0 units 05/17/20 15:38 05/27/20 00:42 Humalog 300 Units/3 Ml Vial SC 2 unit .MILD SLIDING SCALE PRN Administration Mild Correctional Scale Labetalol HCl 10 mg 05/19/20 17:02 05/25/20 23:22 Labetalol Hcl 100 Mg/20 Ml Vial SLOW IVP 10 mg Q4H PRN Administration Blood Pressure. SBP above 140 Levetiracetam 500 mg 05/25/20 09:00 05/28/20 08:42 Levetiracetam 500 Mg Tab PO 500 mg DAILY ALEKSANDER Administration Levothyroxine Sodium 112 mcg 05/15/20 06:00 05/28/20 05:26 Levothyroxine Sodium 112 Mcg Tab PO 112 mcg 0600 ALEKSANDER Administration Linezolid 600 mg 05/24/20 21:00 05/28/20 08:42 Linezolid 600 Mg Tab PO 600 mg Q12HR ALEKSANDER Administration Lorazepam 2 mg 05/19/20 21:45 05/20/20 00:45 Lorazepam 2 Mg/Ml Vial SLOW IVP 06/18/20 21:45 2 mg Q1H PRN Administration Breakthrough agitation Metoclopramide HCl 10 mg 05/24/20 15:00 05/28/20 08:52 Metoclopramide Hcl 10 Mg/2 Ml Vial IVP 10 mg TID ALEKSANDER Administration Ondansetron HCl 4 mg 05/10/20 19:46 05/19/20 09:55 Ondansetron Pf 4 Mg/2 Ml Vial IVP 4 mg Q6H PRN Administration Nausea Pantoprazole Sodium 40 mg 05/26/20 21:00 05/28/20 08:42 Pantoprazole 40 Mg Tab PO 40 mg BID ALEKSANDER Administration Propofol 1,000 mg 05/19/20 21:45 05/28/20 02:45 Propofol 1,000 Mg/100 Ml Vial IV 06/18/20 21:45 1,000 mg INF PRN Administration TO ACHIEVE GOAL RASS Protocol - Exam General - other findings: sedated ENT: normocephalic atraumatic ENT - other findings: ET tube in place Neck: symmetric Respiratory - other findings: ventilator transmitted sound noted bilaterally Cardiovascular: RRR Heart - other findings: tachycardic Gastrointestinal: soft, non-distended Gastrointestinal - other findings: LLQ colostomy noted Extremities - other findings: edema of the extremities noted Neurological - other findings: sedated. obeying some simple command. Nephrology Results - Labs Result Diagrams: 05/28/20 03:30 05/28/20 03:30 Lab results: WBC 26.4 thou/uL (4.8-10.8) H 05/28/20 03:30 Hgb 6.6 g/dL (12.0-16.0) L 05/28/20 03:30 Hct 18.9 % (36.0-47.0) L 05/28/20 03:30 MCV 90.1 fL (78.0-98.0) 05/28/20 03:30 Plt Count 334 thou/uL (130-400) 05/28/20 03:30 Neutrophils % 67.4 % (42.0-75.0) 05/13/20 05:02 Band Neuts % (Manual) 22 % (5-11) H 05/27/20 03:30 ABG pH 7.46 (7.35-7.45) H 05/27/20 07:35 ABG pCO2 30.3 mmHg (35.0-45.0) L 05/27/20 07:35 ABG pO2 83.2 mmHg (> 80.0) H 05/27/20 07:35 Sodium 138 mmol/L (136-145) 05/28/20 03:30 Potassium 3.6 mmol/L (3.5-5.1) 05/28/20 03:30 Chloride 96 mmol/L (98-107) L 05/28/20 03:30 Carbon Dioxide 26 mmol/L (23-31) 05/28/20 03:30 BUN 71 mg/dL (9.8-20.1) H 05/28/20 03:30 Creatinine 3.24 mg/dL (0.6-1.1) H 05/28/20 03:30 Glucose 133 mg/dL (80-115) H 05/28/20 03:30 Lactic Acid 1.0 mmol/L (0.5-2.2) 05/10/20 23:24 Calcium 7.8 mg/dL (7.8-10.44) 05/28/20 03:30 Total Bilirubin 0.7 mg/dL (0.2-1.2) 05/19/20 17:19 AST 23 U/L (5-34) 05/19/20 17:19 ALT 10 U/L (8-55) 05/19/20 17:19 Alkaline Phosphatase 92 U/L (40-110) 05/19/20 17:19 Troponin I 0.015 ng/mL (< 0.028) 05/10/20 17:06 B-Natriuretic Peptide 92.0 pg/mL (0-100) 05/10/20 17:06 Serum Total Protein 5.6 g/dL (6.0-8.3) L 05/19/20 17:19 Albumin 3.7 g/dL (3.4-4.8) 05/28/20 03:39 Lipase 26 U/L (8-78) 05/10/20 17:04 Urine Ketones Trace mg/dL (Negative) A 05/18/20 14:45 Urine Blood 3+ (Negative) A 05/18/20 14:45 Urine Nitrite Negative (Negative) 05/18/20 14:45 Ur Leukocyte Esterase Negative Chika/uL (Negative) 05/18/20 14:45 Urine RBC 21-50 HPF (0-3) A 05/18/20 14:45 Urine WBC 4-6 HPF (0-3) A 05/18/20 14:45 Ur Squamous Epith Cells 11-20 HPF (0-3) A 05/18/20 14:45 Urine Bacteria 1+ HPF (None Seen) A 05/18/20 14:45 Sodium 138 mmol/L (136-145) 05/28/20 03:30 Potassium 3.6 mmol/L (3.5-5.1) 05/28/20 03:30 Chloride 96 mmol/L (98-107) L 05/28/20 03:30 Carbon Dioxide 26 mmol/L (23-31) 05/28/20 03:30 Anion Gap 20 mmol/L (10-20) 05/28/20 03:30 BUN 71 mg/dL (9.8-20.1) H 05/28/20 03:30 Creatinine 3.24 mg/dL (0.6-1.1) H 05/28/20 03:30 Glucose 133 mg/dL (80-115) H 05/28/20 03:30 Calcium 7.8 mg/dL (7.8-10.44) 05/28/20 03:30 Phosphorus 3.6 mg/dL (2.3-4.7) 05/26/20 04:00 Magnesium 2.1 mg/dL (1.6-2.6) 05/24/20 03:50 Albumin 3.7 g/dL (3.4-4.8) 05/28/20 03:39 Nephrology AP PN - Plan ASSESSMENT: Acute renal failure: Most likely due to hemodynamic factors related to volume depletion due to poor oral intake as well as NSAID use. Now on HD. Urine output is up with diuretic. Metabolic acidosis. Anasarca: Most likely due to hypoalbuminemia.and AMANDA. Still grossly edematous due to large fluid intake. Improving with HD/UF Severe hypoalbuminemia PCM Anemia of acute blood loss: Recurrent. Hb is down to 6.6 Upper GI bleeding. ? NSAID induced gastritis. Peritonitis, on antibiotics. Hypertension: Hyponatremia: Improved. Acute encephalopathy: Most likely due to PRES. Acute CVA is a concern. Seizure: cause or effect of PRES. On antiepileptic Presumed PRES. Multifactorial in etiology. HTN, AMANDA, Severe hypoalbuminemia Acute visual loss. Re asses after extubation. Sepsis/Gram negative bacteremia: Tachycardia + leucoctosis. PLAN. Continue lasix 40 mg q8h to help with fluid management. Blood transfusion as per primary attending. May need further evaluation given leucocytosis and tachycardia associated with gram negative bacteremia and acute drop in HB. No HD today. Will plan on dialysing patient when more stable. Monitor intake/output and renal function for renal recovery
[2020-05-28 09:39] LABS: Actual Bicarbonate (HCO3a) 22.6 mEq/L (22-28); Base Excess (BEa) -0.4 mEq/L (-2.0 to +3.0); CO2 Tension 29.5 mmHg (35.0-45.0); Calcium, Ionized (arterial) 0.99 mmol/L (1.12-1.30); Carboxyhemoglobin (COHb) 0.3 gm% (0.0-3.0); O2 Tension (PaO2), arterial 106.8 mmHg (> 80.0); Potassium - ABG Lab 3.56 mmol/L (3.70-5.30)
[2020-05-28 10:27] LABS: ALV-art Gradient 105.875 mmHg (0-20); Puncture Site RRA
[2020-05-28] MEDS: Morphine 2 MG/ML VIAL SLOW IVP PRN ×2 (10:45→14:24)
--- NOTE | 2020-05-28 15:33 | PRG ---
DATE OF SERVICE: 05/28/2020 SUBJECTIVE: Ms. Mullins dropped her hemoglobin to 6.6 that should be transfused today. There is a drop in hemoglobin, I am hesitant to extubate her. She will awaken. She is not blind and has intact visual barrios. OBJECTIVE: LUNGS: Clear. HEART: Regular rhythm. ABDOMEN: Soft. LABORATORY DATA: White count 26, hemoglobin 6.6, and platelets 334. Sodium 138, potassium 3.6, chloride 96, bicarb 26, BUN 71, creatinine 3.24. The pH 7.5, CO2 29, PO2 106. IMPRESSION: 1. Respiratory failure associated with volume overload. 2. Acute renal failure associated with peritonitis. 3. Peritonitis, status post washout. 4. Posterior reversible encephalopathy syndrome. She is not blind. Overall, she appears to be stable, but we will see how she does with transfusion before we consider weaning and extubation. Hesitant to extubate her on a day when she will have a positive fluid balance. Critical care time 30 min Job ID: [id number] MTDD
[2020-05-28 17:05] LABS: Glucose 105 mg/dL (80-115)
[2020-05-28 17:09] LABS: Anisocytosis SLIGHT = 6-15 cells (100X) (0-5/hpf); Band 25 % (5-11); Hemoglobin 10.3 g/dL (12.0-16.0); Lymphocytes 5 % (21-51); MDiff Complete? YES; Mean Corpuscular HGB CONC 35.2 g/dL (32.0-36.0); Mean Corpuscular Hemoglobin 32.9 pg (27.0-31.0); Mean Corpuscular Volume 93.4 fL (78.0-98.0); Mean Platelet Volume 7.3 fL (7.4-10.4); Monocytes 6 % (0-10); Neutrophil 63 % (42-75); Platelet Count 251 thou/uL (130-400); Platelet Morphology Comment Appears Adequate; Polychromasia SLIGHT = 2-3 cells (100X) (0-2/hpf); Reactive Lymphocytes 1 % (0-10); Red Blood Cell (RBC) Count 3.14 mill/uL (4.20-5.40); Target Cells SLIGHT = 2-5 cells (100X) (0-1/hpf); White Blood Cell (WBC) Count 24.7 thou/uL (4.8-10.8)
--- NOTE | 2020-05-28 17:27 | PRG ---
DATE OF SERVICE: 05/28/2020 SUBJECTIVE: Ms. Mullins is in the ICU. She is awake and follows commands. She is weak though. They are trying to wean her down and she is with minimal ventilatory support right now. There is an area of mid abdominal purulent drainage that has been sampled for cultures. She has a triple-lumen in the left subclavian location and a Trialysis catheter in the right groin. OBJECTIVE: EYES: The pupils are equal. LUNGS: Symmetric. Clear breath sounds. ABDOMEN: With a colostomy. There is a pinhole opening in the right flank region, which is draining a purulent exudate. This was submitted for cultures. LABORATORY STUDIES: Creatinine is at 3.24, glucose 133. White cell count is up to 26.4, hemoglobin 6.6, platelets 334. Microbiology shows gram-negative wendy from the exudate that was draining from, I think, one of the ports for the laparoscopy. IMAGING STUDIES: Chest x-ray from today showed improvement in pleural fluid and pulmonary vascular congestion. ASSESSMENT AND DISCUSSION: Diverticulosis, elective resection; primary anastomosis; postoperative leak with diffuse peritonitis; exploratory laparotomy; colostomy establishment, postoperative; acute renal failure; hypertension; posterior reversible encephalopathy syndrome; seizures; altered mental state. The patient has been dialyzed and has maintained bandemia, and there is some concern with her intraabdominal compartment. If so it is possible to perform an abdomen and pelvis CT with contrast in a day that she is dialyzed, there is something to keep in mind if her white cell count persists to be elevated. Job ID: [id number]
--- NOTE | 2020-05-28 18:15 | PDOC.HOSPP ---
- Subjective Encounter Date: 05/28/20 Encounter Time: 17:48 Subjective: Patient intubated but awake follow commands - Objective Vital Signs & Weight: Vital Signs (12 hours) Temp Pulse Resp BP Pulse Ox 05/28/20 16:00 99.3 F 14 05/28/20 14:35 100 158/79 H 05/28/20 14:00 12 05/28/20 12:00 98.9 F 12 05/28/20 11:21 103 H 148/84 H 05/28/20 10:00 14 05/28/20 09:13 103 H 154/86 H 05/28/20 08:41 106 H 160/83 H 05/28/20 08:00 99.0 F 16 100 05/28/20 06:00 14 Weight Admit Weight 174 lb 13.225 oz Weight 182 lb 15.739 oz Most Recent Monitor Data Heart Rate from ECG 95 NIBP 154/79 NIBP BP-Mean 104 Respiration from ECG 13 SpO2 100 I&O: 05/27/20 05/28/20 05/29/20 06:59 06:59 06:59 Intake Total 1068.1 1276.9 515 Output Total 1435 1438 645 Balance -366.9 -161.1 -130 Result Diagrams: 05/28/20 16:26 05/28/20 16:24 Additional Labs: Accuchecks 05/27/20 05/27/20 23:58 19:40 POC Glucose 134 H 119 H Hospitalist ROS - Review of Systems Respiratory: denies: cough, dry, shortness of breath, hemoptysis, SOB with excertion, pleuritic pain, sputum, wheezing, other Cardiovascular: denies: chest pain, palpitations, orthopnea, paroxysmal noc. dyspnea, edema, light headedness, other Gastrointestinal: denies: nausea, vomiting, abdominal pain, diarrhea, co nstipation, melena, hematochezia, other - Medication Medications: Active Medications Generic Name Dose Route Start Last Admin Trade Name Freq PRN Reason Stop Dose Admin Acetaminophen 1,000 mg 05/14/20 09:04 05/14/20 14:17 Acetaminophen 500 Mg Tab PO 1,000 mg Q6H PRN Administration Moderate to Severe Pain (6-10) Amlodipine Besylate 5 mg 05/27/20 09:00 05/28/20 08:41 Amlodipine 5 Mg Tab PER TUBE 5 mg DAILY ALEKSANDER Administration Dexamethasone 4 mg 05/24/20 13:00 05/28/20 16:55 Dexamethasone 4 Mg Tab PO 4 mg Q6H ALEKSANDER Administration Fluconazole 200 mg 05/25/20 09:00 05/28/20 08:42 Fluconazole 100 Mg Tab PO 200 mg DAILY ALEKSANDER Administration Furosemide 40 mg 05/27/20 22:00 05/28/20 15:00 Furosemide 40 Mg/4 Ml Vial SLOW IVP 40 mg Q8HR ALEKSANDER Administration Heparin Sodium (Porcine) 5,000 units 05/22/20 21:00 05/28/20 08:42 Heparin 5,000 Units/Ml Vial SC Not Given BID ALEKSANDER Promethazine HCl 12.5 mg/ 50.5 mls @ 202 mls/hr 05/17/20 23:20 05/18/20 07:31 Sodium Chloride IVPB 50.5 mls Q3H PRN Administration Nausea/Vomiting Meropenem 500 mg/ Sodium 100 mls @ 200 mls/hr 05/19/20 21:00 05/28/20 08:42 Chloride IVPB 100 mls Q12HR ALEKSANDER Administration Fentanyl Citrate 2,000 mcg/ 100 mls @ 0 mls/hr 05/19/20 21:45 05/25/20 01:41 Sodium Chloride IV 06/18/20 21:45 100 mls INF ALEKSANDER Administration Protocol Per Protocol Insulin Human Lispro 0 units 05/17/20 15:38 05/27/20 00:42 Humalog 300 Units/3 Ml Vial SC 2 unit .MILD SLIDING SCALE PRN Administration Mild Correctional Scale Labetalol HCl 10 mg 05/19/20 17:02 05/25/20 23:22 Labetalol Hcl 100 Mg/20 Ml Vial SLOW IVP 10 mg Q4H PRN Administration Blood Pressure. SBP above 140 Levetiracetam 500 mg 05/25/20 09:00 05/28/20 08:42 Levetiracetam 500 Mg Tab PO 500 mg DAILY ALEKSANDER Administration Levothyroxine Sodium 112 mcg 05/15/20 06:00 05/28/20 05:26 Levothyroxine Sodium 112 Mcg Tab PO 112 mcg 0600 ALEKSANDER Administration Linezolid 600 mg 05/24/20 21:00 05/28/20 08:42 Linezolid 600 Mg Tab PO 600 mg Q12HR ALEKSANDER Administration Lorazepam 2 mg 12/27/20 21:45 05/20/20 00:45 Lorazepam 2 Mg/Ml Vial SLOW IVP 06/18/20 21:45 2 mg Q1H PRN Administration Breakthrough agitation Metoclopramide HCl 10 mg 05/24/20 15:00 05/28/20 16:57 Metoclopramide Hcl 10 Mg/2 Ml Vial IVP 10 mg TID ALEKSANDER Administration Morphine Sulfate 2 mg 05/19/20 21:45 05/28/20 14:24 Morphine 2 Mg/Ml Vial SLOW IVP 06/18/20 21:45 2 mg Q1H PRN Administration Breakthrough Pain/Agitation Ondansetron HCl 4 mg 05/10/20 19:46 05/19/20 09:55 Ondansetron Pf 4 Mg/2 Ml Vial IVP 4 mg Q6H PRN Administration Nausea Pantoprazole Sodium 40 mg 05/26/20 21:00 05/28/20 08:42 Pantoprazole 40 Mg Tab PO 40 mg BID ALEKSANDER Administration Propofol 1,000 mg 05/19/20 21:45 05/28/20 02:45 Propofol 1,000 Mg/100 Ml Vial IV 06/18/20 21:45 1,000 mg INF PRN Administration TO ACHIEVE GOAL RASS Protocol - Exam Neck: negative: supple, symmetric, no JVD, no thyromegaly, no lymphadenopathy, no carotid bruit, JVD Heart: negative: RRR, no murmur, no gallops, no rubs, normal peripheral pulses, irregular, diminshed peripheral pulses, murmur present, II/IV, III/IV Respiratory: negative: CTAB, no wheezes, no rales, no ronchi, normal chest expansion, no tachypnea, normal percussion, rales, rhonchi, tachypneic, wheezes Gastrointestinal: soft, normal bowel sounds Gastrointestinal - other findings: Reddish discharge noted from a colostomy Hosp A/P (1) Acute metabolic encephalopathy Code(s): G93.41 - METABOLIC ENCEPHALOPATHY Status: Acute (2) Seizure Code(s): R56.9 - UNSPECIFIED CONVULSIONS Status: Acute (3) PRES (posterior reversible encephalopathy syndrome) Code(s): I67.83 - POSTERIOR REVERSIBLE ENCEPHALOPATHY SYNDROME Status: Suspected (4) AMANDA (acute kidney injury) Code(s): N17.9 - ACUTE KIDNEY FAILURE, UNSPECIFIED Status: Acute (5) Malnourished Code(s): E46 - UNSPECIFIED PROTEIN-CALORIE MALNUTRITION Status: Acute (6) Acute respiratory failure with hypoxia Code(s): J96.01 - ACUTE RESPIRATORY FAILURE WITH HYPOXIA Status: Acute (7) On total parenteral nutrition (TPN) Code(s): Z78.9 - OTHER SPECIFIED HEALTH STATUS Status: Acute (8) Peritonitis (acute) generalized Code(s): K65.0 - GENERALIZED (ACUTE) PERITONITIS Status: Acute - Plan will increase keppra to 500mg daily per her renal clearance. We will get MRI brain. Neurology called case was discussed. We will also consult infectious disease possible infectious etiology. Patient currently on TPN. We will also consult GI Castillo NG output appears dark. PPI started. We will get a gastric occult. SCDs for DVT prophylaxis. 05/20 pt was intubated last night. will continue current tx. spoke with neurosurgery will put pt on steroids. Tried to get pt's blood pressure down given PRES. will continue to monitor. Daughter at bedside updated. (1) Acute respiratory failure with hypoxia Code(s): J96.01 - ACUTE RESPIRATORY FAILURE WITH HYPOXIA Status: Acute (2) Peritonitis (acute) generalized Code(s): K65.0 - GENERALIZED (ACUTE) PERITONITIS Status: Acute (3) AMANDA (acute kidney injury) Code(s): N17.9 - ACUTE KIDNEY FAILURE, UNSPECIFIED Status: Acute (4) S/P colectomy Status: Acute (5) Anasarca Code(s): R60.1 - GENERALIZED EDEMA Status: Acute (6) Severe protein-calorie malnutrition Code(s): E43 - UNSPECIFIED SEVERE PROTEIN-CALORIE MALNUTRITION Status: Acute (7) On total parenteral nutrition (TPN) Code(s): Z78.9 - OTHER SPECIFIED HEALTH STATUS Status: Acute (8) Hypothyroidism Code(s): E03.9 - HYPOTHYROIDISM, UNSPECIFIED Status: Chronic Qualifiers: Hypothyroidism type: acquired Qualified Code(s): E03.9 - Hypothyroidism, unspecified (9) Postoperative anemia due to acute blood loss Code(s): D62 - ACUTE POSTHEMORRHAGIC ANEMIA Status: Acute (10) Acute metabolic encephalopathy Code(s): G93.41 - METABOLIC ENCEPHALOPATHY Status: Acute (11) PRES (posterior reversible encephalopathy syndrome) Code(s): I67.83 - POSTERIOR REVERSIBLE ENCEPHALOPATHY SYNDROME Status: Suspected (12) Seizure Code(s): R56.9 - UNSPECIFIED CONVULSIONS Status: Acute - Plan is on zyvox, merrem, diflucan, keppra, synthroid, decadron, TPN, tube feeding initiated on 05/22 (to increase tube feeding if she is tolerating and to come down on tpn to 50mls/hr) has been initiated on HD, had back to back HD with max fluid removal as tolerated wed and wed. anasarca/vol overload and low alb, continue fluid removal as tolerated with HD, intake is around 4 lts with 2400 coming from tpn itself. I have switched most of her iv to via ng tube which should help anasarca a bit along with fluid removal from HD is s/p sigmoid colectomy with colorectal anastamosis done on 05/07, subsequently developed peritonitis due to anastomotic leak and had segmental colectomy with end colostomy/wash out done on 05/10. got intubated on 05/19, weaning per pulm advice prognosis guarded 1/2 per nursing staff patient follows commands once taken off of sedation. Her TPN was discontinued by surgery she is currently on tube feeds. Good output from colostomy. She received albumin with dialysis. 1/3 per nursing staff moving all ext when off sedation. Hopefully extubation soon. pt is at goal for her tube feeds and low residual. will continue current abx. 1/ patient continues to have an elevated white count. We will continue antibiotics. Patient to be extubated when okay with pulmonary. Patient's colostomy site appears to have a dark-tinged output. We will continue to monitor. Continue PPI for now. Patient tolerating her tube feeds 1/ patient continues to have an elevated white count. May require CT abdomen pelvis for further investigation. She is on very broad antibiotics. Patient received 1 unit of PRBC transfusion for low H&H. Dialysis per nephrology. Patient more awake today when I asked her if she is having any visual disturbances she says no. SCDs for DVT prophylaxis unable to do subcu heparin or Lovenox due to her recent bleed.
[2020-05-28 21:40] LABS: Glucose 127 mg/dL (80-115)
[2020-05-29 01:09] LABS: Glucose 147 mg/dL (80-115)
[2020-05-29] MEDS: Dexamethasone 4 MG TAB PO SCH ×4 (01:12→20:42)
[2020-05-29] MEDS: Morphine 2 MG/ML VIAL SLOW IVP PRN ×2 (01:12→16:15)
[2020-05-29 04:45] LABS: Glucose 142 mg/dL (80-115)
[2020-05-29 04:49] LABS: Band 23 % (5-11); Eosinophils 1 % (0-10); Hemoglobin 9.5 g/dL (12.0-16.0); Lymphocytes 4 % (21-51); MDiff Complete? YES; Mean Corpuscular HGB CONC 34.4 g/dL (32.0-36.0); Mean Corpuscular Hemoglobin 32.1 pg (27.0-31.0); Mean Corpuscular Volume 93.3 fL (78.0-98.0); Mean Platelet Volume 7.4 fL (7.4-10.4); Monocytes 3 % (0-10); Neutrophil 69 % (42-75); Platelet Count 222 thou/uL (130-400); RBC Distribution Width 13.9 % (11.5-14.5); Red Blood Cell (RBC) Count 2.94 mill/uL (4.20-5.40); White Blood Cell (WBC) Count 17.7 thou/uL (4.8-10.8)
[2020-05-29 04:54] LABS: Anion Gap 23 mmol/L (10-20); BUN (Urea Nitrogen) 84 mg/dL (9.8-20.1); Calc. Creatinine Clearance 20 mL/min (70-130); Calcium 7.1 mg/dL (7.8-10.44); Carbon Dioxide 25 mmol/L (23-31); Chloride 96 mmol/L (98-107); Glucose 142 mg/dL (80-115); Potassium 3.5 mmol/L (3.5-5.1); Sodium 140 mmol/L (136-145)
[2020-05-29] MEDS: Levothyroxine Sodium 112 MCG TAB PO SCH (05:01)
[2020-05-29] MEDS ORDERED: Albumin 25% 25 GM/100 ML BOT IVPB PRN (06:58)
[2020-05-29 07:10] LABS: Base Excess (BEa) 0.6 mEq/L (-2.0 to +3.0); CO2 Tension 33.6 mmHg (35.0-45.0); Calcium, Ionized (arterial) 0.94 mmol/L (1.12-1.30); Carboxyhemoglobin (COHb) 0.3 gm% (0.0-3.0); Hemoglobin (Hb) 10.2 g/dL (12.0-16.0); O2 Tension (PaO2), arterial 82.8 mmHg (> 80.0); Potassium - ABG Lab 3.74 mmol/L (3.70-5.30); pH, Arterial 7.47 (7.35-7.45)
[2020-05-29 07:12] LABS: Puncture Site RRA
--- NOTE | 2020-05-29 07:44 | PRG ---
DATE OF SERVICE: 05/29/2020 SUBJECTIVE: Ms. Mullins is doing well today. She is on the vent. She is sedated. Plan is to obtain a CAT scan which has been ordered. I called this morning, added oral contrast without IV contrast. Her white count has been persistently elevated postoperative laparotomy for a bowel leak, but now has dropped from 20,000 to 17,000 with normal differential. Heart rate 75, blood pressure 126/77, respiratory rate 15. Urine output in the last 24 hours 2054. She was given Lasix daily, colostomy 300. She is tolerating her tube feedings with minimal residual less than 200. OBJECTIVE: LUNGS: Clear to auscultation. CARDIAC: Regular rate and rhythm without murmur or gallop. ABDOMEN: Soft. Colostomy healthy. Drain site looks good. WOUND CARE: Doing Nu Gauze wet-to-dry dressings. Clayton removed, midline. EXTREMITIES: Edematous. DIAGNOSTIC DATA: Chest x-ray looks good, less edema. White count 17,000, hemoglobin 9.5. Sodium 140, potassium 3.5, carbon dioxide 25, BUN 84, creatinine 3.7, GFR 12. ASSESSMENT/PLAN: 1. Nonoliguric renal failure. Urine output remained stable. She has been diuresed. BUN and creatinine have increased slightly. Continue dialysis. May want to hold the diuretics, but we will discuss with Dr. Hare. 2. Persistently elevated white count, now decreased to 17. CAT scan of the abdomen and pelvis with p.o. contrast and without IV contrast ordered. 3. Acute tubular necrosis, nonoliguric. Continue dialysis as necessary, temporary dialysis catheter. Hopefully, we will not have to put a cuffed tunneled. 4. Respiratory failure. Hope to be able to wean from the ventilator today pending the findings. 5. Malnutrition, was on TPN, now tolerating enteral feedings at goal rate. 6. Deconditioning. Aggressive therapy, range of motion. Job ID: [id number]
--- NOTE | 2020-05-29 09:25 | RAD ---
EXAM: Portable chest PROVIDED CLINICAL HISTORY: Respiratory insufficiency COMPARISON: 05/28/2020 FINDINGS: Significant interval change with respect to the prior examination is not apparent. IMPRESSION: As above.
--- NOTE | 2020-05-29 10:16 | CT ---
EXAM: CT Abdomen Pelvis W Con PROVIDED CLINICAL HISTORY: Peritonitis, leukocytosis COMPARISON: 05/18/2020 FINDINGS: Bilateral pleural fluid with adjacent subsegmental atelectasis redemonstrated. Enteric catheter is no stefani, tip of which terminates in stomach. Contrast material seen within the distal esophagus, which may reflect reflux. The liver, spleen, pancreas, kidneys and adrenal glands demonstrate a stable CT appearance. There is a large amount of rim-enhancing loculated fluid occupying the right upper quadrant about the liver, extending into the right paracolic gutter and gradually tapering as it courses medially from the right paracolic gutter anterior to the right psoas muscle and into the central aspects of th e pelvis. There are rim-enhancing fluid collections present within the pelvis, the larger of which measures about 7.2 x 1.7 cm. The smaller fluid collection right of midline may communicate w ith the paracolic gutter collection anterior to the psoas muscle. Postoperative changes of partial colectomy and end colostomy are redemonstrated. There is a circumscr ibed sheet like fluid seen anterior to the omental fat subjacent to the anterior abdominal wall musculature, which demonstrates a few locules of gas as it overlies the larger right hemiabdominal fl uid collection laterally (for example image 50 series 2). There is no evidence for extraluminal contrast material. A right femoral venous catheter is noted, tip of which terminates within the inferior IVC. The region al major vascular structures appear otherwise unremarkable. A Ley catheter decompresses the urinary bladder. The osseous structures demonstrate no concerning lytic or blastic lesions. IMPRESSION: 1. Loculated rim-enhancing fluid within the abdomen as described above, compatible with infected flui d given the provided clinical history. A few nonspecific foci of extraluminal gas are seen without evidence for extraluminal contrast material. 2. Bilateral pleural fluid with adjacent subsegmental atelectasis.
[2020-05-29] MEDS: Propofol 1,000 MG/100 ML VIAL IV PRN ×2 (10:32→23:18)
[2020-05-29] MEDS: Meropenem 500 MG in Sodium Chloride 0.9% 100 ML IVPB SCH ×2 (10:32→23:17)
[2020-05-29] MEDS: Metoclopramide HCl 10 MG/2 ML VIAL IVP SCH ×3 (10:33→20:42)
[2020-05-29 12:13] LABS: Glucose 109 mg/dL (80-115)
[2020-05-29] MEDS ORDERED: Heparin 10,000 UNITS/ 10 ML VIAL ONE (12:36)
[2020-05-29] MEDS ORDERED: Iopamidol-370 76% 500 ML 1 ML ONE (13:07)
[2020-05-29] MEDS: Amlodipine 5 MG TAB PER TUBE SCH (13:35)
[2020-05-29] MEDS: Fluconazole 100 MG TAB PO SCH (13:35)
[2020-05-29] MEDS: levETIRAcetam 500 MG TAB PO SCH (13:35)
[2020-05-29] MEDS: Linezolid 600 MG TAB PO SCH ×2 (13:35→20:43)
[2020-05-29] MEDS: Heparin 5,000 UNITS/ML VIAL SC SCH ×2 (13:36→20:43)
[2020-05-29] MEDS: Furosemide 40 MG/4 ML VIAL SLOW IVP SCH ×3 (13:36→23:18)
[2020-05-29 17:09] LABS: Glucose 91 mg/dL (80-115)
--- NOTE | 2020-05-29 18:07 | PDOC.HOSPP ---
- Subjective Encounter Date: 05/29/20 Encounter Time: 11:20 Subjective: Patient intubated - Objective Vital Signs & Weight: Vital Signs (12 hours) Temp Pulse Resp BP Pulse Ox 05/29/20 16:00 97.8 F 15 05/29/20 14:07 77 134/61 05/29/20 14:00 10 L 05/29/20 13:35 80 131/59 L 05/29/20 13:26 80 131/59 L 05/29/20 12:00 97.7 F 10 L 05/29/20 11:16 90 139/78 05/29/20 10:00 15 05/29/20 08:55 93 127/64 05/29/20 08:00 97.7 F 18 100 Weight Admit Weight 174 lb 13.225 oz Weight 183 lb 11.2 oz Most Recent Monitor Data Heart Rate from ECG 113 NIBP 125/81 NIBP BP-Mean 95 Respiration from ECG 20 SpO2 98 I&O: 05/28/20 05/29/20 05/30/20 06:59 06:59 06:59 Intake Total 1276.9 1150 30 Output Total 1438 2055 215 Balance -161.1 -905 -185 Result Diagrams: 05/29/20 03:30 05/29/20 16:30 Additional Labs: Accuchecks 05/28/20 08:08 POC Glucose 90 Hospitalist ROS - Review of Systems Other: Patient intubated moves all 4 extremities - Medication Medications: Active Medications Generic Name Dose Route Start Last Admin Trade Name Freq PRN Reason Stop Dose Admin Acetaminophen 1,000 mg 05/14/20 09:04 05/14/20 14:17 Acetaminophen 500 Mg Tab PO 1,000 mg Q6H PRN Administration Moderate to Severe Pain (6-10) Amlodipine Besylate 5 mg 05/27/20 09:00 05/29/20 13:35 Amlodipine 5 Mg Tab PER TUBE 5 mg DAILY ALEKSANDER Administration Dexamethasone 4 mg 05/29/20 14:00 05/29/20 13:44 Dexamethasone 4 Mg Tab PO 4 mg Q8HR ALEKSANDER Administration Fluconazole 200 mg 05/25/20 09:00 05/29/20 13:35 Fluconazole 100 Mg Tab PO 200 mg DAILY ALEKSANDER Administration Furosemide 40 mg 05/27/20 22:00 05/29/20 15:26 Furosemide 40 Mg/4 Ml Vial SLOW IVP Not Given Q8HR ALEKSANDER Heparin Sodium (Porcine) 5,000 units 05/22/20 21:00 05/29/20 13:36 Heparin 5,000 Units/Ml Vial SC 5,000 units BID ALEKSANDER Administration Promethazine HCl 12.5 mg/ 50.5 mls @ 202 mls/hr 05/17/20 23:20 05/18/20 07:31 Sodium Chloride IVPB 50.5 mls Q3H PRN Administration Nausea/Vomiting Meropenem 500 mg/ Sodium 100 mls @ 200 mls/hr 05/19/20 21:00 05/29/20 10:32 Chloride IVPB 100 mls Q12HR ALEKSANDER Administration Fentanyl Citrate 2,000 mcg/ 100 mls @ 0 mls/hr 05/19/20 21:45 05/25/20 01:41 Sodium Chloride IV 06/18/20 21:45 100 mls INF ALEKSANDER Administration Protocol Per Protocol Insulin Human Lispro 0 units 05/17/20 15:38 05/27/20 00:42 Humalog 300 Units/3 Ml Vial SC 2 unit .MILD SLIDING SCALE PRN Administration Mild Correctional Scale Labetalol HCl 10 mg 05/19/20 17:02 05/25/20 23:22 Labetalol Hcl 100 Mg/20 Ml Vial SLOW IVP 10 mg Q4H PRN Administration Blood Pressure. SBP above 140 Levetiracetam 500 mg 05/25/20 09:00 05/29/20 13:35 Levetiracetam 500 Mg Tab PO 500 mg DAILY ALEKSANDER Administration Levothyroxine Sodium 112 mcg 05/15/20 06:00 05/29/20 05:01 Levothyroxine Sodium 112 Mcg Tab PO 112 mcg 0600 ALEKSANDER Administration Linezolid 600 mg 05/24/20 21:00 05/29/20 13:35 Linezolid 600 Mg Tab PO 600 mg Q12HR ALEKSANDER Administration Lorazepam 2 mg 05/19/20 21:45 05/20/20 00:45 Lorazepam 2 Mg/Ml Vial SLOW IVP 06/18/20 21:45 2 mg Q1H PRN Administration Breakthrough agitation Metoclopramide HCl 10 mg 05/24/20 15:00 05/29/20 15:26 Metoclopramide Hcl 10 Mg/2 Ml Vial IVP 10 mg TID ALEKSANDER Administration Morphine Sulfate 2 mg 05/19/20 21:45 05/29/20 16:15 Morphine 2 Mg/Ml Vial SLOW IVP 06/18/20 21:45 2 mg Q1H PRN Administration Breakthrough Pain/Agitation Ondansetron HCl 4 mg 05/10/20 19:46 05/19/20 09:55 Ondansetron Pf 4 Mg/2 Ml Vial IVP 4 mg Q6H PRN Administration Nausea Pantoprazole Sodium 40 mg 05/26/20 21:00 05/29/20 13:35 Pantoprazole 40 Mg Tab PO 40 mg BID ALEKSANDER Administration Propofol 1,000 mg 05/19/20 21:45 05/29/20 10:32 Propofol 1,000 Mg/100 Ml Vial IV 06/18/20 21:45 1,000 mg INF PRN Administration TO ACHIEVE GOAL RASS Protocol - Exam Heart: negative: RRR, no murmur, no gallops, no rubs, normal peripheral pulses, irregular, diminshed peripheral pulses, murmur present, II/IV, III/IV Respiratory: negative: CTAB, no wheezes, no rales, no ronchi, normal chest expansion, no tachypnea, normal percussion, rales, rhonchi, tachypneic, wheezes Gastrointestinal: negative: soft, non-tender, non-distended, normal bowel sounds, no palpable masses, no hepatomegaly, no splenomegaly, no bruit, no guarding, no rigidity, tender to palpation, distended, diminished bowl sounds, voluntary guarding Extremities: 2+ LE edema Extremities - other findings: Anasarca Hosp A/P (1) Acute metabolic encephalopathy Code(s): G93.41 - METABOLIC ENCEPHALOPATHY Status: Acute (2) Seizure Code(s): R56.9 - UNSPECIFIED CONVULSIONS Status: Acute (3) PRES (posterior reversible encephalopathy syndrome) Code(s): I67.83 - POSTERIOR REVERSIBLE ENCEPHALOPATHY SYNDROME Status: Suspected (4) AMANDA (acute kidney injury) Code(s): N17.9 - ACUTE KIDNEY FAILURE, UNSPECIFIED Status: Acute (5) Malnourished Code(s): E46 - UNSPECIFIED PROTEIN-CALORIE MALNUTRITION Status: Acute (6) Acute respiratory failure with hypoxia Code(s): J96.01 - ACUTE RESPIRATORY FAILURE WITH HYPOXIA Status: Acute (7) On total parenteral nutrition (TPN) Code(s): Z78.9 - OTHER SPECIFIED HEALTH STATUS Status: Acute (8) Peritonitis (acute) generalized Code(s): K65.0 - GENERALIZED (ACUTE) PERITONITIS Status: Acute - Plan will increase keppra to 500mg daily per her renal clearance. We will get MRI brain. Neurology called case was discussed. We will also consult infectious disease possible infectious etiology. Patient currently on TPN. We will also consult GI Castillo NG output appears dark. PPI started. We will get a gastric occult. SCDs for DVT prophylaxis. 05/20 pt was intubated last night. will continue current tx. spoke with neurosurgery will put pt on steroids. Tried to get pt's blood pressure down given PRES. will continue to monitor. Daughter at bedside updated. (1) Acute respiratory failure with hypoxia Code(s): J96.01 - ACUTE RESPIRATORY FAILURE WITH HYPOXIA Status: Acute (2) Peritonitis (acute) generalized Code(s): K65.0 - GENERALIZED (ACUTE) PERITONITIS Status: Acute (3) AMANDA (acute kidney injury) Code(s): N17.9 - ACUTE KIDNEY FAILURE, UNSPECIFIED Status: Acute ATN (4) S/P colectomy Status: Acute (5) Anasarca Code(s): R60.1 - GENERALIZED EDEMA Status: Acute (6) Severe protein-calorie malnutrition Code(s): E43 - UNSPECIFIED SEVERE PROTEIN-CALORIE MALNUTRITION Status: Acute (7) On total parenteral nutrition (TPN) Code(s): Z78.9 - OTHER SPECIFIED HEALTH STATUS Status: Acute (8) Hypothyroidism Code(s): E03.9 - HYPOTHYROIDISM, UNSPECIFIED Status: Chronic Qualifiers: Hypothyroidism type: acquired Qualified Code(s): E03.9 - Hypothyroidism, unspecified (9) Postoperative anemia due to acute blood loss Code(s): D62 - ACUTE POSTHEMORRHAGIC ANEMIA Status: Acute (10) Acute metabolic encephalopathy Code(s): G93.41 - METABOLIC ENCEPHALOPATHY Status: Acute (11) PRES (posterior reversible encephalopathy syndrome) Code(s): I67.83 - POSTERIOR REVERSIBLE ENCEPHALOPATHY SYNDROME Status: Suspected (12) Seizure Code(s): R56.9 - UNSPECIFIED CONVULSIONS Status: Acute - Plan is on zyvox, merrem, diflucan, keppra, synthroid, decadron, TPN, tube feeding initiated on 05/22 (to increase tube feeding if she is tolerating and to come down on tpn to 50mls/hr) has been initiated on HD, had back to back HD with max fluid removal as tolerated wed and wed. anasarca/vol overload and low alb, continue fluid removal as tolerated with HD, intake is around 4 lts with 2400 coming from tpn itself. I have switched most of her iv to via ng tube which should help anasarca a bit along with fluid removal from HD is s/p sigmoid colectomy with colorectal anastamosis done on 05/07, subsequently developed peritonitis due to anastomotic leak and had segmental colectomy with end colostomy/wash out done on 05/10. got intubated on 05/19, weaning per pulm advice prognosis guarded 1/ per nursing staff patient follows commands once taken off of sedation. Her TPN was discontinued by surgery she is currently on tube feeds. Good output from colostomy. She received albumin with dialysis. 1/ per nursing staff moving all ext when off sedation. Hopefully extubation soon. pt is at goal for her tube feeds and low residual. will continue current abx. 05/27 patient continues to have an elevated white count. We will continue antibiotics. Patient to be extubated when okay with pulmonary. Patient's colostomy site appears to have a dark-tinged output. We will continue to monito r. Continue PPI for now. Patient tolerating her tube feeds 05/28 patient continues to have an elevated white count. May require CT abdomen pelvis for further investigation. She is on very broad antibiotics. Patient received 1 unit of PRBC transfusion for low H&H. Dialysis per nephrology. Patient more awake today when I asked her if she is having any visual disturbances she says no. SCDs for DVT prophylaxis unable to do subcu heparin or Lovenox due to her recent bleed. 05/[address] abdomen pelvis indicated loculated rim-enhancing fluid. We will continue current antibiotics. Patient continues to have be on dialysis. She follows commands well.
[2020-05-29 21:11] LABS: Glucose 107 mg/dL (80-115)
--- NOTE | 2020-05-29 22:34 | PRG ---
DATE OF SERVICE: 05/29/2020 SUBJECTIVE: eMl Mullins remains mechanically ventilated. OBJECTIVE: VITAL SIGNS: Respiratory rates in the teens, FiO2 is a 35%, blood pressure 129/82. She is to be dialyzed again today. She is transfused yesterday. LUNGS: Clear anteriorly. HEART: Regular rhythm. ABDOMEN: Soft. LABORATORY DATA: White count 17.7, hemoglobin 9.5, platelets 222. Sodium 140, potassium 3.5, chloride 96, bicarb 25, BUN 94, creatinine 3.7. PH 7.47, CO2 32, PO2 82. IMPRESSION AND PLAN: Respiratory failure associated with peritonitis, clinical sepsis, renal failure, and volume overload. She is quite weak. We will do more aggressive attempts at weaning. Now, she is in negative fluid balance in the morning. Will measure negative inspiratory force and check for cuff leak. I have been hesitant to extubate her to BiPAP for concern that with abdominal issues, she may have an increased work of breathing, but overall she appears to be improving to a point where she might be a candidate for extubation. Job ID: [id number] [id number]
[2020-05-30 05:36] LABS: Glucose 140 mg/dL (80-115)
[2020-05-30 05:40] LABS: Band 17 % (5-11); Hemoglobin 10.2 g/dL (12.0-16.0); Lymphocytes 8 % (21-51); MDiff Complete? YES; Mean Corpuscular HGB CONC 34.6 g/dL (32.0-36.0); Mean Corpuscular Hemoglobin 32.5 pg (27.0-31.0); Mean Corpuscular Volume 94.1 fL (78.0-98.0); Mean Platelet Volume 7.5 fL (7.4-10.4); Monocytes 1 % (0-10); Neutrophil 74 % (42-75); Platelet Count 205 thou/uL (130-400); RBC Distribution Width 14.3 % (11.5-14.5); Red Blood Cell (RBC) Count 3.12 mill/uL (4.20-5.40); White Blood Cell (WBC) Count 16.4 thou/uL (4.8-10.8)
[2020-05-30 05:47] LABS: Anion Gap 19 mmol/L (10-20); BUN (Urea Nitrogen) 34 mg/dL (9.8-20.1); Calc. Creatinine Clearance 34 mL/min (70-130); Calcium 7.4 mg/dL (7.8-10.44); Carbon Dioxide 29 mmol/L (23-31); Chloride 94 mmol/L (98-107); Glucose 138 mg/dL (80-115); Potassium 3.5 mmol/L (3.5-5.1); Sodium 138 mmol/L (136-145)
[2020-05-30] MEDS: Levothyroxine Sodium 112 MCG TAB PO SCH (05:47)
[2020-05-30] MEDS: Dexamethasone 4 MG TAB PO SCH ×3 (05:48→21:20)
--- NOTE | 2020-05-30 06:37 | PRG ---
DATE OF SERVICE: 05/29/2020 SUBJECTIVE: The patient is noted with the following vital signs. OBJECTIVE: VITAL SIGNS: Blood pressure 135/81, pulse 105, respiratory rate of 16, O2 saturation of 98%. HEENT: Unremarkable. CARDIOVASCULAR: First and second heart sounds were heard. RESPIRATORY SYSTEM: Revealed vented sounds. DIGESTIVE SYSTEM: Revealed a benign abdomen. EXTREMITIES: Showed some peripheral edema. LABORATORY INVESTIGATION: Potassium of 3.5, BUN of 84, creatinine of 3.7. IMPRESSION: 1. Acute kidney injury, likely of multifactorial etiology. 2. Diverticulosis, status post bowel resection, complicated with primary anastomotic leak. 3. Malnutrition. PLAN: 1. The patient to be dialyzed today with ultrafiltration as tolerated by hemodynamics. 2. Further management will be dependent on the clinical course. Meanwhile, continue renal supportive measures and avoid potentially nephrotoxic agents. Job ID: [id number]
[2020-05-30 07:13] LABS: Actual Bicarbonate (HCO3a) 27.7 mEq/L (22-28); Base Excess (BEa) 5.5 mEq/L (-2.0 to +3.0); CO2 Tension 31.4 mmHg (35.0-45.0); Calcium, Ionized (arterial) 0.94 mmol/L (1.12-1.30); Carboxyhemoglobin (COHb) 0.3 gm% (0.0-3.0); Hemoglobin (Hb) 9.2 g/dL (12.0-16.0); O2 Tension (PaO2), arterial 114.2 mmHg (> 80.0)
[2020-05-30 07:43] LABS: Puncture Site RRA; pH, Arterial 7.56 (7.35-7.45)
--- NOTE | 2020-05-30 09:28 | PRG ---
DATE OF SERVICE: 05/30/2020 SUBJECTIVE: Mel Mullins is on the ventilator. Plans are to wean her today. She has been afebrile. Heart rate 70 to 80, currently 120. Blood pressure 139/63. Previous heart rates have been 70 to 90. Her urine output has been good, 2054 yesterday, 510 today. She is tolerating her enteric feedings. She has colostomy output and flatus. OBJECTIVE: LUNGS: Clear to auscultation. CARDIAC: Sinus tachycardia. ABDOMEN: Soft. Bowel sounds present. Colostomy healthy. Midline wound well approximated except for some short 4 to 5 cm segment where there is some skin separation and subcutaneous tissue showing to which a dressing was applied and Wound Care is caring for. Right lower quadrant, old drain site, Nu Gauze wet-to-dry dressing has been performed. EXTREMITIES: Slightly edematous. DIAGNOSTIC STUDIES: Chest x-ray looks clear, unremarkable. White count this morning 16.4 with 17% bands, hemoglobin 10.2. Basic metabolic profile is normal with BUN 34, creatinine 2.24, GFR 22, potassium 3.5, sodium 138. ASSESSMENT AND PLAN: 1. Acute renal failure. Continue hemodialysis, right femoral vein Trialysis catheter per Nephrology. This is nonoliguric. 2. Malnutrition. Continue enteral feedings. 3. Leukocytosis, left shift. CAT scan demonstrated subhepatic, right gutter fluid collection. I talked to Radiology. Plan is for CT-guided drainage of that today. 4. Respiratory failure, on the ventilator. Wean as able. 5. Deconditioning. Physical therapy, range of motion as able. ADDENDUM: Mel Mullins went to CAT scan today, had a fluid collection in the right subhepatic drained. Prior to the drainage, Dr. Holliday called me and we discussed the fact there was a very small amount of oral contrast appearing density in the fluid collection. There was some concern whether this could be a fistula. We went on to have a percutaneous drainage of the fluid. This revealed some brownish fluid, 150 mL. Since that time she has drained 40 mL. The Gram stain reveals moderate yeast and many white blood cells, no epithelial cells. Since that drainage procedure, the patient's heart rate has fallen from 125 to [address]. Before the CT-guided drainage procedure, patient had a 500 mL bolus and her heart rate of 125 did not change. The patient today continues to make 20 to 30 mL of urine per hour. The patient is awake. Plan at this time is to stop her enteric feedings, put her NG tube to suction, initiate TPN and bowel rest in case there is a fistula. We will observe the character of the fluid and volume. Repeat her CAT scan early next week oral without IV contrast and further assess this. We will add Diflucan to her antibiotic regimen. Dr. Freeman is seeing her. May change her to another antifungal pending his evaluation. Dr. Fuentes is covering the weekend and will be seeing her. Job ID: [id number]
[2020-05-30] MEDS: Furosemide 40 MG/4 ML VIAL SLOW IVP SCH ×3 (09:51→21:35)
[2020-05-30] MEDS: Fluconazole 100 MG TAB PO SCH (09:51)
[2020-05-30] MEDS: Amlodipine 5 MG TAB PER TUBE SCH (09:51)
[2020-05-30] MEDS: Heparin 5,000 UNITS/ML VIAL SC SCH ×2 (09:51→21:19)
[2020-05-30] MEDS: levETIRAcetam 500 MG TAB PO SCH (09:52)
[2020-05-30] MEDS: Metoclopramide HCl 10 MG/2 ML VIAL IVP SCH ×2 (09:52→14:26)
[2020-05-30] MEDS: Linezolid 600 MG TAB PO SCH (09:52)
[2020-05-30] MEDS: Propofol 1,000 MG/100 ML VIAL IV PRN ×2 (09:53→16:29)
--- NOTE | 2020-05-30 10:25 | RAD ---
FRONTAL RADIOGRAPH CHEST: DATE: 05/30/2020. COMPARISON: 05/29/2020. HISTORY: Ventilated patient. FINDINGS: Stable endotracheal tube, nasogastric tube, and left vascular catheter. Hazy increased density in gerardo th lung bases suggest mild bibasilar airspace disease with small associated bilateral pleural effusio ns. IMPRESSION: No significant interval change. POS: [facility]
[2020-05-30] MEDS ORDERED: Sodium Chloride 0.9% 500 ML IV SCH (12:00)
[2020-05-30] MEDS ORDERED: Sodium Bicarbonate 2.5 MEQ/5 ML VIAL ONE (12:42)
--- NOTE | 2020-05-30 16:07 | PDOC.HOSPP ---
- Subjective Encounter Date: 05/30/20 Encounter Time: 12:30 Subjective: pt up in bed intubated - Objective Vital Signs & Weight: Vital Signs (12 hours) Temp Pulse Resp BP 05/30/20 13:23 124 H 05/30/20 11:24 123 H 134/82 05/30/20 10:00 11 L 05/30/20 09:51 125 H 120/70 05/30/20 08:00 98.2 F 05/30/20 07:53 125 H 105/56 L 05/30/20 05:52 11 L 05/30/20 04:00 99.8 F H 16 Weight Admit Weight 174 lb 13.225 oz Weight 176 lb 9.6 oz Most Recent Monitor Data Heart Rate from ECG 130 NIBP 134/82 NIBP BP-Mean 99 Respiration from ECG 20 SpO2 99 I&O: 05/29/20 05/30/20 05/31/20 06:59 06:59 06:59 Intake Total 1150 1009.3 120 Output Total 2055 610 91 Balance -905 399.3 29 Result Diagrams: 05/30/20 03:30 05/30/20 03:30 Hospitalist ROS - Review of Systems Other: intubated - Medication Medications: Active Medications Generic Name Dose Route Start Last Admin Trade Name Freq PRN Reason Stop Dose Admin Acetaminophen 1,000 mg 05/14/20 09:04 05/14/20 14:17 Acetaminophen 500 Mg Tab PO 1,000 mg Q6H PRN Administration Moderate to Severe Pain (6-10) Amlodipine Besylate 5 mg 05/27/20 09:00 05/30/20 09:51 Amlodipine 5 Mg Tab PER TUBE 5 mg DAILY ALEKSANDER Administration Dexamethasone 4 mg 05/29/20 14:00 05/30/20 14:25 Dexamethasone 4 Mg Tab PO 4 mg Q8HR ALEKSANDER Administration Fluconazole 200 mg 05/25/20 09:00 05/30/20 09:51 Fluconazole 100 Mg Tab PO 200 mg DAILY ALEKSANDER Administration Furosemide 40 mg 05/27/20 22:00 05/30/20 14:26 Furosemide 40 Mg/4 Ml Vial SLOW IVP Not Given Q8HR ALEKSANDER Heparin Sodium (Porcine) 5,000 units 05/22/20 21:00 05/30/20 09:51 Heparin 5,000 Units/Ml Vial SC Not Given BID ALEKSANDER Promethazine HCl 12.5 mg/ 50.5 mls @ 202 mls/hr 05/17/20 23:20 05/18/20 07:31 Sodium Chloride IVPB 50.5 mls Q3H PRN Administration Nausea/Vomiting Insulin Human Lispro 0 units 05/17/20 15:38 05/27/20 00:42 Humalog 300 Units/3 Ml Vial SC 2 unit .MILD SLIDING SCALE PRN Administration Mild Correctional Scale Labetalol HCl 10 mg 05/19/20 17:02 05/25/20 23:22 Labetalol Hcl 100 Mg/20 Ml Vial SLOW IVP 10 mg Q4H PRN Administration Blood Pressure. SBP above 140 Levetiracetam 500 mg 05/25/20 09:00 05/30/20 09:52 Levetiracetam 500 Mg Tab PO 500 mg DAILY ALEKSANDER Administration Levothyroxine Sodium 112 mcg 05/15/20 06:00 05/30/20 05:47 Levothyroxine Sodium 112 Mcg Tab PO 112 mcg 0600 ALEKSANDER Administration Linezolid 600 mg 05/24/20 21:00 05/30/20 09:52 Linezolid 600 Mg Tab PO 600 mg Q12HR ALEKSANDER Administration Metoclopramide HCl 10 mg 05/24/20 15:00 05/30/20 14:26 Metoclopramide Hcl 10 Mg/2 Ml Vial IVP 10 mg TID ALEKSANDER Administration Ondansetron HCl 4 mg 05/10/20 19:46 05/19/20 09:55 Ondansetron Pf 4 Mg/2 Ml Vial IVP 4 mg Q6H PRN Administration Nausea Pantoprazole Sodium 40 mg 05/26/20 21:00 05/30/20 09:52 Pantoprazole 40 Mg Tab PO 40 mg BID ALEKSANDER Administration Propofol 1,000 mg 05/19/20 21:45 05/30/20 09:53 Propofol 1,000 Mg/100 Ml Vial IV 06/18/20 21:45 1,000 mg INF PRN Administration TO ACHIEVE GOAL RASS Protocol - Exam Neck: negative: supple, symmetric, no JVD, no thyromegaly, no lymphadenopathy, no carotid bruit, JVD Heart: negative: RRR, no murmur, no gallops, no rubs, normal peripheral pulses, irregular, diminshed peripheral pulses, murmur present, II/IV, III/IV Respiratory: negative: CTAB, no wheezes, no rales, no ronchi, normal chest exp ansion, no tachypnea, normal percussion, rales, rhonchi, tachypneic, wheezes Gastrointestinal: negative: soft, non-tender, non-distended, normal bowel sounds, no palpable masses, no hepatomegaly, no splenomegaly, no bruit, no guarding, no rigidity, tender to palpation, distended, diminished bowl sounds, voluntary guarding Hosp A/P (1) Acute metabolic encephalopathy Code(s): G93.41 - METABOLIC ENCEPHALOPATHY Status: Acute (2) Seizure Code(s): R56.9 - UNSPECIFIED CONVULSIONS Status: Acute (3) PRES (posterior reversible encephalopathy syndrome) Code(s): I67.83 - POSTERIOR REVERSIBLE ENCEPHALOPATHY SYNDROME Status: Suspected (4) AMANDA (acute kidney injury) Code(s): N17.9 - ACUTE KIDNEY FAILURE, UNSPECIFIED Status: Acute (5) Malnourished Code(s): E46 - UNSPECIFIED PROTEIN-CALORIE MALNUTRITION Status: Acute (6) Acute respiratory failure with hypoxia Code(s): J96.01 - ACUTE RESPIRATORY FAILURE WITH HYPOXIA Status: Acute (7) On total parenteral nutrition (TPN) Code(s): Z78.9 - OTHER SPECIFIED HEALTH STATUS Status: Acute (8) Peritonitis (acute) generalized Code(s): K65.0 - GENERALIZED (ACUTE) PERITONITIS Status: Acute - Plan will increase keppra to 500mg daily per her renal clearance. We will get MRI brain. Neurology called case was discussed. We will also consult infectious disease possible infectious etiology. Patient currently on TPN. We will also consult GI Castillo NG output appears dark. PPI started. We will get a gastric occult. SCDs for DVT prophylaxis. 05/20 pt was intubated last night. will continue current tx. spoke with neurosurgery will put pt on steroids. Tried to get pt's blood pressure down given PRES. will continue to monitor. Daughter at bedside updated. (1) Acute respiratory failure with hypoxia Code(s): J96.01 - ACUTE RESPIRATORY FAILURE WITH HYPOXIA Status: Acute (2) Peritonitis (acute) generalized Code(s): K65.0 - GENERALIZED (ACUTE) PERITONITIS Status: Acute (3) AMANDA (acute kidney injury) Code(s): N17.9 - ACUTE KIDNEY FAILURE, UNSPECIFIED Status: Acute ATN (4) S/P colectomy Status: Acute (5) Anasarca Code(s): R60.1 - GENERALIZED EDEMA Status: Acute (6) Severe protein-calorie malnutrition Code(s): E43 - UNSPECIFIED SEVERE PROTEIN-CALORIE MALNUTRITION Status: Acute (7) On total parenteral nutrition (TPN) Code(s): Z78.9 - OTHER SPECIFIED HEALTH STATUS Status: Acute (8) Hypothyroidism Code(s): E03.9 - HYPOTHYROIDISM, UNSPECIFIED Status: Chronic Qualifiers: Hypothyroidism type: acquired Qualified Code(s): E03.9 - Hypothyroidism, unspecified (9) Postoperative anemia due to acute blood loss Code(s): D62 - ACUTE POSTHEMORRHAGIC ANEMIA Status: Acute (10) Acute metabolic encephalopathy Code(s): G93.41 - METABOLIC ENCEPHALOPATHY Status: Acute (11) PRES (posterior reversible encephalopathy syndrome) Code(s): I67.83 - POSTERIOR REVERSIBLE ENCEPHALOPATHY SYNDROME Status: Suspected (12) Seizure Code(s): R56.9 - UNSPECIFIED CONVULSIONS Status: Acute - Plan is on zyvox, merrem, diflucan, keppra, synthroid, decadron, TPN, tube feeding initiated on 05/22 (to increase tube feeding if she is tolerating and to come down on tpn to 50mls/hr) has been initiated on HD, had back to back HD with max fluid removal as tolerated wed and wed. anasarca/vol overload and low alb, continue fluid removal as tolerated with HD, intake is around 4 lts with 2400 coming from tpn itself. I have switched most of her iv to via ng tube which should help anasarca a bit along with fluid removal from HD is s/p sigmoid colectomy with colorectal anastamosis done on 05/07, subsequently developed peritonitis due to anastomotic leak and had segmental colectomy with end colostomy/wash out done on 05/10. got intubated on 05/19, weaning per pulm advice prognosis guarded 1/2 per nursing staff patient follows commands once taken off of sedation. Her TPN was discontinued by surgery she is currently on tube feeds. Good output from colostomy. She received albumin with dialysis. 1/3 per nursing staff moving all ext when off sedation. Hopefully extubation cleve n. pt is at goal for her tube feeds and low residual. will continue current abx. 05/27 patient continues to have an elevated white count. We will continue antibiotics. Patient to be extubated when okay with pulmonary. Patient's colostomy site appears to have a dark-tinged output. We will continue to monitor. Continue PPI for now. Patient tolerating her tube feeds 05/28 patient continues to have an elevated white count. May require CT abdomen pelvis for further investigation. She is on very broad antibiotics. Patient received 1 unit of PRBC transfusion for low H&H. Dialysis per nephrology. Patient more awake today when I asked her if she is having any visual disturbances she says no. SCDs for DVT prophylaxis unable to do subcu heparin or Lovenox due to her recent bleed. 05/[address] abdomen pelvis indicated loculated rim-enhancing fluid. We will continue current antibiotics. Patient continues to have be on dialysis. She follows commands well. 05/[address]-guided drain for loculated ring-enhancing fluid. Continue to biotics. Continues to be intubated.
--- NOTE | 2020-05-30 16:09 | PRG ---
DATE OF SERVICE: 05/30/2020 SUBJECTIVE: Mel Mullins is in no distress. She is tentatively on the schedule for subhepatic right gutter fluid that will be drained by CT guidance today. OBJECTIVE: GENERAL: She is in no distress. VITAL SIGNS: Heart rates in 120s. She was given a fluid bolus. This morning, blood pressure is in the 130s. LUNGS: Equal. HEART: Regular rhythm. ABDOMEN: Soft. Her urine output has picked up dramatically. She is not being dialyzed apparently today. IMPRESSION: 1. Clinical sepsis. 2. Acute renal failure secondary to clinical sepsis. 3. Status post laparotomy after she presented with acute abdomen. PLAN: Continue supportive care. Job ID: [id number]
--- NOTE | 2020-05-30 16:41 | PRG ---
DATE OF SERVICE: 05/30/2020 SUBJECTIVE: The patient had a percutaneous drainage, a large fluid collection was aspirated after placement of a 19-gauge needle, approximately 70 mL of brownish feculent material aspirated. Catheter was left in place. OBJECTIVE: VITAL SIGNS: T-max 99.9, blood pressure 130/70, heart rate 94, she is saturating 100%, mechanical ventilator, FiO2 is 35. LUNGS: Diminished breath sounds at bases. CARDIAC: S1 and S2. ABDOMEN: With colostomy and percutaneous drainage now. LABORATORY DATA: White cell count is 16.4, 17% bands, hemoglobin 10. Creatinine is 2.24. Microbiology from the previous sample with quite resistant E coli. The only thing still active includes meropenem and amikacin. She had a chest x-ray, which showed no change in the interval. ASSESSMENT AND DISCUSSION: Diverticulosis, elective resection, primary anastomosis, postop leak with diffuse peritonitis, exploratory laparotomy, colostomy, and then postop acute renal failure, hypertension, posterior reversible encephalopathy syndrome with altered mental state and seizures, dialysis, persistence of bandemia, now this right upper quadrant collection, which has been aspirated, CT-guided, sample sent for cultures. Continue meropenem. Job ID: [id number]
[2020-05-30] MEDS: Meropenem 500 MG in Sodium Chloride 0.9% 100 ML IVPB SCH (21:14)
[2020-05-30] MEDS: SODIUM CHLORIDE IV SCH (22:51)
[2020-05-30] MEDS: [UNRECOGNIZED DRUG - OTHER] IV SCH (22:51)
[2020-05-30] MEDS: POTASSIUM CHLORIDE IV SCH (22:51)
[2020-05-30] MEDS: SODIUM ACETATE IV SCH (22:51)
[2020-05-31] MEDS: Propofol 1,000 MG/100 ML VIAL IV PRN ×2 (01:53→08:43)
[2020-05-31 04:51] LABS: Anion Gap 17 mmol/L (10-20); BUN (Urea Nitrogen) 48 mg/dL (9.8-20.1); Calc. Creatinine Clearance 27 mL/min (70-130); Carbon Dioxide 28 mmol/L (23-31); Chloride 98 mmol/L (98-107); Glucose 187 mg/dL (80-115); Potassium 3.9 mmol/L (3.5-5.1); Sodium 139 mmol/L (136-145)
[2020-05-31 05:22] LABS: Band 31 % (5-11); Hemoglobin 8.8 g/dL (12.0-16.0); Lymphocytes 6 % (21-51); MDiff Complete? YES; Mean Corpuscular HGB CONC 34.2 g/dL (32.0-36.0); Mean Corpuscular Hemoglobin 32.4 pg (27.0-31.0); Mean Corpuscular Volume 94.8 fL (78.0-98.0); Mean Platelet Volume 7.6 fL (7.4-10.4); Metamyelocyte 1 % (0-0); Monocytes 8 % (0-10); Neutrophil 54 % (42-75); Platelet Count 183 thou/uL (130-400); Platelet Morphology Comment Appears Adequate; RBC Distribution Width 14.4 % (11.5-14.5); Red Blood Cell (RBC) Count 2.72 mill/uL (4.20-5.40); White Blood Cell (WBC) Count 10.8 thou/uL (4.8-10.8)
[2020-05-31] MEDS: HumaLOG 300 UNITS/3 ML VIAL SC PRN ×2 (05:42→16:51)
[2020-05-31] MEDS: Levothyroxine Sodium 112 MCG TAB PO SCH (05:44)
[2020-05-31] MEDS: Dexamethasone 4 MG TAB PO SCH ×2 (05:44→21:30)
[2020-05-31] MEDS: Amlodipine 5 MG TAB PER TUBE SCH (07:49)
[2020-05-31] MEDS: levETIRAcetam 500 MG TAB PO SCH (07:50)
[2020-05-31] MEDS: Heparin 5,000 UNITS/ML VIAL SC SCH ×2 (07:50→21:47)
[2020-05-31] MEDS: Pantoprazole 40 MG VIAL IVP SCH (07:51)
[2020-05-31] MEDS: Meropenem 500 MG in Sodium Chloride 0.9% 100 ML IVPB SCH ×2 (07:58→21:32)
[2020-05-31] MEDS: Fluconazole In NaCl,Iso-Osm 200 MG in Premix Bag 1 BAG IVPB SCH (08:41)
--- NOTE | 2020-05-31 09:45 | CT ---
PROCEDURE: CT Peritoneal Abscess Drainage PROVIDED CLINICAL HISTORY: Large perihepatic and pelvic fluid collections with small amount of gas. Percutaneous drainage was re quested. COMPARISON: CT abdomen and pelvis on 05/29/2020 TECHNIQUE: After informed consent was obtained, the patient was placed on the CT scan table in the supine positi on. Limited noncontrasted CT scan was obtained through the abdomen with grid localizer in place. An area overlying the mid axillary line in the mid abdomen was marked, and the area was meticulously pre pped and draped in usual sterile fashion. The skin and subcutaneous tissues were infiltrated with buffered 1% lidocaine for local anesthesia. Small skin incision was made. A 5 Mosotho catheter with 19-gauge Yueh needle was advanced into the col lection and positioning was confirmed with [address] images. The catheter was exchanged over a 0.035 inch Amplatz guidewire for an 8 Mosotho tissue dilator followed by placement of an 8 Mosotho cope loop all-purpose drainage catheter. Guidewire was removed. Approximately 70 mL of brownish feculent material was aspirated and sent for labs. Catheter was flushed and placed to gravit y drainage. The catheter was sutured in place utilizing 2-0 Ethilon suture material. Dry sterile dressing was placed. Patient tolerated the procedure well and without immediate complication. Patient was transported to h er hospital room in stable condition. IMPRESSION: 1. Large fluid and gas collection in a perihepatic location and extending into the right paracolic gu tter and subsequently into the pelvis. 2. Technically successful CT-guided percutaneous drainage of the collection. An 8 Mosotho cope loop al l-purpose drainage catheter was placed in the collection. Transcribed Date/Time: 05/31/2020 9:44 AM
--- NOTE | 2020-05-31 10:06 | RAD ---
1 VIEW CHEST: Date: 05/31/2020 HISTORY: On ventilator. COMPARISON: 05/30/2020. FINDINGS: Endotracheal tube, nasogastric tube, left-sided vascular catheter remain in place and unchanged in po sition. Cardiac silhouette is magnified by projection. This exam is obtained in shallow depth of insp iration which accentuates the bronchovascular markings. Blunting of each lateral costophrenic angle i s again present, suggesting small bilateral pleural effusions. Volume loss is also present at each nyla ng base. Chest is overall stable compared to prior exam. IMPRESSION: 1. Lines and tubes stable in position. 2. Small bilateral pleural effusions and associated bibasilar atelectasis. POS: [facility]
[2020-05-31] MEDS ORDERED: Heparin 10,000 UNITS/ 10 ML VIAL ONE (12:34)
--- NOTE | 2020-05-31 16:54 | PDOC.HOSPP ---
- Subjective Encounter Date: 05/31/20 Encounter Time: 12:30 Subjective: pt intubated but awake - Objective Vital Signs & Weight: Vital Signs (12 hours) Temp Pulse Pulse Pulse Resp BP BP 05/31/20 16:00 98.1 F 18 05/31/20 14:47 101 H 136/71 05/31/20 14:00 18 05/31/20 13:40 96 97 129/80 05/31/20 12:00 98.4 F 19 05/31/20 11:42 97 140/75 05/31/20 10:00 19 05/31/20 08:00 98.8 F 19 05/31/20 07:49 75 135/72 05/31/20 07:11 85 135/67 05/31/20 05:52 16 BP Pulse Ox Pulse Ox Pulse Ox 05/31/20 16:00 05/31/20 14:47 05/31/20 14:00 05/31/20 13:40 152/84 H 98 100 05/31/20 12:00 05/31/20 11:42 05/31/20 10:00 05/31/20 08:00 73 L 05/31/20 07:49 05/31/20 07:11 05/31/20 05:52 Weight Admit Weight 174 lb 13.225 oz Weight 177 lb 1.6 oz Most Recent Monitor Data Heart Rate from ECG 83 NIBP 112/63 NIBP BP-Mean 79 Respiration from ECG 14 SpO2 99 I&O: 05/30/20 05/31/20 06/01/20 06:59 06:59 06:59 Intake Total 1009.3 1138 Output Total 610 1161 245 Balance 399.3 -23 -245 Result Diagrams: 05/31/20 04:17 05/31/20 04:17 Additional Labs: Accuchecks 05/31/20 05/31/20 05/30/20 16:36 00:13 21:27 POC Glucose 154 H 140 H 105 H 05/30/20 10:10 POC Glucose 112 H Hospitalist ROS - Review of Systems Respiratory: denies: cough, dry, shortness of breath, hemoptysis, SOB with excertion, pleuritic pain, sputum, wheezing, other Cardiovascular: denies: chest pain, palpitations, orthopnea, paroxysmal noc. dyspnea, edema, light headedness, other Gastrointestinal: denies: nausea, vomiting, abdominal pain, diarrhea, constipation, melena, hematochezia, other - Medication Medications: Active Medications Generic Name Dose Route Start Last Admin Trade Name Jourdanq PRN Reason Stop Dose Admin Acetaminophen 1,000 mg 05/14/20 09:04 05/14/20 14:17 Acetaminophen 500 Mg Tab PO 1,000 mg Q6H PRN Administration Moderate to Severe Pain (6-10) Amlodipine Besylate 5 mg 05/27/20 09:00 05/31/20 07:49 Amlodipine 5 Mg Tab PER TUBE 5 mg DAILY ALEKSANDER Administration Heparin Sodium (Porcine) 5,000 units 05/22/20 21:00 05/31/20 07:50 Heparin 5,000 Units/Ml Vial SC 5,000 units BID ALEKSANDER Administration Meropenem 500 mg/ Sodium 100 mls @ 200 mls/hr 05/30/20 21:00 05/31/20 07:58 Chloride IVPB 100 mls BID ALEKSANDER Administration Sodium Acetate 70 meq/ Sodium 2,105.9121 mls @ 65 mls/hr 05/30/20 22:00 05/30/20 22:51 Chloride 70 meq/ Potassium IV 2,105.9121 mls Chloride 20 meq/ Calcium 2200 ALEKSANDER Administration Gluconate 10 meq/ Magnesium Sulfate 10 meq/ Multivitamins 10 ml/ Chromium/Copper/ Manganese/Zinc 9 ml/ Insulin Human Regular 21 units/ Amino Acids/Dextrose Fluconazole/Sodium Chloride 100 mls @ 100 mls/hr 05/31/20 09:00 05/31/20 08:41 200 mg/ Device IVPB 100 mls DAILY ALEKSANDER Administration Dexmedetomidine HCl 400 mcg/ 100 mls @ 0 mls/hr 05/31/20 13:00 05/31/20 14:55 Sodium Chloride IVPB 100 mls INF ALEKSANDER Administration Protocol Titrate Insulin Human Lispro 0 units 05/17/20 15:38 05/31/20 05:42 Humalog 300 Units/3 Ml Vial SC 2 unit .MILD SLIDING SCALE PRN Administration Mild Correctional Scale Labetalol HCl 10 mg 05/19/20 17:02 05/25/20 23:22 Labetalol Hcl 100 Mg/20 Ml Vial SLOW IVP 10 mg Q4H PRN Administration Blood Pressure. SBP above 140 Levetiracetam 500 mg 05/25/20 09:00 05/31/20 07:50 Levetiracetam 500 Mg Tab PO 500 mg DAILY ALEKSANDER Administration Levothyroxine Sodium 112 mcg 05/15/20 06:00 05/31/20 05:44 Levothyroxine Sodium 112 Mcg Tab PO 112 mcg 0600 ALEKSANDER Administration Ondansetron HCl 4 mg 05/10/20 19:46 05/19/20 09:55 Ondansetron Pf 4 Mg/2 Ml Vial IVP 4 mg Q6H PRN Administration Nausea Pantoprazole Sodium 40 mg 05/31/20 09:00 05/31/20 07:51 Pantoprazole 40 Mg Vial IVP 40 mg DAILY ALEKSANDER Administration Propofol 1,000 mg 05/19/20 21:45 05/31/20 08:43 Propofol 1,000 Mg/100 Ml Vial IV 06/18/20 21:45 1,000 mg INF PRN Administration TO ACHIEVE GOAL RASS Protocol - Exam Neck: negative: supple, symmetric, no JVD, no thyromegaly, no lymphadenopathy, no carotid bruit, JVD Heart: negative: RRR, no murmur, no gallops, no rubs, normal peripheral pulses, irregular, diminshed peripheral pulses, murmur present, II/IV, III/IV Respiratory: negative: CTAB, no wheezes, no rales, no ronchi, normal chest expansion, no tachypnea, normal percussion, rales, rhonchi, tachypneic, wheezes Hosp A/P (1) Acute metabolic encephalopathy Code(s): G93.41 - METABOLIC ENCEPHALOPATHY Status: Acute (2) Seizure Code(s): R56.9 - UNSPECIFIED CONVULSIONS Status: Acute (3) PRES (posterior reversible encephalopathy syndrome) Code(s): I67.83 - POSTERIOR REVERSIBLE ENCEPHALOPATHY SYNDROME Status: Suspected (4) AMANDA (acute kidney injury) Code(s): N17.9 - ACUTE KIDNEY FAILURE, UNSPECIFIED Status: Acute (5) Malnourished Code(s): E46 - UNSPECIFIED PROTEIN-CALORIE MALNUTRITION Status: Acute (6) Acute respiratory failure with hypoxia Code(s): J96.01 - ACUTE RESPIRATORY FAILURE WITH HYPOXIA Status: Acute (7) On total parenteral nutrition (TPN) Code(s): Z78.9 - OTHER SPECIFIED HEALTH STATUS Status: Acute (8) Peritonitis (acute) generalized Code(s): K65.0 - GENERALIZED (ACUTE) PERITONITIS Status: Acute - Plan will increase keppra to 500mg daily per her renal clearance. We will get MRI brain. Neurology called case was discussed. We will also consult infectious disease possible infectious etiology. Patient currently on TPN. We will also consult GI Castillo NG output appears dark. PPI started. We will get a gastric occult. SCDs for DVT prophylaxis. 05/20 pt was intubated last night. will continue current tx. spoke with neurosurgery will put pt on steroids. Tried to get pt's blood pressure down given PRES. will continue to monitor. Daughter at bedside updated. (1) Acute respiratory failure with hypoxia Code(s): J96.01 - ACUTE RESPIRATORY FAILURE WITH HYPOXIA Status: Acute (2) Peritonitis (acute) generalized Code(s): K65.0 - GENERALIZED (ACUTE) PERITONITIS Status: Acute (3) AMANDA (acute kidney injury) Code(s): N17.9 - ACUTE KIDNEY FAILURE, UNSPECIFIED Status: Acute ATN (4) S/P colectomy Status: Acute (5) Anasarca Code(s): R60.1 - GENERALIZED EDEMA Status: Acute (6) Severe protein-calorie malnutrition Code(s): E43 - UNSPECIFIED SEVERE PROTEIN-CALORIE MALNUTRITION Status: Acute (7) On total parenteral nutrition (TPN) Code(s): Z78.9 - OTHER SPECIFIED HEALTH STATUS Status: Acute (8) Hypothyroidism Code(s): E03.9 - HYPOTHYROIDISM, UNSPECIFIED Status: Chronic Qualifiers: Hypothyroidism type: acquired Qualified Code(s): E03.9 - Hypothyroidism, unspecified (9) Postoperative anemia due to acute blood loss Code(s): D62 - ACUTE POSTHEMORRHAGIC ANEMIA Status: Acute (10) Acute metabolic encephalopathy Code(s): G93.41 - METABOLIC ENCEPHALOPATHY Status: Acute (11) PRES (posterior reversible encephalopathy syndrome) Code(s): I67.83 - POSTERIOR REVERSIBLE ENCEPHALOPATHY SYNDROME Status: Suspected (12) Seizure Code(s): R56.9 - UNSPECIFIED CONVULSIONS Status: Acute - Plan is on zyvox, merrem, diflucan, keppra, synthroid, decadron, TPN, tube feeding in itiated on 05/22 (to increase tube feeding if she is tolerating and to come down on tpn to 50mls/hr) has been initiated on HD, had back to back HD with max fluid removal as tolerated wed and wed. anasarca/vol overload and low alb, continue fluid removal as tolerated with HD, intake is around 4 lts with 2400 coming from tpn itself. I have switched most of her iv to via ng tube which should help anasarca a bit along with fluid removal from HD is s/p sigmoid colectomy with colorectal anastamosis done on 05/07, subsequently developed peritonitis due to anastomotic leak and had segmental colectomy with end colostomy/wash out done on 05/10. got intubated on 05/19, weaning per pulm advice prognosis guarded 1/ per nursing staff patient follows commands once taken off of sedation. Her TPN was discontinued by surgery she is currently on tube feeds. Good output from colostomy. She received albumin with dialysis. / per nursing staff moving all ext when off sedation. Hopefully extubation so on. pt is at goal for her tube feeds and low residual. will continue current abx. 05/27 patient continues to have an elevated white count. We will continue antibiotics. Patient to be extubated when okay with pulmonary. Patient's colostomy site appears to have a dark-tinged output. We will continue to monitor. Continue PPI for now. Patient tolerating her tube feeds 05/28 patient continues to have an elevated white count. May require CT abdomen pelvis for further investigation. She is on very broad antibiotics. Patient received 1 unit of PRBC transfusion for low H&H. Dialysis per nephrology. Patient more awake today when I asked her if she is having any visual disturbances she says no. SCDs for DVT prophylaxis unable to do subcu heparin or Lovenox due to her recent bleed. 05/[address] abdomen pelvis indicated loculated rim-enhancing fluid. We will continue current antibiotics. Patient continues to have be on dialysis. She follows commands well. 05/[address]-guided drain for loculated ring-enhancing fluid. Continue to biotics. Continues to be intubated. 05/[address]-guided drain for loculated ring-enhancing fluid. Continue meropenem. Patient continues to be intubated. Neuro check patient is able to see we will decrease Decadron to 4 mg twice daily
--- NOTE | 2020-05-31 18:02 | PRG ---
DATE OF SERVICE: 05/31/2020 I had seen Ms. Mullins on behalf of Dr. Hancock. The patient remains on mechanical ventilatory support. She underwent percutaneous drainage of right upper quadrant fluid collection. Cultures pertinent for E. coli. She is currently on no vasopressor or inotropic support. Urinary output is marginal, but stable at 20 to 30 mL/h. OBJECTIVE: VITAL SIGNS: Today include blood pressure 124/68, pulse 87, respiratory rate 18, maximum temperature in last 24 hours is 98.8 degrees Fahrenheit, oxygen saturation is 100% on FiO2 of 35% on mechanical ventilator support. HEENT: Pupils equal, round, reactive to light bilaterally. HEART: Reveals regular rate and rhythm. LUNGS: Reveal scattered rhonchi. Breathing regular and nonlabored. ABDOMEN: Soft and obese. The patient has generalized anasarca. Right upper quadrant drain returns a large amount of what appears to be succus. She has no peritoneal signs on examination. Colostomy is viable and productive. LABORATORY FINDINGS: Include a CBC today with 10,800 white blood cells, down from 16,400 yesterday. Hemoglobin and hematocrit 8.8 and 25.7, respectively. The platelet count is 183,000. Metabolic profile: Sodium 139, potassium 3.9, chloride is 98, bicarb is 28, BUN 48, creatinine is 2.65, this is down from 2.24 yesterday. Glucose is 187. There is no acute surgical indication for this patient at this time. IMPRESSION: 1. Acute kidney injury. Appears to be stable and in fact improving. 2. Respiratory failure seems stable. General Surgery will continue to follow along. Job ID: [id number]
--- NOTE | 2020-05-31 19:14 | PRG ---
DATE OF SERVICE: 05/31/2020 OBJECTIVE: VITAL SIGNS: Blood pressure has been in the 100 to 140 range today. Heart rate is 70 to 100 range. Intake and output coming in today was -23. She is to be dialyzed again today. LUNGS: Unchanged. HEART: Unchanged. ABDOMEN: Unchanged. She had purulent drainage from her right abdominal drain. LABORATORY DATA: White count 10.8, hemoglobin 8.8, platelets 183. Electrolytes normal. BUN 48, creatinine 2.65. IMPRESSION: Respiratory failure with sepsis. We decreased ventilatory support. This afternoon, she started shaking her head as she was waking up and extubated herself. She appears to be stable at this time. Critical care time 30 min. Job ID: [id number] MTDD
[2020-05-31] MEDS: [UNRECOGNIZED DRUG - OTHER] IV SCH (23:27)
[2020-05-31] MEDS: SODIUM CHLORIDE IV SCH (23:27)
[2020-05-31] MEDS: SODIUM ACETATE IV SCH (23:27)
[2020-05-31] MEDS: POTASSIUM CHLORIDE IV SCH (23:27)
[2020-06-01 05:18] LABS: Anion Gap 15 mmol/L (10-20); BUN (Urea Nitrogen) 38 mg/dL (9.8-20.1); Calc. Creatinine Clearance 42 mL/min (70-130); Calcium 7.5 mg/dL (7.8-10.44); Carbon Dioxide 29 mmol/L (23-31); Chloride 100 mmol/L (98-107); Glucose 86 mg/dL (80-115); Potassium 3.8 mmol/L (3.5-5.1); Sodium 140 mmol/L (136-145)
[2020-06-01 06:00] LABS: Hemoglobin 9.5 g/dL (12.0-16.0); Mean Corpuscular HGB CONC 32.3 g/dL (32.0-36.0); Mean Corpuscular Hemoglobin 30.9 pg (27.0-31.0); Mean Corpuscular Volume 95.8 fL (78.0-98.0); Mean Platelet Volume 7.4 fL (7.4-10.4); Platelet Count 192 thou/uL (130-400); RBC Distribution Width 14.9 % (11.5-14.5); Red Blood Cell (RBC) Count 3.08 mill/uL (4.20-5.40); White Blood Cell (WBC) Count 11.6 thou/uL (4.8-10.8)
[2020-06-01 06:01] LABS: Band 20 % (5-11); Eosinophils 2 % (0-10); Lymphocytes 13 % (21-51); MDiff Complete? YES; Monocytes 6 % (0-10); Neutrophil 58 % (42-75); Platelet Morphology Comment Appears Decreased; RBC Morphology Normal; Reactive Lymphocytes 1 % (0-10)
[2020-06-01] MEDS: Fluconazole In NaCl,Iso-Osm 200 MG in Premix Bag 1 BAG IVPB SCH (08:27)
[2020-06-01] MEDS: Pantoprazole 40 MG VIAL IVP SCH (08:27)
[2020-06-01] MEDS: Meropenem 500 MG in Sodium Chloride 0.9% 100 ML IVPB SCH ×2 (08:27→19:37)
[2020-06-01] MEDS: Heparin 5,000 UNITS/ML VIAL SC SCH ×2 (08:27→19:38)
[2020-06-01] MEDS: Levothyroxine Sodium 112 MCG TAB PO SCH (09:48)
[2020-06-01] MEDS: Dexamethasone 4 MG TAB PO SCH ×2 (09:48→19:38)
[2020-06-01] MEDS: Amlodipine 5 MG TAB PER TUBE SCH (09:49)
[2020-06-01] MEDS: levETIRAcetam 500 MG TAB PO SCH (09:49)
--- NOTE | 2020-06-01 09:55 | RAD ---
Exam: Chest one view HISTORY:Respiratory distress. Ventilated patient. Comparison: 05/31/2020 FINDINGS: Lines and tubes: Interval removal of endotracheal tube. Stable nasogastric tube and left-sided subcla vian vascular catheter. Cardiac silhouette: Normal Aorta: Unremarkable Pulmonary vessels: Normal Costophrenic angles: Stable small bilateral pleural effusion LUNGS: Stable minimal interstitial opacities lung bases appear Pneumothorax: None Osseous abnormalities: None IMPRESSION: Minimal stable bibasilar pleural-parenchymal changes. Interval removal of endotracheal tu be..
[2020-06-01] MEDS: Labetalol HCl 100 MG/20 ML VIAL SLOW IVP PRN ×2 (11:43→22:27)
--- NOTE | 2020-06-01 17:23 | PDOC.HOSPP ---
- Subjective Encounter Date: 06/01/20 Encounter Time: 11:20 Subjective: Patient got extubated yesterday doing well. - Objective Vital Signs & Weight: Vital Signs (12 hours) Temp Pulse Resp BP BP Pulse Ox 06/01/20 16:10 98 F 100 20 160/80 H 97 06/01/20 11:43 113 H 182/87 H 06/01/20 11:00 98.3 F 06/01/20 09:49 101 H 165/85 H 06/01/20 08:00 97 06/01/20 07:19 100 06/01/20 07:00 98.6 F Weight Admit Weight 174 lb 13.225 oz Weight 2.843 oz Most Recent Monitor Data Heart Rate from ECG 100 NIBP 161/83 NIBP BP-Mean 109 Respiration from ECG 20 SpO2 96 I&O: 05/31/20 06/01/20 06/02/20 06:59 06:59 06:59 Intake Total 1138 1058 992 Output Total 1161 870 640 Balance -23 188 352 Result Diagrams: 06/01/20 04:00 06/01/20 04:00 Additional Labs: Accuchecks 06/01/20 06/01/20 06/01/20 16:54 12:12 00:19 POC Glucose 142 H 110 H 86 Hospitalist ROS - Review of Systems Cardiovascular: denies: chest pain, palpitations, orthopnea, paroxysmal noc. dyspnea, edema, light headedness, other Gastrointestinal: denies: nausea, vomiting, abdominal pain, diarrhea, constipation, melena, hematochezia, other Genitourinary: denies: dysuria, frequency, incontinence, hematuria, retention, other - Medication Medications: Active Medications Generic Name Dose Route Start Last Admin Trade Name Freq PRN Reason Stop Dose Admin Acetaminophen 1,000 mg 05/14/20 09:04 05/14/20 14:17 Acetaminophen 500 Mg Tab PO 1,000 mg Q6H PRN Administration Moderate to Severe Pain (6-10) Amlodipine Besylate 5 mg 05/27/20 09:00 06/01/20 09:49 Amlodipine 5 Mg Tab PER TUBE 5 mg DAILY ALEKSANDER Administration Dexamethasone 4 mg 05/31/20 21:00 06/01/20 09:48 Dexamethasone 4 Mg Tab PO 4 mg BID ALEKSANDER Administration Heparin Sodium (Porcine) 5,000 units 05/22/20 21:00 06/01/20 08:27 Heparin 5,000 Units/Ml Vial SC 5,000 units BID ALEKSANDER Administration Meropenem 500 mg/ Sodium 100 mls @ 200 mls/hr 05/30/20 21:00 06/01/20 08:27 Chloride IVPB 100 mls BID ALEKSANDER Administration Sodium Acetate 70 meq/ Sodium 2,105.9121 mls @ 65 mls/hr 05/30/20 22:00 05/31/20 23:27 Chloride 70 meq/ Potassium IV 2,105.9121 mls Chloride 20 meq/ Calcium 2200 ALEKSANDER Administration Gluconate 10 meq/ Magnesium Sulfate 10 meq/ Multivitamins 10 ml/ Chromium/Copper/ Manganese/Zinc 9 ml/ Insulin Human Regular 21 units/ Amino Acids/Dextrose Fluconazole/Sodium Chloride 100 mls @ 100 mls/hr 05/31/20 09:00 06/01/20 08:27 200 mg/ Device IVPB 100 mls DAILY ALEKSANDER Administration Dexmedetomidine HCl 400 mcg/ 100 mls @ 0 mls/hr 05/31/20 13:00 05/31/20 22:54 Sodium Chloride IVPB 100 mls INF ALEKSANDER Administration Protocol Titrate Insulin Human Lispro 0 units 05/17/20 15:38 05/31/20 16:51 Humalog 300 Units/3 Ml Vial SC 2 unit .MILD SLIDING SCALE PRN Administration Mild Correctional Scale Labetalol HCl 10 mg 05/19/20 17:02 06/01/20 11:43 Labetalol Hcl 100 Mg/20 Ml Vial SLOW IVP 10 mg Q4H PRN Administration Blood Pressure. SBP above 140 Levetiracetam 500 mg 05/25/20 09:00 06/01/20 09:49 Levetiracetam 500 Mg Tab PO 500 mg DAILY ALEKSANDER Administration Levothyroxine Sodium 112 mcg 05/15/20 06:00 06/01/20 09:48 Levothyroxine Sodium 112 Mcg Tab PO 112 mcg 0600 ALEKSANDER Administration Ondansetron HCl 4 mg 05/10/20 19:46 05/19/20 09:55 Ondansetron Pf 4 Mg/2 Ml Vial IVP 4 mg Q6H PRN Administration Nausea Pantoprazole Sodium 40 mg 05/31/20 09:00 06/01/20 08:27 Pantoprazole 40 Mg Vial IVP 40 mg DAILY ALEKSANDER Administration - Exam Neck: negative: supple, symmetric, no JVD, no thyromegaly, no lymphadenopathy, no carotid bruit, JVD Heart: negative: RRR, no murmur, no gallops, no rubs, normal peripheral pulses, irregular, diminshed peripheral pulses, murmur present, II/IV, III/IV Respiratory: negative: CTAB, no wheezes, no rales, no ronchi, normal chest expansion, no tachypnea, normal percussion, rales, rhonchi, tachypneic, wheezes Gastrointestinal: negative: soft, non-tender, non-distended, normal bowel sounds, no palpable masses, no hepatomegaly, no splenomegaly, no bruit, no guarding, no rigidity, tender to palpation, distended, diminished bowl sounds, voluntary guarding Hosp A/P (1) Acute metabolic encephalopathy Code(s): G93.41 - METABOLIC ENCEPHALOPATHY Status: Acute (2) Seizure Code(s): R56.9 - UNSPECIFIED CONVULSIONS Status: Acute (3) PRES (posterior reversible encephalopathy syndrome) Code(s): I67.83 - POSTERIOR REVERSIBLE ENCEPHALOPATHY SYNDROME Status: Suspected (4) AMANDA (acute kidney injury) Code(s): N17.9 - ACUTE KIDNEY FAILURE, UNSPECIFIED Status: Acute (5) Malnourished Code(s): E46 - UNSPECIFIED PROTEIN-CALORIE MALNUTRITION Status: Acute (6) Acute respiratory failure with hypoxia Code(s): J96.01 - ACUTE RESPIRATORY FAILURE WITH HYPOXIA Status: Acute (7) On total parenteral nutrition (TPN) Code(s): Z78.9 - OTHER SPECIFIED HEALTH STATUS Status: Acute (8) Peritonitis (acute) generalized Code(s): K65.0 - GENERALIZED (ACUTE) PERITONITIS Status: Acute - Plan will increase keppra to 500mg daily per her renal clearance. We will get MRI brain. Neurology called case was discussed. We will also consult infectious disease possible infectious etiology. Patient currently on TPN. We will also consult GI Castillo NG output appears dark. PPI started. We will get a gastric occult. SCDs for DVT prophylaxis. 05/20 pt was intubated last night. will continue current tx. spoke with neurosurgery will put pt on steroids. Tried to get pt's blood pressure down given PRES. will continue to monitor. Daughter at bedside updated. (1) Acute respiratory failure with hypoxia Code(s): J96.01 - ACUTE RESPIRATORY FAILURE WITH HYPOXIA Status: Acute (2) Peritonitis (acute) generalized Code(s): K65.0 - GENERALIZED (ACUTE) PERITONITIS Status: Acute (3) AMANDA (acute kidney injury) Code(s): N17.9 - ACUTE KIDNEY FAILURE, UNSPECIFIED Status: Acute ATN (4) S/P colectomy Status: Acute (5) Anasarca Code(s): R60.1 - GENERALIZED EDEMA Status: Acute (6) Severe protein-calorie malnutrition Code(s): E43 - UNSPECIFIED SEVERE PROTEIN-CALORIE MALNUTRITION Status: Acute (7) On total parenteral nutrition (TPN) Code(s): Z78.9 - OTHER SPECIFIED HEALTH STATUS Status: Acute (8) Hypothyroidism Code(s): E03.9 - HYPOTHYROIDISM, UNSPECIFIED Status: Chronic Qualifiers: Hypothyroidism type: acquired Qualified Code(s): E03.9 - Hypothyroidism, unspecified (9) Postoperative anemia due to acute blood loss Code(s): D62 - ACUTE POSTHEMORRHAGIC ANEMIA Status: Acute (10) Acute metabolic encephalopathy Code(s): G93.41 - METABOLIC ENCEPHALOPATHY Status: Acute (11) PRES (posterior reversible encephalopathy syndrome) Code(s): I67.83 - POSTERIOR REVERSIBLE ENCEPHALOPATHY SYNDROME Status: Suspected (12) Seizure Code(s): R56.9 - UNSPECIFIED CONVULSIONS Status: Acute - Plan is on zyvox, merrem, diflucan, keppra, synthroid, decadron, TPN, tube feeding initiated on 05/22 (to increase tube feeding if she is tolerating and to come down on tpn to 50mls/hr) has been initiated on HD, had back to back HD with max fluid removal as tolerated wed and wed. anasarca/vol overload and low alb, continue fluid removal as tolerated with HD, intake is around 4 lts with 2400 coming from tpn itself. I have switched most of her iv to via ng tube which should help anasarca a bit along with fluid removal from HD is s/p sigmoid colectomy with colorectal anastamosis done on 05/07, subsequently developed peritonitis due to anastomotic leak and had segmental colectomy with end colostomy/wash out done on 05/10. got intubated on 05/19, weaning per pulm advice prognosis guarded 05/25 per nursing staff patient follows commands once taken off of sedation. Her TPN was discontinued by surgery she is currently on tube feeds. Good output from colostomy. She received albumin with dialysis. 05/26 per nursing staff moving all ext when off sedation. Hopefully extubation soon. pt is at goal for her tube feeds and low residual. will continue current abx. 05/27 patient continues to have an elevated white count. We will continue antibiotics. Patient to be extubated when okay with pulmonary. Patient's colostomy site appears to have a dark-tinged output. We will continue to monitor. Continue PPI for now. Patient tolerating her tube feeds 05/28 patient continues to have an elevated white count. May require CT abdomen pelvis for further investigation. She is on very broad antibiotics. Patient received 1 unit of PRBC transfusion for low H&H. Dialysis per nephrology. Patient more awake today when I asked her if she is having any visual disturbances she says no. SCDs for DVT prophylaxis unable to do subcu heparin or Lovenox due to her recent bleed. 05/[address] abdomen pelvis indicated loculated rim-enhancing fluid. We will continue current antibiotics. Patient continues to have be on dialysis. She follows commands well. 05/[address]-guided drain for loculated ring-enhancing fluid. Continue to biotics. Continues to be intubated. 05/[address]-guided drain for loculated ring-enhancing fluid. Continue meropenem. Patient continues to be intubated. Neuro check patient is able to see we will decrease Decadron to 4 mg twice daily. 06/01 patient got extubated on 05/31. We will continue meropenem. Patient is able to follow commands. I will continue the Decadron today at 4 mg twice a day and will taper it down. She currently has PPN going. Patient on DVT prophylaxis with Lovenox. Patient's creatinine improving.
--- NOTE | 2020-06-01 18:05 | PRG ---
DATE OF SERVICE: 06/01/2020 SUBJECTIVE: Ms. Mullins is a 64-year-old woman, who is status post partial colectomy with anastomosis. She developed anastomotic leak, which required exploratory laparotomy, resection of the anastomosis with end colostomy. This morning, the patient is awake and alert. She self-extubated within the last 24 hours. She is moving all extremities and following commands. Urinary output remains adequate for her age and weight. She is on no vasopressor or inotropic support. OBJECTIVE: VITAL SIGNS: This morning rounds include blood pressure 144/73, pulse 105, respiratory rate is 20, maximum temperature in the last 24 hours 98.8 degrees Fahrenheit, oxygen saturation 98% on 2 L by nasal cannula oxygen. HEART: Reveals regular rate with mild sinus tachycardia. No murmurs or gallops auscultated. LUNGS: Clear to auscultation bilaterally. Breathing, regular and nonlabored. ABDOMEN: Soft and nondistended. The right upper quadrant percutaneous drainage catheter has returned 400 mL of feculent-appearing drainage fluid over the last 24 hours. Colostomy is viable and functional with stool and gas. NEUROLOGIC: Reveals no focal deficits present. LABORATORY FINDINGS: Today include a CBC with 11,600 white blood cells, hemoglobin and hematocrit 9.5 and 29.4 respectively. The platelet count is 192,000. Metabolic profile: Sodium 140, potassium 3.8, chloride is 100, bicarb 29, BUN 38. Creatinine is 1.74, this is down from 2.65 yesterday. IMPRESSION: 1. Resolved acute respiratory failure. 2. Resolving acute kidney injury. 3. Acute hypokalemia. PLAN: 1. Increase activity per Physical and Occupational Therapy. 2. Correct abnormal electrolytes. 3. No acute surgical indication at this time. 4. The patient may be transferred to general surgical floor later today at the discretion of Pulmonary Critical Care Medicine. Job ID: [id number]
[2020-06-01] MEDS: Acetaminophen 500 MG TAB PO PRN (19:46)
--- NOTE | 2020-06-01 20:00 | PRG ---
DATE OF SERVICE: 05/31/2020 SUBJECTIVE: The patient is seen, no life support. OBJECTIVE: HEENT: Unremarkable. CARDIOVASCULAR: First and second heart sounds were heard. RESPIRATORY: Revealed vented sounds. DIGESTIVE: Revealed a benign abdomen. EXTREMITIES: No peripheral edema. SKIN: No new gross rash. LYMPHATICS: No peripheral lymphadenopathy. IMPRESSION: 1. Acute kidney injury. 2. Sepsis. 3. Respiratory failure, on vent. PLAN: 1. The patient was not dialyzed yesterday and will likely dialyze with emphasis on ultrafiltration in preparation for possible extubation of this patient. 2. Further management will be dependent on the clinical course. Please avoid potentially nephrotoxic agents given the high likelihood of this patient. 3. Renal function improving to the point of not requiring dialysis any longer. Job ID: [id number]
--- NOTE | 2020-06-01 20:28 | PRG ---
DATE OF SERVICE: 06/01/2020 OBJECTIVE: VITAL SIGNS: The patient noted with the following vital signs: Afebrile, temperature 98, pulse 100, respiratory rate of 20, O2 saturations , blood pressure . HEENT: Unremarkable. CARDIOVASCULAR SYSTEM: First and second heart sounds were noted. RESPIRATORY SYSTEM: Clear to auscultation. DIGESTIVE SYSTEM: Revealed a benign abdomen. Positive bowel sounds. EXTREMITIES: No peripheral edema. SKIN: No new gross rash. LYMPHATICS: No peripheral lymphadenopathy. LABORATORY INVESTIGATION: Significant for creatinine of 1.74, BUN of 33. IMPRESSION: 1. Acute kidney injury, which is much improved. The patient is still not yet making a lot of urine, however, signs of improvement noted. 2. Reduced creatinine, likely in reflection of dialysis of yesterday. 3. Respiratory failure, status post extubation. 4. Sepsis, under treatment. PLAN: Patient is not to be dialyzed today and not to be dialyzed over the weekend. We will suspend dialysis for now and monitor renal function vis-a-vis. The possibility of this patient is not requiring dialysis any longer and if that is the case, we will recommend for dialysis catheter to be removed immediately. Further management to be dependent on the clinical course. Job ID: [id number]
[2020-06-01] MEDS: [UNRECOGNIZED DRUG - OTHER] IV SCH (22:50)
[2020-06-01] MEDS: SODIUM ACETATE IV SCH (22:50)
[2020-06-01] MEDS: POTASSIUM CHLORIDE IV SCH (22:50)
[2020-06-01] MEDS: SODIUM CHLORIDE IV SCH (22:50)
[2020-06-02] MEDS: Labetalol HCl 100 MG/20 ML VIAL SLOW IVP PRN (04:04)
[2020-06-02] MEDS: Levothyroxine Sodium 112 MCG TAB PO SCH (05:11)
[2020-06-02 05:12] LABS: Anion Gap 13 mmol/L (10-20); BUN (Urea Nitrogen) 57 mg/dL (9.8-20.1); Calc. Creatinine Clearance 37 mL/min (70-130); Calcium 7.6 mg/dL (7.8-10.44); Carbon Dioxide 28 mmol/L (23-31); Chloride 102 mmol/L (98-107); Glucose 119 mg/dL (80-115); Magnesium 1.8 mg/dL (1.6-2.6); Potassium 3.3 mmol/L (3.5-5.1); Sodium 140 mmol/L (136-145)
[2020-06-02 05:22] LABS: Band 7 % (5-11); Eosinophils 1 % (0-10); Hemoglobin 9.5 g/dL (12.0-16.0); Lymphocytes 28 % (21-51); MDiff Complete? YES; Mean Corpuscular Hemoglobin 33.5 pg (27.0-31.0); Mean Corpuscular Volume 95.9 fL (78.0-98.0); Mean Platelet Volume 7.1 fL (7.4-10.4); Monocytes 5 % (0-10); Neutrophil 58 % (42-75); Nucleated RBC 1 % (0); Platelet Count 173 thou/uL (130-400); Platelet Morphology Comment Appears Adequate; RBC Morphology Normal; Reactive Lymphocytes 1 % (0-10); Red Blood Cell (RBC) Count 2.82 mill/uL (4.20-5.40); White Blood Cell (WBC) Count 6.6 thou/uL (4.8-10.8)
[2020-06-02 06:32] LABS: Phosphorus 2.5 mg/dL (2.3-4.7)
[2020-06-02] MEDS: Dexamethasone 4 MG TAB PO SCH ×2 (10:25→20:57)
[2020-06-02] MEDS: Amlodipine 5 MG TAB PER TUBE SCH (10:25)
[2020-06-02] MEDS: Pantoprazole 40 MG VIAL IVP SCH (10:26)
[2020-06-02] MEDS: Meropenem 500 MG in Sodium Chloride 0.9% 100 ML IVPB SCH ×2 (10:27→20:57)
[2020-06-02] MEDS: Heparin 5,000 UNITS/ML VIAL SC SCH ×2 (10:27→20:57)
[2020-06-02] MEDS: levETIRAcetam 500 MG TAB PO SCH (11:17)
[2020-06-02] MEDS: Fluconazole In NaCl,Iso-Osm 200 MG in Premix Bag 1 BAG IVPB SCH (11:25)
[2020-06-02] MEDS: levETIRAcetam 500 mg/5 ml Oral Solution PO SCH (11:25)
--- NOTE | 2020-06-02 11:49 | PRG ---
DATE OF SERVICE: 06/01/2020 SUBJECTIVE: Mel Mullins is on room air. OBJECTIVE: VITAL SIGNS: She is afebrile. Respiratory rate is 20, oximetry is 97%, blood pressure 160/80. LUNGS: Clear. HEART: Regular rhythm. ABDOMEN: Soft, nontender. EXTREMITIES: Without edema. Intake and output, positive 188. LABORATORY STUDIES: White count 11.6, hemoglobin 9.5, platelets 192. Sodium 140, potassium 3.8, chloride 100, bicarb 29, BUN 38, creatinine 1.74 down from 2.65. IMPRESSION: 1. Respiratory failure associated with sepsis and volume overload. 2. Acute renal failure associated with sepsis and peritonitis. 3. mechanical ventilation extremely well post self-extubation yesterday. She can transfer out of the Critical Care Unit to a surgical bed in my opinion. We will follow from a distance on transfer given the large volume of COVID patients we have in the Critical Care Unit. If any respiratory issues, I will be happy to see her again. Met with family and answered all their questions. ADDENDUM: Other problems that appear to be stable are, 1. Posterior reversible encephalopathy syndrome, which appears to have resolved. 2. Status post percutaneous drainage of purulent fluid collection in her abdomen, which is growing E coli and yeast. 3. History of diverticulosis. 4. Acute renal failure requiring dialysis with improving renal function. PLAN: Continue supportive care. Job ID: [id number]
--- NOTE | 2020-06-02 15:36 | PDOC.HOSPP ---
- Subjective Encounter Date: 06/02/20 Encounter Time: 11:00 Subjective: Patient up in bed states she is hungry and she wants to eat - Objective Vital Signs & Weight: Vital Signs (12 hours) Temp Pulse Resp BP BP BP Pulse Ox 06/02/20 13:48 158/83 H 06/02/20 12:00 97.9 F 102 H 170/78 H 96 06/02/20 10:25 94 147/68 H 06/02/20 08:00 98.1 F 94 20 147/68 H 94 L 06/02/20 04:04 98 158/81 H 06/02/20 03:57 97.6 F 98 20 158/81 H 97 Weight Admit Weight 174 lb 13.225 oz Weight 177 lb Most Recent Monitor Data Heart Rate from ECG 100 NIBP 161/83 NIBP BP-Mean 109 Respiration from ECG 20 SpO2 96 I&O: 06/01/20 06/02/20 06/03/20 06:59 06:59 06:59 Intake Total 1058 2697 Output Total 870 2090 Balance 188 607 Result Diagrams: 06/02/20 04:30 06/02/20 04:30 Additional Labs: Accuchecks 06/02/20 06/02/20 06/01/20 13:50 05:26 23:25 POC Glucose 129 H 137 H 162 H 06/01/20 16:54 POC Glucose 142 H Hospitalist ROS - Review of Systems Cardiovascular: denies: chest pain, palpitations, orthopnea, paroxysmal noc. d yspnea, edema, light headedness, other Gastrointestinal: denies: nausea, vomiting, abdominal pain, diarrhea, constipation, melena, hematochezia, other Genitourinary: denies: dysuria, frequency, incontinence, hematuria, retention, other - Medication Medications: Active Medications Generic Name Dose Route Start Last Admin Trade Name Freq PRN Reason Stop Dose Admin Acetaminophen 1,000 mg 05/14/20 09:04 06/01/20 19:46 Acetaminophen 500 Mg Tab PO 1,000 mg Q6H PRN Administration Moderate to Severe Pain (6-10) Amlodipine Besylate 5 mg 05/27/20 09:00 06/02/20 10:25 Amlodipine 5 Mg Tab PER TUBE 5 mg DAILY ALEKSANDER Administration Dexamethasone 4 mg 05/31/20 21:00 06/02/20 10:25 Dexamethasone 4 Mg Tab PO 4 mg BID ALEKSANDER Administration Heparin Sodium (Porcine) 5,000 units 05/22/20 21:00 06/02/20 10:27 Heparin 5,000 Units/Ml Vial SC 5,000 units BID ALEKSANDER Administration Meropenem 500 mg/ Sodium 100 mls @ 200 mls/hr 05/30/20 21:00 06/02/20 10:27 Chloride IVPB 100 mls BID ALEKSANDER Administration Sodium Acetate 70 meq/ Sodium 2,105.9121 mls @ 65 mls/hr 05/30/20 22:00 06/01/20 22:50 Chloride 70 meq/ Potassium IV 2,105.9121 mls Chloride 20 meq/ Calcium 2200 ALEKSANDER Administration Gluconate 10 meq/ Magnesium Sulfate 10 meq/ Multivitamins 10 ml/ Chromium/Copper/ Manganese/Zinc 9 ml/ Insulin Human Regular 21 units/ Amino Acids/Dextrose Fluconazole/Sodium Chloride 100 mls @ 100 mls/hr 05/31/20 09:00 06/02/20 11:25 200 mg/ Device IVPB 100 mls DAILY ALEKSANDER Administration Insulin Human Lispro 0 units 05/17/20 15:38 05/31/20 16:51 Humalog 300 Units/3 Ml Vial SC 2 unit .MILD SLIDING SCALE PRN Administration Mild Correctional Scale Labetalol HCl 10 mg 05/19/20 17:02 06/02/20 04:04 Labetalol Hcl 100 Mg/20 Ml Vial SLOW IVP 10 mg Q4H PRN Administration Blood Pressure. SBP above 140 Levetiracetam 500 mg 06/03/20 09:00 06/02/20 11:25 Levetiracetam 500 Mg/5 Ml Oral Solution PO 500 mg DAILY ALEKSANDER Administration Levothyroxine Sodium 112 mcg 05/15/20 06:00 06/02/20 05:11 Levothyroxine Sodium 112 Mcg Tab PO 112 mcg 0600 ALEKSANDER Administration Ondansetron HCl 4 mg 05/10/20 19:46 05/19/20 09:55 Ondansetron Pf 4 Mg/2 Ml Vial IVP 4 mg Q6H PRN Administration Nausea Pantoprazole Sodium 40 mg 05/31/20 09:00 06/02/20 10:26 Pantoprazole 40 Mg Vial IVP 40 mg DAILY ALEKSANDER Administration - Exam Neck: negative: supple, symmetric, no JVD, no thyromegaly, no lymphadenopathy, no carotid bruit, JVD Heart: negative: RRR, no murmur, no gallops, no rubs, normal peripheral pulses, irregular, diminshed peripheral pulses, murmur present, II/IV, III/IV Respiratory: negative: CTAB, no wheezes, no rales, no ronchi, normal chest expansion, no tachypnea, normal percussion, rales, rhonchi, tachypneic, wheezes Gastrointestinal: negative: soft, non-tender, non-distended, normal bowel radames nds, no palpable masses, no hepatomegaly, no splenomegaly, no bruit, no guarding, no rigidity, tender to palpation, distended, diminished bowl sounds, voluntary guarding Hosp A/P (1) Acute metabolic encephalopathy Code(s): G93.41 - METABOLIC ENCEPHALOPATHY Status: Acute (2) Seizure Code(s): R56.9 - UNSPECIFIED CONVULSIONS Status: Acute (3) PRES (posterior reversible encephalopathy syndrome) Code(s): I67.83 - POSTERIOR REVERSIBLE ENCEPHALOPATHY SYNDROME Status: Suspected (4) AMANDA (acute kidney injury) Code(s): N17.9 - ACUTE KIDNEY FAILURE, UNSPECIFIED Status: Acute (5) Malnourished Code(s): E46 - UNSPECIFIED PROTEIN-CALORIE MALNUTRITION Status: Acute (6) Acute respiratory failure with hypoxia Code(s): J96.01 - ACUTE RESPIRATORY FAILURE WITH HYPOXIA Status: Acute (7) On total parenteral nutrition (TPN) Code(s): Z78.9 - OTHER SPECIFIED HEALTH STATUS Status: Acute (8) Peritonitis (acute) generalized Code(s): K65.0 - GENERALIZED (ACUTE) PERITONITIS Status: Acute - Plan will increase keppra to 500mg daily per her renal clearance. We will get MRI brain. Neurology called case was discussed. We will also consult infectious disease possible infectious etiology. Patient currently on TPN. We will also consult GI Castillo NG output appears dark. PPI started. We will get a gastric occult. SCDs for DVT prophylaxis. 05/20 pt was intubated last night. will continue current tx. spoke with neurosmayank robertson will put pt on steroids. Tried to get pt's blood pressure down given PRES. will continue to monitor. Daughter at bedside updated. (1) Acute respiratory failure with hypoxia Code(s): J96.01 - ACUTE RESPIRATORY FAILURE WITH HYPOXIA Status: Acute (2) Peritonitis (acute) generalized Code(s): K65.0 - GENERALIZED (ACUTE) PERITONITIS Status: Acute (3) AMANDA (acute kidney injury) Code(s): N17.9 - ACUTE KIDNEY FAILURE, UNSPECIFIED Status: Acute ATN (4) S/P colectomy Status: Acute (5) Anasarca Code(s): R60.1 - GENERALIZED EDEMA Status: Acute (6) Severe protein-calorie malnutrition Code(s): E43 - UNSPECIFIED SEVERE PROTEIN-CALORIE MALNUTRITION Status: Acute (7) On total parenteral nutrition (TPN) Code(s): Z78.9 - OTHER SPECIFIED HEALTH STATUS Status: Acute (8) Hypothyroidism Code(s): E03.9 - HYPOTHYROIDISM, UNSPECIFIED Status: Chronic Qualifiers: Hypothyroidism type: acquired Qualified Code(s): E03.9 - Hypothyroidism, unspecified (9) Postoperative anemia due to acute blood loss Code(s): D62 - ACUTE POSTHEMORRHAGIC ANEMIA Status: Acute (10) Acute metabolic encephalopathy Code(s): G93.41 - METABOLIC ENCEPHALOPATHY Status: Acute (11) PRES (posterior reversible encephalopathy syndrome) Code(s): I67.83 - POSTERIOR REVERSIBLE ENCEPHALOPATHY SYNDROME Status: Suspected (12) Seizure Code(s): R56.9 - UNSPECIFIED CONVULSIONS Status: Acute - Plan is on zyvox, merrem, diflucan, keppra, synthroid, decadron, TPN, tube feeding initiated on 05/22 (to increase tube feeding if she is tolerating and to come down on tpn to 50mls/hr) has been initiated on HD, had back to back HD with max fluid removal as tolerat ed wed and wed. anasarca/vol overload and low alb, continue fluid removal as tolerated with HD, intake is around 4 lts with 2400 coming from tpn itself. I have switched most of her iv to via ng tube which should help anasarca a bit along with fluid removal from HD is s/p sigmoid colectomy with colorectal anastamosis done on 05/07, subsequently developed peritonitis due to anastomotic leak and had segmental colectomy with end colostomy/wash out done on 05/10. got intubated on 05/19, weaning per pulm advice prognosis guarded 05/25 per nursing staff patient follows commands once taken off of sedation. Her TPN was discontinued by surgery she is currently on tube feeds. Good output from colostomy. She received albumin with dialysis. 05/26 per nursing staff moving all ext when off sedation. Hopefully extubation soon. pt is at goal for her tube feeds and low residual. will continue current abx. 05/27 patient continues to have an elevated white count. We will continue antibiotics. Patient to be extubated when okay with pulmonary. Patient's colostomy site appears to have a dark-tinged output. We will continue to monitor. Continue PPI for now. Patient tolerating her tube feeds 05/28 patient continues to have an elevated white count. May require CT abdomen pelvis for further investigation. She is on very broad antibiotics. Patient received 1 unit of PRBC transfusion for low H&H. Dialysis per nephrology. Patient more awake today when I asked her if she is having any visual dis turbances she says no. SCDs for DVT prophylaxis unable to do subcu heparin or Lovenox due to her recent bleed. 05/[address] abdomen pelvis indicated loculated rim-enhancing fluid. We will continue current antibiotics. Patient continues to have be on dialysis. She follows commands well. 05/[address]-guided drain for loculated ring-enhancing fluid. Continue to biotics. Continues to be intubated. 05/[address]-guided drain for loculated ring-enhancing fluid. Con tinue meropenem. Patient continues to be intubated. Neuro check patient is able to see we will decrease Decadron to 4 mg twice daily. 06/01 patient got extubated on 05/31. We will continue meropenem. Patient is able to follow commands. I will continue the Decadron today at 4 mg twice a day and will taper it down. She currently has PPN going. Patient on DVT prophylaxis with Lovenox. Patient's creatinine improving. 06/02 patient doing well she still has an NG tube on PPN. Continues to have d rain to her right lower quadrant and also colostomy. We will continue current dose of Decadron. Advance diet per surgery. DVT prophylaxis. Patient continues to be on meropenem. Her white count has improved dramatically.
--- NOTE | 2020-06-02 15:46 | PRG ---
DATE OF SERVICE: 06/02/2020 SUBJECTIVE: Ms. Mullins is awake and alert today. She reports adequate pain control. She is participating with Physical Therapy. She has adequate urinary output for her age and weight. She remains on bowel rest with parenteral nutritional supplementation. The percutaneous abdominal drainage catheter has returned 225 mL of purulent fluid over the previous 24 hours. Nasogastric tube returned 600 mL of bile-tinged fluid. OBJECTIVE: VITAL SIGNS: Blood pressure 147/68, pulse 94, respiratory rate is 20, maximum temperature in the last 24 hours is 98.1 degrees Fahrenheit, and oxygen saturation is 96% on room air. HEART: Regular rate and rhythm. LUNGS: Clear to auscultation bilaterally. Her breathing is regular and unlabored. ABDOMEN: Soft, moderately distended, but nontender to palpation. There is an opening in the midportion of the midline incisional wound with no active drainage present. The wound is granulated. Colostomy is viable and functional with stool and gas. LABORATORY FINDINGS: Today include a CBC with 6600 white blood cells, hemoglobin and hematocrit are 9.5 and 27.0 respectively, and platelet count is 173,000. Metabolic profile: Sodium 140, potassium 3.3, chloride is 102, bicarb is 28, BUN is 57, creatinine is 1.95, and glucose is 119. Magnesium is 1.8. Phosphorus is 2.5. IMPRESSIONS: 1. Status post exploratory laparotomy and resection of previous colorectal anastomosis with end colostomy. 2. Status post percutaneous drainage of right upper quadrant fluid collection. 3. Resolving acute kidney injury. 4. Acute hypokalemia. 5. Acute hypomagnesemia. 6. Acute hypophosphatemia. PLAN: 1. Correct abnormal electrolytes. 2. Increase activity per Physical and Occupational Therapy. 3. The patient will remain on bowel rest for the moment. Job ID: [id number]
[2020-06-02] MEDS: [UNRECOGNIZED DRUG - OTHER] IV SCH (23:02)
[2020-06-02] MEDS: SODIUM CHLORIDE IV SCH (23:02)
[2020-06-02] MEDS: POTASSIUM CHLORIDE IV SCH (23:02)
[2020-06-02] MEDS: SODIUM ACETATE IV SCH (23:02)
[2020-06-03] MEDS: Levothyroxine Sodium 112 MCG TAB PO SCH (05:45)
[2020-06-03 05:46] LABS: Anion Gap 12 mmol/L (10-20); BUN (Urea Nitrogen) 57 mg/dL (9.8-20.1); Calc. Creatinine Clearance 39 mL/min (70-130); Calcium 7.6 mg/dL (7.8-10.44); Carbon Dioxide 31 mmol/L (23-31); Chloride 103 mmol/L (98-107); Glucose 99 mg/dL (80-115); Potassium 3.1 mmol/L (3.5-5.1); Sodium 143 mmol/L (136-145)
[2020-06-03 05:57] LABS: Band 46 % (5-11); Eosinophils 8 % (0-10); Hemoglobin 9.3 g/dL (12.0-16.0); Hypochromia SLIGHT = 6-15 cells (100X) (0-5/hpf); Lymphocytes 14 % (21-51); MDiff Complete? YES; Mean Corpuscular HGB CONC 34.5 g/dL (32.0-36.0); Mean Corpuscular Volume 95.6 fL (78.0-98.0); Mean Platelet Volume 7.1 fL (7.4-10.4); Metamyelocyte 2 % (0-0); Monocytes 12 % (0-10); Neutrophil 14 % (42-75); Platelet Count 172 thou/uL (130-400); Platelet Morphology Comment Appears Adequate; RBC Distribution Width 14.6 % (11.5-14.5); Reactive Lymphocytes 4 % (0-10); Red Blood Cell (RBC) Count 2.81 mill/uL (4.20-5.40); White Blood Cell (WBC) Count 4.1 thou/uL (4.8-10.8)
[2020-06-03] MEDS: Fluconazole In NaCl,Iso-Osm 200 MG in Premix Bag 1 BAG IVPB SCH (10:28)
--- NOTE | 2020-06-03 10:40 | CT ---
CT ABDOMEN AND PELVIS WITHOUT IV CONTRAST: INDICATION: Followup abscess drainage. Oral contrast is administered. COMPARISON: Comparison is made to CT 05/29/[address] of 05/30/2020. FINDINGS: Images through the lung bases show small bilateral pleural effusions, not significantly changed. Small volume ascites with fluid around the liver margin. Pigtail drainage catheter enters the latera l right mid abdomen and catheter is seen along the lateral right liver margin. Small fluid and gas a long the anterior right liver margin. Small volume fluid along the colonic gutters and into the pelv is. Stomach is distended with ingested contrast. There is fluid in the left mid abdomen surrounding several loops of small bowel. These bowel loops s how evidence of mural thickening related to this fluid collection. This does not appear loculated. The left ostomy is again noted. Bowel loops are normal caliber. The renal cystic lesions are stable. No hydronephrosis. IMPRESSION: 1. Small bilateral pleural effusions appear stable. 2. Small volume ascites in the abdomen and pelvis. There is fluid in the left abdomen surrounding s everal loops of small bowel. POS: AGW
[2020-06-03] MEDS: levETIRAcetam 500 mg/5 ml Oral Solution PO SCH (10:45)
[2020-06-03] MEDS: Heparin 5,000 UNITS/ML VIAL SC SCH ×2 (10:46→20:03)
[2020-06-03] MEDS: Dexamethasone 4 MG TAB PO SCH ×2 (10:46→20:03)
[2020-06-03] MEDS: Amlodipine 10 MG TAB PER TUBE SCH (10:46)
[2020-06-03] MEDS: Meropenem 500 MG in Sodium Chloride 0.9% 100 ML IVPB SCH ×2 (12:05→20:03)
[2020-06-03] MEDS: Labetalol HCl 100 MG/20 ML VIAL SLOW IVP PRN (12:14)
--- NOTE | 2020-06-03 15:09 | PDOC.HOSPP ---
- Subjective Encounter Date: 06/03/20 Encounter Time: 10:00 Subjective: Patient up in bed is hungry wants to eat. Patient has an NG tube - Objective Vital Signs & Weight: Vital Signs (12 hours) Temp Pulse Resp BP BP Pulse Ox 06/03/20 12:14 94 165/77 H 06/03/20 11:40 97.8 F 98 16 163/74 H 98 06/03/20 10:46 96 152/72 H 06/03/20 08:00 98 06/03/20 07:13 98.0 F 96 16 158/72 H 94 L 06/03/20 03:13 97.5 F L 88 16 159/74 H 96 Weight Admit Weight 174 lb 13.225 oz Weight 168 lb 1.6 oz Most Recent Monitor Data Heart Rate from ECG 100 NIBP 161/83 NIBP BP-Mean 109 Respiration from ECG 20 SpO2 96 I&O: 06/02/20 06/03/20 06/04/20 06:59 06:59 06:59 Intake Total 2697 1628 Output Total 6790 3275 Balance 607 -1647 Result Diagrams: 06/03/20 05:12 06/03/20 05:12 Additional Labs: Accuchecks 06/03/20 06/03/20 06/03/20 11:50 05:18 00:06 POC Glucose 106 H 90 129 H 06/02/20 17:11 POC Glucose 129 H Hospitalist ROS - Review of Systems Respiratory: denies: cough, dry, shortness of breath, hemoptysis, SOB with exc ertion, pleuritic pain, sputum, wheezing, other Cardiovascular: denies: chest pain, palpitations, orthopnea, paroxysmal noc. dyspnea, edema, light headedness, other Gastrointestinal: denies: nausea, vomiting, abdominal pain, diarrhea, constipation, melena, hematochezia, other - Medication Medications: Active Medications Generic Name Dose Route Start Last Admin Trade Name Freq PRN Reason Stop Dose Admin Acetaminophen 1,000 mg 05/14/20 09:04 06/01/20 19:46 Acetaminophen 500 Mg Tab PO 1,000 mg Q6H PRN Administration Moderate to Severe Pain (6-10) Amlodipine Besylate 10 mg 06/03/20 09:00 06/03/20 10:46 Amlodipine 10 Mg Tab PER TUBE 10 mg DAILY ALEKSANDER Administration Dexamethasone 4 mg 05/31/20 21:00 06/03/20 10:46 Dexamethasone 4 Mg Tab PO 4 mg BID ALEKSANDER Administration Heparin Sodium (Porcine) 5,000 units 05/22/20 21:00 06/03/20 10:46 Heparin 5,000 Units/Ml Vial SC 5,000 units BID ALEKSANDER Administration Meropenem 500 mg/ Sodium 100 mls @ 200 mls/hr 05/30/20 21:00 06/03/20 12:05 Chloride IVPB 100 mls BID ALEKSANDER Administration Sodium Acetate 70 meq/ Sodium 2,105.9121 mls @ 65 mls/hr 05/30/20 22:00 06/02/20 23:02 Chloride 70 meq/ Potassium IV 2,105.9121 mls Chloride 20 meq/ Calcium 2200 ALEKSANDER Administration Gluconate 10 meq/ Magnesium Sulfate 10 meq/ Multivitamins 10 ml/ Chromium/Copper/ Manganese/Zinc 9 ml/ Insulin Human Regular 21 units/ Amino Acids/Dextrose Fluconazole/Sodium Chloride 100 mls @ 100 mls/hr 05/31/20 09:00 06/03/20 10:28 200 mg/ Device IVPB 100 mls DAILY ALEKSANDER Administration Insulin Human Lispro 0 units 05/17/20 15:38 05/31/20 16:51 Humalog 300 Units/3 Ml Vial SC 2 unit .MILD SLIDING SCALE PRN Administration Mild Correctional Scale Labetalol HCl 10 mg 05/19/20 17:02 06/03/20 12:14 Labetalol Hcl 100 Mg/20 Ml Vial SLOW IVP 10 mg Q4H PRN Administration Blood Pressure. SBP above 140 Levetiracetam 500 mg 06/03/20 09:00 06/03/20 10:45 Levetiracetam 500 Mg/5 Ml Oral Solution PO 500 mg DAILY ALEKSANDER Administration Levothyroxine Sodium 112 mcg 05/15/20 06:00 06/03/20 05:45 Levothyroxine Sodium 112 Mcg Tab PO 112 mcg 0600 ALEKSANDER Administration Ondansetron HCl 4 mg 05/10/20 19:46 05/19/20 09:55 Ondansetron Pf 4 Mg/2 Ml Vial IVP 4 mg Q6H PRN Administration Nausea Pantoprazole Sodium 40 mg 06/03/20 09:00 06/03/20 10:45 Pantoprazole 40 Mg Tab PO 40 mg DAILY ALEKSANDER Administration - Exam Neck: negative: supple, symmetric, no JVD, no thyromegaly, no lymphadenopathy, no carotid bruit, JVD Heart: negative: RRR, no murmur, no gallops, no rubs, normal peripheral pulses, irregular, diminshed peripheral pulses, murmur present, II/IV, III/IV Respiratory: negative: CTAB, no wheezes, no rales, no ronchi, normal chest expansion, no tachypnea, normal percussion, rales, rhonchi, tachypneic, wheezes Gastrointestinal: soft, normal bowel sounds Gastrointestinal - other findings: Patient has a right abdominal drain and colostomy Hosp A/P (1) Acute metabolic encephalopathy Code(s): G93.41 - METABOLIC ENCEPHALOPATHY Status: Acute (2) Seizure Code(s): R56.9 - UNSPECIFIED CONVULSIONS Status: Acute (3) PRES (posterior reversible encephalopathy syndrome) Code(s): I67.83 - POSTERIOR REVERSIBLE ENCEPHALOPATHY SYNDROME Status: Suspected (4) AMANDA (acute kidney injury) Code(s): N17.9 - ACUTE KIDNEY FAILURE, UNSPECIFIED Status: Acute (5) Malnourished Code(s): E46 - UNSPECIFIED PROTEIN-CALORIE MALNUTRITION Status: Acute (6) Acute respiratory failure with hypoxia Code(s): J96.01 - ACUTE RESPIRATORY FAILURE WITH HYPOXIA Status: Acute (7) On total parenteral nutrition (TPN) Code(s): Z78.9 - OTHER SPECIFIED HEALTH STATUS Status: Acute (8) Peritonitis (acute) generalized Code(s): K65.0 - GENERALIZED (ACUTE) PERITONITIS Status: Acute - Plan will increase keppra to 500mg daily per her renal clearance. We will get MRI br ain. Neurology called case was discussed. We will also consult infectious disease possible infectious etiology. Patient currently on TPN. We will also consult GI Castillo NG output appears dark. PPI started. We will get a gastric occult. SCDs for DVT prophylaxis. 05/20 pt was intubated last night. will continue current tx. spoke with neurosurgery will put pt on steroids. Tried to get pt's blood pressure down given PRES. will continue to monitor. Daughter at bedside updated. (1) Acute respiratory failure with hypoxia Code(s): J96.01 - ACUTE RESPIRATORY FAILURE WITH HYPOXIA Status: Acute (2) Peritonitis (acute) generalized Code(s): K65.0 - GENERALIZED (ACUTE) PERITONITIS Status: Acute (3) AMANDA (acute kidney injury) Code(s): N17.9 - ACUTE KIDNEY FAILURE, UNSPECIFIED Status: Acute ATN (4) S/P colectomy Status: Acute (5) Anasarca Code(s): R60.1 - GENERALIZED EDEMA Status: Acute (6) Severe protein-calorie malnutrition Code(s): E43 - UNSPECIFIED SEVERE PROTEIN-CALORIE MALNUTRITION Status: Acute (7) On total parenteral nutrition (TPN) Code(s): Z78.9 - OTHER SPECIFIED HEALTH STATUS Status: Acute (8) Hypothyroidism Code(s): E03.9 - HYPOTHYROIDISM, UNSPECIFIED Status: Chronic Qualifiers: Hypothyroidism type: acquired Qualified Code(s): E03.9 - Hypothyroidism, unspecified (9) Postoperative anemia due to acute blood loss Code(s): D62 - ACUTE POSTHEMORRHAGIC ANEMIA Status: Acute (10) Acute metabolic encephalopathy Code(s): G93.41 - METABOLIC ENCEPHALOPATHY Status: Acute (11) PRES (posterior reversible encephalopathy syndrome) Code(s): I67.83 - POSTERIOR REVERSIBLE ENCEPHALOPATHY SYNDROME Status: Suspected (12) Seizure Code(s): R56.9 - UNSPECIFIED CONVULSIONS Status: Acute - Plan is on zyvox, merrem, diflucan, keppra, synthroid, decadron, TPN, tube feeding initiated on 05/22 (to increase tube feeding if she is tolerating and to come down on tpn to 50mls/hr) has been initiated on HD, had back to back HD with max fluid removal as tolerated wed and wed. anasarca/vol overload and low alb, continue fluid removal as tolerated with HD, intake is around 4 lts with 2400 coming from tpn itself. I have switched most of her iv to via ng tube which should help anasarca a bit along with fluid removal from HD is s/p sigmoid colectomy with colorectal anastamosis done on 05/07, subsequently developed peritonitis due to anastomotic leak and had segmental colectomy with end colostomy/wash out done on 05/10. got intubated on 05/19, weaning per pulm advice prognosis guarded 1/2 per nursing staff patient follows commands once taken off of sedation. Her TPN was discontinued by surgery she is currently on tube feeds. Good output from colostomy. She received albumin with dialysis. 05/26 per nursing staff moving all ext when off sedation. Hopefully extubation soon. pt is at goal for her tube feeds and low residual. will continue current abx. 05/27 patient continues to have an elevated white count. We will continue antibiotics. Patient to be extubated when okay with pulmonary. Patient's colostomy site appears to have a dark-tinged output. We will continue to monitor. Continue PPI for now. Patient tolerating her tube feeds 05/28 patient continues to have an elevated white count. May require CT abdomen pelvis for further investigation. She is on very broad antibiotics. Patient received 1 unit of PRBC transfusion for low H&H. Dialysis per nephrology. Patient more awake today when I asked her if she is having any visual disturbances she says no. SCDs for DVT prophylaxis unable to do subcu heparin or Lovenox due to her recent bleed. 05/[address] abdomen pelvis indicated loculated rim-enhancing fluid. We will continue current antibiotics. Patient continues to have be on dialysis. She follows commands well. 05/[address]-guided drain for loculated ring-enhancing fluid. Continue to biotics. Continues to be intubated. 05/[address]-guided drain for loculated ring-enhancing fluid. Continue meropenem. Patient continues to be intubated. Neuro check patient is able to see we will decrease Decadron to 4 mg twice daily. 06/01 patient got extubated on 05/31. We will continue meropenem. Patient is able to follow commands. I will continue the Decadron today at 4 mg twice a day and will taper it down. She currently has PPN going. Patient on DVT prophylaxis with Lovenox. Patient's creatinine improving. 06/02 patient doing well she still has an NG tube on PPN. Continues to have drain to her right lower quadrant and also colostomy. We will continue current dose of Decadron. Advance diet per surgery. DVT prophylaxis. Patient continues to be on meropenem. Her white count has improved dramatically. 06/03 patient continues to have NG tube and is on PPN. Diet advanced per surgery. DVT prophylaxis on Lovenox. Continue meropenem. We will continue twice daily steroids will decrease it to daily tomorrow.
--- NOTE | 2020-06-03 17:58 | PRG ---
DATE OF SERVICE: 06/03/2020 OBJECTIVE: VITAL SIGNS: The patient is noted with the following vital signs; afebrile, temperature 98.0, pulse 96, respiratory rate of 16, O2 saturation of 100%, blood pressure 150/80. HEENT: Unremarkable. CARDIOVASCULAR SYSTEM: First and second heart sounds were heard. RESPIRATORY SYSTEM: Clear to auscultation. DIGESTIVE SYSTEM: Revealed a benign abdomen with positive bowel sounds. EXTREMITIES: No peripheral edema. SKIN: No new gross rash. LYMPHATICS: No peripheral lymphadenopathy. LABORATORY INVESTIGATION: Showed a hemoglobin of 9.3. Chemistry showed a creatinine of 1.78 with BUN of 57, potassium 3.1. IMPRESSION: 1. Acute on chronic kidney disease, seems to be much improved. The patient likely in the post acute tubular necrosis diuretic phase at this point. 2. Hypokalemia. 3. Sepsis, much improved. PLAN: 1. We will permanently discontinue dialysis treatment. 2. Please go ahead and remove the femoral dialysis catheter. 3. Renally dose all medications and avoid potentially nephrotoxic agents. 4. Replete potassium. Job ID: [id number]
[2020-06-03] MEDS ORDERED: Potassium Chloride 20 MEQ TAB PO SCH (18:00)
--- NOTE | 2020-06-03 20:50 | PRG ---
DATE OF SERVICE: 06/03/2020 SUBJECTIVE: Mel Mullins is doing well today. She has been moved to the floor from the ICU over the weekend. OBJECTIVE: VITAL SIGNS: Temperature 97.8 degrees, pulse 86, blood pressure 134/74. GENERAL: The patient is alert and oriented. NG tube output overnight was 550 mL. Colostomy output is acceptable with some stool. Ley output 2275. This morning, her white count is 4, hemoglobin 9.3. Sodium 143, potassium 3.1, BUN and creatinine 57 and 1.78. Her femoral vein dialysis catheter has been removed. She has not required dialysis in a while. ASSESSMENT AND PLAN: 1. Acute renal failure, improved. 2. Respiratory failure, resolved. 3. Status post colostomy. I would recommend removal of the NG tube today, Ley out tomorrow. Begin clear liquids today. Physical therapy, reconditioning. Job ID: [id number]
[2020-06-03] MEDS: POTASSIUM CHLORIDE IV SCH (22:47)
[2020-06-03] MEDS: SODIUM CHLORIDE IV SCH (22:47)
[2020-06-03] MEDS: SODIUM ACETATE IV SCH (22:47)
[2020-06-03] MEDS: [UNRECOGNIZED DRUG - OTHER] IV SCH (22:47)
--- NOTE | 2020-06-04 05:37 | PRG ---
DATE OF SERVICE: 06/03/2020 Ms. Mullins has been transferred to the floor. She has an NG tube in place, and she is a little bit disoriented and does not appear in distress. She was able to speak in full sentences and denied any headaches. No respiratory symptoms. No abdominal pain. PEx: She has been afebrile. Lungs are clear to auscultation and percussion. She has a left-sided triple-lumen catheter in the right IJ location and right groin dialysis catheter. She has a percutaneous drainage placed by Radiology on May 30. Approximately 70 mL of brownish feculent material aspirated and sent for cultures. A repeat abdomen and pelvis CT done today with small bilateral pleural effusions, ascites, and fluid in left abdomen. There is evidence of mural thickening related to this fluid collection, not loculated. Pigtail drainage catheter enters the lateral right mid abdomen and catheter was seen along the lateral right liver margin. White cell count is down to 4.1, hemoglobin 9.3, and platelets 172 with 46% bands. Creatinine has improved, it is down to 1.78, so I do not think she has been dialyzed anymore. 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 Last note from Dr. Avilez on June 01 states that she has not been dialyzed for the past few days and the dialysis is going to be suspended. In that case, hopefully, the dialysis catheter can be removed to avoid infectious complications. 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 Also, she is already on Diflucan. Job ID: [id number] MTDD
[2020-06-04] MEDS: Levothyroxine Sodium 112 MCG TAB PO SCH (05:47)
[2020-06-04 06:01] LABS: Band 15 % (5-11); Hemoglobin 8.6 g/dL (12.0-16.0); Hypochromia SLIGHT = 6-15 cells (100X) (0-5/hpf); Lymphocytes 27 % (21-51); MDiff Complete? YES; Mean Corpuscular HGB CONC 33.9 g/dL (32.0-36.0); Mean Corpuscular Hemoglobin 32.3 pg (27.0-31.0); Mean Corpuscular Volume 95.3 fL (78.0-98.0); Mean Platelet Volume 6.8 fL (7.4-10.4); Monocytes 10 % (0-10); Neutrophil 48 % (42-75); Platelet Count 184 thou/uL (130-400); Platelet Morphology Comment Appears Adequate; RBC Distribution Width 14.7 % (11.5-14.5); Red Blood Cell (RBC) Count 2.66 mill/uL (4.20-5.40); White Blood Cell (WBC) Count 4.1 thou/uL (4.8-10.8)
[2020-06-04 06:08] LABS: Anion Gap 13 mmol/L (10-20); BUN (Urea Nitrogen) 57 mg/dL (9.8-20.1); Calc. Creatinine Clearance 46 mL/min (70-130); Calcium 7.6 mg/dL (7.8-10.44); Carbon Dioxide 29 mmol/L (23-31); Chloride 104 mmol/L (98-107); Glucose 112 mg/dL (80-115); Potassium 3.1 mmol/L (3.5-5.1); Sodium 143 mmol/L (136-145)
[2020-06-04] MEDS: Heparin 5,000 UNITS/ML VIAL SC SCH ×2 (08:34→22:09)
[2020-06-04] MEDS: Meropenem 500 MG in Sodium Chloride 0.9% 100 ML IVPB SCH ×2 (08:37→22:09)
[2020-06-04] MEDS: Fluconazole In NaCl,Iso-Osm 200 MG in Premix Bag 1 BAG IVPB SCH (08:37)
[2020-06-04] MEDS: Dexamethasone 4 MG TAB PO SCH ×2 (08:41→22:09)
[2020-06-04] MEDS: levETIRAcetam 500 mg/5 ml Oral Solution PO SCH (08:41)
[2020-06-04] MEDS: Amlodipine 10 MG TAB PER TUBE SCH (08:41)
--- NOTE | 2020-06-04 09:28 | PDOC.HOSPP ---
- Subjective Encounter Date: 06/04/20 Encounter Time: 09:27 Subjective: alert, oriented. taking po nutrition, etc - Objective Vital Signs & Weight: Vital Signs (12 hours) Temp Pulse Resp BP BP Pulse Ox 06/04/20 08:41 72 138/69 06/04/20 04:00 97.8 F 72 15 148/74 H 98 06/03/20 23:50 97.9 F 87 19 125/74 95 Weight Admit Weight 174 lb 13.225 oz Weight 168 lb 1.6 oz Most Recent Monitor Data Heart Rate from ECG 100 NIBP 161/83 NIBP BP-Mean 109 Respiration from ECG 20 SpO2 96 I&O: 06/03/20 06/04/20 06/05/20 06:59 06:59 06:59 Intake Total 1628 2340 Output Total 9912 9800 Balance -5457 350 Result Diagrams: 06/04/20 05:15 06/04/20 05:15 Additional Labs: Accuchecks 06/04/20 06/03/20 06/03/20 05:35 23:25 18:07 POC Glucose 125 H 130 H 138 H 06/03/20 11:50 POC Glucose 106 H Hospitalist ROS - Medication Medications: Active Medications Generic Name Dose Route Start Last Admin Trade Name Freq PRN Reason Stop Dose Admin Acetaminophen 1,000 mg 05/14/20 09:04 06/01/20 19:46 Acetaminophen 500 Mg Tab PO 1,000 mg Q6H PRN Administration Moderate to Severe Pain (6-10) Amlodipine Besylate 10 mg 06/03/20 09:00 06/04/20 08:41 Amlodipine 10 Mg Tab PER TUBE 10 mg DAILY ALEKSANDER Administration Dexamethasone 4 mg 05/31/20 21:00 06/04/20 08:41 Dexamethasone 4 Mg Tab PO 4 mg BID ALEKSANDER Administration Heparin Sodium (Porcine) 5,000 units 05/22/20 21:00 06/04/20 08:34 Heparin 5,000 Units/Ml Vial SC 5,000 units BID ALEKSANDER Administration Meropenem 500 mg/ Sodium 100 mls @ 200 mls/hr 05/30/20 21:00 06/04/20 08:37 Chloride IVPB 100 mls BID ALEKSANDER Administration Sodium Acetate 70 meq/ Sodium 2,105.9121 mls @ 65 mls/hr 05/30/20 22:00 06/03/20 22:47 Chloride 70 meq/ Potassium IV 2,105.9121 mls Chloride 20 meq/ Calcium 2200 ALEKSANDER Administration Gluconate 10 meq/ Magnesium Sulfate 10 meq/ Multivitamins 10 ml/ Chromium/Copper/ Manganese/Zinc 9 ml/ Insulin Human Regular 21 units/ Amino Acids/Dextrose Fluconazole/Sodium Chloride 100 mls @ 100 mls/hr 05/31/20 09:00 06/04/20 08:37 200 mg/ Device IVPB 100 mls DAILY ALEKSANDER Administration Insulin Human Lispro 0 units 05/17/20 15:38 05/31/20 16:51 Humalog 300 Units/3 Ml Vial SC 2 unit .MILD SLIDING SCALE PRN Administration Mild Correctional Scale Labetalol HCl 10 mg 05/19/20 17:02 06/03/20 12:14 Labetalol Hcl 100 Mg/20 Ml Vial SLOW IVP 10 mg Q4H PRN Administration Blood Pressure. SBP above 140 Levetiracetam 500 mg 06/03/20 09:00 06/04/20 08:41 Levetiracetam 500 Mg/5 Ml Oral Solution PO 500 mg DAILY ALEKSANDER Administration Levothyroxine Sodium 112 mcg 05/15/20 06:00 06/04/20 05:47 Levothyroxine Sodium 112 Mcg Tab PO 112 mcg 0600 ALEKSANDER Administration Ondansetron HCl 4 mg 05/10/20 19:46 05/19/20 09:55 Ondansetron Pf 4 Mg/2 Ml Vial IVP 4 mg Q6H PRN Administration Nausea Pantoprazole Sodium 40 mg 06/03/20 09:00 06/04/20 08:41 Pantoprazole 40 Mg Tab PO 40 mg DAILY ALEKSANDER Administration - Exam General Appearance: awake alert Neck: no JVD Heart: RRR, no murmur Respiratory: CTAB, no wheezes, no rales, no ronchi, normal chest expansion, no tachypnea, normal percussion Gastrointestinal: soft, non-distended, normal bowel sounds Gastrointestinal - other findings: ostomy present Extremities: no edema Hosp A/P (1) AMANDA (acute kidney injury) Code(s): N17.9 - ACUTE KIDNEY FAILURE, UNSPECIFIED Status: Acute (2) Acute metabolic encephalopathy Code(s): G93.41 - METABOLIC ENCEPHALOPATHY Status: Resolved (3) Acute respiratory failure with hypoxia Code(s): J96.01 - ACUTE RESPIRATORY FAILURE WITH HYPOXIA Status: Resolved (4) Anasarca Code(s): R60.1 - GENERALIZED EDEMA Status: Acute (5) Peritonitis (acute) generalized Code(s): K65.0 - GENERALIZED (ACUTE) PERITONITIS Status: Acute (6) S/P colectomy Status: Acute (7) Seizure Code(s): R56.9 - UNSPECIFIED CONVULSIONS Status: Acute (8) Hypothyroidism Code(s): E03.9 - HYPOTHYROIDISM, UNSPECIFIED Status: Chronic Qualifiers: Hypothyroidism type: acquired Qualified Code(s): E03.9 - Hypothyroidism, unspecified (9) PRES (posterior reversible encephalopathy syndrome) Code(s): I67.83 - POSTERIOR REVERSIBLE ENCEPHALOPATHY SYNDROME Status: Resolved - Plan 1. encephalopathy resolved 2. ATN- improving 3. peritonitis-antimicrobial tx post anastamosis leak, then colostomy 4. discuss w9ith surgery, ID
--- NOTE | 2020-06-04 11:10 | PDOC.PALCO ---
Palliative Care Consult - Consult Details Requesting Physician: Hospitalist Reason for Consult: goals of care, advance directives assistance - Pertinent HPI 64 year old female who had recent surgery of a end to end colorectal anastomosis who returned to the emergency room say #3 secondary to sudden onset of pain with no know indication 03/02, Nausea, negative for vomiting. Anorexia, chills, fever, malaise. Taken emergently to the OR, abx initiated and admitted for medical management. Encephalopathy has improved. Resolving peritonitis/anastomosis leak. Intake improving. - Pertinent PMH Chronic diverticulitis, GERD, arthritis - Social History Smoking Status: Never smoker Smoking: no tobacco exposure Alcohol Use: none Drug Use History: none Living Situation: independent - Medications MAR Reviewed: Yes - Allergies Allergies/Adverse Reactions: Allergies Allergy/AdvReac Type Severity Reaction Status Date / Time codeine Allergy Verified 03/14/15 09:08 Sulfa (Sulfonamide Allergy Verified 03/14/15 09:08 Antibiotics) - Subjective States "she is feeling better" smiling. Adequate PO intake. - ROS Constitutional: alert, weakness ENT: dry mouth, other (Denies difficulity swallowing, congestion) Respiratory: other (Denies cough, shortness of breath) Cardiology: other (Denies chest pain, palpitations) Gastrointestinal: bloating Genitourinary: other (Denies dysuria) Neurological: other (Negative for numbness, tremors) - Objective Vital Signs: Vital Signs - Most Recent Temp Pulse Resp BP Pulse Ox 97.8 F 72 15 138/69 98 06/04/20 04:00 06/04/20 08:41 06/04/20 04:00 06/04/20 08:41 06/04/20 04:00 Palliative Performance Scale: 50 - Physical Exam Constitutional: NAD, ill appearing HEENT: EOMI, moist MMs, PERRLA Respiratory: no rales, no rhonchi, no wheezing, unlabored breathing Cardiovascular: RRR Gastrointestinal: non-tender, positive bowel sounds, colostomy Musculoskeletal: no clubbing, no edema, pulses present Neurology: moves all 4 limbs, no focal deficits, normal speech Skin: cap refill <2 seconds Psychiatric: A&O x 3, normal affect, normal mood - Problem List (1) Palliative care encounter Code(s): Z51.5 - ENCOUNTER FOR PALLIATIVE CARE Status: Acute (2) Malnourished Code(s): E46 - UNSPECIFIED PROTEIN-CALORIE MALNUTRITION Status: Acute (3) S/P colectomy Status: Acute (4) Severe protein-calorie malnutrition Code(s): E43 - UNSPECIFIED SEVERE PROTEIN-CALORIE MALNUTRITION Status: Acute (5) Peritonitis (acute) generalized Code(s): K65.0 - GENERALIZED (ACUTE) PERITONITIS Status: Resolved - Plan/Recommendations Plan: Patient decisional. Confirmed no further HD required. Directives addressed and completed. Please refer to documentation in note section. Hopeful for continued recovery, transition to [facility] [40] minutes spent on this encounter with >50% of the time in counseling and coordination of care. Thank you for this very appropriate consult.
[2020-06-04] MEDS ORDERED: Potassium Chloride 20 MEQ TAB PO SCH (11:45)
--- NOTE | 2020-06-04 12:21 | PRG ---
DATE OF SERVICE: 06/04/2020 SUBJECTIVE: Ms. Mullins is doing well today. She is tolerating her diet. She denies any nausea, vomiting, or reflux symptoms. OBJECTIVE: VITAL SIGNS: Temperature 97.8 degrees, pulse 72, blood pressure 148/74. Her drain in right abdomen, 190 mL for 24 hours. Ostomy output 50 mL. She is tolerating full liquids. Urine output is 2400 mL. LUNGS: Clear to auscultation. CARDIAC: Regular rhythm without murmur or gallop. ABDOMEN: Soft plus bowel sounds. Nontender. LABORATORY DATA: White count 4.1, hemoglobin 8.6. Sodium 143, potassium 3.1, BUN 57, creatinine 1.52, GFR 35, glucose acceptable. ASSESSMENT AND PLAN: The patient's drainage from her right upper quadrant drain is concerning. It is slightly shreya colored. It could be stool. She is hemodynamically stable. She is on full liquids. Her percutaneous drainage was performed on 05/30/20 five days ago. The patient had a repeat CAT scan ordered yesterday. This was done with oral contrast without IV contrast, followup abscess drainage. This is read by Dr. Bejarano. The patient has small volume ascites and fluid around the liver margin, pigtail drainage catheter. There is some fluid collections in the loop, not loculated. There is no mention of contrast leak. We will review this CT scan with the radiologist. We would continue irrigating the catheter 2 to 3 times a day. Would repeat CAT scan next week. I have discussed with the patient and she is hoping to go home as her mobility is good. Her strength seems to be good. I expect that she might be discharged home on oral antibiotics. The cultures from the fluid collection revealed E coli and yeast. Continue IV antibiotics. Could switch to oral antibiotics, Augmentin and Diflucan later in the week. for her home needs with irrigating the drainage catheter twice a day, colostomy assistance. Her midline wound looks good. Her renal function is markedly improved. Job ID: [id number]
[2020-06-04] MEDS: Labetalol HCl 100 MG/20 ML VIAL SLOW IVP PRN (14:08)
--- NOTE | 2020-06-04 17:21 | PRG ---
DATE OF SERVICE: SUBJECTIVE: Mel Mullins is doing well today. She is tolerating her full liquid. She has passed some flatus and stool in her colostomy bag. She has not had any nausea, vomiting, or cramps or reflux. OBJECTIVE: VITAL SIGNS: Temperature 97.9 degrees, 90 heart rate, 153/90 blood pressure. LUNGS: Clear to auscultation. CARDIAC: Regular rate and rhythm without murmur or gallop. ABDOMEN: Soft. Bowel sounds present. Colostomy healthy. EXTREMITIES: Unremarkable. Drainage from her right upper quadrant. CT-guided drain placement, 190 mL. This is shreya colored. Cultures have grown out E. coli and yeast. She is on meropenem and followed by Dr. Freeman. ASSESSMENT AND PLAN: 1. Anemia, stable. No indication for transfusion. Low potassium, replace orally. 2. Malnutrition. Continue TPN. Continue full liquids for now and if she tolerates her diet, then would advance her to a regular diet. 3. Right upper quadrant fluid collection, suspect that is left over from her colorectal anastomotic leak and washout observe. Followup CAT scan yesterday, 06/03, revealed diminished fluid collection. This was done oral without IV contrast due to her previous history of ATN. 4. Acute kidney injury, improving, off dialysis now, dialysis catheter removed. 5. The patient wants to go home with her mobility seems to be good. We will discuss with case therapist and family resources and home health services. Job ID: [id number]
--- NOTE | 2020-06-04 18:25 | PRG ---
DATE OF SERVICE: 06/04/2020 SUBJECTIVE: The patient is seen and examined. Seems to be doing much better. Noted with the following vital signs. OBJECTIVE: VITAL SIGNS: Afebrile, temperature 97.9, pulse 90, respiratory rate of 16, O2 saturations of 95%, and blood pressure 153/90. HEENT: Unremarkable. CARDIOVASCULAR SYSTEM: First and second heart sounds were heard. RESPIRATORY SYSTEM: Clear to auscultation. DIGESTIVE SYSTEM: Revealed a benign abdomen with positive bowel sounds. EXTREMITIES: No peripheral edema. SKIN: No new gross rash. LYMPHATICS: No peripheral lymphadenopathy. IMPRESSION: 1. Acute on chronic kidney disease, much improved. 2. Sepsis. PLAN: 1. The patient is already taking off dialysis. The dialysis catheter is already removed. 2. Continue renal supportive measures. 3. Renally dose all medications. 4. Further management to be dependent on the clinical course. Job ID: [id number]
[2020-06-04] MEDS ORDERED: POTASSIUM ACETATE IV SCH (22:00)
[2020-06-04] MEDS ORDERED: POTASSIUM CHLORIDE IV SCH (22:00)
[2020-06-04] MEDS ORDERED: [UNRECOGNIZED DRUG - OTHER] IV SCH (22:00)
[2020-06-04] MEDS ORDERED: SODIUM ACETATE IV SCH (22:00)
[2020-06-05] MEDS: Levothyroxine Sodium 112 MCG TAB PO SCH (06:10)
[2020-06-05 06:26] LABS: Hemoglobin 8.1 g/dL (12.0-16.0); Mean Corpuscular HGB CONC 33.9 g/dL (32.0-36.0); Mean Corpuscular Hemoglobin 32.8 pg (27.0-31.0); Mean Corpuscular Volume 96.8 fL (78.0-98.0); Mean Platelet Volume 7.1 fL (7.4-10.4); Platelet Count 183 thou/uL (130-400); RBC Distribution Width 14.8 % (11.5-14.5); Red Blood Cell (RBC) Count 2.46 mill/uL (4.20-5.40); White Blood Cell (WBC) Count 3.2 thou/uL (4.8-10.8)
[2020-06-05 06:40] LABS: Anion Gap 13 mmol/L (10-20); BUN (Urea Nitrogen) 56 mg/dL (9.8-20.1); Calc. Creatinine Clearance 52 mL/min (70-130); Calcium 7.5 mg/dL (7.8-10.44); Carbon Dioxide 30 mmol/L (23-31); Chloride 106 mmol/L (98-107); Glucose 128 mg/dL (80-115); Potassium 3.6 mmol/L (3.5-5.1); Sodium 145 mmol/L (136-145)
[2020-06-05 06:50] LABS: Band 6 % (5-11); Hypochromia SLIGHT = 6-15 cells (100X) (0-5/hpf); Lymphocytes 14 % (21-51); MDiff Complete? YES; Monocytes 2 % (0-10); Neutrophil 78 % (42-75); Platelet Morphology Comment Appears Adequate
[2020-06-05] MEDS: Amlodipine 10 MG TAB PER TUBE SCH (07:54)
[2020-06-05] MEDS: levETIRAcetam 500 mg/5 ml Oral Solution PO SCH (07:55)
[2020-06-05] MEDS: Fluconazole In NaCl,Iso-Osm 200 MG in Premix Bag 1 BAG IVPB SCH (07:55)
[2020-06-05] MEDS: Heparin 5,000 UNITS/ML VIAL SC SCH (07:55)
[2020-06-05] MEDS: Dexamethasone 4 MG TAB PO SCH ×2 (07:57→19:47)
--- NOTE | 2020-06-05 08:41 | PDOC.HOSPP ---
- Subjective Encounter Date: 06/05/20 Encounter Time: 08:34 Subjective: alert, cherrfull. no specific problems - Objective Vital Signs & Weight: Vital Signs (12 hours) Temp Pulse Resp BP BP Pulse Ox 06/05/20 07:54 89 06/05/20 07:43 98.1 F 92 20 149/76 H 99 06/05/20 03:18 97.5 F L 89 19 137/72 95 06/04/20 23:57 134/61 06/04/20 23:01 97.7 F 89 19 147/74 H 93 L Weight Admit Weight 174 lb 13.225 oz Weight 168 lb 14.4 oz Most Recent Monitor Data Heart Rate from ECG 100 NIBP 161/83 NIBP BP-Mean 109 Respiration from ECG 20 SpO2 96 I&O: 06/04/20 06/05/20 06/06/20 06:59 06:59 06:59 Intake Total 2340 3226 Output Total 2690 900 Balance -350 2326 Result Diagrams: 06/05/20 06:09 06/05/20 06:09 Additional Labs: Accuchecks 06/05/20 06/04/20 06/04/20 05:23 22:57 17:38 POC Glucose 140 H 117 H 148 H Hospitalist ROS - Medication Medications: Active Medications Generic Name Dose Route Start Last Admin Trade Name Freq PRN Reason Stop Dose Admin Acetaminophen 1,000 mg 05/14/20 09:04 06/01/20 19:46 Acetaminophen 500 Mg Tab PO 1,000 mg Q6H PRN Administration Moderate to Severe Pain (6-10) Amlodipine Besylate 10 mg 06/03/20 09:00 06/05/20 07:54 Amlodipine 10 Mg Tab PER TUBE 10 mg DAILY ALEKSANDER Administration Dexamethasone 4 mg 05/31/20 21:00 06/05/20 07:57 Dexamethasone 4 Mg Tab PO 4 mg BID ALEKSANDER Administration Heparin Sodium (Porcine) 5,000 units 05/22/20 21:00 06/05/20 07:55 Heparin 5,000 Units/Ml Vial SC 5,000 units BID ALEKSANDER Administration Meropenem 500 mg/ Sodium 100 mls @ 200 mls/hr 05/30/20 21:00 06/04/20 22:09 Chloride IVPB 100 mls BID ALEKSANDER Administration Fluconazole/Sodium Chloride 100 mls @ 100 mls/hr 05/31/20 09:00 06/05/20 07:55 200 mg/ Device IVPB 100 mls DAILY ALEKSANDER Administration Sodium Acetate 70 meq/ 2,354.0459 mls @ 98.085 mls/hr 06/04/20 22:00 06/04/20 23:59 Potassium Acetate 40 meq/ IV 2,354.0459 mls Potassium Chloride 40 meq/ 2200 ALEKSANDER Administration Calcium Chloride 10 meq/ Magnesium Sulfate 10 meq/ Multivitamins 10 ml/ Chromium/ Copper/Manganese/Zinc 9 ml/ Insulin Human Regular 23 units / Fat Emulsion Intravenous 250 ml/ Amino Acids/Electrolytes Insulin Human Lispro 0 units 05/17/20 15:38 05/31/20 16:51 Humalog 300 Units/3 Ml Vial SC 2 unit .MILD SLIDING SCALE PRN Administration Mild Correctional Scale Labetalol HCl 10 mg 05/19/20 17:02 06/04/20 14:08 Labetalol Hcl 100 Mg/20 Ml Vial SLOW IVP 10 mg Q4H PRN Administration Blood Pressure. SBP above 140 Levetiracetam 500 mg 06/03/20 09:00 06/05/20 07:55 Levetiracetam 500 Mg/5 Ml Oral Solution PO 500 mg DAILY ALEKSANDER Administration Levothyroxine Sodium 112 mcg 05/15/20 06:00 06/05/20 06:10 Levothyroxine Sodium 112 Mcg Tab PO 112 mcg 0600 ALEKSANDER Administration Ondansetron HCl 4 mg 05/10/20 19:46 05/19/20 09:55 Ondansetron Pf 4 Mg/2 Ml Vial IVP 4 mg Q6H PRN Administration Nausea Pantoprazole Sodium 40 mg 06/03/20 09:00 06/05/20 07:55 Pantoprazole 40 Mg Tab PO 40 mg DAILY ALEKSANDER Administration - Exam General Appearance: awake alert Neck: no JVD Heart: RRR, no murmur Respiratory: CTAB Gastrointestinal: soft, non-distended, normal bowel sounds Gastrointestinal - other findings: ostomy functioning Extremities: no edema Hosp A/P (1) AMANDA (acute kidney injury) Code(s): N17.9 - ACUTE KIDNEY FAILURE, UNSPECIFIED Status: Acute (2) Acute metabolic encephalopathy Code(s): G93.41 - METABOLIC ENCEPHALOPATHY Status: Resolved (3) Acute respiratory failure with hypoxia Code(s): J96.01 - ACUTE RESPIRATORY FAILURE WITH HYPOXIA Status: Resolved (4) Anasarca Code(s): R60.1 - GENERALIZED EDEMA Status: Acute (5) Peritonitis (acute) generalized Code(s): K65.0 - GENERALIZED (ACUTE) PERITONITIS Status: Acute (6) S/P colectomy Status: Acute (7) Seizure Code(s): R56.9 - UNSPECIFIED CONVULSIONS Status: Acute (8) Hypothyroidism Code(s): E03.9 - HYPOTHYROIDISM, UNSPECIFIED Status: Chronic Qualifiers: Hypothyroidism type: acquired Qualified Code(s): E03.9 - Hypothyroidism, unspecified (9) PRES (posterior reversible encephalopathy syndrome) Code(s): I67.83 - POSTERIOR REVERSIBLE ENCEPHALOPATHY SYNDROME Status: Resolved - Plan 1. encephalopathy resolved 2. ATN- improving 3. peritonitis-antimicrobial tx post anastamosis leak, then colostomy 4. discuss with surgery, ID 5. DC discussions in progress
[2020-06-05] MEDS: Meropenem 500 MG in Sodium Chloride 0.9% 100 ML IVPB SCH (08:42)
[2020-06-05 11:44] LABS: Albumin 3.4 g/dL (3.4-4.8); Magnesium 1.6 mg/dL (1.6-2.6)
--- NOTE | 2020-06-05 13:12 | PDOC.NEPPN ---
- Subjective Encounter Date: 06/05/20 Subjective: Feeling. Toleratong some oral intake. Still on parenthereal nutrition. No fever. - Objective Vital Signs & Weight: Vital Signs (12 hours) Temp Pulse Resp BP BP Pulse Ox 06/05/20 11:15 97.9 F 88 120 H 155/77 H 94 L 06/05/20 08:00 99 06/05/20 07:54 89 06/05/20 07:43 98.1 F 92 20 149/76 H 99 06/05/20 03:18 97.5 F L 89 19 137/72 95 Weight Admit Weight 174 lb 13.225 oz Weight 168 lb 14.4 oz Most Recent Monitor Data Heart Rate from ECG 100 NIBP 161/83 NIBP BP-Mean 109 Respiration from ECG 20 SpO2 96 I&O: 06/04/20 06/05/20 06/06/20 06:59 06:59 06:59 Intake Total 2340 3226 Output Total 2690 900 Balance -350 2326 Result Diagrams: 06/05/20 06:09 06/05/20 06:09 Additional Labs: Accuchecks 06/05/20 06/05/20 06/04/20 11:17 05:23 22:57 POC Glucose 143 H 140 H 117 H 06/04/20 06/04/20 17:38 10:22 POC Glucose 148 H 125 H Nephrology ROS - Medication Medications: Active Medications Generic Name Dose Route Start Last Admin Trade Name Freq PRN Reason Stop Dose Admin Acetaminophen 1,000 mg 05/14/20 09:04 06/01/20 19:46 Acetaminophen 500 Mg Tab PO 1,000 mg Q6H PRN Administration Moderate to Severe Pain (6-10) Amlodipine Besylate 10 mg 06/03/20 09:00 06/05/20 07:54 Amlodipine 10 Mg Tab PER TUBE 10 mg DAILY ALEKSANDER Administration Dexamethasone 4 mg 05/31/20 21:00 06/05/20 07:57 Dexamethasone 4 Mg Tab PO 4 mg BID ALEKSANDER Administration Heparin Sodium (Porcine) 5,000 units 05/22/20 21:00 06/05/20 07:55 Heparin 5,000 Units/Ml Vial SC 5,000 units BID ALEKSANDER Administration Meropenem 500 mg/ Sodium 100 mls @ 200 mls/hr 05/30/20 21:00 06/05/20 08:42 Chloride IVPB 100 mls BID ALEKSANDER Administration Fluconazole/Sodium Chloride 100 mls @ 100 mls/hr 05/31/20 09:00 06/05/20 07:55 200 mg/ Device IVPB 100 mls DAILY ALEKSANDER Administration Sodium Acetate 70 meq/ 2,354.0459 mls @ 98.085 mls/hr 06/04/20 22:00 06/04/20 23:59 Potassium Acetate 40 meq/ IV 2,354.0459 mls Potassium Chloride 40 meq/ 2200 ALEKSANDER Administration Calcium Chloride 10 meq/ Magnesium Sulfate 10 meq/ Multivitamins 10 ml/ Chromium/ Copper/Manganese/Zinc 9 ml/ Insulin Human Regular 23 units / Fat Emulsion Intravenous 250 ml/ Amino Acids/Electrolytes Insulin Human Lispro 0 units 05/17/20 15:38 05/31/20 16:51 Humalog 300 Units/3 Ml Vial SC 2 unit .MILD SLIDING SCALE PRN Administration Mild Correctional Scale Labetalol HCl 10 mg 05/19/20 17:02 06/04/20 14:08 Labetalol Hcl 100 Mg/20 Ml Vial SLOW IVP 10 mg Q4H PRN Administration Blood Pressure. SBP above 140 Levetiracetam 500 mg 06/03/20 09:00 06/05/20 07:55 Levetiracetam 500 Mg/5 Ml Oral Solution PO 500 mg DAILY ALEKSANDER Administration Levothyroxine Sodium 112 mcg 05/15/20 06:00 06/05/20 06:10 Levothyroxine Sodium 112 Mcg Tab PO 112 mcg 0600 ALEKSANDER Administration Ondansetron HCl 4 mg 05/10/20 19:46 05/19/20 09:55 Ondansetron Pf 4 Mg/2 Ml Vial IVP 4 mg Q6H PRN Administration Nausea Pantoprazole Sodium 40 mg 06/03/20 09:00 06/05/20 07:55 Pantoprazole 40 Mg Tab PO 40 mg DAILY ALEKSANDER Administration - Exam General Appearance: awake alert Eye: anicteric sclera ENT: normocephalic atraumatic, moist mucosa Neck: no JVD Respiratory: no wheezes, no rales, no ronchi, normal chest expansion Cardiovascular: RRR Gastrointestinal: soft, non-tender, non-distended, normal bowel sounds Gastrointestinal - other findings: colostomy noted Extremities: no edema Neurological: CN's grossly intact, no focal deficits PSYCH: A&O x 3 Nephrology Results - Labs Result Diagrams: 06/05/20 06:09 06/05/20 06:09 Lab results: WBC 3.2 thou/uL (4.8-10.8) L 06/05/20 06:09 Hgb 8.1 g/dL (12.0-16.0) L 06/05/20 06:09 Hct 23.8 % (36.0-47.0) L 06/05/20 06:09 MCV 96.8 fL (78.0-98.0) 06/05/20 06:09 Plt Count 183 thou/uL (130-400) 06/05/20 06:09 Neutrophils % 67.4 % (42.0-75.0) 05/13/20 05:02 Band Neuts % (Manual) 6 % (5-11) 06/05/20 06:09 ABG pH 7.56 (7.35-7.45) H* 05/30/20 06:59 ABG pCO2 31.4 mmHg (35.0-45.0) L 05/30/20 06:59 ABG pO2 114.2 mmHg (> 80.0) H 05/30/20 06:59 Sodium 145 mmol/L (136-145) 06/05/20 06:09 Potassium 3.6 mmol/L (3.5-5.1) 06/05/20 06:09 Chloride 106 mmol/L (98-107) 06/05/20 06:09 Carbon Dioxide 30 mmol/L (23-31) 06/05/20 06:09 BUN 56 mg/dL (9.8-20.1) H 06/05/20 06:09 Creatinine 1.33 mg/dL (0.6-1.1) H 06/05/20 06:09 Glucose 128 mg/dL (80-115) H 06/05/20 06:09 Lactic Acid 1.0 mmol/L (0.5-2.2) 05/10/20 23:24 Calcium 7.5 mg/dL (7.8-10.44) L 06/05/20 06:09 Total Bilirubin 0.7 mg/dL (0.2-1.2) 05/19/20 17:19 AST 23 U/L (5-34) 05/19/20 17:19 ALT 10 U/L (8-55) 05/19/20 17:19 Alkaline Phosphatase 92 U/L (40-110) 05/19/20 17:19 Troponin I 0.015 ng/mL (< 0.028) 05/10/20 17:06 B-Natriuretic Peptide 92.0 pg/mL (0-100) 05/10/20 17:06 Serum Total Protein 5.6 g/dL (6.0-8.3) L 05/19/20 17:19 Albumin 3.4 g/dL (3.4-4.8) 06/05/20 11:07 Lipase 26 U/L (8-78) 05/10/20 17:04 Urine Ketones Trace mg/dL (Negative) A 05/18/20 14:45 Urine Blood 3+ (Negative) A 05/18/20 14:45 Urine Nitrite Negative (Negative) 05/18/20 14:45 Ur Leukocyte Esterase Negative Chika/uL (Negative) 05/18/20 14:45 Urine RBC 21-50 HPF (0-3) A 05/18/20 14:45 Urine WBC 4-6 HPF (0-3) A 05/18/20 14:45 Ur Squamous Epith Cells 11-20 HPF (0-3) A 05/18/20 14:45 Urine Bacteria 1+ HPF (None Seen) A 05/18/20 14:45 Sodium 145 mmol/L (136-145) 06/05/20 06:09 Potassium 3.6 mmol/L (3.5-5.1) 06/05/20 06:09 Chloride 106 mmol/L (98-107) 06/05/20 06:09 Carbon Dioxide 30 mmol/L (23-31) 06/05/20 06:09 Anion Gap 13 mmol/L (10-20) 06/05/20 06:09 BUN 56 mg/dL (9.8-20.1) H 06/05/20 06:09 Creatinine 1.33 mg/dL (0.6-1.1) H 06/05/20 06:09 Glucose 128 mg/dL (80-115) H 06/05/20 06:09 Calcium 7.5 mg/dL (7.8-10.44) L 06/05/20 06:09 Phosphorus 2.5 mg/dL (2.3-4.7) 06/02/20 05:31 Magnesium 1.6 mg/dL (1.6-2.6) 06/05/20 11:07 Albumin 3.4 g/dL (3.4-4.8) 06/05/20 11:07 Nephrology AP PN - Plan ASSESSMENT: Hypocalcemia Vitamin D deficiency Acute renal failure: 2/2 ATN. Improved. Off HD. Metabolic acidosis. Anasarca: Resolved with HD and recovery of renal function Severe hypoalbuminemia. Improved. PCM Anemia of acute blood loss: Improved. Peritonitis, on antimicrobials Hypertension:Control is acceptable. Acute encephalopathy: due to PRES and ARF. PLAN. Start vitamin supplementation. Monitor p;asma calcium Nutriytional support to continue
[2020-06-05] MEDS ORDERED: Ergocalciferol 1.25 MG(50,000 UNITS) CAP PO SCH (15:00)
[2020-06-05] MEDS ORDERED: traMADol HCl 50 MG TAB PO PRN (15:05)
[2020-06-05] MEDS: SODIUM CHLORIDE 0.9% IVPB SCH ×2 (15:14→23:41)
[2020-06-05] MEDS: VABORBACTAM IVPB SCH ×2 (15:14→23:41)
[2020-06-05] MEDS: MEROPENEM IVPB SCH ×2 (15:14→23:41)
--- NOTE | 2020-06-05 15:25 | PRG ---
DATE OF SERVICE: 06/05/2020 SUBJECTIVE: Ms. Mullins is doing well today. She reports that she is independently mobile. 24-hour drainage from the right upper quadrant drain reported was 100 mL. The drainage character has changed from shreya purulent to more dilute fluid. CAT scan yesterday revealed marked good improvement. There was some dependent contrast seen on previous CAT scans, led to the suspicion that she may have a leak, although situationally, this would be unlikely based on surgical events that have occurred. The fluid collection in the central abdomen has markedly improved. At this point, I have consider repeating her CAT scan without contrast and then with contrast on Wednesday or Wednesday. Dr. Davin Garcia would evaluate if currently affected fluid collections almost resolved and that we may be able to remove her drainage catheter prior to discharge. I am anticipating possible discharge on Wednesday. Her wound looks good. We will advance her to a regular diet. OBJECTIVE: VITAL SIGNS: Temperature 97.9 degrees, pulse 88, respiratory rate 18, 94% sat, blood pressure 155/77. LUNGS: Clear to auscultation. CARDIAC: Regular rate and rhythm without murmur or gallop. ABDOMEN: Soft plus bowel sounds. Colostomy output present. LABORATORY DATA: White count 3, hemoglobin 8.1. Potassium 3.6, BUN 56, creatinine 1.33. ASSESSMENT AND PLAN: 1. Acute tubular necrosis, markedly improved. 2. Posterior reversible encephalopathy syndrome, resolved. 3. Sepsis, resolved. 4. Colorectal anastomotic leak, resolved. 5. Colostomy status functioning. 6. Tolerating her diet resolving. Advance to regular diet and discontinue TPN. Job ID: [id number]
[2020-06-05] MEDS: Enoxaparin Sodium 30 MG/0.3 ML SYRINGE SC SCH (19:47)
[2020-06-06] MEDS: Levothyroxine Sodium 112 MCG TAB PO SCH (06:19)
[2020-06-06] MEDS: VABORBACTAM IVPB SCH ×3 (08:29→23:48)
[2020-06-06] MEDS: SODIUM CHLORIDE 0.9% IVPB SCH ×3 (08:29→23:48)
[2020-06-06] MEDS: MEROPENEM IVPB SCH ×3 (08:29→23:48)
[2020-06-06] MEDS: Fluconazole In NaCl,Iso-Osm 200 MG in Premix Bag 1 BAG IVPB SCH (08:29)
[2020-06-06] MEDS: Amlodipine 10 MG TAB PER TUBE SCH (08:30)
[2020-06-06] MEDS: Lactinex Tablet PO SCH (08:30)
[2020-06-06] MEDS: levETIRAcetam 500 mg/5 ml Oral Solution PO SCH (08:30)
[2020-06-06] MEDS: Dexamethasone 4 MG TAB PO SCH ×2 (08:30→20:13)
--- NOTE | 2020-06-06 10:08 | PDOC.HOSPP ---
- Subjective Encounter Date: 06/06/20 Encounter Time: 10:04 Subjective: absolutely no complaints - Objective Vital Signs & Weight: Vital Signs (12 hours) Temp Pulse Resp BP Pulse Ox 06/06/20 08:30 91 06/06/20 06:18 97.5 F L 91 18 118/67 99 06/05/20 23:48 97.6 F 104 H 18 142/84 H 97 Weight Admit Weight 174 lb 13.225 oz Weight 164 lb Most Recent Monitor Data Heart Rate from ECG 100 NIBP 161/83 NIBP BP-Mean 109 Respiration from ECG 20 SpO2 96 I&O: 06/05/20 06/06/20 06/07/20 06:59 06:59 06:59 Intake Total 3226 7485 Output Total 900 1755 Balance 2326 5752 Result Diagrams: 06/05/20 06:09 06/05/20 06:09 Additional Labs: Accuchecks 06/05/20 06/05/20 18:14 11:17 POC Glucose 138 H 143 H Hospitalist ROS - Medication Medications: Active Medications Generic Name Dose Route Start Last Admin Trade Name Freq PRN Reason Stop Dose Admin Acetaminophen 1,000 mg 05/14/20 09:04 06/01/20 19:46 Acetaminophen 500 Mg Tab PO 1,000 mg Q6H PRN Administration Moderate to Severe Pain (6-10) Acidophilus 1 tab 06/06/20 09:00 06/06/20 08:30 Lactinex Tablet PO 1 tab DAILY ALEKSANDER Administration Amlodipine Besylate 10 mg 06/03/20 09:00 06/06/20 08:30 Amlodipine 10 Mg Tab PER TUBE 10 mg DAILY ALEKSANDER Administration Dexamethasone 4 mg 05/31/20 21:00 06/06/20 08:30 Dexamethasone 4 Mg Tab PO 4 mg BID ALEKSANDER Administration Enoxaparin Sodium 30 mg 06/05/20 21:00 06/05/20 19:47 Enoxaparin Sodium 30 Mg/0.3 Ml Syringe SC 30 mg 2100 ALEKSANDER Administration Ergocalciferol 1.25 mg 06/05/20 15:00 06/05/20 15:13 Ergocalciferol 1.25 Mg(50,000 Units) Cap PO 1.25 mg Q7D ALEKSANDER Administration Fluconazole/Sodium Chloride 100 mls @ 100 mls/hr 05/31/20 09:00 06/06/20 08:29 200 mg/ Device IVPB 100 mls DAILY ALESKANDER Administration MEROPENEM/VABORBACTAM 2 gm/ 250 mls @ 83.333 mls/hr 06/05/20 15:00 06/06/20 08:29 Sodium Chloride IVPB 250 mls 0700,1500,2300 ALEKSANDER Administration Insulin Human Lispro 0 units 05/17/20 15:38 05/31/20 16:51 Humalog 300 Units/3 Ml Vial SC 2 unit .MILD SLIDING SCALE PRN Administration Mild Correctional Scale Labetalol HCl 10 mg 05/19/20 17:02 06/04/20 14:08 Labetalol Hcl 100 Mg/20 Ml Vial SLOW IVP 10 mg Q4H PRN Administration Blood Pressure. SBP above 140 Levetiracetam 500 mg 06/03/20 09:00 06/06/20 08:30 Levetiracetam 500 Mg/5 Ml Oral Solution PO 500 mg DAILY ALEKSANDER Administration Levothyroxine Sodium 112 mcg 05/15/20 06:00 06/06/20 06:19 Levothyroxine Sodium 112 Mcg Tab PO 112 mcg 0600 ALEKSANDER Administration Ondansetron HCl 4 mg 05/10/20 19:46 05/19/20 09:55 Ondansetron Pf 4 Mg/2 Ml Vial IVP 4 mg Q6H PRN Administration Nausea Pantoprazole Sodium 40 mg 06/03/20 09:00 06/06/20 08:30 Pantoprazole 40 Mg Tab PO 40 mg DAILY ALEKSANDER Administration - Exam General Appearance: awake alert Neck: no JVD Heart: RRR, no murmur Respiratory: CTAB Gastrointestinal: soft, non-tender, non-distended, normal bowel sounds Extremities: no edema Hosp A/P (1) AMANDA (acute kidney injury) Code(s): N17.9 - ACUTE KIDNEY FAILURE, UNSPECIFIED Status: Acute (2) Acute metabolic encephalopathy Code(s): G93.41 - METABOLIC ENCEPHALOPATHY Status: Resolved (3) Acute respiratory failure with hypoxia Code(s): J96.01 - ACUTE RESPIRATORY FAILURE WITH HYPOXIA Status: Resolved (4) Anasarca Code(s): R60.1 - GENERALIZED EDEMA Status: Acute (5) Peritonitis (acute) generalized Code(s): K65.0 - GENERALIZED (ACUTE) PERITONITIS Status: Acute (6) S/P colectomy Status: Acute (7) Seizure Code(s): R56.9 - UNSPECIFIED CONVULSIONS Status: Acute (8) Hypothyroidism Code(s): E03.9 - HYPOTHYROIDISM, UNSPECIFIED Status: Chronic Qualifiers: Hypothyroidism type: acquired Qualified Code(s): E03.9 - Hypothyroidism, unspecified (9) PRES (posterior reversible encephalopathy syndrome) Code(s): I67.83 - POSTERIOR REVERSIBLE ENCEPHALOPATHY SYNDROME Status: Resolved - Plan 1. encephalopathy resolved 2. ATN- improving 3. peritonitis-antimicrobial tx post anastamosis leak, then colostomy 4. discuss with surgery, ID 5. off TPN, on po diet
[2020-06-06] MEDS: traMADol HCl 50 MG TAB PO PRN (18:11)
[2020-06-06] MEDS: Acetaminophen 500 MG TAB PO PRN (18:12)
--- NOTE | 2020-06-06 19:30 | PRG ---
DATE OF SERVICE: 06/06/2020 SUBJECTIVE: Mel Mullins seems to be doing well. I talked to her nurse this morning. The patient was not doing as well as I had thought. She is intermittently confused. She is weak. She is not independently ambulatory. The patient's daughter works timekeeper supervisor, other family members do. She lives alone. The patient is deconditioned. She will need to go to rehab postoperatively. The patient's drainage out of her percutaneous drain has been 105 mL in the last 24 hours. It is lightened up and thinner, although cloudy. She is on intravenous antibiotics. I have talked to Dr. Davin Garcia previously and plan is to repeat her CAT scan tomorrow morning without contrast and after oral contrast. This is obtained because of some visualize contrast material in the cavity. We will perform this tomorrow. The patient is tolerating her diet. OBJECTIVE: VITAL SIGNS: 97.7 degrees, 98, 137/81. LUNGS: Clear to auscultation. CARDIAC: Regular rate and rhythm without murmur or gallop. ABDOMEN: Soft and nontender. Superficial wounds almost completely healed. LABORATORY DATA: White count 3.2, hemoglobin 8.1 yesterday. Basic metabolic profile normal yesterday. Acute kidney injury slowly improving. BUN 56, 1.33. ASSESSMENT/PLAN: 1. Deconditioning. Plan is outpatient rehab assessment. I have talked to the spring encaser regarding that. 2. Followup CAT scan of the abdomen and pelvis and drain to assure there was no enteric leakage. I think the contrast seen as we compare CAT scans is less on the recent CAT scan than the previous. This fluid collection is an area that was not surgically manipulated, making the visualized contrast on this CAT most likely. The rectal contrast was introduced when she had her contrast enema for a CAT scan to evaluate her colorectal leak. Job ID: [id number]
[2020-06-06] MEDS: Enoxaparin Sodium 30 MG/0.3 ML SYRINGE SC SCH (20:13)
[2020-06-07] MEDS: Acetaminophen 500 MG TAB PO PRN (05:17)
[2020-06-07] MEDS: traMADol HCl 50 MG TAB PO PRN (05:21)
[2020-06-07] MEDS: Levothyroxine Sodium 112 MCG TAB PO SCH (05:21)
[2020-06-07 05:42] LABS: #Monocytes 0.4 thou/uL (0.11-0.59); #Neutrophils 3.2 thou/uL (1.40-6.50); %Basophils 0.3 % (0.0-1.0); %Eosinophils 0.3 % (0.0-10.0); %Lymphocytes 21.4 % (21.0-51.0); %Monocytes 9.4 % (0.0-10.0); %Neutrophils 68.5 % (42.0-75.0); Hemoglobin 7.9 g/dL (12.0-16.0); Mean Corpuscular HGB CONC 32.6 g/dL (32.0-36.0); Mean Corpuscular Hemoglobin 31.1 pg (27.0-31.0); Mean Corpuscular Volume 95.3 fL (78.0-98.0); Platelet Count 223 thou/uL (130-400); RBC Distribution Width 15.5 % (11.5-14.5); Red Blood Cell (RBC) Count 2.55 mill/uL (4.20-5.40); White Blood Cell (WBC) Count 4.7 thou/uL (4.8-10.8)
[2020-06-07 05:59] LABS: Phosphorus 5.1 mg/dL (2.3-4.7)
[2020-06-07 06:05] LABS: Anion Gap 17 mmol/L (10-20); BUN (Urea Nitrogen) 40 mg/dL (9.8-20.1); Calc. Creatinine Clearance 56 mL/min (70-130); Calcium 6.8 mg/dL (7.8-10.44); Carbon Dioxide 28 mmol/L (23-31); Chloride 104 mmol/L (98-107); Glucose 112 mg/dL (80-115); Magnesium 1.3 mg/dL (1.6-2.6); Potassium 3.7 mmol/L (3.5-5.1); Sodium 145 mmol/L (136-145)
[2020-06-07] MEDS: SODIUM CHLORIDE 0.9% IVPB SCH ×2 (06:17→18:26)
[2020-06-07] MEDS: MEROPENEM IVPB SCH ×2 (06:17→18:26)
[2020-06-07] MEDS: VABORBACTAM IVPB SCH ×2 (06:17→18:26)
[2020-06-07] MEDS ORDERED: Calcium Chloride 13.6 MEQ in Sodium Chloride 0.9% 100 ML IVPB SCH (08:00)
[2020-06-07] MEDS ORDERED: Magnesium Sulfate 4 GM in Sodium Chloride 0.9% 250 ML 250 ML IVPB SCH (08:00)
[2020-06-07] MEDS: Lactinex Tablet PO SCH (08:32)
[2020-06-07] MEDS: Amlodipine 10 MG TAB PER TUBE SCH (08:32)
[2020-06-07] MEDS: Dexamethasone 4 MG TAB PO SCH (08:32)
[2020-06-07] MEDS ORDERED: Calcium Carbonate 600 MG TAB PO SCH (09:00)
--- NOTE | 2020-06-07 10:13 | PDOC.HOSPP ---
- Subjective Encounter Date: 06/07/20 Encounter Time: 10:09 Subjective: no complaints - Objective Vital Signs & Weight: Vital Signs (12 hours) Temp Pulse Resp BP BP BP Pulse Ox 06/07/20 08:32 90 136/73 06/07/20 08:25 96 06/07/20 07:44 97.7 F 90 18 136/73 97 06/07/20 03:52 97.5 F L 90 18 132/71 96 06/06/20 23:51 97.5 F L 91 18 126/78 95 Weight Admit Weight 174 lb 13.225 oz Weight 164 lb 0.383 oz Most Recent Monitor Data Heart Rate from ECG 100 NIBP 161/83 NIBP BP-Mean 109 Respiration from ECG 20 SpO2 96 I&O: 06/06/20 06/07/20 06/08/20 06:59 06:59 06:59 Intake Total 7485 1835 Output Total 1755 90 Balance 5730 1745 Result Diagrams: 06/07/20 05:25 06/07/20 05:25 Hospitalist ROS - Medication Medications: Active Medications Generic Name Dose Route Start Last Admin Trade Name Freq PRN Reason Stop Dose Admin Acetaminophen 1,000 mg 05/14/20 09:04 06/07/20 05:17 Acetaminophen 500 Mg Tab PO 1,000 mg Q6H PRN Administration Moderate to Severe Pain (6-10) Acidophilus 1 tab 06/06/20 09:00 06/07/20 08:32 Lactinex Tablet PO 1 tab DAILY ALEKSANDER Administration Amlodipine Besylate 10 mg 06/03/20 09:00 06/07/20 08:32 Amlodipine 10 Mg Tab PER TUBE 10 mg DAILY ALEKSANDER Administration Calcium Carbonate 600 mg 06/07/20 09:00 06/07/20 08:34 Calcium Carbonate 600 Mg Tab PO 600 mg DAILY ALEKSANDER Administration Dexamethasone 4 mg 05/31/20 21:00 06/07/20 08:32 Dexamethasone 4 Mg Tab PO 4 mg BID ALEKSANDER Administration Enoxaparin Sodium 30 mg 06/05/20 21:00 06/06/20 20:13 Enoxaparin Sodium 30 Mg/0.3 Ml Syringe SC 30 mg 2100 ALEKSANDER Administration Ergocalciferol 1.25 mg 06/05/20 15:00 06/05/20 15:13 Ergocalciferol 1.25 Mg(50,000 Units) Cap PO 1.25 mg Q7D ALEKSANDER Administration Fluconazole/Sodium Chloride 100 mls @ 100 mls/hr 05/31/20 09:00 06/06/20 08:29 200 mg/ Device IVPB 100 mls DAILY ALEKSANDER Administration MEROPENEM/VABORBACTAM 2 gm/ 250 mls @ 83.333 mls/hr 06/05/20 15:00 06/07/20 06:17 Sodium Chloride IVPB 250 mls 0700,1500,2300 ALEKSANDER Administration Calcium Chloride 13.6 meq/ 110 mls @ 100 mls/hr 06/07/20 08:00 06/07/20 09:12 Sodium Chloride IVPB 06/07/20 11:00 110 mls NOW ALEKSANDER Administration Insulin Human Lispro 0 units 05/17/20 15:38 05/31/20 16:51 Humalog 300 Units/3 Ml Vial SC 2 unit .MILD SLIDING SCALE PRN Administration Mild Correctional Scale Labetalol HCl 10 mg 05/19/20 17:02 06/04/20 14:08 Labetalol Hcl 100 Mg/20 Ml Vial SLOW IVP 10 mg Q4H PRN Administration Blood Pressure. SBP above 140 Levetiracetam 500 mg 06/03/20 09:00 06/06/20 08:30 Levetiracetam 500 Mg/5 Ml Oral Solution PO 500 mg DAILY ALEKSANDER Administration Levothyroxine Sodium 112 mcg 05/15/20 06:00 06/07/20 05:21 Levothyroxine Sodium 112 Mcg Tab PO 112 mcg 0600 ALEKSANDER Administration Ondansetron HCl 4 mg 05/10/20 19:46 05/19/20 09:55 Ondansetron Pf 4 Mg/2 Ml Vial IVP 4 mg Q6H PRN Administration Nausea Pantoprazole Sodium 40 mg 06/03/20 09:00 06/07/20 08:34 Pantoprazole 40 Mg Tab PO 40 mg DAILY ALEKSANDER Administration Tramadol HCl 50 mg 06/05/20 15:05 06/07/20 05:21 Tramadol Hcl 50 Mg Tab PO 50 mg Q6H PRN Administration Pain - Exam General Appearance: awake alert Neck: no JVD Heart: RRR, no murmur Respiratory: CTAB Gastrointestinal: soft, non-distended, normal bowel sounds Extremities: no edema Hosp A/P (1) AMANDA (acute kidney injury) Code(s): N17.9 - ACUTE KIDNEY FAILURE, UNSPECIFIED Status: Resolved (2) Acute metabolic encephalopathy Code(s): G93.41 - METABOLIC ENCEPHALOPATHY Status: Resolved (3) Acute respiratory failure with hypoxia Code(s): J96.01 - ACUTE RESPIRATORY FAILURE WITH HYPOXIA Status: Resolved (4) Anasarca Code(s): R60.1 - GENERALIZED EDEMA Status: Resolved (5) Peritonitis (acute) generalized Code(s): K65.0 - GENERALIZED (ACUTE) PERITONITIS Status: Resolved (6) S/P colectomy Status: Acute (7) Seizure Code(s): R56.9 - UNSPECIFIED CONVULSIONS Status: Chronic (8) Hypothyroidism Code(s): E03.9 - HYPOTHYROIDISM, UNSPECIFIED Status: Chronic Qualifiers: Hypothyroidism type: acquired Qualified Code(s): E03.9 - Hypothyroidism, unspecified (9) PRES (posterior reversible encephalopathy syndrome) Code(s): I67.83 - POSTERIOR REVERSIBLE ENCEPHALOPATHY SYNDROME Status: Resolved - Plan Major medical problems resolved CT abd pendind placement in progress will cont to follow
[2020-06-07] MEDS: levETIRAcetam 500 mg/5 ml Oral Solution PO SCH (10:21)
[2020-06-07] MEDS: Fluconazole In NaCl,Iso-Osm 200 MG in Premix Bag 1 BAG IVPB SCH (10:22)
[2020-06-07] MEDS ORDERED: Iopamidol 370 76% 50 ML VIAL FS ONE (10:29)
[2020-06-07 12:13] VITALS: TEMP 97.8
[2020-06-07 12:56] VITALS: BMI 23.5
[2020-06-07] MEDS: Ondansetron PF 4 MG/2 ML Vial IVP PRN (13:55)
--- NOTE | 2020-06-07 14:52 | PDOC.NEPPN ---
- Subjective Encounter Date: 06/07/20 Subjective: Seen and examined. No new problen. Off parenteral nutrition. - Objective Vital Signs & Weight: Vital Signs (12 hours) Temp Pulse Resp BP BP BP Pulse Ox 06/07/20 11:08 97.8 F 84 18 151/77 H 95 06/07/20 08:32 90 136/73 06/07/20 08:25 96 06/07/20 07:44 97.7 F 90 18 136/73 97 06/07/20 03:52 97.5 F L 90 18 132/71 96 Weight Admit Weight 174 lb 13.225 oz Weight 154 lb 8 oz Most Recent Monitor Data Heart Rate from ECG 100 NIBP 161/83 NIBP BP-Mean 109 Respiration from ECG 20 SpO2 96 I&O: 06/06/20 06/07/20 06/08/20 06:59 06:59 06:59 Intake Total 7485 1835 Output Total 1755 90 Balance 5730 1745 Result Diagrams: 06/07/20 05:25 06/07/20 05:25 Nephrology ROS - Medication Medications: Active Medications Generic Name Dose Route Start Last Admin Trade Name Freq PRN Reason Stop Dose Admin Acetaminophen 1,000 mg 05/14/20 09:04 06/07/20 05:17 Acetaminophen 500 Mg Tab PO 1,000 mg Q6H PRN Administration Moderate to Severe Pain (6-10) Acidophilus 1 tab 06/06/20 09:00 06/07/20 08:32 Lactinex Tablet PO 1 tab DAILY ALEKSANDER Administration Amlodipine Besylate 10 mg 06/03/20 09:00 06/07/20 08:32 Amlodipine 10 Mg Tab PER TUBE 10 mg DAILY ALEKSANDER Administration Calcium Carbonate 600 mg 06/07/20 09:00 06/07/20 08:34 Calcium Carbonate 600 Mg Tab PO 600 mg DAILY ALEKSANDER Administration Dexamethasone 4 mg 05/31/20 21:00 06/07/20 08:32 Dexamethasone 4 Mg Tab PO 4 mg BID ALEKSANDER Administration Enoxaparin Sodium 30 mg 06/05/20 21:00 06/06/20 20:13 Enoxaparin Sodium 30 Mg/0.3 Ml Syringe SC 30 mg 2100 ALEKSANDER Administration Ergocalciferol 1.25 mg 06/05/20 15:00 06/05/20 15:13 Ergocalciferol 1.25 Mg(50,000 Units) Cap PO 1.25 mg Q7D ALEKSANDER Administration Fluconazole/Sodium Chloride 100 mls @ 100 mls/hr 05/31/20 09:00 06/07/20 10:22 200 mg/ Device IVPB 100 mls DAILY ALEKSANDER Administration MEROPENEM/VABORBACTAM 2 gm/ 250 mls @ 83.333 mls/hr 06/05/20 15:00 06/07/20 06:17 Sodium Chloride IVPB 250 mls 0700,1500,2300 ALEKSANDER Administration Insulin Human Lispro 0 units 05/17/20 15:38 05/31/20 16:51 Humalog 300 Units/3 Ml Vial SC 2 unit .MILD SLIDING SCALE PRN Administration Mild Correctional Scale Labetalol HCl 10 mg 05/19/20 17:02 06/04/20 14:08 Labetalol Hcl 100 Mg/20 Ml Vial SLOW IVP 10 mg Q4H PRN Administration Blood Pressure. SBP above 140 Levetiracetam 500 mg 06/03/20 09:00 06/07/20 10:21 Levetiracetam 500 Mg/5 Ml Oral Solution PO 500 mg DAILY ALEKSANDER Administration Levothyroxine Sodium 112 mcg 05/15/20 06:00 06/07/20 05:21 Levothyroxine Sodium 112 Mcg Tab PO 112 mcg 0600 ALEKSANDER Administration Ondansetron HCl 4 mg 05/10/20 19:46 06/07/20 13:55 Ondansetron Pf 4 Mg/2 Ml Vial IVP 4 mg Q6H PRN Administration Nausea Pantoprazole Sodium 40 mg 06/03/20 09:00 06/07/20 08:34 Pantoprazole 40 Mg Tab PO 40 mg DAILY ALEKSANDER Administration Tramadol HCl 50 mg 06/05/20 15:05 06/07/20 05:21 Tramadol Hcl 50 Mg Tab PO 50 mg Q6H PRN Administration Pain - Exam General Appearance: awake alert Eye: anicteric sclera ENT: normocephalic atraumatic, moist mucosa Neck: supple, symmetric, no JVD Respiratory: no wheezes, no rales, no ronchi, normal chest expansion, no tachypnea Cardiovascular: RRR Gastrointestinal: soft, non-distended, normal bowel sounds Gastrointestinal - other findings: Colostomy and drain noted Extremities: no edema Neurological: CN's grossly intact, no focal deficits Musculoskeletal: generalized weakness, diffuse muscle atrophy PSYCH: A&O x 3 Nephrology Results - Labs Result Diagrams: 06/07/20 05:25 06/07/20 05:25 Lab results: WBC 4.7 thou/uL (4.8-10.8) L 06/07/20 05:25 Hgb 7.9 g/dL (12.0-16.0) L 06/07/20 05:25 Hct 24.3 % (36.0-47.0) L 06/07/20 05:25 MCV 95.3 fL (78.0-98.0) 06/07/20 05:25 Plt Count 223 thou/uL (130-400) 06/07/20 05:25 Neutrophils % 68.5 % (42.0-75.0) 06/07/20 05:25 Band Neuts % (Manual) 6 % (5-11) 06/05/20 06:09 ABG pH 7.56 (7.35-7.45) H* 05/30/20 06:59 ABG pCO2 31.4 mmHg (35.0-45.0) L 05/30/20 06:59 ABG pO2 114.2 mmHg (> 80.0) H 05/30/20 06:59 Sodium 145 mmol/L (136-145) 06/07/20 05:25 Potassium 3.7 mmol/L (3.5-5.1) 06/07/20 05:25 Chloride 104 mmol/L (98-107) 06/07/20 05:25 Carbon Dioxide 28 mmol/L (23-31) 06/07/20 05:25 BUN 40 mg/dL (9.8-20.1) H 06/07/20 05:25 Creatinine 1.20 mg/dL (0.6-1.1) H 06/07/20 05:25 Glucose 112 mg/dL (80-115) 06/07/20 05:25 Lactic Acid 1.0 mmol/L (0.5-2.2) 05/10/20 23:24 Calcium 6.8 mg/dL (7.8-10.44) L 06/07/20 05:25 Total Bilirubin 0.7 mg/dL (0.2-1.2) 05/19/20 17:19 AST 23 U/L (5-34) 05/19/20 17:19 ALT 10 U/L (8-55) 05/19/20 17:19 Alkaline Phosphatase 92 U/L (40-110) 05/19/20 17:19 Troponin I 0.015 ng/mL (< 0.028) 05/10/20 17:06 B-Natriuretic Peptide 92.0 pg/mL (0-100) 05/10/20 17:06 Serum Total Protein 5.6 g/dL (6.0-8.3) L 05/19/20 17:19 Albumin 3.4 g/dL (3.4-4.8) 06/05/20 11:07 Lipase 26 U/L (8-78) 05/10/20 17:04 Urine Ketones Trace mg/dL (Negative) A 05/18/20 14:45 Urine Blood 3+ (Negative) A 05/18/20 14:45 Urine Nitrite Negative (Negative) 05/18/20 14:45 Ur Leukocyte Esterase Negative Chika/uL (Negative) 05/18/20 14:45 Urine RBC 21-50 HPF (0-3) A 05/18/20 14:45 Urine WBC 4-6 HPF (0-3) A 05/18/20 14:45 Ur Squamous Epith Cells 11-20 HPF (0-3) A 05/18/20 14:45 Urine Bacteria 1+ HPF (None Seen) A 05/18/20 14:45 Sodium 145 mmol/L (136-145) 06/07/20 05:25 Potassium 3.7 mmol/L (3.5-5.1) 06/07/20 05:25 Chloride 104 mmol/L (98-107) 06/07/20 05:25 Carbon Dioxide 28 mmol/L (23-31) 06/07/20 05:25 Anion Gap 17 mmol/L (10-20) 06/07/20 05:25 BUN 40 mg/dL (9.8-20.1) H 06/07/20 05:25 Creatinine 1.20 mg/dL (0.6-1.1) H 06/07/20 05:25 Glucose 112 mg/dL (80-115) 06/07/20 05:25 Calcium 6.8 mg/dL (7.8-10.44) L 06/07/20 05:25 Phosphorus 5.1 mg/dL (2.3-4.7) H 06/07/20 05:25 Magnesium 1.3 mg/dL (1.6-2.6) L 06/07/20 05:25 Albumin 3.4 g/dL (3.4-4.8) 06/05/20 11:07 Nephrology AP PN - Plan ASSESSMENT: Hypomagnesemia. Hypocalcemia Vitamin D deficiency Acute renal failure: 2/2 ATN. Improved. Off HD. Creat continue to trend down. Metabolic acidosis. Improved Anasarca: Most likely due to hypoalbuminemia.and AMANDA. Resolved. Severe hypoalbuminemia: PCM Anemia of acute blood loss: Peritonitis, on antibiotics. Hypertension: Control is acceptable. Acute encephalopathy: Most likely due to PRES. Improved. Seizure: cause or effect of PRES Presumed PRES. Multifactorial in etiology. HTN, AMANDA, Severe hypoalbuminemia PLAN. Replete plasma magnesium and calcium with magnesium sulphate and calcium chloride respectively, Start oral magnesium and calcium supplementation. Follow electrolytes and renal function. Avoid nephrotoxic agents.
[2020-06-07 16:05] VITALS: BP 146/84
--- NOTE | 2020-06-07 16:18 | CT ---
CT abdomen and pelvis noncontrast HISTORY: Abdominal pain. Abscess drain. Reevaluate. COMPARISON: 06/03/2020. FINDINGS: Images were obtained before administration of oral contrast and approximately 5 hours Afte r administration of iodine-based oral contrast to evaluate for an ongoing enteric leak. Small amount of bilateral pleural fluid has decreased slightly since the prior exam with associated a telectasis at each lung base. An oval hyperdense object within the lower esophagus on the initial image set most likely represents an ingested pill. It has disappeared on the delayed images. The right lateral percutaneous drain is in place, the coil overlying the anterior-inferior margin of the liver. No residual fluid collection around the drain. A small pocket of gas and nearby tiny fluid pocket just anterior and inferior to the drainage coil is significantly smaller than on the prior study and likely communicates to the coil. Stranding throughout the intra-abdominal fat has decreased. Left lower quadrant ostomy again demonstrated with diverticula arising from the contrast opacified distal remaining colon. No evidence of bowel obstruction Minimal residual hyperdense fluid remains along the posterior aspect of the liver dome where a slight ly greater volume was seen on the prior CT exam. It does not increase after administration of oral contrast on today's study. Likewise, a thin sliver of hyperdense liquid within the right mid abdomen on the initial axial image 54 does not increase after oral contrast and delayed images, axial image 51. No additional extraluminal hyperdense fluid collections are present on the delayed images. Urinar y bladder is distended and contains a small amount of gas. Lobular collections of low density fluid along each side of the pelvis just above the level of the bl adder dome are unchanged from the prior study. No internal gas or other complication. IMPRESSION : Continued improvement. No distention of the residual cavity immediately surrounding the right upper q uadrant percutaneous drain. Nearby minimal gas and fluid collections have decreased in volume. Collections of simple fluid within the pelvis are unchanged in size. There is no evidence of ongoing enteric leak. Dependent lung atelectasis and small bilateral pleural effusions are stable.
--- NOTE | 2020-06-07 16:28 | PRG ---
DATE OF SERVICE: 06/07/2020 SUBJECTIVE: She is feeling much better, looks better too. No abdominal pain. No respiratory symptoms. Voiding on her own. OBJECTIVE: VITAL SIGNS: She has been afebrile, saturating at 95 on room air, not tachycardic. GENERAL: Awake, alert, and oriented. LUNGS: Symmetric. Clear breath sounds. HEART: S1 and S2. Regular rate. ABDOMEN: Flat. Midline wound. Colostomy looks good. She has a drain there with purulent exudate still emanating from it. The I's and O's show about 60 mL, so it has been a trend to reduction in the volume obtained from the drain. LABORATORY DATA: White cell count is down to 4.7, hemoglobin 7.9, and platelets 223. Chemistry with a creatinine 1.2, which is markedly improved. She is currently receiving a combination of meropenem and vaborbactam, targeting the likely carbapenemase-producing E coli from the abdominal drainage. She had a repeat abdomen and pelvis CT today and I do not have yet the interpretation. I have looked at the images. She has bilateral pleural effusions, small. She still has drain there in the right upper quadrant right under the liver. There is an area of contrast, which I think appears to be within the bowel lumen, but I am waiting on the final interpretation by radiologist. 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 Renal function with marked improvement and I think dialysis catheter has been removed. The plan is to review the CT scan after the interpretation is reported and then Dr. Hancock was considering maybe Wednesday to be transferred hopefully off [facility]. Job ID: [id number]
[2020-06-07] MEDS ORDERED: Magnesium Oxide 400 MG TAB PO SCH (21:00)
--- NOTE | 2020-06-07 21:16 | PRG ---
DATE OF SERVICE: SUBJECTIVE: Mel Mullins today underwent a CAT scan of the abdomen and pelvis without contrast and then 3 to 4 hours later, underwent a repeat CAT scan of the abdomen with contrast. This resolved the question whether there was any extraluminal contrast fluid collection right upper quadrant. There was no evidence of bile leakage. The drain fluid collection has near completely resolved. There were some fluid collections near the pelvis interloop that do not appear to be infected and probably will resolve with time. The patient remains afebrile. Vital signs are normal. White count today was 4, hemoglobin 7.9. Basic metabolic profile was normal with BUN of 40, creatinine 1.20. Dr. Freeman saw her today and as discussed, her antibiotics were discontinued. The patient's drain has put out about 60 mL over 24 hours, it is a thin yellow material. Cultures have grown E coli and she has been on special antibiotic ordered by Dr. Freeman. I talked to Dr. Freeman and this can be discontinued at this time. The patient is tolerating her diet without nausea or vomiting. Her colostomy is working well. Her wound looks good. OBJECTIVE: LUNGS: Clear to auscultation. CARDIAC: Regular rate and rhythm without murmur or gallop. ABDOMEN: Soft and, nontender. ASSESSMENT AND PLAN: The patient is doing well and is ready to transfer to [facility] for reconditioning and strengthening. She is too confused, unsteady gait to go home. Antibiotics intravenous can be discontinued. As far as the drain, I would continue to irrigate the drain twice a day, monitor the output and as the drainage output goes down, we should be able to remove that in the near future, hopefully the next week. I would ask the [facility] to call me, Dr. Hancock, cellphone [phone] to report drain output next Wednesday or Wednesday. The patient can have her colostomy reversed in the future. The patient's acute kidney injury is resolved. Job ID: [id number]
--- NOTE | 2020-06-07 21:49 | DIS ---
DATE OF ADMISSION: 05/10/2020 DATE OF DISCHARGE: 06/07/2020 Transfer to [facility] on 06/07/2020. DIAGNOSES: Diverticulitis; acute kidney injury requiring dialysis, seen by Dr. Muse; respiratory failure, followed by Dr. Hare; postoperative colorectal anastomotic leak resulting in sepsis, peritonitis, requiring abdominal washout and colostomy, performed in coverage by Dr. Fuentes on 05/11/2020; central line placement, TPN administration; temporary right femoral catheter placed to initiate dialysis on 05/20/2020. PRES syndrome. Seen by and Dr. Cantor and Maggie Garcia, SUBSTANCE ABUSE SPECIALIST. MRI of the brain without contrast performed PRES syndrome (posterior reversible encephalopathy syndrome). Treated with Keppra and Decadron. Prior to discharge, the patient had a CAT scan of the abdomen and pelvis with and without contrast to evaluate the right upper quadrant fluid collection, which had resolved with percutaneous drainage and there is no evidence of leak. Dr. Freeman followed her and adjust her antibiotics and these antibiotics were discontinued on discharge. She was sent over to the rehab with a drainage catheter, which will be irrigated twice a day with saline output monitored. At the time of discharge to the hospital, she had 60 mL per day. The drainage is yellow, slightly pasty, thin. When this drainage markedly diminishes, the drain can be removed hopefully next week. Discharge electrolytes normal. BUN and creatinine 40 and 1.20, resolving acute kidney injury. Discharge hemoglobin 7.9, white count 4.7. HISTORY: The patient had recurrent episodes of diverticulitis and there was question of a colovesical fistula. At the time of operation, colon was not adherent to the bladder. She underwent laparoscopic sigmoid colon resection with a good prep done a day prior and intraoperatively this was checked under water and there was no leak. She was monitored postoperatively, seemed to do well, was discharged home on second day of postop, having bowel movements. She returned to the hospital, was readmitted with sepsis and increased abdominal pain. Evaluated with the CAT scan with contrast and taken to the operating room by Dr. Fuentes who is covering for washout and colostomy. Postoperatively, patient seemed to be recovering well, but then became septic, developed neurological changes, blindness and encephalopathy. Evaluated with MRI scans. Neurosurgery and Neurology felt to have PRES syndrome. Treated accordingly. Also, developed acute kidney injury requiring dialysis to mobilize fluid. She was maintained on the ventilator and managed by Dr. Hare as well as other critical care issues, and eventually her renal function improved and fluid was diuresed from her resuscitation. She convalesced and tolerated tube feedings, off dialysis and come off the ventilator. Her temporary dialysis catheter in groin was removed. She is to continue with TPN until she tolerated tube feedings; at which time, TPN was discontinued. The patient's PRES syndrome resolved, and shortly after extubation, she was transferred to the floor, convalesced and tolerated a regular diet. She had a fluid collection in right upper quadrant which had a resistant E. coli, treated with specially antibiotics per Dr. Freeman. As mentioned above, she had a CAT scan prior to discharge revealing resolution of the fluid collection and her white count was normal, she is afebrile, tolerating her diet with good GI function. She is transferred to rehab for rehabilitation. It is felt that her colostomy can be reversed in the months to come at least after 3 to 4 months. Job ID: [id number]
== END 2020-06-07 18:20 | DRG 856 ==
LOC: ERS 16:48 → SDC/OP 17:55 → CCU 22:36 → SURG B 05-12 16:25 → CCU 05-18 21:57 → SJJU 06-01 18:14
PROVIDERS: ADMIT Surgery; ATTEND Internal Medicine
PROC: 0DBN0ZZ Excision of Sigmoid Colon, Open Approach (ICD-10-PCS; principal; 2020-05-10)
PROC: 0DH67UZ Insertion of Feeding Device into Stomach, Via Natural or Artificial Opening (ICD-10-PCS; 2020-05-10)
PROC: 02H633Z Insertion of Infusion Device into Right Atrium, Percutaneous Approach (ICD-10-PCS; 2020-05-17)
PROC: 5A1955Z Respiratory Ventilation, Greater than 96 Consecutive Hours (ICD-10-PCS; 2020-05-19)
PROC: 0BH18EZ Insertion of Endotracheal Airway into Trachea, Via Natural or Artificial Opening Endoscopic (ICD-10-PCS; 2020-05-19)
PROC: 06HY33Z Insertion of Infusion Device into Lower Vein, Percutaneous Approach (ICD-10-PCS; 2020-05-20)
PROC: 5A1D70Z Performance of Urinary Filtration, Intermittent, Less than 6 Hours Per Day (ICD-10-PCS; 2020-05-20)
PROC: 5A1D70Z Performance of Urinary Filtration, Intermittent, Less than 6 Hours Per Day (ICD-10-PCS; 2020-05-20)
PROC: 5A1D70Z Performance of Urinary Filtration, Intermittent, Less than 6 Hours Per Day (ICD-10-PCS; 2020-05-22)
PROC: 5A1D70Z Performance of Urinary Filtration, Intermittent, Less than 6 Hours Per Day (ICD-10-PCS; 2020-05-23)
PROC: 5A1D70Z Performance of Urinary Filtration, Intermittent, Less than 6 Hours Per Day (ICD-10-PCS; 2020-05-24)
PROC: 5A1D70Z Performance of Urinary Filtration, Intermittent, Less than 6 Hours Per Day (ICD-10-PCS; 2020-05-25)
PROC: 5A1D70Z Performance of Urinary Filtration, Intermittent, Less than 6 Hours Per Day (ICD-10-PCS; 2020-05-27)
PROC: 30233N1 Transfusion of Nonautologous Red Blood Cells into Peripheral Vein, Percutaneous Approach (ICD-10-PCS; 2020-05-28)
PROC: 5A1D70Z Performance of Urinary Filtration, Intermittent, Less than 6 Hours Per Day (ICD-10-PCS; 2020-05-29)
PROC: 3E0336Z Introduction of Nutritional Substance into Peripheral Vein, Percutaneous Approach (ICD-10-PCS; 2020-05-30)
PROC: 0W9G30Z Drainage of Peritoneal Cavity with Drainage Device, Percutaneous Approach (ICD-10-PCS; 2020-05-30)
PROC: 5A1D70Z Performance of Urinary Filtration, Intermittent, Less than 6 Hours Per Day (ICD-10-PCS; 2020-05-31)
DX: T81.44XA Sepsis following a procedure, initial encounter (principal); A41.9 Sepsis, unspecified organism; K65.9 Peritonitis, unspecified; T81.12XA Postprocedural septic shock, initial encounter; I67.83 Posterior reversible encephalopathy syndrome; G93.41 Metabolic encephalopathy; G93.6 Cerebral edema; I60.9 Nontraumatic subarachnoid hemorrhage, unspecified; N17.0 Acute kidney failure with tubular necrosis; J96.01 Acute respiratory failure with hypoxia; E43 Unspecified severe protein-calorie malnutrition; E87.2 Acidosis; K91.89 Other postprocedural complications and disorders of digestive system; J90 Pleural effusion, not elsewhere classified; J98.11 Atelectasis; J81.1 Chronic pulmonary edema; K56.7 Ileus, unspecified; K92.2 Gastrointestinal hemorrhage, unspecified; K57.92 Diverticulitis of intestine, part unspecified, without perforation or abscess without bleeding; D62 Acute posthemorrhagic anemia; E87.1 Hypo-osmolality and hyponatremia; R18.8 Other ascites; R53.81 Other malaise; E86.0 Dehydration; E88.09 Other disorders of plasma-protein metabolism, not elsewhere classified; R56.9 Unspecified convulsions; H47.619 Cortical blindness, unspecified side of brain; E87.70 Fluid overload, unspecified; E83.39 Other disorders of phosphorus metabolism; E89.0 Postprocedural hypothyroidism; B96.20 Unspecified Escherichia coli [E. coli] as the cause of diseases classified elsewhere; Z51.5 Encounter for palliative care; K21.9 Gastro-esophageal reflux disease without esophagitis; E87.6 Hypokalemia; E83.51 Hypocalcemia; E83.42 Hypomagnesemia; Y83.9 Surgical procedure, unspecified as the cause of abnormal reaction of the patient, or of later complication, without mention of misadventure at the time of the procedure; E66.9 Obesity, unspecified; Z20.822 Contact with and (suspected) exposure to COVID-19; N18.9 Chronic kidney disease, unspecified; Z90.49 Acquired absence of other specified parts of digestive tract; Z98.890 Other specified postprocedural states; Z90.710 Acquired absence of both cervix and uterus; Z88.2 Allergy status to sulfonamides; Z88.6 Allergy status to analgesic agent; Z79.890 Hormone replacement therapy; Z68.23 Body mass index [BMI] 23.0-23.9, adult; Z78.1 Physical restraint status; Z79.899 Other long term (current) drug therapy
CPT/HCPCS: 0011A; 0240U; 31624; 36415; 36416; 36430; 36600; 49020; 70450; 70551; 71045; 74018; 74019; 74176; 74177; 77002; 80048; 80053; 81001; 82040; 82271; 82274; 82306; 82533; 82570; 82805; 83605; 83690; 83735; 83880; 84100; 84134; 84156; 84300; 84443; 84484; 85007; 85025; 85027; 85610; 85730; 86850; 86900; 86901; 87040; 87070; 87077; 87086; 87186; 87205; 87340; 88307; 90935; 93005; 93010; 93306; 93970; 94002; 94003; 94660; 94760; 96365; 96366; 96367; 96375; C1729; C9113; G0257; J1100; J1450; J1642; J1644; J1650; J1720; J1815; J1885; J1940; J1953; J2001; J2020; J2060; J2185; J2186; J2250; J2270; J2405; J2543; J2550; J2704; J2765; J3010; J3370; J3475; J3480; J3490; J7050; J7070; J8540; P9016; P9045; P9047; Q9967; S0028

== ENCOUNTER 2020-06-18 10:56 | Inpatient (IN) | payer BC ==
[~2020-06-18 10:56] MED LIST changes: -Dexamethasone 20 MG/5 ML VIAL ONE; +Iopamidol-370 76% 500 ML 1 ML ONE; -PHENYLEPHRINE-NS 100 MCG/ML 10 ML SYRINGE ONE; -PROPOFOL 200 MG/20 ML VIAL ONE; -Rocuronium Bromide 10 MG/ML (10ML VIAL) ONE; -Succinylcholine 200 MG/10 ml SYRINGE FS ONE
[2020-06-18] MEDS ORDERED: Piperacillin/Tazobactam 4.5 GM VIAL ONE (11:31)
[2020-06-18 11:57] LABS: #Basophils 0.1 thou/uL (0.0-0.2); #Eosinphils 0.1 thou/uL (0.0-0.7); #Lymphocytes 2.5 thou/uL (1.20-3.40); #Monocytes 0.9 thou/uL (0.11-0.59); #Neutrophils 9.1 thou/uL (1.40-6.50); %Basophils 0.8 % (0.0-1.0); %Eosinophils 0.6 % (0.0-10.0); %Lymphocytes 19.5 % (21.0-51.0); %Monocytes 7.3 % (0.0-10.0); %Neutrophils 71.8 % (42.0-75.0); Hemoglobin 7.8 g/dL (12.0-16.0); Mean Corpuscular HGB CONC 33.3 g/dL (32.0-36.0); Mean Corpuscular Hemoglobin 31.6 pg (27.0-31.0); Mean Platelet Volume 6.2 fL (7.4-10.4); Platelet Count 728 thou/uL (130-400); RBC Distribution Width 15.1 % (11.5-14.5); Red Blood Cell (RBC) Count 2.45 mill/uL (4.20-5.40); White Blood Cell (WBC) Count 12.7 thou/uL (4.8-10.8)
[2020-06-18 12:18] LABS: ALT (SGPT) 20 U/L (8-55); AST (SGOT) 20 U/L (5-34); Albumin 3.3 g/dL (3.4-4.8); Alkaline Phosphatase 211 U/L (40-110); Anion Gap 16 mmol/L (10-20); BUN (Urea Nitrogen) 18 mg/dL (9.8-20.1); Bilirubin, Total 0.3 mg/dL (0.2-1.2); Calc. Creatinine Clearance 0 mL/min (70-130); Calcium 8.6 mg/dL (7.8-10.44); Carbon Dioxide 29 mmol/L (23-31); Chloride 97 mmol/L (98-107); Globulin 3.9 g/dL (2.4-3.5); Glucose 114 mg/dL (80-115); Lipase 59 U/L (8-78); Potassium 4.2 mmol/L (3.5-5.1); Protein, Total 7.2 g/dL (5.8-8.1); Sodium 138 mmol/L (136-145)
[2020-06-18 12:51] LABS: Bacteria/HPF Rare-Few HPF (None Seen); Bilirubin Negative (Negative); Blood, Urine Negative (Negative); Clarity Clear (Clear); Glucose, Urine (Dipstick) Normal (Negative); Ketone, Urine Negative (Negative); Leukocyte 75 Leu/uL (Negative); Nitrite Negative (Negative); Protein, Urine (Dipstick) 30 mg/dL (Neg-Trace); RBC/HPF 0-3 HPF (0-3); Specific Gravity, Urine 1.014 (1.002-1.036); Squamous Epithelial 0-3 HPF (0-3); Urobilinogen Normal mg/dL (Less than 2); WBC/HPF 21-50 HPF (0-3)
--- NOTE | 2020-06-18 14:14 | CT ---
CT ABDOMEN AND PELVIS WITH IV CONTRAST 06/18/2020 CLINICAL INFORMATION: Nausea. Abdominal fluid collections with abdominal drainage catheter in place. Follow-up evaluation. COMPARISON: 06/11/2020 Technique: Multiple contiguous axial CT images are obtained through the abdomen and pelvis with IV contrast. Cor onal reformatted images are provided. FINDINGS: Lower Chest: Resolution of bilateral pleural effusions with minimal atelectasis present at each lung base. Vessels: Abdominal aorta is normal in caliber. Abdomen: Portal vein:Patent Gallbladder: Surgically absent. Liver: within normal limits. Spleen: within normal limits. Pancreas: within normal limits. Adrenals: within normal limits. Kidneys: Left renal cyst again seen. Minimal caliectasis is present on the right especially involving the upper pole right renal calyx, but this does appear mildly improved when compared to prior exam. Bowel: Again noted is evidence of left hemicolectomy with left lower quadrant colostomy. Colonic dive rticulosis is again noted. Loops of small bowel are normal in caliber. However, mildly thick-walled loops of small bowel are seen in the left abdomen. This could be related to peristalsis, but enteriti s could not be excluded. Peritoneum: The free fluid in the upper abdomen the region of the beck hepatus and adjacent to the p ancreas and stomach has decreased when compared to prior exam. The right upper quadrant drainage catheter adjacent to the right hepatic lobe is again seen. Minimal amount of fluid is now present wit hin the previously noted collection surrounding the right hepatic lobe. Collection at the inferomedial aspect of the liver is also again seen and similar to prior study. Fluid collection in the anterior abdomen near the level of the umbilicus is again seen measuring 4.7 cm x 1.7 cm with previous measurement of 4.3 cm x 1.1 cm. Previously seen fluid collections in the pelvis bilaterally are also again seen. Collection right hemipelvis measures 8.8 cm x 5.6 cm with pre vious measurements of 9.3 cm x 4.5 cm. Lobulated fluid collection in the left hemipelvis is similar to prior exam. There is a fluid collection seen within the central mesentery with greatest diameter of collection me asuring 2 cm on today's exam and previously measuring 2.9 cm. Small fluid collection adjacent to proximal body of the stomach is again seen and similar to prior exam. Ostomy right lower quadrant is again seen and unchanged as well. Mesentery and Retroperitoneum: No enlarged mesenteric or retroperitoneal lymph nodes. Abdominal Wall: Midline scarring is present. There is an infraumbilical fat-containing hernia with sm all amount of fluid seen within the hernia defect similar to prior study. Foci of subcutaneous emphysema are seen along the anterior and anterolateral abdominal wall. Pelvis: Reproductive Organs: Evidence of hysterectomy. Bladder: within normal limits. Bones: No suspicious lytic or sclerotic osseous lesions. IMPRESSION: 1. Postoperative changes of the abdomen including postoperative changes involving the colon. 2. Persistent scattered multifocal lobular fluid collections within the abdomen and pelvis as describ ed above which are similar to prior exam. There is slightly greater amount of fluid adjacent to the right hepatic lobe on current study which is adjacent to region of the drainage catheter. 3. Interval decrease in fluid in the region of the beck hepatis, gastrohepatic ligament, and in the left upper quadrant. 4. Resolution of bilateral pleural effusions with atelectasis present at each lung base. 5. Mild caliectasis right kidney, but this has mildly improved compared to prior study. 6. Mild wall thickening involving loops of small bowel left upper quadrant which could be related to peristalsis, but enteritis is a possibility.
[2020-06-18] MEDS ORDERED: Sodium Bicarbonate 2.5 MEQ/5 ML VIAL ONE (15:46)
[2020-06-18] MEDS ORDERED: Fentanyl 100 MCG/2 ML VIAL ONE (15:46)
[2020-06-18] MEDS ORDERED: Midazolam HCl 2 mg/2 ml Vial ONE (15:46)
[2020-06-18] MEDS ORDERED: Morphine 4 MG/ML VIAL ONE (18:26)
[2020-06-18] MEDS ORDERED: Ondansetron PF 4 MG/2 ML Vial ONE (18:30)
[2020-06-18] MEDS ORDERED: Ondansetron ODT 4 MG TAB PO PRN (19:48)
[2020-06-18] MEDS ORDERED: hydrALAZINE 20 MG/ML VIAL SLOW IVP PRN (19:48)
[2020-06-18] MEDS ORDERED: Acetaminophen 500 MG TAB PO PRN ×2 (19:52→19:53)
[2020-06-18] MEDS ORDERED: traMADol HCl 50 MG TAB PO PRN ×2 (19:52→19:53)
[2020-06-18] MEDS ORDERED: Ibuprofen 600 MG TAB PO PRN (19:53)
[2020-06-18] MEDS: Enoxaparin Sodium 40 MG/0.4 ML SYRINGE SC SCH (22:13)
[2020-06-18] MEDS: Famotidine 20 MG TAB PO SCH (22:14)
[2020-06-18] MEDS: Calcium Carbonate 600 MG + Vit D TAB PO SCH (22:14)
[2020-06-18] MEDS: Meropenem 2 GM, Admixture Fee 1 EACH in Sodium Chloride 0.9% 100 ML IVPB SCH (22:56)
[2020-06-18 23:21] VITALS: BMI 25.2
--- NOTE | 2020-06-19 03:03 | HP ---
HISTORY OF PRESENT ILLNESS: Mel Mullins is a 64-year-old female, status post 05/07/2020, laparoscopic mobilization of splenic flexure, sigmoidectomy with 33 mm EEA stapler checked under water without leak. 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 The patient went home 2 days postoperatively, but returned to the hospital, having increasing pain, found to have a colorectal anastomotic leak and Dr. Fuentes performed on 05/11/2020 laparotomy, sigmoid colectomy, washout and a colostomy. On 05/19/2020, the patient had a central line placed for administration of TPN. Dr. Hare saw her in consultation when she was acutely ill. 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 She was weaned from the ventilator. Kidneys improved and dialysis discontinued and the temporary groin dialysis catheter removed. The patient was transferred to rehab on 06/07/2020. She did have percutaneous drainage of her abdominal abscess, right subhepatic 05/30/2020. This revealed E coli and yeast and she was treated with the appropriate antibiotics until which time they were discontinued. At the time of transfer to rehab, patient's drain was putting out very little, although was slightly purulent, thus, the drain was left in place. It was only putting out 15 to 20 daily. I had been maintaining communication with the rehab center and the drainage was diminishing. The plan eventually was to remove this drain. The patient was having some anorexia and abdominal fullness according to the nurse, although afebrile and she was sent back over to have a CT-guided drainage of this fluid collection on the right, although when she arrived, she refused this procedure. She was transferred back to rehab. Today, rehab sent her to the emergency room without communication to me. She was noted to be tachycardic, but without a fever. The patient states that she has been feeling well, eating, having normal bowel movements. In the emergency room, she was found to have a white count of 12, hemoglobin of 7.8, which is stable for her. Her differential and her white count were normal. Lactic acid was normal. Comprehensive metabolic profile was normal. Repeat CAT scan revealed the collection that had been there previously just seen a few days ago. Noted was surgically absent gallbladder consistent with prior cholecystectomy. The previously seen fluid in the beck hepatis area has almost completely resolved. Fluid collection in the anterior abdomen near the level of the umbilicus again seen 4.7 x 1.7 x 4 cm compared to previous dimensions of 4.3 x 1.1 cm, collection in the right hemipelvis, 8.8 x 5.6 cm, previous measured 9.3 x 4.5, loculated lobulated collection in the left hemipelvis noted 2 x 2.9 cm, resolution of the pleural effusions and atelectasis. The patient had 2 drainage catheters placed today, one in the left lower quadrant, one in the right abdomen. Gram stain is pending. I was called to the emergency room to evaluate the patient. The patient states that she has been feeling well, having normal bowel movements. Good appetite, good bowel function, good colostomy function. ALLERGIES: CODEINE AND SULFA. SOCIAL HISTORY: Tobacco and alcohol none. MEDICATIONS: 1. Tramadol. 2. Levothyroxine. 3. Ibuprofen. 4. Tylenol Extra Strength. PAST SURGICAL HISTORY: Recent surgeries as noted above. Past appendectomy, colonoscopy, tonsillectomy, cholecystectomy, hysterectomy, mesh sling for bladder incontinence without relief, thyroidectomy, benign disease, multiple nodules. PAST MEDICAL HISTORY: GERD, arthritis, diverticulosis, diverticulitis. MEDICATIONS: 1. Calcium. 2. Estradiol. 3. Levothyroxine. 4. Probiotics. PHYSICAL EXAMINATION: VITAL SIGNS: Heart rate 90, respiratory rate 18, blood pressure 140/70. The patient is in no distress. LUNGS: Clear to auscultation. CARDIAC: Regular rate and rhythm without murmur or gallop. ABDOMEN: Soft. Drainage catheters as noted above. Midline incision well healed. Colostomy functioning. EXTREMITIES: Unremarkable. ASSESSMENT/PLAN: Recently drained fluid collections. Cultures are pending. Rehab is reluctant to take her back due to her mild tachycardia 100 to 105, although she has normal heart rate now. We will plan admission for intravenous antibiotics and observe the drain catheters and plan discharge home in the next 48 hours or back to rehab pending her physical status. We will plan on removing the right upper quadrant drain. Job ID: [id number]
[2020-06-19 05:23] LABS: SARS-CoV-2 PCR by NAA Not Detected (NotDetected)
[2020-06-19 05:27] LABS: #Basophils 0.1 thou/uL (0.0-0.2); #Eosinphils 0.3 thou/uL (0.0-0.7); #Lymphocytes 1.9 thou/uL (1.20-3.40); #Monocytes 0.7 thou/uL (0.11-0.59); #Neutrophils 12.8 thou/uL (1.40-6.50); %Basophils 0.5 % (0.0-1.0); %Eosinophils 1.6 % (0.0-10.0); %Lymphocytes 12.2 % (21.0-51.0); %Monocytes 4.7 % (0.0-10.0); Hemoglobin 7.8 g/dL (12.0-16.0); Mean Corpuscular Hemoglobin 31.6 pg (27.0-31.0); Mean Corpuscular Volume 95.9 fL (78.0-98.0); Mean Platelet Volume 6.1 fL (7.4-10.4); Platelet Count 583 thou/uL (130-400); RBC Distribution Width 15.2 % (11.5-14.5); Red Blood Cell (RBC) Count 2.47 mill/uL (4.20-5.40); White Blood Cell (WBC) Count 15.8 thou/uL (4.8-10.8)
[2020-06-19] MEDS: Levothyroxine Sodium 112 MCG TAB PO SCH (05:39)
[2020-06-19] MEDS: Meropenem 2 GM, Admixture Fee 1 EACH in Sodium Chloride 0.9% 100 ML IVPB SCH ×3 (05:39→22:55)
--- NOTE | 2020-06-19 07:50 | CT ---
PROCEDURE: CT-guided abscess drainage of 2 separate fluid collections in the pelvis PROVIDED CLINICAL HISTORY: Patient with persistent fluid collections in both the right and left hemipelvis in patient with histo ry of prior bowel leak. COMPARISON: CT abdomen and pelvis on 06/18/2020 TECHNIQUE: The procedure including the risks and complications were explained to the patient, and informed conse nt was obtained. The patient was placed on the CT scan table in the supine position. Conscious sedation was performed with the intravenous administration of 25 mcg of fentanyl and 0.5 mg of Versed intravenously. A limited noncontrasted CT scan was obtained through the pelvis with grid localizers in place. An area overlying each collection within the right and left hemipelvis was perfo rmed. The area overlying the right pelvic fluid collection was meticulously prepped and draped in usual victorino rile fashion. Skin and subcutaneous tissues were infiltrated with buffered 1% lidocaine local anesthesia. A 21-gauge needle was advanced into the collection followed by noncontrasted CT images. A small skin incision was made, and the needle was exchanged over a 0.018 inch guidewire for a 5 [place] introducer sheath. A 0.035 inch Amplatz guidewire was placed. Axial CT images were obtained de monstrating appropriate positioning within the collection. The introducer sheath was exchanged over the guidewire for a 8 [place] tissue dilator followed by placement of an 8 [place] cope loop all-purpos e drainage catheter. Purulent material was aspirated, and a specimen was sent for labs. The area overlying the left pelvic fluid collection was meticulously prepped and draped in usual ster ile fashion. The skin and subcutaneous tissues were infiltrated with buffered 1% lidocaine for local anesthesia. A 21-gauge needle was advanced into the collection. A small skin incision was made. The needle was exchanged over a 0.018 inch guidewire for a 5 [place] introducer sheath, and a 0.035 inch Amplatz guidewire was placed. Position was confirmed with axial noncontrasted CT images. The int roducer sheath was exchanged over the guidewire for an 8 [place] tissue dilator followed placement of an 8 [place] cope loop all-purpose drainage catheter. Purulent material was aspirated, and a specim en was sent for labs. Each catheter was sutured in place utilizing 2-0 Ethilon suture material and placed to gravity draina ge. Dry sterile dressing was placed. Patient tolerated the procedure well and without immediate complication. IMPRESSION: 1. Lobulated fluid collections within the right and left hemipelvis which have persisted over multipl e prior CT examinations. 2. Technically successful percutaneous drainage of each fluid collection with 8 [place] cope loop all- purpose drainage catheters placed in each collection.
[2020-06-19] MEDS: Famotidine 20 MG TAB PO SCH ×2 (08:30→20:08)
[2020-06-19] MEDS: Lactinex Tablet PO SCH (08:30)
[2020-06-19] MEDS: Calcium Carbonate 600 MG + Vit D TAB PO SCH ×2 (08:30→20:08)
[2020-06-19] MEDS: Ondansetron PF 4 MG/2 ML Vial IVP PRN (10:30)
--- NOTE | 2020-06-19 15:26 | CT ---
PROCEDURE: CT-guided abscess drainage of 2 separate fluid collections in the pelvis PROVIDED CLINICAL HISTORY: Patient with persistent fluid collections in both the right and left hemipelvis in patient with histo ry of prior bowel leak. COMPARISON: CT abdomen and pelvis on 06/18/2020 TECHNIQUE: The procedure including the risks and complications were explained to the patient, and informed conse nt was obtained. The patient was placed on the CT scan table in the supine position. Conscious sedation was performed with the intravenous administration of 25 mcg of fentanyl and 0.5 mg of Versed intravenously. A limited noncontrasted CT scan was obtained through the pelvis with grid localizers in place. An area overlying each collection within the right and left hemipelvis was perfo rmed. The area overlying the right pelvic fluid collection was meticulously prepped and draped in usual victorino rile fashion. Skin and subcutaneous tissues were infiltrated with buffered 1% lidocaine local anesthesia. A 21-gauge needle was advanced into the collection followed by noncontrasted CT images. A small skin incision was made, and the needle was exchanged over a 0.018 inch guidewire for a 5 [place]ian introducer sheath. A 0.035 inch Amplatz guidewire was placed. Axial CT images were obtained de monstrating appropriate positioning within the collection. The introducer sheath was exchanged over the guidewire for a 8 [place]ian tissue dilator followed by placement of an 8 [place]ian cope loop all-purpos e drainage catheter. Purulent material was aspirated, and a specimen was sent for labs. The area overlying the left pelvic fluid collection was meticulously prepped and draped in usual ster ile fashion. The skin and subcutaneous tissues were infiltrated with buffered 1% lidocaine for local anesthesia. A 21-gauge needle was advanced into the collection. A small skin incision was made. The needle was exchanged over a 0.018 inch guidewire for a 5 [place] introducer sheath, and a 0.035 inch Amplatz guidewire was placed. Position was confirmed with axial noncontrasted CT images. The int roducer sheath was exchanged over the guidewire for an 8 [place] tissue dilator followed placement of an 8 [place]ian cope loop all-purpose drainage catheter. Purulent material was aspirated, and a specim en was sent for labs. Each catheter was sutured in place utilizing 2-0 Ethilon suture material and placed to gravity draina ge. Dry sterile dressing was placed. Patient tolerated the procedure well and without immediate complication. IMPRESSION: 1. Lobulated fluid collections within the right and left hemipelvis. 2. Technically successful percutaneous drainage of each fluid collection with 8 [place]ian cope loop all- purpose drainage catheters placed in each collection. Transcribed Date/Time: 06/19/2020 3:26 PM
--- NOTE | 2020-06-19 15:26 | CT ---
PROCEDURE: CT-guided abscess drainage of 2 separate fluid collections in the pelvis PROVIDED CLINICAL HISTORY: Patient with persistent fluid collections in both the right and left hemipelvis in patient with histo ry of prior bowel leak. COMPARISON: CT abdomen and pelvis on 06/18/2020 TECHNIQUE: The procedure including the risks and complications were explained to the patient, and informed conse nt was obtained. The patient was placed on the CT scan table in the supine position. Conscious sedation was performed with the intravenous administration of 25 mcg of fentanyl and 0.5 mg of Versed intravenously. A limited noncontrasted CT scan was obtained through the pelvis with grid localizers in place. An area overlying each collection within the right and left hemipelvis was perfo rmed. The area overlying the right pelvic fluid collection was meticulously prepped and draped in usual victorino rile fashion. Skin and subcutaneous tissues were infiltrated with buffered 1% lidocaine local anesthesia. A 21-gauge needle was advanced into the collection followed by noncontrasted CT images. A small skin incision was made, and the needle was exchanged over a 0.018 inch guidewire for a 5 [place] introducer sheath. A 0.035 inch Amplatz guidewire was placed. Axial CT images were obtained de monstrating appropriate positioning within the collection. The introducer sheath was exchanged over the guidewire for a 8 [place] tissue dilator followed by placement of an 8 [place] cope loop all-purpos e drainage catheter. Purulent material was aspirated, and a specimen was sent for labs. The area overlying the left pelvic fluid collection was meticulously prepped and draped in usual ster ile fashion. The skin and subcutaneous tissues were infiltrated with buffered 1% lidocaine for local anesthesia. A 21-gauge needle was advanced into the collection. A small skin incision was made. The needle was exchanged over a 0.018 inch guidewire for a 5 [place] introducer sheath, and a 0.035 inch Amplatz guidewire was placed. Position was confirmed with axial noncontrasted CT images. The int roducer sheath was exchanged over the guidewire for an 8 [place] tissue dilator followed placement of an 8 [place] cope loop all-purpose drainage catheter. Purulent material was aspirated, and a specim en was sent for labs. Each catheter was sutured in place utilizing 2-0 Ethilon suture material and placed to gravity draina ge. Dry sterile dressing was placed. Patient tolerated the procedure well and without immediate complication. IMPRESSION: 1. Lobulated fluid collections within the right and left hemipelvis. 2. Technically successful percutaneous drainage of each fluid collection with 8 [place] cope loop all- purpose drainage catheters placed in each collection. Transcribed Date/Time: 06/19/2020 3:26 PM
--- NOTE | 2020-06-19 18:49 | PRG ---
DATE OF SERVICE: 06/19/2020 SUBJECTIVE: Mel Mullins is actually doing well today. I have visited her with this morning. Temperature 98.2 degrees, heart rate 96 to 100, and blood pressure 123/74. Her white count is 15 and hemoglobin 7.8. Basic metabolic profile is normal. Urine culture submitted reveals greater than . Fluid submitted from the drainage procedure yesterday, left lower quadrant and right lower quadrant does not demonstrate any organisms on Gram stain. Cultures are pending. sterile fluid collections. This was anticipated prior. The patient states she is feeling well, tolerating her diet. OBJECTIVE: LUNGS: Clear to auscultation. CARDIAC: Regular rate and rhythm without murmur or gallop. ABDOMEN: Soft and nontender. Colostomy healthy. ASSESSMENT AND PLAN: At this point, she is doing well. She had finished her rehab stay and wish to go home today. She wants to go home. We will ask catalytic case operator arrange home health to help the patient and her daughter with drain management. We will arrange an outpatient CAT scan in 7 to 10 days to follow up the drains. Would anticipate going on oral antibiotics tomorrow. Of note is that the patient insisted on talking to Dr. Romario Holliday, Interventional Radiology, who has drained her peritoneal fluid collections, telling him that someone has planned to take out her drains tomorrow. Dr. Holliday called me and informed me of this and discussed. I told him that we were not planning on taking out her drains and the patient was confused. Job ID: [id number]
[2020-06-19] MEDS: Enoxaparin Sodium 40 MG/0.4 ML SYRINGE SC SCH (20:07)
[2020-06-19] MEDS ORDERED: FLU VACC QS2020-21(6MOS UP)/PF 60 MCG/0.5 ML SYRINGE IM ONE (21:00)
[2020-06-20] MEDS: Levothyroxine Sodium 112 MCG TAB PO SCH (06:17)
[2020-06-20] MEDS: Meropenem 2 GM, Admixture Fee 1 EACH in Sodium Chloride 0.9% 100 ML IVPB SCH (06:17)
[2020-06-20 08:03] VITALS: BP 123/77; TEMP 98.4
[2020-06-20] MEDS: Ondansetron PF 4 MG/2 ML Vial IVP PRN (08:31)
[2020-06-20] MEDS: Lactinex Tablet PO SCH (08:32)
[2020-06-20] MEDS: Famotidine 20 MG TAB PO SCH (08:32)
[2020-06-20] MEDS: Calcium Carbonate 600 MG + Vit D TAB PO SCH (08:32)
--- NOTE | 2020-06-20 11:37 | DIS ---
DATE OF ADMISSION: 06/18/2020 DATE OF DISCHARGE: 06/20/2020 DISCHARGE DIAGNOSES: 1. Intraabdominal fluid collections. Initial Gram stain negative. Delayed cultures, gram-negative rods. 2. Urinary tract infection, Pseudomonas. 3. Colostomy status, status post laparoscopic colon resection, anastomotic leak, prolonged hospitalization, rehab. 4. The patient sent to the emergency room from rehab and admitted from the emergency room. PROCEDURES DURING THIS HOSPITALIZATIONS: CT scan drainage of right lower quadrant and left lower quadrant fluid collections, gram-negative rods, cultures today, waiting for sensitivities. DISCHARGE MEDICATIONS: 1. Augmentin 500 b.i.d., 10 days. 2. Zofran, #10, three refills, use as needed q.4 hours p.r.n. nausea. Resume home medications; 1. Tylenol. 2. Ibuprofen. 3. Tramadol. 4. Lisinopril. 5. Levothyroxine. 6. Pepcid. [id number]. 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 The patient postoperatively did well and discharged home 2 days postoperatively on 05/09, but returned on 05/11 with colorectal anastomotic leakage, cared for over the weekend and coverage by Dr. Fuentes, performed laparotomy, abdominal washout, colostomy. 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 She did that hospitalization, had a fluid collection in right upper quadrant and had undergone percutaneous drainage. By the time she went to rehab, this drainage was minimal, although thick and yellow, purulent. Thus, the drain was left in place. The patient in rehab was seen to be complaining of some abdominal fullness and she was sent over on one occasion for a CAT scan of her abdomen to drain that collection, but on arrival, she refused intervention and was sent back to rehab. The patient on the day of this admission was sent from rehab to the emergency room without discussion with me and underwent a noncontrast CAT scan, revealing the same findings that were seen 2 days prior. She had a heart rate of 105 to 100. Her white count was unremarkable without left shift. She was afebrile. She, however, was admitted, although she states she was feeling fine, did know why she was there and felt she was ready to go home. She did undergo CT-guided drainage of the fluid collections. These initially appeared to be just clear fluid, probably postoperative and Gram stain initially was negative, but delayed results at 48 hours revealed gram-negative rods, sensitivities pending. Urine culture empiric in the emergency room revealed Pseudomonas although she is asymptomatic from a urinary tract infection, this was present on admission. The patient was placed on Augmentin. Sensitivities to her Pseudomonas revealed sensitivities to that drug. The patient was sent home with home health nursing along with the patient's daughter, to irrigate her drains twice a day with saline. She was sent home with Augmentin for [address] scan brain imaging prior to seeing me in office on 06/27 to discuss drain management and possible removal. She will resume her home medications, did not require any additional analgesics. Job ID: [id number]
[2020-06-20] MEDS ORDERED: Amoxicillin/Potassium Clav 500 MG TAB PO SCH (21:00)
--- NOTE | 2020-06-21 11:54 | PQF ---
CLINICAL DOCUMENTATION CLARIFICATION FORM: Dear Dr. Donohue: Date / Time: 06/21/201107 Please exercise your independent, professional judgment in responding to the clarification form. Clinical indicators are provided on the bottom of this form for your review Please check appropriate box(es): [ ] Intra-abdominal abscess is a complication of current/recent surgery [ ] Intra-abdominal abscess is not a complication of current/recent surgery [ ] Other diagnosis [ ] Unable to determine In addition, please specify: Present on Admission (POA): [ ] Yes [ ] No [ ] Unable to determine Physician Signature: Date/Time: For continuity of documentation, please document condition throughout progress notes and discharge summary. Thank You. To be completed by CDI/Coding staff for physician review: Present Clinical Indicators - Signs / Symptoms / Labs Results and Location in Medical Record [x ] CT Persistent multifocal lobular fluid collections within abdomen & pelvis-CT 06/18/20 [x ] Altered vitals HR 100-120/min- ED V/S 06/18/20 [ ] [ x ] Supporting labs WBCs 12.7 Lab 06/18/20 [ x ] Cultures E. coli + Body Fluid Culture 06/18/20 [ ] [ ] [ ] Infection Present Risk Factors Results and Location in Medical Record [ x ] Recent surgery Laparoscopic sigmoidectomy 05/07/20; Laparotomy sigmoid colectomy, washout, colostomy 05/11/20- Attending H&P 06/18/20 [ ] [ ] [ ] Present Treatments Results and Location in Medical Record [ x ] Antibiotics IV Merrem- MAR 06/18/20 [ ] [ x ] Surgical procedure/ Evaluation Purulent material aspirated right & left jenna-pelvis with drains placed CT guided paracentesis 06/18/20 [ ] CDS/O[employer] Well Pumper Signature: Jacqueline Romero Phone #: [phone] Date/Time: 06/21/201107 This is a permanent part of the Medical Record [facility]
--- NOTE | 2020-06-21 12:05 | PQF ---
CLINICAL DOCUMENTATION CLARIFICATION FORM: Dear : Charanjit Date / Time: 06/21/20 1154 Please exercise your independent, professional judgment in responding to the clarification form. Clinical indicators are provided on the bottom of this form for your review Please check appropriate box(es) to clarify if the following diagnosis has been ruled in our ruled out: Sepsis [ ] Ruled in diagnosis [ ] Continue to treat [ ] Resolved [ ] Ruled out diagnosis [ ] Improving [ ] Cannot rule out diagnosis [ ] Other diagnosis [ ] Unable to determine In addition, please specify: Present on Admission (POA): [ ] Yes [ ] No [ ] Unable to determine To be completed by CDI/Coding staff for physician review: Present Clinical Indicators - Signs / Symptoms / Labs Results and Location in Medical Record [x ] Lab Results WBCs 12.7- Lab 06/18/20 [ x ] Body fluid cultures [ x ] V/S HR 100-120/min -ED V/S 06/18/20 [ ] Present Risk Factors Results and Location in Medical Record [ x ] Sepsis, Intra-abdominal abscess ED Doctor Note 06/18/20 [ ] [ ] [ ] Present Treatments Results and Location in Medical Record [ x ] Antibiotics IV Merrem - MAR 06/18/20 [ ] [ ] [ ] CDS/Registered Private Duty Nurse Signature: Jacqueline Romero Phone #: [phone] Date/Time: 06/21/20 6948 This is a permanent part of the Medical Record [facility]
== END 2020-06-20 15:15 | disposition home or self-care (01) | DRG 871 ==
LOC: ERS 10:56 → SURG A 20:00
PROVIDERS: ADMIT Specialist; ATTEND Specialist
PROC: 0W9G3ZZ Drainage of Peritoneal Cavity, Percutaneous Approach (ICD-10-PCS; principal; 2020-06-19)
DX: A41.9 Sepsis, unspecified organism (principal); K65.1 Peritoneal abscess; N39.0 Urinary tract infection, site not specified; Z20.822 Contact with and (suspected) exposure to COVID-19; Z23 Encounter for immunization; K21.9 Gastro-esophageal reflux disease without esophagitis; M19.90 Unspecified osteoarthritis, unspecified site; K57.30 Diverticulosis of large intestine without perforation or abscess without bleeding; Z98.890 Other specified postprocedural states; Z90.710 Acquired absence of both cervix and uterus; Z79.51 Long term (current) use of inhaled steroids; Z88.2 Allergy status to sulfonamides; Z88.5 Allergy status to narcotic agent; Z79.890 Hormone replacement therapy; Z79.899 Other long term (current) drug therapy; B96.5 Pseudomonas (aeruginosa) (mallei) (pseudomallei) as the cause of diseases classified elsewhere
CPT/HCPCS: 36415; 36416; 49020; 74177; 77002; 80053; 81003; 81015; 83605; 83690; 85025; 87040; 87070; 87077; 87086; 87186; 87205; 87635; 93005; 96365; 96375; C1729; J1650; J2185; J2250; J2270; J2405; J2543; J3010; J3490; Q9967; U0003; U0005

== ENCOUNTER 2020-06-27 13:29 | Outpatient (CLI) | payer BC ==
[~2020-06-27 13:29] MED LIST changes: +Iopamidol 370 76% 100 ML VIAL ONE; -Iopamidol-370 76% 500 ML 1 ML ONE
--- NOTE | 2020-06-27 17:31 | CT ---
CT ABDOMEN AND PELVIS PERFORMED WITH CONTRAST ENHANCEMENT: History: Follow up of abscesses. Comparison: 06-18-2020 FINDINGS: There is a delay on this examination as there were some technical machine factors causing this to be obtained in a later venous phase. The lung bases show some linear scarring. Along the posterior margin of the right lobe of the liver is a small loculated fluid collection proba hoda related to a small abscess. The area where the drainage catheter had been along the right lobe of the liver shows that this area has completely drained. There is a drainage catheter which is located in the right paracollic gutter region. The fluid collection in this area has completely resolved. Th e spleen and pancreas regions are unremarkable. Gallbladder has been removed. Right and left adrenal glands are normal. Right and left kidneys are normal in size. Left renal cyst is again noted. The loculated fluid collection along the anterior abdominal wall at the umbilical level, measuring ap proximately 4.7 cm in maximum dimension is stable. A percutaneous drain has been placed within the ri ght hemipelvis. The large fluid collection in this region has also essentially completely resolved wi thout any fluid in the region of the catheter. There is a similar appearance to the left side of the hemipelvis fluid collection. Percutaneous drain in this region also shows that this area has been ess entially completely drained. There are some smaller loculated fluid collection densities within the m esenteric fat. These areas are unchanged. There is also a fluid collection in the subcutaneous tissue along the anterior abdominal wall. It appears to have almost a fat fluid level to this collection. I t is stable. No new abscess collections are seen. IMPRESSION: Significant improvement to the areas of abscess. There is essentially no drainable fluid remaining ad jacent to the three percutaneous drains. There are some smaller areas of loculated fluid seen within the abdomen which are essentially stable as compared to the prior examination and the subcapsular typ e collection on the posterior aspect of the right lobe of the liver is also essentially stable. POS: ROBB
== END 2020-06-27 13:30 | disposition home or self-care (01) ==
LOC: BICCT 13:29
PROVIDERS: ATTEND Specialist
DX: L03.315 Cellulitis of perineum (principal)
CPT/HCPCS: 74177; Q9967

== ENCOUNTER 2020-07-19 16:35 | Emergency (ER) | payer BC ==
[~2020-07-19 16:35] MED LIST changes: -Iopamidol 370 76% 100 ML VIAL ONE; +Iopamidol-370 76% 500 ML 1 ML ONE
[2020-07-19 17:50] LABS: #Eosinphils 0.2 thou/uL (0.0-0.7); #Lymphocytes 2.2 thou/uL (1.20-3.40); #Monocytes 0.8 thou/uL (0.11-0.59); #Neutrophils 8.3 thou/uL (1.40-6.50); %Basophils 0.4 % (0.0-1.0); %Eosinophils 1.5 % (0.0-10.0); %Monocytes 6.7 % (0.0-10.0); %Neutrophils 72.4 % (42.0-75.0); Mean Corpuscular HGB CONC 33.3 g/dL (32.0-36.0); Mean Corpuscular Volume 93.2 fL (78.0-98.0); Mean Platelet Volume 6.3 fL (7.4-10.4); Platelet Count 625 thou/uL (130-400); RBC Distribution Width 14.1 % (11.5-14.5); Red Blood Cell (RBC) Count 2.89 mill/uL (4.20-5.40); White Blood Cell (WBC) Count 11.5 thou/uL (4.8-10.8)
[2020-07-19 18:18] LABS: ALT (SGPT) 11 U/L (8-55); AST (SGOT) 20 U/L (5-34); Albumin 3.8 g/dL (3.4-4.8); Alkaline Phosphatase 140 U/L (40-110); Anion Gap 19 mmol/L (10-20); BUN (Urea Nitrogen) 17 mg/dL (9.8-20.1); Bilirubin, Total 0.2 mg/dL (0.2-1.2); Calc. Creatinine Clearance 0 mL/min (70-130); Calcium 9.7 mg/dL (7.8-10.44); Carbon Dioxide 24 mmol/L (23-31); Chloride 98 mmol/L (98-107); Globulin 4.1 g/dL (2.4-3.5); Glucose 105 mg/dL (80-115); Protein, Total 7.9 g/dL (5.8-8.1); Sodium 137 mmol/L (136-145)
--- NOTE | 2020-07-19 19:35 | CT ---
EXAM: CT ABDOMEN AND PELVIS HISTORY: Abdominal pain COMPARISON: 06/27/2020 Procedure: Multiple contiguous axial images were obtained and a CT of the abdomen and pelvis with IV contrast. C oronal reformats were performed. FINDINGS: Lower Chest: within normal limits. Vessels: Normal caliber aorta. No periaortic fat stranding Heart: Normal heart size. No significant pericardial fluid Abdomen: Portal vein:Patent Gallbladder: Surgically absent. Liver: within normal limits. Pancreas: within normal limits. Spleen: within normal limits. Adrenals: within normal limits. Kidneys: Symmetric enhancement of the kidneys. Redemonstration of exophytic cyst emanating from the l eft renal cortex. Peritoneum: There is stable stranding of the abdominal mesentery. There is evidence of interval perih epatic fluid with attenuation coefficient of 40 Hounsfield units. Previously noted fluid collection along the anterior midline peritoneum has slightly decreased in size, currently measuring 3.4 x 1.5 c m. Previously, this fluid collection measured 4.6 x 1.9 cm. Bowel: Limited evaluation of the alimentary canal by the lack of oral contrast. No evidence of a smal l bowel obstruction. There is bowel wall thickening involving the cecum and ascending colon. There is a left lower quadrant colostomy. Evaluation the colon is limited due to inadequate distention. Not e is made of a Bray's pouch. Mesentery and Retroperitoneum: No enlarged mesenteric or retroperitoneal lymph nodes. Previously note d large fluid collections in the right hemipelvis and lower midline pelvis are no longer evident. There is a noted percutaneous drainage catheters have been removed. Abdominal Wall: There is a defect from a previous right lower quadrant ostomy. There is a ventral abd ominal wall hernia containing fat and fluid, unchanged. Left lower quadrant colostomy is identified. Pelvis: Reproductive Organs: Surgically absent uterus Pelvis: No mass, lymphadenopathy, free air or free fluid. Bladder: within normal limits. Bones: within normal limits. IMPRESSION: 1. Interval resolution of previously Identified pelvic abscesses 2. Redemonstration of multiple postsurgical changes involving anterior abdominal wall. 3. Mild mucosal prominence involving the right hemicolon. 4. Interval development of slightly complex perihepatic fluid. Transcribed Date/Time: 07/19/2020 7:50 PM
== END 2020-07-19 20:15 | disposition home or self-care (01) ==
LOC: ERS 16:35
DX: S31.103D Unspecified open wound of abdominal wall, right lower quadrant without penetration into peritoneal cavity, subsequent encounter (principal); R10.30 Lower abdominal pain, unspecified; R19.7 Diarrhea, unspecified
CPT/HCPCS: 36415; 74177; 80053; 83690; 85025; Q9967

== ENCOUNTER 2020-09-09 10:49 | Observation (INO) | payer BC ==
[2020-09-09] MEDS ORDERED: Iopamidol-370 76% 500 ML 1 ML ONE (13:07)
[2020-09-09 13:37] LABS: Bilirubin Negative (Negative); Blood, Urine Negative (Negative); Clarity Clear (Clear); Glucose, Urine (Dipstick) Normal (Negative); Ketone, Urine Negative (Negative); Leukocyte Negative Leu/uL (Negative); Nitrite Negative (Negative); Protein, Urine (Dipstick) Negative (Neg-Trace); Specific Gravity, Urine 1.016 (1.002-1.036); Urobilinogen Normal mg/dL (Less than 2); pH, Urine 5.5 (5.0-9.0)
[2020-09-09 14:12] LABS: #Basophils 0.1 thou/uL (0.0-0.2); #Eosinphils 0.1 thou/uL (0.0-0.7); #Lymphocytes 1.9 thou/uL (1.20-3.40); #Monocytes 0.8 thou/uL (0.11-0.59); #Neutrophils 15.2 thou/uL (1.40-6.50); %Basophils 0.5 % (0.0-1.0); %Eosinophils 0.4 % (0.0-10.0); %Lymphocytes 10.7 % (21.0-51.0); %Monocytes 4.5 % (0.0-10.0); Hemoglobin 11.4 g/dL (12.0-16.0); Mean Corpuscular HGB CONC 32.6 g/dL (32.0-36.0); Mean Corpuscular Hemoglobin 29.6 pg (27.0-31.0); Mean Corpuscular Volume 90.8 fL (78.0-98.0); Mean Platelet Volume 6.9 fL (7.4-10.4); Platelet Count 416 thou/uL (130-400); RBC Distribution Width 13.6 % (11.5-14.5); Red Blood Cell (RBC) Count 3.83 mill/uL (4.20-5.40)
[2020-09-09 14:38] LABS: ALT (SGPT) 59 U/L (8-55); AST (SGOT) 35 U/L (5-34); Alkaline Phosphatase 228 U/L (40-110); Anion Gap 15 mmol/L (10-20); BUN (Urea Nitrogen) 17 mg/dL (9.8-20.1); Bilirubin, Total 0.4 mg/dL (0.2-1.2); Calc. Creatinine Clearance 0 mL/min (70-130); Calcium 9.6 mg/dL (7.8-10.44); Carbon Dioxide 26 mmol/L (23-31); Chloride 94 mmol/L (98-107); Globulin 4.1 g/dL (2.4-3.5); Glucose 97 mg/dL (80-115); Potassium 3.6 mmol/L (3.5-5.1); Protein, Total 8.1 g/dL (5.8-8.1); Sodium 131 mmol/L (136-145)
[2020-09-09] MEDS ORDERED: Ondansetron PF 4 MG/2 ML Vial ONE (15:39)
[2020-09-09] MEDS ORDERED: Ketorolac Tromethamine 30 MG/ML VIAL ONE (15:39)
[2020-09-09 20:45] VITALS: BP 119/55; TEMP 98.2
[2020-09-10 07:02] LABS: SARS-CoV-2 PCR by NAA Not Detected (NotDetected)
== END 2020-09-09 22:55 | disposition left against medical advice (07) ==
LOC: ERS 10:49 → ERHOLD 17:21
PROVIDERS: ADMIT Family Medicine; ATTEND Family Medicine
DX: K59.00 Constipation, unspecified (principal); I10 Essential (primary) hypertension; E89.0 Postprocedural hypothyroidism; E87.1 Hypo-osmolality and hyponatremia; D72.828 Other elevated white blood cell count; M19.90 Unspecified osteoarthritis, unspecified site; K21.9 Gastro-esophageal reflux disease without esophagitis; Z79.899 Other long term (current) drug therapy; Z88.2 Allergy status to sulfonamides; Z88.5 Allergy status to narcotic agent; Z90.49 Acquired absence of other specified parts of digestive tract; Z93.3 Colostomy status; Z20.822 Contact with and (suspected) exposure to COVID-19
CPT/HCPCS: 36415; 74177; 80053; 81003; 85025; 87635; 96374; 96375; G0378; J1885; J2405; Q9967; U0003; U0005

== ENCOUNTER 2020-09-19 10:30 | Inpatient (IN) | payer BC ==
[2020-09-20 15:21] VITALS: BMI 23.3
[2020-09-24] MEDS ORDERED: cefOXitin Sodium/Dextrose 2 GM/50 ML BAG ONE ×2 (08:53→11:46)
[2020-09-24] MEDS ORDERED: Scopolamine 1.5 mg/72 hour Patch ONE (09:09)
[2020-09-24] MEDS ORDERED: Lidocaine 1% w/Epinephrine 1:100K 20 ML VIAL ONE (09:09)
[2020-09-24] MEDS ORDERED: Bupivacaine 0.25% HCL 30 ML VIAL ONE (09:09)
[2020-09-24] MEDS ORDERED: Famotidine/PF 20 mg/2ml Vial ONE (09:15)
[2020-09-24] MEDS ORDERED: Fentanyl 100 MCG/2 ML VIAL ONE ×3 (09:15→13:34)
[2020-09-24] MEDS ORDERED: Lidocaine 1% (PF) 30 ML VIAL ONE (09:21)
[2020-09-24] MEDS ORDERED: Midazolam HCl 2 mg/2 ml Vial ONE (09:21)
[2020-09-24] MEDS ORDERED: Ondansetron PF 4 MG/2 ML Vial ONE (09:48)
[2020-09-24] MEDS ORDERED: Lidocaine 1% PF 5 ML VIAL ONE (09:48)
[2020-09-24] MEDS ORDERED: Rocuronium Bromide 10 MG/ML (10ML VIAL) ONE (09:48)
[2020-09-24] MEDS ORDERED: PROPOFOL 200 MG/20 ML VIAL ONE (09:48)
[2020-09-24] MEDS ORDERED: diphenhydrAMINE 50 MG/ML VIAL ONE (09:48)
[2020-09-24] MEDS ORDERED: Dexamethasone 20 MG/5 ML VIAL ONE (09:48)
[2020-09-24] MEDS ORDERED: Esmolol 100 MG/10 ML VIAL ONE (09:48)
[2020-09-24] MEDS ORDERED: Glycopyrrolate 0.2 MG/ML 5 ML SYRINGE ONE (09:48)
[2020-09-24] MEDS ORDERED: Bupivacaine HCl 0.5%/Epinephrine 1:200,000/PF 30 ml Vial ONE (09:48)
[2020-09-24] MEDS ORDERED: PHENYLEPHRINE-NS 100 MCG/ML 10 ML SYRINGE ONE ×3 (09:48→12:56)
[2020-09-24] MEDS ORDERED: ePHEDrine Sulfate 50 MG/10 ML VIAL ONE (09:48)
[2020-09-24] MEDS ORDERED: Ketorolac Tromethamine 30 MG/ML VIAL ONE (09:48)
[2020-09-24] MEDS ORDERED: Promethazine HCl 25 MG/ML VIAL IM PRN ×2 (10:37→14:45)
[2020-09-24] MEDS ORDERED: Promethazine HCl 25 MG/ML VIAL SLOW IVP PRN (10:37)
[2020-09-24] MEDS ORDERED: Meperidine HCl/PF 25 MG/ML VIAL SLOW IVP PRN (10:37)
[2020-09-24] MEDS ORDERED: HYDROmorphone 2 MG/ML VIAL SLOW IVP PRN (10:37)
[2020-09-24] MEDS ORDERED: HYDROmorphone 2 MG/ML VIAL ONE ×2 (10:48→13:35)
[2020-09-24] MEDS ORDERED: Phenylephrine 10 MG/ML VIAL ONE (11:54)
[2020-09-24] MEDS ORDERED: Communication Order-Pharmacy FS SCH (14:45)
[2020-09-24] MEDS ORDERED: diphenhydrAMINE 50 MG/ML VIAL IVP PRN (14:45)
[2020-09-24] MEDS ORDERED: diphenhydrAMINE 50 MG/ML VIAL IM PRN (14:45)
[2020-09-24] MEDS ORDERED: Naloxone HCl 0.4 mg/ml Vial IV PRN (14:45)
[2020-09-24] MEDS ORDERED: diphenhydrAMINE 25 MG CAP PO PRN (14:45)
[2020-09-24] MEDS ORDERED: Ondansetron PF 4 MG/2 ML Vial IVP PRN (14:45)
[2020-09-24] MEDS ORDERED: Zolpidem Tartrate 5 MG TAB PO PRN (14:45)
[2020-09-24] MEDS ORDERED: hydrALAZINE 20 MG/ML VIAL SLOW IVP PRN (19:03)
[2020-09-24] MEDS: D5 1/2 NS w/20 mEq KCL 1,000 ML IV SCH (20:20)
[2020-09-24] MEDS: Famotidine/PF 20 mg/2ml Vial SLOW IVP SCH (20:20)
[2020-09-24] MEDS: cefOXitin Sodium/Dextrose,Iso 1 GM in Premix Bag 1 BAG IVPB SCH (20:59)
[2020-09-25] MEDS ORDERED: Sodium Chloride 0.9% 500 ML IV SCH (02:15)
[2020-09-25 05:27] LABS: #Lymphocytes 1.5 thou/uL (1.20-3.40); #Monocytes 0.9 thou/uL (0.11-0.59); #Neutrophils 11.9 thou/uL (1.40-6.50); %Basophils 0.2 % (0.0-1.0); %Eosinophils 0.1 % (0.0-10.0); %Lymphocytes 10.8 % (21.0-51.0); Hemoglobin 9.5 g/dL (12.0-16.0); Mean Corpuscular HGB CONC 30.9 g/dL (32.0-36.0); Mean Corpuscular Hemoglobin 28.8 pg (27.0-31.0); Mean Corpuscular Volume 93.2 fL (78.0-98.0); Mean Platelet Volume 7.1 fL (7.4-10.4); Platelet Count 335 thou/uL (130-400); RBC Distribution Width 13.5 % (11.5-14.5); Red Blood Cell (RBC) Count 3.31 mill/uL (4.20-5.40); White Blood Cell (WBC) Count 14.3 thou/uL (4.8-10.8)
[2020-09-25] MEDS: Famotidine 20 MG TAB PO SCH ×3 (05:29→20:51)
[2020-09-25] MEDS: cefOXitin Sodium/Dextrose,Iso 1 GM in Premix Bag 1 BAG IVPB SCH (05:45)
[2020-09-25 05:55] LABS: Anion Gap 15 mmol/L (10-20); BUN (Urea Nitrogen) 19 mg/dL (9.8-20.1); Calc. Creatinine Clearance 55 mL/min (70-130); Calcium 6.7 mg/dL (7.8-10.44); Carbon Dioxide 17 mmol/L (23-31); Chloride 105 mmol/L (98-107); Glucose 165 mg/dL (80-115); Potassium 4.8 mmol/L (3.5-5.1); Sodium 132 mmol/L (136-145)
[2020-09-25] MEDS: Lisinopril 5 MG TAB PO SCH ×2 (08:18→08:24)
[2020-09-25] MEDS: Famotidine/PF 20 mg/2ml Vial SLOW IVP SCH ×2 (08:18→20:51)
[2020-09-25] MEDS: Ondansetron PF 4 MG/2 ML Vial IVP PRN ×2 (08:18→16:16)
[2020-09-25] MEDS: D5 1/2 NS w/20 mEq KCL 1,000 ML IV SCH ×2 (08:27→12:17)
[2020-09-25] MEDS ORDERED: Calcium Gluconate 4.6 MEQ in Sodium Chloride 0.9% 100 ML IVPB SCH (09:59)
[2020-09-25] MEDS: Enoxaparin Sodium 40 MG/0.4 ML SYRINGE SC SCH (10:53)
[2020-09-25] MEDS ORDERED: Scopolamine 1.5 mg/72 hour Patch TOP SCH (12:00)
[2020-09-25] MEDS ORDERED: Ketorolac Tromethamine 30 MG/ML VIAL IVP PRN (12:16)
[2020-09-25 15:05] LABS: Hemoglobin 8.6 g/dL (12.0-16.0)
[2020-09-25] MEDS ORDERED: Chloraseptic Spray 180 ml Bottle PO SCH (16:30)
[2020-09-25] MEDS: fentaNYL Citrate/PF 2,000 MCG in Sodium Chloride 0.9% 60 ML IV PRN (20:18)
[2020-09-26] MEDS: Ondansetron PF 4 MG/2 ML Vial IVP PRN ×2 (02:14→19:54)
[2020-09-26] MEDS: D5 1/2 NS w/20 mEq KCL 1,000 ML IV SCH ×3 (02:15→11:56)
[2020-09-26 05:35] LABS: #Monocytes 0.8 thou/uL (0.11-0.59); #Neutrophils 12.1 thou/uL (1.40-6.50); %Basophils 0.3 % (0.0-1.0); %Eosinophils 0.2 % (0.0-10.0); %Lymphocytes 7.1 % (21.0-51.0); %Neutrophils 86.5 % (42.0-75.0); Mean Corpuscular HGB CONC 32.9 g/dL (32.0-36.0); Mean Corpuscular Hemoglobin 29.3 pg (27.0-31.0); Mean Corpuscular Volume 89.1 fL (78.0-98.0); Mean Platelet Volume 7.4 fL (7.4-10.4); Platelet Count 255 thou/uL (130-400); RBC Distribution Width 13.5 % (11.5-14.5); Red Blood Cell (RBC) Count 3.41 mill/uL (4.20-5.40)
[2020-09-26 05:54] LABS: Anion Gap 11 mmol/L (10-20); BUN (Urea Nitrogen) 20 mg/dL (9.8-20.1); Calc. Creatinine Clearance 57 mL/min (70-130); Calcium 7.3 mg/dL (7.8-10.44); Carbon Dioxide 24 mmol/L (23-31); Chloride 101 mmol/L (98-107); Glucose 125 mg/dL (80-115); Potassium 4.5 mmol/L (3.5-5.1); Sodium 131 mmol/L (136-145)
[2020-09-26] MEDS: Famotidine/PF 20 mg/2ml Vial SLOW IVP SCH ×2 (09:11→19:54)
[2020-09-26] MEDS: Famotidine 20 MG TAB PO SCH ×2 (09:11→20:07)
[2020-09-26] MEDS: Enoxaparin Sodium 40 MG/0.4 ML SYRINGE SC SCH (11:45)
[2020-09-26] MEDS: Promethazine HCl 25 MG/ML VIAL IM PRN ×2 (11:47→20:30)
[2020-09-27] MEDS: D5 1/2 NS w/20 mEq KCL 1,000 ML IV SCH ×3 (02:16→08:28)
[2020-09-27] MEDS: Ondansetron PF 4 MG/2 ML Vial IVP PRN ×2 (02:45→22:38)
[2020-09-27] MEDS: Promethazine HCl 25 MG/ML VIAL IM PRN (08:26)
[2020-09-27] MEDS: Famotidine/PF 20 mg/2ml Vial SLOW IVP SCH ×2 (08:26→20:14)
[2020-09-27] MEDS: Enoxaparin Sodium 40 MG/0.4 ML SYRINGE SC SCH (18:16)
[2020-09-27] MEDS: Famotidine 20 MG TAB PO SCH ×2 (18:17→22:20)
[2020-09-28 05:08] LABS: #Eosinphils 0.3 thou/uL (0.0-0.7); #Lymphocytes 1.3 thou/uL (1.20-3.40); #Monocytes 0.6 thou/uL (0.11-0.59); %Basophils 0.1 % (0.0-1.0); %Eosinophils 3.3 % (0.0-10.0); %Lymphocytes 14.4 % (21.0-51.0); %Monocytes 6.8 % (0.0-10.0); %Neutrophils 75.4 % (42.0-75.0); Mean Corpuscular HGB CONC 30.3 g/dL (32.0-36.0); Mean Corpuscular Hemoglobin 27.2 pg (27.0-31.0); Mean Platelet Volume 6.6 fL (7.4-10.4); Platelet Count 354 thou/uL (130-400); RBC Distribution Width 13.3 % (11.5-14.5); Red Blood Cell (RBC) Count 4.02 mill/uL (4.20-5.40); White Blood Cell (WBC) Count 9.2 thou/uL (4.8-10.8)
[2020-09-28 05:29] LABS: Anion Gap 12 mmol/L (10-20); BUN (Urea Nitrogen) 6 mg/dL (9.8-20.1); Calc. Creatinine Clearance 79 mL/min (70-130); Calcium 8.3 mg/dL (7.8-10.44); Carbon Dioxide 27 mmol/L (23-31); Chloride 101 mmol/L (98-107); Glucose 111 mg/dL (80-115); Potassium 5.5 mmol/L (3.5-5.1); Sodium 134 mmol/L (136-145)
[2020-09-28] MEDS: D5 1/2 NS w/20 mEq KCL 1,000 ML IV SCH ×2 (06:37→17:00)
[2020-09-28] MEDS: Enoxaparin Sodium 40 MG/0.4 ML SYRINGE SC SCH (10:11)
[2020-09-28] MEDS: Famotidine/PF 20 mg/2ml Vial SLOW IVP SCH ×2 (10:11→21:31)
[2020-09-28] MEDS: Famotidine 20 MG TAB PO SCH ×2 (10:11→21:52)
[2020-09-28] MEDS: Promethazine HCl 25 MG/ML VIAL IM PRN (19:44)
[2020-09-29] MEDS: D5 1/2 NS w/20 mEq KCL 1,000 ML IV SCH ×3 (02:42→18:41)
[2020-09-29] MEDS: Ondansetron PF 4 MG/2 ML Vial IVP PRN (08:07)
[2020-09-29] MEDS: Famotidine/PF 20 mg/2ml Vial SLOW IVP SCH ×2 (08:12→20:18)
[2020-09-29] MEDS: Famotidine 20 MG TAB PO SCH ×2 (08:12→20:05)
[2020-09-29 08:51] LABS: #Eosinphils 0.4 thou/uL (0.0-0.7); #Lymphocytes 1.2 thou/uL (1.20-3.40); #Monocytes 0.6 thou/uL (0.11-0.59); #Neutrophils 4.6 thou/uL (1.40-6.50); %Basophils 0.2 % (0.0-1.0); %Eosinophils 5.9 % (0.0-10.0); %Monocytes 8.3 % (0.0-10.0); %Neutrophils 68.7 % (42.0-75.0); Hemoglobin 10.3 g/dL (12.0-16.0); Mean Corpuscular HGB CONC 32.6 g/dL (32.0-36.0); Mean Corpuscular Volume 89.1 fL (78.0-98.0); Mean Platelet Volume 6.2 fL (7.4-10.4); Platelet Count 384 thou/uL (130-400); Red Blood Cell (RBC) Count 3.53 mill/uL (4.20-5.40); White Blood Cell (WBC) Count 6.8 thou/uL (4.8-10.8)
[2020-09-29 09:11] LABS: ALT (SGPT) 14 U/L (8-55); AST (SGOT) 14 U/L (5-34); Albumin 2.8 g/dL (3.4-4.8); Alkaline Phosphatase 129 U/L (40-110); Anion Gap 12 mmol/L (10-20); BUN (Urea Nitrogen) 4 mg/dL (9.8-20.1); Bilirubin, Total 0.4 mg/dL (0.2-1.2); Calc. Creatinine Clearance 78 mL/min (70-130); Calcium 7.4 mg/dL (7.8-10.44); Carbon Dioxide 25 mmol/L (23-31); Chloride 101 mmol/L (98-107); Globulin 3.3 g/dL (2.4-3.5); Glucose 102 mg/dL (80-115); Potassium 4.2 mmol/L (3.5-5.1); Protein, Total 6.1 g/dL (5.8-8.1); Sodium 134 mmol/L (136-145)
[2020-09-29] MEDS: Enoxaparin Sodium 40 MG/0.4 ML SYRINGE SC SCH (09:20)
[2020-09-29 10:59] LABS: Free T4 (Free Thyroxine) 0.58 ng/dL (0.70-1.48)
[2020-09-29] MEDS ORDERED: Levothyroxine 100 MCG SDV IVP SCH (11:30)
[2020-09-29] MEDS: fentaNYL Citrate/PF 2,000 MCG in Sodium Chloride 0.9% 60 ML IV PRN (18:50)
[2020-09-30] MEDS: D5 1/2 NS w/20 mEq KCL 1,000 ML IV SCH (02:03)
[2020-09-30] MEDS: Levothyroxine 100 MCG SDV IVP SCH (05:58)
[2020-09-30] MEDS: Famotidine 20 MG TAB PO SCH ×3 (07:42→20:40)
[2020-09-30] MEDS: Enoxaparin Sodium 40 MG/0.4 ML SYRINGE SC SCH (09:15)
[2020-09-30] MEDS: Famotidine/PF 20 mg/2ml Vial SLOW IVP SCH ×2 (09:31→20:36)
[2020-09-30] MEDS ORDERED: Fentanyl 100 MCG/2 ML VIAL SLOW IVP PRN ×2 (10:13)
[2020-09-30] MEDS ORDERED: traMADol HCl 50 MG TAB PO PRN (10:13)
[2020-09-30] MEDS: Calcium Carbonate 600 MG + Vit D TAB PO SCH (13:41)
[2020-09-30] MEDS: traMADol HCl 50 MG TAB PO PRN (22:59)
[2020-10-01] MEDS: Levothyroxine 100 MCG SDV IVP SCH (05:56)
[2020-10-01] MEDS: Famotidine 20 MG TAB PO SCH ×2 (08:56→19:42)
[2020-10-01] MEDS: Famotidine/PF 20 mg/2ml Vial SLOW IVP SCH (08:56)
[2020-10-01] MEDS: Enoxaparin Sodium 40 MG/0.4 ML SYRINGE SC SCH (08:57)
[2020-10-01] MEDS: Calcium Carbonate 600 MG + Vit D TAB PO SCH ×2 (08:57→17:38)
[2020-10-01] MEDS ORDERED: Mag-Al 1200 mg/1200 mg/30 ML UDCUP PO PRN (15:59)
[2020-10-01] MEDS: Diphenoxylate HCl/Atropine Tablet PO SCH (19:41)
[2020-10-01] MEDS: traMADol HCl 50 MG TAB PO PRN (19:50)
[2020-10-02] MEDS: Levothyroxine Sodium 75 MCG TAB PO SCH (06:04)
[2020-10-02] MEDS: Enoxaparin Sodium 40 MG/0.4 ML SYRINGE SC SCH (08:31)
[2020-10-02] MEDS: Calcium Carbonate 600 MG + Vit D TAB PO SCH ×2 (08:32→17:16)
[2020-10-02] MEDS: Ondansetron PF 4 MG/2 ML Vial IVP PRN ×2 (08:32→15:41)
[2020-10-02] MEDS: Diphenoxylate HCl/Atropine Tablet PO SCH ×2 (08:32→20:40)
[2020-10-02] MEDS: Famotidine 20 MG TAB PO SCH ×2 (08:32→20:40)
[2020-10-02] MEDS: traMADol HCl 50 MG TAB PO PRN (17:16)
[2020-10-03] MEDS: Levothyroxine Sodium 75 MCG TAB PO SCH (05:44)
[2020-10-03] MEDS: Diphenoxylate HCl/Atropine Tablet PO SCH (08:55)
[2020-10-03] MEDS: Calcium Carbonate 600 MG + Vit D TAB PO SCH (08:55)
[2020-10-03] MEDS: Famotidine 20 MG TAB PO SCH (08:55)
[2020-10-03] MEDS: Enoxaparin Sodium 40 MG/0.4 ML SYRINGE SC SCH (09:36)
[2020-10-03] MEDS: Ondansetron PF 4 MG/2 ML Vial IVP PRN (10:47)
[2020-10-03 15:44] VITALS: BP 104/69; TEMP 98.5
== END 2020-10-03 15:56 | disposition home health service (06) | DRG 330 ==
LOC: SURG A 09-24 08:27 → EDSTATUS 09-24 10:30 → SJJU 09-24 18:35
PROVIDERS: ADMIT Surgery; ATTEND Surgery
PROC: 0DBG0ZZ Excision of Left Large Intestine, Open Approach (ICD-10-PCS; principal; 2020-09-24)
PROC: 0D1B0Z4 Bypass Ileum to Cutaneous, Open Approach (ICD-10-PCS; 2020-09-24)
PROC: 30233N1 Transfusion of Nonautologous Red Blood Cells into Peripheral Vein, Percutaneous Approach (ICD-10-PCS; 2020-09-25)
PROC: 0D9670Z Drainage of Stomach with Drainage Device, Via Natural or Artificial Opening (ICD-10-PCS; 2020-09-27)
DX: K94.03 Colostomy malfunction (principal); K56.7 Ileus, unspecified; Y83.8 Other surgical procedures as the cause of abnormal reaction of the patient, or of later complication, without mention of misadventure at the time of the procedure; Z20.822 Contact with and (suspected) exposure to COVID-19; K66.0 Peritoneal adhesions (postprocedural) (postinfection); E03.9 Hypothyroidism, unspecified; M19.072 Primary osteoarthritis, left ankle and foot; I10 Essential (primary) hypertension; D64.9 Anemia, unspecified; E88.09 Other disorders of plasma-protein metabolism, not elsewhere classified; F32.9 Major depressive disorder, single episode, unspecified; Z88.2 Allergy status to sulfonamides; Z88.5 Allergy status to narcotic agent; Z79.890 Hormone replacement therapy; Z79.899 Other long term (current) drug therapy; Z98.890 Other specified postprocedural states; Z90.49 Acquired absence of other specified parts of digestive tract
CPT/HCPCS: 36415; 36416; 36430; 74018; 80048; 80053; 82533; 84439; 84443; 84481; 85025; 86850; 86900; 86901; 88307; J0694; J1100; J1170; J1200; J1650; J1885; J2001; J2250; J2370; J2405; J2550; J2704; J3010; J3480; J3490; P9016; S0020; S0028

== ENCOUNTER 2020-09-19 11:14 | Outpatient (CLI) | payer BC ==
[2020-09-19 12:44] LABS: #Eosinphils 0.2 10x3/uL (0.0-0.5); #Monocytes 0.5 10x3/uL (0.0-1.1); #Neutrophils 3.1 10x3/uL (1.5-8.4); %Basophils 0.5 % (0.0-2.0); %Eosinophils 2.6 % (0.0-6.0); %Lymphocytes 34.4 % (18.0-47.0); %Monocytes 7.9 % (0.0-10.0); %Neutrophils 54.4 % (40.0-75.0); Hemoglobin 10.6 g/dL (12.0-15.5); Mean Corpuscular HGB CONC 32.3 g/dL (32.0-36.0); Mean Corpuscular Volume 89.6 fl (81.6-98.3); Mean Platelet Volume 9.8 fl (7.4-10.4); Platelet Count 399 10x3/uL (150-450); RBC Distribution Width 14.5 % (11.5-14.5); Red Blood Cell (RBC) Count 3.66 10x6/uL (3.90-5.03); White Blood Cell (WBC) Count 5.7 10x3/uL (3.5-10.5)
[2020-09-19 16:01] LABS: Anion Gap 20 mmol/L (10-20); BUN (Urea Nitrogen) 15 mg/dL (9.8-20.1); Calc. Creatinine Clearance 0 mL/min (70-130); Calcium 9.1 mg/dL (7.8-10.44); Carbon Dioxide 23 mmol/L (23-31); Chloride 102 mmol/L (98-107); Glucose 110 mg/dL (80-115); Potassium 4.3 mmol/L (3.5-5.1); Sodium 141 mmol/L (136-145)
[2020-09-19 16:43] LABS: Hemoglobin A1c 5.5 % (4.0-6.0)
[2020-09-20 01:47] LABS: SARS-CoV-2 PCR by NAA Not Detected (NotDetected)
== END 2020-09-19 11:15 | disposition home or self-care (01) ==
LOC: LABBT 11:14
PROVIDERS: ATTEND Surgery
DX: Z01.812 Encounter for preprocedural laboratory examination (principal); N32.1 Vesicointestinal fistula; Z20.822 Contact with and (suspected) exposure to COVID-19
CPT/HCPCS: 80048; 83036; 85025; 87635; U0003; U0005

== ENCOUNTER 2020-10-22 08:23 | Outpatient (CLI) | payer BC | END 2020-10-22 08:24 | disposition home or self-care (01) | LOC: RAD 08:23 | PROVIDERS: ATTEND Surgery | DX: K94.00 Colostomy complication, unspecified (principal); K91.89 Other postprocedural complications and disorders of digestive system; K57.30 Diverticulosis of large intestine without perforation or abscess without bleeding | CPT/HCPCS: 74280 ==

== ENCOUNTER 2020-10-30 16:30 | Inpatient (IN) | payer BC ==
[2020-11-04] MEDS ORDERED: cefOXitin Sodium/Dextrose 2 GM/50 ML BAG ONE (10:59)
[2020-11-04] MEDS ORDERED: Midazolam HCl 2 mg/2 ml Vial ONE ×2 (12:18→12:33)
[2020-11-04] MEDS ORDERED: Fentanyl 100 MCG/2 ML VIAL ONE ×3 (12:18→14:33)
[2020-11-04] MEDS ORDERED: Scopolamine 1.5 mg/72 hour Patch ONE (12:19)
[2020-11-04] MEDS ORDERED: Lidocaine 1% (PF) 30 ML VIAL ONE (12:19)
[2020-11-04] MEDS ORDERED: HYDROmorphone 0.5 MG/0.5 ML SYRINGE ONE (12:33)
[2020-11-04] MEDS ORDERED: Lidocaine 2% Jelly 5 ML TUBE ONE (12:34)
[2020-11-04] MEDS ORDERED: Rocuronium Bromide 10 MG/ML (10ML VIAL) ONE (12:50)
[2020-11-04] MEDS ORDERED: Glycopyrrolate 0.2 MG/ML 5 ML SYRINGE ONE (12:50)
[2020-11-04] MEDS ORDERED: Dexamethasone 20 MG/5 ML VIAL ONE (12:50)
[2020-11-04] MEDS ORDERED: Bupivacaine HCl 0.5%/Epinephrine 1:200,000/PF 30 ml Vial ONE (12:50)
[2020-11-04] MEDS ORDERED: PROPOFOL 200 MG/20 ML VIAL ONE (12:50)
[2020-11-04] MEDS ORDERED: Lidocaine 1% PF 5 ML VIAL ONE (12:50)
[2020-11-04] MEDS ORDERED: Ondansetron PF 4 MG/2 ML Vial ONE (12:50)
[2020-11-04] MEDS ORDERED: PHENYLEPHRINE-NS 100 MCG/ML 10 ML SYRINGE ONE (12:50)
[2020-11-04] MEDS ORDERED: hydrALAZINE 20 MG/ML VIAL SLOW IVP PRN (15:35)
[2020-11-04] MEDS ORDERED: Ketorolac Tromethamine 30 MG/ML VIAL IVP PRN (15:35)
[2020-11-04] MEDS ORDERED: Ondansetron PF 4 MG/2 ML Vial IVP PRN (15:35)
[2020-11-04] MEDS ORDERED: Dextrose 50% Abboject 50 ML SYRINGE SLOW IVP PRN (15:35)
[2020-11-04] MEDS ORDERED: Promethazine HCl 25 MG/ML VIAL IM PRN (15:35)
[2020-11-04] MEDS ORDERED: traMADol HCl 50 MG TAB PO PRN (15:35)
[2020-11-04] MEDS ORDERED: Dextrose 5% in Water 1,000 ML IV PRN (15:35)
[2020-11-04] MEDS ORDERED: Fentanyl 100 MCG/2 ML VIAL SLOW IVP PRN ×2 (15:35)
[2020-11-04 15:40] VITALS: BMI 21.6
[2020-11-04] MEDS: traMADol HCl 50 MG TAB PO PRN (16:22)
[2020-11-04] MEDS: D5 1/2 NS w/20 mEq KCL 1,000 ML IV SCH ×2 (18:18→21:28)
[2020-11-04] MEDS: HYDROcodone/Acetaminophen 7.5/325 mg Tablet PO PRN (20:30)
[2020-11-04] MEDS: Famotidine 20 MG TAB PO SCH (20:31)
[2020-11-04] MEDS: Famotidine/PF 20 mg/2ml Vial SLOW IVP SCH (20:32)
[2020-11-05] MEDS: Levothyroxine Sodium 100 MCG TAB PO SCH (04:55)
[2020-11-05] MEDS: D5 1/2 NS w/20 mEq KCL 1,000 ML IV SCH ×3 (05:00→20:52)
[2020-11-05 06:10] LABS: #Eosinphils 0.1 thou/uL (0.0-0.7); #Lymphocytes 1.7 thou/uL (1.20-3.40); %Basophils 0.3 % (0.0-1.0); %Lymphocytes 14.4 % (21.0-51.0); %Neutrophils 76.3 % (42.0-75.0); Hemoglobin 10.5 g/dL (12.0-16.0); Mean Corpuscular HGB CONC 32.3 g/dL (32.0-36.0); Mean Corpuscular Hemoglobin 29.5 pg (27.0-31.0); Mean Corpuscular Volume 91.2 fL (78.0-98.0); Mean Platelet Volume 7.4 fL (7.4-10.4); Platelet Count 355 thou/uL (130-400); RBC Distribution Width 14.2 % (11.5-14.5); Red Blood Cell (RBC) Count 3.56 mill/uL (4.20-5.40); White Blood Cell (WBC) Count 11.8 thou/uL (4.8-10.8)
[2020-11-05 06:13] LABS: Anion Gap 14 mmol/L (10-20); BUN (Urea Nitrogen) 13 mg/dL (9.8-20.1); Calc. Creatinine Clearance 62 mL/min (70-130); Calcium 7.9 mg/dL (7.8-10.44); Carbon Dioxide 24 mmol/L (23-31); Chloride 104 mmol/L (98-107); Glucose 132 mg/dL (80-115); Potassium 4.2 mmol/L (3.5-5.1); Sodium 138 mmol/L (136-145)
[2020-11-05] MEDS: traMADol HCl 50 MG TAB PO PRN ×2 (07:11→20:50)
[2020-11-05] MEDS: HYDROcodone/Acetaminophen 7.5/325 mg Tablet PO PRN ×2 (08:20→20:50)
[2020-11-05] MEDS: Enoxaparin Sodium 40 MG/0.4 ML SYRINGE SC SCH (09:54)
[2020-11-05] MEDS: Famotidine 20 MG TAB PO SCH ×2 (09:54→20:50)
[2020-11-05] MEDS: Lactinex Tablet PO SCH (09:54)
[2020-11-05] MEDS: Famotidine/PF 20 mg/2ml Vial SLOW IVP SCH ×2 (10:55→20:51)
[2020-11-05 15:23] LABS: Hemoglobin 10.6 g/dL (12.0-16.0)
[2020-11-06] MEDS: Levothyroxine Sodium 100 MCG TAB PO SCH (05:43)
[2020-11-06] MEDS: HYDROcodone/Acetaminophen 7.5/325 mg Tablet PO PRN (05:45)
[2020-11-06] MEDS: Famotidine 20 MG TAB PO SCH (09:01)
[2020-11-06] MEDS: Lactinex Tablet PO SCH (09:01)
[2020-11-06] MEDS: Enoxaparin Sodium 40 MG/0.4 ML SYRINGE SC SCH (09:01)
[2020-11-06 11:19] VITALS: BP 123/81; TEMP 98.4
[2020-11-06] MEDS: Famotidine/PF 20 mg/2ml Vial SLOW IVP SCH (11:20)
== END 2020-11-06 12:45 | disposition home or self-care (01) | DRG 330 ==
LOC: SURG A 11-04 10:34 → SJJU 11-04 15:26
PROVIDERS: ADMIT Surgery; ATTEND Surgery
PROC: 0DBB0ZZ Excision of Ileum, Open Approach (ICD-10-PCS; principal; 2020-11-04)
DX: Z43.2 Encounter for attention to ileostomy (principal); N32.1 Vesicointestinal fistula; E03.9 Hypothyroidism, unspecified; F32.9 Major depressive disorder, single episode, unspecified; M19.072 Primary osteoarthritis, left ankle and foot; Z20.822 Contact with and (suspected) exposure to COVID-19; Z93.2 Ileostomy status; Z79.890 Hormone replacement therapy; Z79.899 Other long term (current) drug therapy; Z90.710 Acquired absence of both cervix and uterus; Z90.49 Acquired absence of other specified parts of digestive tract; Z88.5 Allergy status to narcotic agent; Z88.2 Allergy status to sulfonamides
CPT/HCPCS: 36415; 80048; 85025; 88304; J0694; J1100; J1170; J1650; J1885; J2001; J2250; J2405; J2704; J3010; J3480

== ENCOUNTER 2020-10-30 16:43 | Outpatient (CLI) | payer BC ==
[2020-10-30 20:44] LABS: Anion Gap 18 mmol/L (10-20); BUN (Urea Nitrogen) 23 mg/dL (9.8-20.1); Calc. Creatinine Clearance 0 mL/min (70-130); Calcium 9.5 mg/dL (7.8-10.44); Carbon Dioxide 23 mmol/L (23-31); Chloride 103 mmol/L (98-107); Glucose 100 mg/dL (80-115); Potassium 5.2 mmol/L (3.5-5.1); Sodium 139 mmol/L (136-145)
[2020-10-31 00:04] LABS: SARS-CoV-2 PCR by NAA Not Detected (NotDetected)
== END 2020-10-30 16:44 | disposition home or self-care (01) ==
LOC: LABBT 16:43
PROVIDERS: ATTEND Surgery
DX: Z01.812 Encounter for preprocedural laboratory examination (principal); Z20.822 Contact with and (suspected) exposure to COVID-19; Z93.2 Ileostomy status
CPT/HCPCS: 80048; U0003; U0005

== ENCOUNTER 2021-02-05 07:59 | Outpatient (CLI) | payer BC | END 2021-02-05 08:00 | disposition home or self-care (01) | LOC: BICMAMMO 07:59 | PROVIDERS: ATTEND Family Medicine | DX: Z12.31 Encounter for screening mammogram for malignant neoplasm of breast (principal); Z80.3 Family history of malignant neoplasm of breast; Z91.89 Other specified personal risk factors, not elsewhere classified | CPT/HCPCS: 77063; 77067 ==

== ENCOUNTER 2021-05-01 08:22 | Outpatient (CLI) | payer BC ==
[2021-05-01 09:51] LABS: Anion Gap 15 mmol/L (10-20); BUN (Urea Nitrogen) 19 mg/dL (9.8-20.1); Calc. Creatinine Clearance 0 mL/min (70-130); Calcium 8.4 mg/dL (7.8-10.44); Carbon Dioxide 30 mmol/L (23-31); Chloride 104 mmol/L (98-107); Glucose 80 mg/dL (80-115); Potassium 4.8 mmol/L (3.5-5.1); Sodium 144 mmol/L (136-145)
[2021-05-01 09:54] LABS: #Eosinphils 0.1 10x3/uL (0.0-0.5); #Monocytes 0.5 10x3/uL (0.0-1.1); #Neutrophils 2.7 10x3/uL (1.5-8.4); %Basophils 0.2 % (0.0-2.0); %Eosinophils 2.2 % (0.0-6.0); %Lymphocytes 33.2 % (18.0-47.0); %Monocytes 10.1 % (0.0-10.0); %Neutrophils 53.9 % (40.0-75.0); Hemoglobin 11.9 g/dL (12.0-15.5); Mean Corpuscular HGB CONC 32.7 g/dL (32.0-36.0); Mean Corpuscular Hemoglobin 30.4 pg (27.0-33.0); Mean Corpuscular Volume 92.9 fl (81.6-98.3); Mean Platelet Volume 9.4 fl (7.4-10.4); Platelet Count 297 10x3/uL (150-450); RBC Distribution Width 12.9 % (11.5-14.5); Red Blood Cell (RBC) Count 3.92 10x6/uL (3.90-5.03)
[2021-05-01 22:05] LABS: SARS-CoV-2 PCR by NAA Not Detected (NotDetected)
== END 2021-05-01 08:23 | disposition home or self-care (01) ==
LOC: LABBT 08:22
PROVIDERS: ATTEND Surgery
DX: Z01.812 Encounter for preprocedural laboratory examination (principal); K43.2 Incisional hernia without obstruction or gangrene; Z20.822 Contact with and (suspected) exposure to COVID-19
CPT/HCPCS: 80048; 85025; U0003; U0005

== ENCOUNTER 2021-05-06 06:55 | Observation (INO) | payer BC ==
[2021-05-02 12:33] VITALS: BMI 23.6
[2021-05-06] MEDS ORDERED: Bupivacaine 0.25% 10 ML VIAL ONE (08:16)
[2021-05-06] MEDS ORDERED: Lidocaine 1% w/Epinephrine 1:100K 20 ML VIAL ONE (08:16)
[2021-05-06] MEDS ORDERED: ceFAZolin 2 GM/DEX 5% 100 ML BAG ONE (08:39)
[2021-05-06] MEDS ORDERED: Fentanyl 100 MCG/2 ML VIAL ONE ×4 (09:17→12:09)
[2021-05-06] MEDS ORDERED: Phenylephrine 10 MG/ML VIAL ONE (09:47)
[2021-05-06] MEDS ORDERED: Ondansetron PF 4 MG/2 ML Vial ONE (09:47)
[2021-05-06] MEDS ORDERED: Dexamethasone 20 MG/5 ML VIAL ONE (09:47)
[2021-05-06] MEDS ORDERED: Glycopyrrolate 0.2 MG/ML 5 ML SYRINGE ONE (09:47)
[2021-05-06] MEDS ORDERED: Lidocaine 1% PF 5 ML VIAL ONE (09:47)
[2021-05-06] MEDS ORDERED: PROPOFOL 200 MG/20 ML VIAL ONE (09:47)
[2021-05-06] MEDS ORDERED: Rocuronium Bromide 10 MG/ML (10ML VIAL) ONE (09:47)
[2021-05-06] MEDS ORDERED: Esmolol 100 MG/10 ML VIAL ONE (09:47)
[2021-05-06] MEDS ORDERED: Promethazine HCl 25 MG/ML VIAL ONE (11:36)
[2021-05-06] MEDS ORDERED: Ondansetron PF 4 MG/2 ML Vial IVP PRN (13:50)
[2021-05-06] MEDS ORDERED: Morphine 4 MG/ML VIAL SLOW IVP PRN (13:50)
[2021-05-06] MEDS ORDERED: Dextrose 5% in Water 1,000 ML IV PRN (13:50)
[2021-05-06] MEDS ORDERED: Dextrose 50% Abboject 50 ML SYRINGE SLOW IVP PRN (13:50)
[2021-05-06] MEDS ORDERED: Promethazine HCl 25 MG/ML VIAL IM PRN (13:50)
[2021-05-06] MEDS ORDERED: D5 1/2 NS w/20 mEq KCL 1,000 ML IV SCH (13:50)
[2021-05-06] MEDS ORDERED: HYDROcodone/Acetaminophen 7.5/325 mg Tablet PO PRN (13:50)
[2021-05-06] MEDS ORDERED: hydrALAZINE 20 MG/ML VIAL SLOW IVP PRN (13:50)
[2021-05-06] MEDS ORDERED: FLU VACC QS2021-22(6MOS UP)/PF 60 MCG/0.5 ML SYRINGE IM ONE (18:15)
[2021-05-06] MEDS: Famotidine 20 MG TAB PO SCH (21:31)
[2021-05-06] MEDS: Famotidine/PF 20 mg/2ml Vial SLOW IVP SCH (21:35)
[2021-05-07] MEDS ORDERED: Levothyroxine Sodium 100 MCG TAB PO SCH (06:00)
[2021-05-07 07:37] VITALS: BP 105/67; TEMP 98
[2021-05-07] MEDS: Famotidine/PF 20 mg/2ml Vial SLOW IVP SCH (08:31)
[2021-05-07] MEDS: Famotidine 20 MG TAB PO SCH (08:33)
[2021-05-07] MEDS ORDERED: LACTINEX 1 TAB PO SCH (09:00)
== END 2021-05-07 12:20 | disposition home or self-care (01) ==
LOC: SDC 06:55 → T4-B 13:38
PROVIDERS: ADMIT Surgery; ATTEND Surgery
PROC: 0WUF4JZ Supplement Abdominal Wall with Synthetic Substitute, Percutaneous Endoscopic Approach (ICD-10-PCS; principal; 2021-05-06)
DX: K43.2 Incisional hernia without obstruction or gangrene (principal); K66.0 Peritoneal adhesions (postprocedural) (postinfection); Z79.899 Other long term (current) drug therapy; Z88.2 Allergy status to sulfonamides; Z88.5 Allergy status to narcotic agent
CPT/HCPCS: C1713; G0378; J1100; J2370; J2405; J2550; J2704; J3010; S0020

== ENCOUNTER 2021-07-29 10:10 | Outpatient (CLI) | payer MEDICARE, OTHER | END 2021-07-29 10:11 | disposition home or self-care (01) | LOC: RAD 10:10 | PROVIDERS: ATTEND Family Medicine | DX: R06.02 Shortness of breath (principal) | CPT/HCPCS: 71046 ==

== ENCOUNTER 2022-02-06 07:52 | Outpatient (CLI) | payer MEDICARE | END 2022-02-06 07:53 | disposition home or self-care (01) | LOC: BICMAMMO 07:52 | PROVIDERS: ATTEND Family Medicine | DX: Z12.31 Encounter for screening mammogram for malignant neoplasm of breast (principal); Z13.820 Encounter for screening for osteoporosis; N95.9 Unspecified menopausal and perimenopausal disorder; Z80.3 Family history of malignant neoplasm of breast; Z91.89 Other specified personal risk factors, not elsewhere classified | CPT/HCPCS: 77063; 77067; 77080 ==

== ENCOUNTER 2022-07-23 11:45 | Outpatient (CLI) | payer MEDICARE, OTHER ==
[2022-07-23] MEDS ORDERED: Iopamidol 370 76% 100 ML VIAL ONE (12:29)
== END 2022-07-23 11:46 | disposition home or self-care (01) ==
LOC: CT 11:45
PROVIDERS: ATTEND Family Medicine
DX: R07.1 Chest pain on breathing (principal)
CPT/HCPCS: 71270; Q9967

== ENCOUNTER 2022-07-24 10:33 | Emergency (ER) | payer MEDICARE, OTHER ==
[2022-07-24 11:41] LABS: #Eosinphils 0.1 thou/uL (0.0-0.7); #Lymphocytes 2.1 thou/uL (1.20-3.40); #Monocytes 0.4 thou/uL (0.11-0.59); %Basophils 0.5 % (0.0-1.0); %Eosinophils 1.6 % (0.0-10.0); %Lymphocytes 37.4 % (21.0-51.0); %Monocytes 7.8 % (0.0-10.0); %Neutrophils 52.7 % (42.0-75.0); Hemoglobin 12.7 g/dL (12.0-16.0); Mean Corpuscular HGB CONC 34.3 g/dL (32.0-36.0); Mean Corpuscular Hemoglobin 32.4 pg (27.0-31.0); Mean Corpuscular Volume 94.6 fl (78.0-98.0); Mean Platelet Volume 7.7 fL (7.4-10.4); Platelet Count 268 10x3/uL (130-400); RBC Distribution Width 11.3 % (11.5-14.5); Red Blood Cell (RBC) Count 3.93 mill/uL (4.20-5.40); White Blood Cell (WBC) Count 5.7 10x3/uL (4.8-10.8)
[2022-07-24 12:02] LABS: ALT (SGPT) 20 U/L (8-55); AST (SGOT) 26 U/L (5-34); Albumin 4.3 g/dL (3.4-4.8); Alkaline Phosphatase 115 U/L (40-110); Anion Gap 16 mmol/L (10-20); BUN (Urea Nitrogen) 19 mg/dL (9.8-20.1); Bilirubin, Total 0.4 mg/dL (0.2-1.2); Calc. Creatinine Clearance 0 mL/min (70-130); Calcium 8.5 mg/dL (7.8-10.44); Carbon Dioxide 29 mmol/L (23-31); Chloride 99 mmol/L (98-107); Estimated GFR 74; Globulin 3.7 g/dL (2.4-3.5); Glucose 84 mg/dL (80-115); Lipase 25 U/L (8-78); Potassium 4.1 mmol/L (3.5-5.1); Sodium 140 mmol/L (136-145)
== END 2022-07-24 14:33 | disposition home or self-care (01) ==
LOC: ERS 10:33
DX: R07.9 Chest pain, unspecified (principal); E03.9 Hypothyroidism, unspecified
CPT/HCPCS: 36415; 71045; 80053; 83690; 84484; 85025; 93005

== ENCOUNTER 2023-01-27 14:14 | Outpatient (CLI) | payer MEDICARE | END 2023-01-27 14:15 | disposition home or self-care (01) | LOC: BICMAMMO 14:14 | PROVIDERS: ATTEND Family Medicine | DX: N64.4 Mastodynia (principal) | CPT/HCPCS: 76642; 77066; G0279 ==

== ENCOUNTER 2023-04-15 08:25 | Emergency (ER) | payer MEDICARE ==
[2023-04-15] MEDS ORDERED: Ketorolac Tromethamine 30 MG/ML VIAL ONE (08:51)
[2023-04-15 09:05] LABS: #Basophils 0.1 thou/uL (0.0-0.2); #Eosinphils 0.2 thou/uL (0.0-0.7); #Monocytes 0.5 thou/uL (0.11-0.59); #Neutrophils 3.5 thou/uL (1.40-6.50); %Basophils 0.7 % (0.0-1.0); %Eosinophils 2.4 % (0.0-10.0); %Lymphocytes 37.5 % (21.0-51.0); %Monocytes 7.2 % (0.0-10.0); %Neutrophils 51.9 % (42.0-75.0); Hematocrit 39.8 % (36.0-47.0); Hemoglobin 13.5 g/dL (12.0-16.0); Mean Corpuscular HGB CONC 33.9 g/dL (32.0-36.0); Mean Corpuscular Hemoglobin 31.2 pg (27.0-31.0); Mean Corpuscular Volume 91.9 fl (78.0-98.0); Mean Platelet Volume 9.5 fL (7.4-10.4); Platelet Count 314 10x3/uL (130-400); RBC Distribution Width 12.1 % (11.5-14.5); Red Blood Cell (RBC) Count 4.33 mill/uL (4.20-5.40); White Blood Cell (WBC) Count 6.7 10x3/uL (4.8-10.8)
[2023-04-15 09:11] LABS: ALT (SGPT) 29 U/L (8-55); AST (SGOT) 30 U/L (5-34); Albumin 4.6 g/dL (3.4-4.8); Alkaline Phosphatase 115 U/L (40-110); Anion Gap 17 mmol/L (10-20); BUN (Urea Nitrogen) 17 mg/dL (9.8-20.1); Bilirubin, Total 0.7 mg/dL (0.2-1.2); Calc. Creatinine Clearance 0 mL/min (70-130); Calcium 7.5 mg/dL (7.8-10.44); Carbon Dioxide 26 mmol/L (23-31); Chloride 101 mmol/L (98-107); Estimated GFR 63; Globulin 3.9 g/dL (2.4-3.5); Glucose 110 mg/dL (80-115); Lipase 31 U/L (8-78); Protein, Total 8.5 g/dL (5.8-8.1); Sodium 140 mmol/L (136-145)
[2023-04-15 09:14] LABS: Troponin I Less than 0.010 ng/mL (< 0.028)
[2023-04-15] MEDS ORDERED: Ondansetron PF 4 MG/2 ML Vial ONE (09:42)
[2023-04-15 10:19] LABS: SARS-CoV-2 NAA Rapid Test Not Detected (NotDetected)
[2023-04-15 10:31] LABS: Bacteria/HPF None Seen HPF (None Seen); Bilirubin Negative (Negative); Blood, Urine Negative (Negative); CAUTI Indications for Culture Dysuria,urgency,freq; Clarity Clear (Clear); Glucose, Urine (Dipstick) Normal (Negative); Ketone, Urine Negative (Negative); Leukocyte Negative Leu/uL (Negative); Nitrite Negative (Negative); Protein, Urine (Dipstick) Negative (Neg-Trace); RBC/HPF None Seen HPF (0-3); Specific Gravity, Urine 1.019 (1.002-1.036); Squamous Epithelial None Seen HPF (0-3); Urobilinogen Normal mg/dL (Less than 2); WBC/HPF None Seen HPF (0-3)
[2023-04-15 10:33] LABS: Urine Culture Reflex No No
[2023-04-15] MEDS ORDERED: Iopamidol-370 76% 500 ML MDV (1 ML CHARGE) ONE (10:53)
== END 2023-04-15 11:24 | disposition home or self-care (01) ==
LOC: ERS 08:25
DX: R10.10 Upper abdominal pain, unspecified (principal); R11.0 Nausea
CPT/HCPCS: 71045; 74177; 80053; 81001; 83690; 84484; 85025; 87804 ×2; 93005; 96374; 96375; 99284; U0002; J1885; J2405; Q9967